=== PATIENT | female | born 1965 | race Caucasian/White ===

== ENCOUNTER 2017-12-12 13:34 | Emergency (ER) | payer SELFPAY ==
[~2017-12-12] VITALS: Ht 162.6 cm; Wt 59.0 kg
--- NOTE | 2017-12-12 13:50 | ED Lower Extremity ---
General Chief Complaint: Trauma-Non Activation Stated Complaint: FALL/LEFT LEG INJURY Source: patient Exam Limitations: no limitations History of Present Illness Date Seen by Provider: Dec 12, 2017 Time Seen by Provider: 13:48 Initial Comments To ER per EMS from home with reports of a fall. She was about 3-4 feet up on a ladder and fell in her shoe became entangled in the ladder. She doesn't has pain and deformity to the proximal tibia and knee. She was given 4 mg morphine in route by EMS in addition to 4mg zofran of Zofran. Onset: just prior to arrival Severity: moderate Method of Injury: fell Modifying Factors: Worse With Movement Allergies and Home Medications Allergies Coded Allergies: Penicillins (Verified Allergy, Unknown, 12/12/17) Home Medications Atenolol 50 Mg Tablet, 50 MG PO DAILY, (Reported) Lisinopril 20 Mg Tablet, 20 MG PO DAILY, (Reported) Constitutional: see HPI EENTM: see HPI Respiratory: no symptoms reported Cardiovascular: no symptoms reported Genitourinary: no symptoms reported Musculoskeletal: see HPI Skin: no symptoms reported Psychiatric/Neurological: No Symptoms Reported Past Zfqituz-Qmnbew-Dssmfg Hx Patient Social History Alcohol Use: Occasionally Uses Alcohol Beverage of Choice: Beer Recreational Drug Use: No Smoking Status: Current Everyday Smoker Surgeries History of Surgeries: Yes (filopian tube removed from ectopic preg.) Surgeries: Tubal Ligation Respiratory History of Respiratory Disorde: No Cardiovascular History of Cardiac Disorders: Yes Cardiac Disorders: Hypertension Neurological History of Neurological Disord: No Genitourinary History of Genitourinary Disor: No Gastrointestinal History of Gastrointestinal Di: No Musculoskeletal History of Musculoskeletal Dis: No Endocrine History of Endocrine Disorders: No HEENT History of HEENT Disorders: No Cancer History of Cancer: No Psychosocial History of Psychiatric Problem: Yes Behavioral Health Disorders: Depression Integumentary History of Skin or Integumenta: No Blood Transfusions History of Blood Disorders: No Adverse Reaction to a Blood Tr: No Physical Exam Vital Signs Vital Sign - Last 12Hours 12/12/17 13:58 Temp 96.9 Pulse 80 Resp 20 B/P (MAP) 123/92 (102) Pulse Ox 97 Capillary Refill : General Appearance: WD/WN, no apparent distress HEENT: PERRL/EOMI, normal ENT inspection Neck: non-tender, full range of motion Respiratory: no respiratory distress, no accessory muscle use Hips: bilateral hip non-tender, bilateral hip normal inspection, bilateral hip normal range of motion Legs: left leg other (pain deformity and swelling to the proximal tibia on the left. She holds the leg flexed at the knee.) Knees: left knee deformity, left knee ecchymosis, left knee pain, left knee soft tissue tenderness, left knee swelling Ankles: bilateral ankle non-tender, bilateral ankle normal inspection, bilateral ankle normal range of motion Neurologic/Psychiatric: alert, normal mood/affect, oriented x 3 Skin: normal color, warm/dry Progress/Results/Core Measures Results/Orders Lab Results Laboratory Tests Test 12/12/17 14:27 Range/Units White Blood Count 8.5 4.3-11.0 10^3/uL Red Blood Count 4.24 L 4.35-5.85 10^6/uL Hemoglobin 14.2 11.5-16.0 G/DL Hematocrit 39 35-52 % Mean Corpuscular Volume 93 80-99 FL Mean Corpuscular Hemoglobin 34 25-34 PG Mean Corpuscular Hemoglobin Concent 36 32-36 G/DL Red Cell Distribution Width 11.8 10.0-14.5 % Platelet Count 246 130-400 10^3/uL Mean Platelet Volume 9.5 7.4-10.4 FL Neutrophils (%) (Auto) 68 42-75 % Lymphocytes (%) (Auto) 16 12-44 % Monocytes (%) (Auto) 14 H 0-12 % Eosinophils (%) (Auto) 1 0-10 % Basophils (%) (Auto) 0 0-10 % Neutrophils # (Auto) 5.8 1.8-7.8 X 10^3 Lymphocytes # (Auto) 1.4 1.0-4.0 X 10^3 Monocytes # (Auto) 1.2 H 0.0-1.0 X 10^3 Eosinophils # (Auto) 0.1 0.0-0.3 10^3/uL Basophils # (Auto) 0.0 0.0-0.1 10^3/uL Sodium Level 129 L 135-145 MMOL/L Potassium Level 4.6 3.6-5.0 MMOL/L Chloride Level 96 L 98-107 MMOL/L Carbon Dioxide Level 22 21-32 MMOL/L Anion Gap 11 5-14 MMOL/L Blood Urea Nitrogen 6 L 7-18 MG/DL Creatinine 0.70 0.60-1.30 MG/DL Estimat Glomerular Filtration Rate > 60 BUN/Creatinine Ratio 9 Glucose Level 135 H 70-105 MG/DL Calcium Level 9.1 8.5-10.1 MG/DL Total Bilirubin 0.5 0.1-1.0 MG/DL Aspartate Amino Transf (AST/SGOT) 88 H 5-34 U/L Alanine Aminotransferase (ALT/SGPT) 102 H 0-55 U/L Alkaline Phosphatase 115 40-136 U/L Total Protein 7.1 6.4-8.2 GM/DL Albumin 4.1 3.2-4.5 GM/DL My Orders Orders - OTILIO GUNN APRN Tibia/Fibula, Left, 2 Views (12/12/17 13:47) Knee, Left, 2 Views (Ap & Lat) (12/12/17 13:47) Fentanyl Injection (Sublimaze Injection (12/12/17 14:17) Cbc With Automated Diff (12/12/17 14:22) Comprehensive Metabolic Panel (12/12/17 14:22) Saline Lock/Iv-Start (12/12/17 14:22) Catheter(Urinary) To Dependent (12/12/17 14:22) Fentanyl Injection (Sublimaze Injection (12/12/17 14:30) Ondansetron Injection (Zofran Injectio (12/12/17 14:30) Femur, Left, 2 Views (12/12/17 14:22) Ankle, Left, 3 Views (12/12/17 14:24) Hydromorphone Injection (Dilaudid Inject (12/12/17 15:30) Medications Given in ED Current Medications Medications Dose Ordered Sig/Fernando Route Start Time Stop Time Status Last Admin Dose Admin Famotidine 20 mg ONCE ONCE IV 12/12/17 15:00 12/12/17 15:01 DC 12/12/17 15:08 20 MG Fentanyl Citrate 100 mcg STK-MED ONCE .ROUTE 12/12/17 14:17 12/12/17 14:19 DC 12/12/17 14:21 75 MCG Hydromorphone HCl 1 mg ONCE PRN IVP 12/12/17 15:30 12/12/17 15:33 1 MG Metoclopramide HCl 5 mg ONCE ONCE IV 1/29/18 15:00 12/12/17 15:01 DC 12/12/17 15:08 5 MG Ondansetron HCl 4 mg ONCE ONCE IVP 12/12/17 14:30 12/12/17 14:31 DC 12/12/17 14:28 4 MG Vital Signs/I&O Vital Sign - Last 12Hours 12/12/17 12/12/17 13:58 14:04 Temp 96.9 96.9 Pulse 80 80 Resp 20 20 B/P (MAP) 123/92 (102) 123/92 (102) Pulse Ox 97 97 Departure Communication (Admissions) Progress Notes 1426-the left foot slightly cooler than the right foot. Capillary refill on the left at the great toe is about 5 seconds as compared to 3-4 seconds on the right. Patient is a smoker. The right dorsalis pedis pulse is also nonpalpable but able to Doppler blood flow on ultrasound. I assume she has some underlying PAD. I am able to Doppler blood flow over the dorsalis pedis region on the left as well. I did notify Dr. Vargas section maintainer for orthopedic surgeon. He advises to get an x-ray of the ankle and keep patient nothing by mouth. 1522-Dr vargas advises pt will need to go to [facility]. WIll arrange transfer. SIgnificant increase in circumferential swelling proximal tibia since her arrival here to ER. I am able to passively flex and extend the foot without significant increase in pain. She does maintain capillary refill on the left. At this time I do not have concerns of compartment syndrome though she may certain progress to that. Discussed the case with triage nurse and she then relayed the message to Dr. Tucker. We could either placed external fixator here and she will follow-up with him in the clinic later this week or we could splint her and sent her on up-to-date. I relayed this message to Dr. Vargas he would like to have her splinted and sent up today. Impression Impression: Primary Impression: Comminuted fracture left tibia Disposition: 02 XFER SHT-TRM HOSP Condition: Stable Admissions Decision to Admit Reason: Admit from ER (Trauma) Decision to Admit/Date: Dec 12, 2017 Time/Decision to Admit Time: 14:27 Departure-Patient Inst. Decision time for Depature: 15:22 OTILIO GUNN APRN Dec 12, 2017 13:50
[2017-12-12] MEDS ORDERED: LISI-552 PO (14:03)
[2017-12-12] MEDS ORDERED: ATEN50TA PO (14:03)
[2017-12-12] MEDS ORDERED: fentaNYL INJECTION 100 MCG/2 ML AMP ONE (14:17)
--- NOTE | 2017-12-12 14:28 | Diagnostic Imaging Report ---
INDICATION: Fall from a ladder, left knee pain. TIME OF EXAM: 2:20 p.m. FINDINGS: Two views of the left knee demonstrate a comminuted impacted fracture of the proximal tibia and fibula. Tibial fractures appear to extend to the articular surface. Distal femur appears intact. IMPRESSION: Comminuted impacted proximal tibial and fibular fractures. Dictated by: Dictated on workstation # [id number]
[2017-12-12] MEDS ORDERED: fentaNYL INJECTION 100 MCG/2 ML AMP IVP ONE (14:30)
[2017-12-12] MEDS ORDERED: ONDANSETRON 4 MG/2 ML (SDV) Z0FRAN IVP ONE (14:30)
--- NOTE | 2017-12-12 14:30 | Diagnostic Imaging Report ---
INDICATION: Fall and left leg pain. TIME OF EXAM: 2:22 p.m. FINDINGS: Two views of the left tibia and fibula were obtained. Comminuted fractures of the proximal tibia and fibula are again noted. There is depression of the lateral tibial plateau and extension to the articular surfaces. There appears to be a lucency through the mid shaft of the tibia, but overlying cortex is thickened and this may represent a healing fracture. Clinical correlation is recommended. Alignment at the ankle is normal. IMPRESSION: Severely comminuted proximal tibial and fibular fractures. There may be a healing fracture of the mid shaft of the tibia. Clinical correlation is recommended. Dictated by: Dictated on workstation # [id number]
[2017-12-12 14:37] LABS: BASOPHILS % (AUTO) 0 % (0-10); EOSINOPHILS # (AUTO) 0.1 10^3/uL (0.0-0.3); EOSINOPHILS % (AUTO) 1 % (0-10); HEMATOCRIT 39 % (35-52); HEMOGLOBIN 14.2 G/DL (11.5-16.0); LYMPHOCYTES # (AUTO) 1.4 X 10^3 (1.0-4.0); LYMPHOCYTES % (AUTO) 16 % (12-44); MEAN CORPUSCULAR HEMOGLOBIN 34 PG (25-34); MEAN CORPUSCULAR HGB CONC 36 G/DL (32-36); MEAN CORPUSCULAR VOLUME 93 FL (80-99); MEAN PLATELET VOLUME 9.5 FL (7.4-10.4); MONOCYTES # (AUTO) 1.2 X 10^3 (0.0-1.0); MONOCYTES % (AUTO) 14 % (0-12); NEUTROPHILS # (AUTO) 5.8 X 10^3 (1.8-7.8); NEUTROPHILS % (AUTO) 68 % (42-75); PLATELET COUNT 246 10^3/uL (130-400); RED BLOOD COUNT 4.24 10^6/uL (4.35-5.85); RED CELL DISTRIBUTION WIDTH 11.8 % (10.0-14.5); WHITE BLOOD COUNT 8.5 10^3/uL (4.3-11.0)
[2017-12-12 14:59] LABS: ALANINE AMINOTRANSFERASE 102 U/L (0-55); ALBUMIN 4.1 GM/DL (3.2-4.5); ALKALINE PHOSPHATASE 115 U/L (40-136); BILIRUBIN,TOTAL 0.5 MG/DL (0.1-1.0); BUN/CREATININE RATIO 9; CALCIUM 9.1 MG/DL (8.5-10.1); CARBON DIOXIDE 22 MMOL/L (21-32); CHLORIDE 96 MMOL/L (98-107); GFR ESTIMATED > 60; GLUCOSE 135 MG/DL (70-105); POTASSIUM 4.6 MMOL/L (3.6-5.0); SODIUM 129 MMOL/L (135-145); TOTAL PROTEIN 7.1 GM/DL (6.4-8.2)
[2017-12-12] MEDS ORDERED: FAMOTIDINE 20MG/2ML IV (PEPCID) IV ONE (15:00)
[2017-12-12] MEDS ORDERED: METOCLOPRAMIDE INJ 10 MG/2 ML (REGLAN) IV ONE (15:00)
--- NOTE | 2017-12-12 15:01 | Diagnostic Imaging Report ---
INDICATION: Fall. TIME OF EXAM: 3:08 p.m. FINDINGS: Three views of the left ankle demonstrate normal tibiotalar alignment. No dislocation is seen. No fracture is identified. IMPRESSION: No acute bony abnormality is detected. Dictated by: Dictated on workstation # [id number]
--- NOTE | 2017-12-12 15:02 | Diagnostic Imaging Report ---
INDICATION: Fall. TIME OF EXAMINATION: 02:56 p.m. FINDINGS: Left hip alignment is normal. Femur appears intact. Severely comminuted fractures of proximal tibia and fibula are again noted. IMPRESSION: No acute feature of the left femur is identified. Dictated by: Dictated on workstation # [id number]
--- OUTSIDE RECORDS SUMMARY | 2017-12-12 15:24 | XMS REPORT ---
Author Author UYEN ECHOLS Organization [facility] Address [address] [place] [address] Care Team Providers Care Obstetrics Nurse Name Role Phone UYEN ECHOLS Unavailable PROBLEMS Type Condition ICD9-CM Code [id number] Code Onset Dates Condition Status SNOMED Code Problem Tobacco abuse Z72.0 Active 756889224 Problem Routine health maintenance Z00.00 Active 944306507 Problem Tobacco abuse counseling Z71.6 Active 203531763 Problem Essential hypertension I10 Active 89054577 Problem Lumbago with sciatica, left side M54.42 Active 998094255 Problem Elevated fasting glucose R73.01 Active 160950103 Problem ETOH abuse F10.10 Active 99482377 Problem Moderate episode of recurrent major depressive disorder F33.1 Active 501686805 Problem Pseudobulbar affect F48.2 Active 40694255 Problem Mixed hyperlipidemia E78.2 Active 248021632 ALLERGIES Unknown Allergies SOCIAL HISTORY No smoking Hx information available PLAN OF CARE VITAL SIGNS MEDICATIONS Medication Instructions Dosage Frequency Start Date End Date Duration Status Metformin HCl 500 MG Orally Once a day with evening meal 1 tablet Nov 30 day(s) Active RESULTS No Results PROCEDURES No Known procedures IMMUNIZATIONS No Known Immunizations
--- OUTSIDE RECORDS SUMMARY | 2017-12-12 15:25 | XMS REPORT ---
Author Author UYEN ECHOLS Organization [employer] Address Unknown Phone Unavailable Care Team Providers Care History Card Clerk Name Role Phone UYEN ECHOLS CP Unavailable Allergies No Known Allergies Problems Problem Type Condition Code Onset Dates Condition Status Assessment ETOH abuse F10.10 Active Assessment Essential hypertension I10 Active Assessment Moderate episode of recurrent major depressive disorder F33.1 Active Problem Moderate episode of recurrent major depressive disorder F33.1 Active Problem Routine health maintenance Z00.00 Active Problem Essential hypertension I10 Active Problem Tobacco abuse counseling Z71.6 Active Assessment Routine health maintenance Z00.00 Active Problem ETOH abuse F10.10 Active Problem Tobacco abuse Z72.0 Active Medications No Known Medications Procedures Procedure Coding System Code Date GLYCATED HEMOGLOBIN TEST CPT-4 62731 Sep 13, 2016 COMPLETE CBC W/AUTO DIFF WBC CPT-4 42087 Sep 13, 2016 ASSAY THYROID STIM HORMONE CPT-4 76164 Sep 13, 2016 COMPREHEN METABOLIC PANEL CPT-4 02117 Sep 13, 2016 LIPID PANEL CPT-4 81976 Sep 13, 2016 VENIPUNCT, ROUTINE* CPT-4 98028 Sep 13, 2016 Results Name Result Date Reference Range Unit Abnormality Flag ROUTINE VENIPUNCTURE Summary Purpose [employer] Submission
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
--- OUTSIDE RECORDS SUMMARY | 2017-12-12 15:25 | XMS REPORT ---
Author Author Aditi Marie Organization [facility] Address [address] [place], [place] [id number] Care Team Providers Care [employer] Hand Name Role Phone Aditi Marie PCP Unavailable Allergies and Adverse Reactions Name Reaction Notes PENICILLINS Plan of Treatment Planned Activity Comments Planned Date Planned Time Plan/Goal LIPID PANEL 02/17/2012 12:00 AM Medications Active Name Start Date Estimated Completion Date SIG Comments atenolol 50 mg oral tablet 02/10/2015 TAKE ONE TABLET BY MOUTH EVERY DAY Bactroban 2 % topical ointment 05/06/2015 apply a small amount to the affected area by topical route 3 times per day lisinopril 20 mg oral tablet 06/09/2015 take 1 tablet (20 mg) by oral route once daily amlodipine 5 mg oral tablet 07/30/2015 TAKE ONE TABLET BY MOUTH ONCE DAILY Xanax 0.25 mg oral tablet 08/11/2015 take 1 tablet by oral route 2 times a day as needed Wellbutrin 100 mg oral tablet 10/07/2015 take 1 tablet (100 mg) by oral route 2 times per day paroxetine HCl 20 mg oral tablet 10/07/2015 TAKE ONE TABLET BY MOUTH EVERY DAY promethazine-codeine 6.25-10 mg/5 mL oral syrup 10/07/2015 take 5 milliliters by oral route every 4-6 hours as needed, not to exceed 30 mL in 24 hours Zithromax Z-Demond 250 mg oral tablet 10/07/2015 10/12/2015 take 2 tablets ( 500 mg) by oral route once daily for 1 day then 1 tablet (250 mg) by oral route once daily for 4 days Name Start Date Expiration Date SIG Comments naproxen 500 mg oral tablet 11/11/2009 12/11/2009 [id number] - TAKE ONE TABLET BY MOUTH TWICE DAILY NEEDED Zithromax Z-Demond 250 mg oral tablet 07/23/2010 07/28/2010 take 2 tablets (500 mg ) by oral route once daily for 1 day then 1 tablet (250 mg) by oral route once daily for 4 days Zithromax Z-Demond 250 mg oral tablet 10/15/2010 10/20/2010 take 2 tablets (500 mg) by oral route once daily for 1 day then 1 tablet (250 mg) by oral route once daily for 4 days Lexapro 10 mg oral tablet 01/05/2011 02/04/2011 take 1 tablet (10 mg) by oral route once daily for 30 days samples lisinopril 30 mg oral tablet 07/20/2011 01/16/2012 take 1 tablet (30 mg) by oral route once daily for 30 days Zithromax Z-Demond 250 mg oral tablet 11/01/2011 11/11/2011 take 2 tablets ( 500 mg) by oral route once daily for 1 day then 1 tablet (250 mg) by oral route once daily for 4 days Cipro 500 mg oral tablet 03/13/2012 03/20/2012 take 1 tablet (500 mg) by oral route once for 7 days Claritin-D 12 Hour 5-120 mg oral tablet extended release 12 hr 10/02/2012 take 1 tablet by oral route 2 times per day for 30 days prednisone 20 mg oral tablet 12/06/2012 12/11/2012 take 1 tablet daily x5 days. Zithromax Z-Demond 250 mg oral tablet 12/14/2012 12/19/2012 take 2 tablets (500 mg ) by oral route once daily for 1 day then 1 tablet (250 mg) by oral route once daily for 4 days Zithromax Z-Demond 250 mg oral tablet 05/30/2013 06/04/2013 take 2 tablets (500 mg) by oral route once daily for 1 day then 1 tablet (250 mg) by oral route once daily for 4 days atenolol 50 mg oral tablet 08/06/2013 02/02/2014 TAKE ONE TABLET BY MOUTH EVERY DAY paroxetine HCl 20 mg oral tablet 03/07/2013 04/06/2013 TAKE ONE TABLET BY MOUTH EVERY DAY Zithromax Z-Demond 250 mg oral tablet 10/29/2013 11/03/2013 take 2 tablets ( 500 mg) by oral route once daily for 1 day then 1 tablet (250 mg) by oral route once daily for 4 days Levaquin 750 mg oral tablet 01/02/2014 01/09/2014 take 1 tablet (750 mg) by oral route once daily for 7 days Zithromax Z-Demond 250 mg oral tablet 04/18/2014 04/23/2014 take 2 tablets (500 mg ) by oral route once daily for 1 day then 1 tablet (250 mg) by oral route once daily for 4 days amlodipine 5 mg oral tablet 07/17/2014 01/13/2015 take 1 tablet (5 mg) by oral route once daily for 30 days Zithromax Z-Demond 250 mg oral tablet 11/27/2014 12/02/2014 take 2 tablets (500 mg) by oral route once daily for 1 day then 1 tablet (250 mg) by oral route once daily for 4 days Bactrim DS 800-160 mg oral tablet 05/06/2015 05/13/2015 take 1 tablet by oral route every 12 hours for 7 days Possibly caused throwing up, low sodium Discontinued Name Start Date Discontinued Date SIG Comments Phenergan-Codeine 6.25-10 mg/5 mL oral syrup 10/08/2009 10/15/2010 take 5 milliliters by oral route every 6 hours as needed, not to exceed 30 mL in 24 hours Ambien 10 mg oral tablet 10/15/2010 07/20/2011 take 1 tablet (10 mg) by oral route once daily at bedtime Medrol (Demond) 4 mg oral tablets,dose pack 10/15/2010 10/30/2010 take as directed pravastatin 40 mg oral tablet 08/25/2011 02/17/2012 take 1 tablet (40 mg) by oral route once daily for 30 days made hands/legs cramp up Xanax 0.25 mg oral tablet 02/17/2012 03/13/2012 take 1 tablet by mouth daily as needed. Celexa 20 mg oral tablet 03/13/2012 take 1 tablet (20 mg) by oral route once daily in the evening Viibryd 40 mg oral tablet 08/14/2012 take 1 tablet (40 mg) by oral route once daily with food for 30 days amitriptyline 25 mg oral tablet 08/14/2012 take 1 tablet (25 mg) by oral route once daily at bedtime for 30 days Clarinex-D 12 HOUR 2.5-120 mg oral tablet, ER multiphase 12 hr 10/02/2012 take 1 tablet by oral route 2 times per day for 30 days promethazine-codeine 6.25-10 mg/5 mL oral syrup 12/06/2012 05/15/2013 take 5 milliliters by oral route every 4-6 hours as needed, not to exceed 30 mL in 24 hours Medrol (Demond) 4 mg oral tablets,dose pack 05/15/2013 08/06/2013 take as directed promethazine-codeine 6.25-10 mg/5 mL oral syrup 05/30/2013 08/06/2013 take 5 milliliters by oral route every 6 hours as needed, not to exceed 30 mL in 24 hours naproxen 500 mg oral tablet,delayed release (/EC) 10/23/2013 07/17/2014 take 1 tablet by oral route 2 times a day Zyrtec-D 5-120 mg oral tablet extended release 12 hr 10/23/2013 03/18/2014 take 1 tablet by oral route every 12 hours lisinopril 20 mg oral tablet 10/23/2013 03/18/2014 TAKE ONE & ONE-HALF TABLETS BY MOUTH EVERY DAY promethazine-codeine 6.25-10 mg/5 mL oral syrup 01/02/2014 04/17/2014 take 5 milliliters by oral route every 4-6 hours as needed, not to exceed 30 mL in 24 hours lisinopril-hydrochlorothiazide 20-12.5 mg oral tablet 04/17/2014 05/19/2015 take 2 tablets by mouth daily in am. Changed from HCL to plain Medrol (Demond) 4 mg oral tablets,dose pack 04/18/2014 07/17/2014 take as directed Medrol (Demond) 4 mg oral tablets,dose pack 10/30/2014 02/10/2015 take as directed promethazine-codeine 6.25-10 mg/5 mL oral syrup 11/27/2014 02/10/2015 take 5 milliliters by oral route every 4-6 hours as needed, not to exceed 30 mL in 24 hours Sudafed 12 Hour 120 mg oral tablet extended release 11/27/2014 05/06/2015 take 1 tablet (120 mg) by oral route every 12 hours Problem List Description Status Onset Asthma Active Essential Hypertension Active Chronic Obstructive Pulmonary Disease Active Anxiety Disorder Active 04/17/2014 Vital Signs Date Time BP-Sys(mm[Hg] BP-Nica(mm[Hg]) HR(bpm) RR(rpm) Temp WT HT HC BMI BSA BMI Percentile O2 Sat(%) 10/07/2015 1:18:00 PM 128 mmHg 62 mmHg 86 bpm 18 rpm 97.3 F 119.25 lbs 64 in 20.47 kg/m2 1.56 m2 100 % 08/11/2015 1:38:00 PM 132 mmHg 74 mmHg 89 bpm 18 rpm 98.4 F 117 lbs 64 in 20.0828 kg/m 1.548 m 100 % 05/19/2015 11:20:00 AM 156 mmHg 100 mmHg 80 bpm 18 rpm 97.8 F 115.25 lbs 64 in 19.78 kg/m2 1.54 m2 100 % 05/06/2015 10:53:00 AM 124 mmHg 66 mmHg 82 bpm 18 rpm 97.6 F 115.25 lbs 64 in 19.7824 kg/m 1.5364 m 100 % 02/10/2015 1:52:00 PM 132 mmHg 74 mmHg 84 bpm 18 rpm 98.2 F 122.375 lbs 64 in 21.01 kg/m2 1.58 m2 100 % 11/27/2014 9:23:00 AM 112 mmHg 70 mmHg 101 bpm 18 rpm 97.1 F 123 lbs 64 in 21.1127 kg/m 1.5872 m 100 % 10/30/2014 9:27:00 AM 122 mmHg 78 mmHg 96 bpm 18 rpm 97.2 F 125.8 lbs 64 in 21.59 kg/m2 1.61 m2 99 % 08/21/2014 1:52:00 PM 126 mmHg 66 mmHg 80 bpm 18 rpm 97 F 125.375 lbs 64 in 21.5203 kg/m 1.6025 m 99 % 07/17/2014 2:10:00 PM 138 mmHg 92 mmHg 90 bpm 18 rpm 98 F 125.5 lbs 64 in 21.54 kg/m2 1.60 m2 100 % 04/17/2014 8:17:00 AM 124 mmHg 74 mmHg 102 bpm 18 rpm 96.5 F 125.25 lbs 64 in 21.4989 kg/m 1.6017 m 99 % 03/18/2014 8:52:00 AM 140 mmHg 86 mmHg 90 bpm 18 rpm 97.6 F 129.375 lbs 64 in 22.21 kg/m2 1.63 m2 100 % 01/02/2014 2:42:00 PM 144 mmHg 82 mmHg 78 bpm 18 rpm 97.2 F 131.5 lbs 64 in 22.5717 kg/m 1.6412 m 100 % 10/23/2013 10:30:00 AM 138 mmHg 78 mmHg 91 bpm 18 rpm 96.4 F 137 lbs 64 in 23.52 kg/m2 1.68 m2 100 % 08/06/2013 10:01:00 AM 132 mmHg 66 mmHg 92 bpm 18 rpm 96.8 F 131.25 lbs 64 in 22.5288 kg/m 1.6396 m 100 % 05/15/2013 11:29:00 AM 132 mmHg 68 mmHg 81 bpm 18 rpm 97.7 F 131.375 lbs 64 in 22.55 kg/m2 1.64 m2 100 % 03/19/2013 3:36:00 PM 134 mmHg 68 mmHg 68 bpm 18 rpm 97.6 F 130.125 lbs 64 in 22.3357 kg/m 1.6326 m 12/06/2012 9:53:00 AM 134 mmHg 68 mmHg 68 bpm 18 rpm 97.8 F 126.375 lbs 64 in 21.69 kg/m2 1.61 m2 09/26/2012 9:48:00 AM 136 mmHg 72 mmHg 64 bpm 18 rpm 97.1 F 120.125 lbs 64 in 20.6192 kg/m 1.5686 m 08/14/2012 9:27:00 AM 148 mmHg 98 mmHg 104 bpm 18 rpm 97.6 F 113.5 lbs 100 % 04/04/2012 1:45:00 PM 132 mmHg 64 mmHg 101 bpm 18 rpm 97.4 F 111.375 lbs 64 in 19.1173 kg/m 1.5104 m 03/13/2012 9:49:00 AM 138 mmHg 64 mmHg 70 bpm 18 rpm 97.5 F 109 lbs 64 in 18.71 kg/m2 1.49 m2 99 % 02/17/2012 2:37:00 PM 132 mmHg 64 mmHg 68 bpm 18 rpm 97.9 F 114 lbs 64 in 19.5679 kg/m 1.5281 m 11/01/2011 8:26:00 AM 138 mmHg 64 mmHg 68 bpm 18 rpm 96.4 F 117 lbs 64 in 20.08 kg/m2 1.55 m2 07/20/2011 3:05:00 PM 142 mmHg 92 mmHg 78 bpm 97.5 F 116 lbs 03/31/2011 1:39:00 PM 130 mmHg 88 mmHg 72 bpm 16 rpm 98 F 121.25 lbs 11/12/2010 3:35:00 PM 118 mmHg 76 mmHg 10/15/2010 2:48:00 PM 168 mmHg 110 mmHg 10/15/2010 2:25:00 PM 174 mmHg 110 mmHg 10/15/2010 1:55:00 PM 198 mmHg 118 mmHg 64 bpm 16 rpm 96.9 F 123 lbs 07/17/2010 2:54:00 PM 106 mmHg 68 mmHg 64 bpm 16 rpm 97.6 F 117 lbs 10/07/2009 4:00:00 PM 128 mmHg 70 mmHg 64 bpm 16 rpm 97.8 F 120.125 lbs Social History Name Description Comments No history of foreign travel Tobacco Use Alcohol Use Tobacco Current every day smoker History of Procedures Date Ordered Description Order Status 08/11/2015 12:00 AM COMPREHEN METABOLIC PANEL Returned 07/20/2011 12:00 AM COMPREHEN METABOLIC PANEL Reviewed 07/20/2011 12:00 AM LIPID PANEL Reviewed 10/07/2015 12:00 AM Decadron, Per 1 Mg TXC# [address]-37 Reviewed 10/07/2015 12:00 AM Depo-Medrol 40mg Reviewed 11/01/2011 12:00 AM LIPID PANEL Reviewed 11/01/2011 12:00 AM THER/PROPH/DIAG INJ SC/IM Reviewed 11/01/2011 12:00 AM Decadron 1 mg N[facility]#[id number] (Sanjeev) Reviewed 11/01/2011 12:00 AM Depo-Medrol 80 mg [facility]#[id number] Reviewed 02/17/2012 12:00 AM THER/PROPH/DIAG INJ SC/IM Reviewed 02/17/2012 12:00 AM Decadron 1 mg NDC#[id number] (Sanjeev) Reviewed 02/17/2012 12:00 AM Depo-Medrol 80 mg N[facility]#[id number] Reviewed 08/14/2012 12:00 AM COMPREHEN METABOLIC PANEL Returned 08/14/2012 12:00 AM LIPID PANEL Returned 09/26/2012 12:00 AM THER/PROPH/DIAG INJ SC/IM Reviewed 09/26/2012 12:00 AM Decadron 1 mg NDC#[id number] (Sanjeev) Reviewed 09/26/2012 12:00 AM Depo-Medrol 80 mg [facility]#[id number] Reviewed 05/15/2013 12:00 AM CHEST X-RAY 2VW FRONTAL&LATL Returned 08/06/2013 12:00 AM COMPLETE CBC W/AUTO DIFF WBC Returned 08/06/2013 12:00 AM COMPREHEN METABOLIC PANEL Returned 08/06/2013 12:00 AM LIPID PANEL Returned 10/24/2013 12:00 AM VITAMIN B-12 Returned 10/24/2013 12:00 AM ASSAY OF FOLIC ACID SERUM Returned 10/31/2013 12:00 AM B12 Injection, Up to 1000 Mcg [facility]#9333-4233-67 Reviewed 01/02/2014 12:00 AM THER/PROPH/DIAG INJ SC/IM Reviewed 01/02/2014 12:00 AM Decadron, Per 1 Mg [facility]# [address]-74 Reviewed 01/02/2014 12:00 AM Depo-Medrol, Per 80 Mg [facility]#7265-9638-84 Reviewed 01/02/2014 12:00 AM B12 Injection, Up to 1000 Mcg [facility]#2087-7659-06 Reviewed 01/29/2014 12:00 AM B12 Injection, Up to 1000 Mcg [facility]#5907-9759-82 Reviewed 03/18/2014 12:00 AM THER/PROPH/DIAG INJ SC/IM Reviewed 03/18/2014 12:00 AM Decadron, Per 1 Mg [facility]# [address]-67 Reviewed 03/18/2014 12:00 AM Depo-Medrol, Per 80 Mg [facility]#4534-9077-46 Reviewed 04/11/2014 12:00 AM B12 Injection, Up to 1000 Mcg [facility]#7601-6055-26 Reviewed 10/30/2010 12:00 AM Blood Pressure Check-no charge Reviewed 11/12/2010 12:00 AM Blood Pressure Check-no charge Reviewed 07/17/2014 12:00 AM COMPLETE CBC W/AUTO DIFF WBC Returned 07/17/2014 12:00 AM COMPREHEN METABOLIC PANEL Returned 07/17/2014 12:00 AM LIPID PANEL Returned 11/27/2014 12:00 AM THER/PROPH/DIAG INJ SC/IM Reviewed 11/27/2014 12:00 AM Decadron, Per 1 Mg [facility]# [address]-20 Reviewed 11/27/2014 12:00 AM Depo-Medrol, Per 80 Mg [facility]#0473-2017-98 Reviewed 02/10/2015 12:00 AM THER/PROPH/DIAG INJ SC/IM Reviewed 02/10/2015 12:00 AM Decadron, Per 1 Mg [facility]# [address]-87 Reviewed 02/10/2015 12:00 AM Depo-Medrol 40mg Reviewed 05/19/2015 12:00 AM METABOLIC PANEL TOTAL CA Returned Results Summary Data and Description Results 03/19/2009 12:00 AM Cholest Cry Stone Ql IR 0.0 %Colonoscopy-Women and Men over 50 Declined Mammogram -Women over 40 Declined Pap Smear Declined 08/25/2011 8:35 AM TRIGLYCERIDES 465.0 mg/dLCHOLESTEROL 192.0 mg/dLHDL 56.0 mg /dLLDL (CALC) INVALID MG/DLGLUCOSE 107.0 mg/dLSODIUM 142.0 mmol/LPOTASSIUM 4.60 mmol/LCHLORIDE 109.0 mmol/LCO2 23.0 mmol/LBUN 10.0 mg/dLCREATININE 0.70 mg/ dLSGOT/AST 22.0 IU/LSGPT/ALT 21.0 IU/LALK PHOS 66.0 IU/LTOTAL PROTEIN 6.80 g/ dLALBUMIN 4.30 g/dLTOTAL BILI 0.20 mg/dLCALCIUM 9.20 mg/dLeGFR >60 mL/min/1.73 m2 11/03/2011 9:18 AM TRIGLYCERIDES 116.0 mg/dLCHOLESTEROL 180.0 mg/dLHDL 73.0 mg /dLLDL (CALC) 84.0 mg/dL 08/14/2012 10:02 AM GLUCOSE 91.0 mg/dLSODIUM 141.0 mmol/LPOTASSIUM 4.40 mmol/ LCHLORIDE 107.0 mmol/LCO2 23.0 mmol/LBUN 9.0 mg/dLCREATININE 0.70 mg/dLSGOT/AST 28.0 IU/LSGPT/ALT 31.0 IU/LALK PHOS 71.0 IU/LTOTAL PROTEIN 7.10 g/dLALBUMIN 4.40 g/dLTOTAL BILI 0.30 mg/dLCALCIUM 9.50 mg/dLeGFR 60 TRIGLYCERIDES 131.0 mg/ dLCHOLESTEROL 180.0 mg/dLHDL 66.0 mg/dLLDL (CALC) 88.0 mg/dL 10/23/2013 11:10 AM WBC 9.3 RBC 4.01 HGB 13.20 g/dLHCT 40.0 %MCV 100.0 fLMCH 32.90 pgMCHC 33.0 g/dLRDW CV 13.40 %MPV 10.30 fLPLT 240 %NEUT 61.20 %%LYMP 26.60 %%MONO 10.50 %%EOS 1.50 %%BASO 0.20 %#NEUT 5.67 #LYMP 2.46 #MONO 0.97 # EOS 0.14 #BASO 0.02 GLUCOSE 107.0 mg/dLSODIUM 140.0 mmol/LPOTASSIUM 4.20 mmol/ LCHLORIDE 107.0 mmol/LCO2 24.0 mmol/LBUN 9.0 mg/dLCREATININE 0.70 mg/dLSGOT/AST 33.0 IU/LSGPT/ALT 43.0 IU/LALK PHOS 93.0 IU/LTOTAL PROTEIN 6.90 g/dLALBUMIN 4.0 g/dLTOTAL BILI 0.40 mg/dLCALCIUM 9.70 mg/dLeGFR >60 mL/min/1.73 [id number] 212.0 mg/dLCHOLESTEROL 196.0 mg/dLHDL 56.0 mg/dLLDL (CALC) 98.0 mg/dL 10/29/2013 11:55 AM FOLATE 6.50 ng/mLVITAMIN B12 264.0 pg/mL 10/30/2014 10:15 AM WBC 9.0 RBC 4.20 HGB 13.90 g/dLHCT 40.70 %MCV 97.0 fLMCH 33.10 pgMCHC 34.20 g/dLRDW CV 12.80 %MPV 9.80 fLPLT 309 %NEUT 60.50 %%LYMP 27.30 %%MONO 9.70 %%EOS 2.30 %%BASO 0.20 %#NEUT 5.46 #LYMP 2.47 #MONO 0.88 #EOS 0.21 #BASO 0.02 TRIGLYCERIDES 167.0 mg/dLCHOLESTEROL 225.0 mg/dLHDL 57.0 mg/ dLLDL (CALC) 135.0 mg/dLGLUCOSE 109.0 mg/dLSODIUM 135.0 mmol/LPOTASSIUM 4.80 mmol/LCHLORIDE 100.0 mmol/LCO2 24.0 mmol/LBUN 15.0 mg/dLCREATININE 1.20 mg/ dLSGOT/AST 37.0 IU/LSGPT/ALT 52.0 IU/LALK PHOS 90.0 IU/LTOTAL PROTEIN 7.40 g/ dLALBUMIN 4.50 g/dLTOTAL BILI 0.30 mg/dLCALCIUM 10.40 mg/dLeGFR 48 05/23/2015 1:10 PM GLUCOSE 91.0 mg/dLSODIUM 138.0 mmol/LPOTASSIUM 4.40 mmol/ LCHLORIDE 102.0 mmol/LCO2 24.0 mmol/LBUN 4.0 mg/dLCREATININE 0.70 mg/dLCALCIUM 9.20 mg/dLeGFR >60 mL/min/1.73 m2 08/11/2015 2:45 PM GLUCOSE 105.0 mg/dLSODIUM 133.0 mmol/LPOTASSIUM 4.50 mmol/ LCHLORIDE 98.0 mmol/LCO2 25.0 mmol/LBUN 9.0 mg/dLCREATININE 0.60 mg/dLSGOT/AST 65.0 IU/LSGPT/ALT 76.0 IU/LALK PHOS 114.0 IU/LTOTAL PROTEIN 7.20 g/dLALBUMIN 4.50 g/dLTOTAL BILI 0.40 mg/dLCALCIUM 9.80 mg/dLeGFR >60 mL/min/1.73m History Of Immunizations Not available. History of Past Illness Name Date of Onset Comments Bronchitis, Acute Oct 08 2009 8:32AM Rosacea Essential Hypertension Asthma Chronic Obstructive Pulmonary Disease Depression and anxiety Jul 17 2010 2:57PM Anxiety Disorder 04/17/2014 Upper Respiratory Infection Oct 15 2010 2:02PM Allergic Rhinitis Oct 15 2010 2:02PM Insomnia Oct 15 2010 2:02PM Hypertension Oct 15 2010 2:02PM Hypertension, Benign Essential Oct 30 2010 2:44PM Hypertension, Benign Essential Nov 12 2010 3:33PM Benign Essential Hypertension Mar 31 2011 1:40PM Anxiety Disorder Mar 31 2011 1:40PM Depressive Disorder Mar 31 2011 1:40PM Hypertension Jul 20 2011 3:06PM Hypertension Nov 01 2011 8:28AM Hyperlipidemia, unspecified Nov 01 2011 8:28AM Sinusitis, Acute Nov 01 2011 8:28AM Upper Respiratory Infections Feb 17 2012 2:39PM Hyperlipidemia, unspecified Feb 17 2012 2:39PM Anxiety state; other Feb 17 2012 2:39PM Upper Respiratory Infections Mar 13 2012 9:51AM Anxiety/Depressive Disorder Mar 13 2012 9:51AM Anxiety/Depressive Disorder Apr 04 2012 1:48PM Hypertension Aug 14 2012 9:29AM Menopausal Symptoms Aug 14 2012 9:29AM Anxiety/Depressive Disorder Aug 14 2012 9:29AM Upper Respiratory Infections Sep 26 2012 9:50AM Anxiety Disorder Sep 26 2012 9:50AM Hypertension Dec 06 2012 9:56AM Upper Respiratory Infections Dec 06 2012 9:56AM Anxiety Disorder Dec 06 2012 9:56AM Depressive Disorder Dec 06 2012 9:56AM Anxiety/Depressive Disorder Mar 19 2013 3:38PM Cough May 15 2013 11:31AM Costochondritis May 15 2013 11:31AM Hypertension Aug 06 2013 10:03AM Anxiety Disorder Aug 06 2013 10:03AM Depression Aug 06 2013 10:03AM Anemia, Iron Deficiency, unspecified Oct 24 2013 9:09AM Hypertension Oct 23 2013 10:32AM Upper Respiratory Infections Oct 23 2013 10:32AM Tendonitis Oct 23 2013 10:32AM Anxiety Disorder Oct 23 2013 10:32AM Anemia, Vitamin B12 Deficiency Oct 31 2013 4:25PM Upper Respiratory Infections Jan 02 2014 2:48PM Anxiety Disorder Jan 02 2014 2:48PM Anemia, Vitamin B12 Deficiency Jan 29 2014 1:54PM Hypertension Mar 18 2014 8:54AM Rhinitis, Allergic Mar 18 2014 8:54AM Anemia, Vitamin B12 Deficiency Apr 11 2014 8:38AM Hypertension Apr 17 2014 8:20AM Anxiety Disorder Apr 17 2014 8:20AM Anxiety Disorder Jul 17 2014 2:14PM Essential Hypertension Jul 17 2014 2:14PM Chronic Obstructive Pulmonary Disease Jul 17 2014 2:14PM Routine gynecological examination Aug 21 2014 1:54PM Breast cyst, right Aug 21 2014 1:54PM Essential Hypertension Oct 30 2014 9:29AM Anxiety Disorder Oct 30 2014 9:29AM Depressive Disorder Oct 30 2014 9:29AM Tobacco Abuse Oct 30 2014 9:29AM Cough Oct 30 2014 9:29AM Upper Respiratory Infections Nov 27 2014 9:29AM Back Pain Feb 10 2015 1:54PM Anxiety Disorder Feb 10 2015 1:54PM Essential Hypertension Feb 10 2015 1:54PM Chronic Obstructive Pulmonary Disease Feb 10 2015 1:54PM Facial lesion May 06 2015 10:55AM Anxiety Disorder May 06 2015 10:55AM Hyponatremia May 19 2015 11:24AM Anxiety Disorder May 19 2015 11:24AM Essential Hypertension May 19 2015 11:24AM Anxiety Disorder Aug 11 2015 1:40PM Essential Hypertension Aug 11 2015 1:40PM Chronic Obstructive Pulmonary Disease Aug 11 2015 1:40PM Abrasion Aug 11 2015 1:40PM Acute URI Oct 07 2015 1:20PM Alcohol abuse Oct 07 2015 1:20PM Anxiety Oct 07 2015 1:20PM Depression Oct 07 2015 1:20PM Payers Insurance Name Company Name Plan Name Plan Number Policy Number Policy Group Number Start Date [employer] [id number] Monday, 2007 History of Encounters Visit Date Visit Type Provider 10/07/2015 Office visit Aditi Marie GLASS ENGRAVER 08/11/2015 Office visit Aditi Marie GLASS ENGRAVER 05/19/2015 Office visit Aditi Marie GLASS ENGRAVER 05/12/2015 [facility] Salome Phillips MD 05/06/2015 Office visit Aditi Marie GLASS ENGRAVER 02/10/2015 Office visit Aditi Marie GLASS ENGRAVER 11/27/2014 Office visit Aditi Marie GLASS ENGRAVER 10/30/2014 Office visit Emily Casper GLASS ENGRAVER 08/21/2014 Office visit Aditi Marie GLASS ENGRAVER 07/17/2014 Office visit Aditi Marie GLASS ENGRAVER 04/17/2014 Office visit Aditi Marie GLASS ENGRAVER 03/18/2014 Office visit Aditi Marie GLASS ENGRAVER 03/15/2014 Nurse visit Emily Casper GLASS ENGRAVER 01/29/2014 Nurse visit Aditi Marie GLASS ENGRAVER 01/02/2014 Office visit Aditi Marie GLASS ENGRAVER 10/31/2013 Nurse visit Aditi Marie GLASS ENGRAVER 10/23/2013 Office visit Aditi Marie GLASS ENGRAVER 08/06/2013 Office visit Aditi Marie GLASS ENGRAVER 05/15/2013 Office visit Aditi Marie GLASS ENGRAVER 03/19/2013 Office visit Aditi Marie GLASS ENGRAVER 12/06/2012 Office visit Aditi Marie GLASS ENGRAVER 09/26/2012 Office visit Aditi Marie GLASS ENGRAVER 08/14/2012 Office visit Aditi Marie GLASS ENGRAVER 04/04/2012 Office visit Aditi Marie GLASS ENGRAVER 03/13/2012 Office visit Aditi Marie GLASS ENGRAVER 02/17/2012 Office visit Aditi Marie GLASS ENGRAVER 11/01/2011 Office visit Aditi Marie GLASS ENGRAVER 07/20/2011 Office visit Aditi Marie GLASS ENGRAVER 03/31/2011 Office visit Lyudmila DYER 11/12/2010 Nurse visit Lyudmila DYER 10/30/2010 Nurse visit Lyudmila DYER 10/15/2010 Office visit Lyudmila DYER 07/17/2010 Office visit Lyudmila DYER 10/07/2009 Office visit Paola DYER
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
--- OUTSIDE RECORDS SUMMARY | 2017-12-12 15:26 | XMS REPORT ---
Author Author Aditi Marie Organization [facility] Address [address] [place], [place] [address] Care Team Providers Care Air Antisubmarine Officer Name Role Phone Aditi Marie PCP Unavailable [...] TAKE ONE TABLET BY MOUTH ONCE DAILY paroxetine HCl 40 mg oral tablet 08/11/2015 TAKE ONE TABLET BY MOUTH EVERY DAY Xanax 0.25 mg oral tablet 08/11/2015 take 1 tablet by oral route 2 times a day as needed Name Start Date Expiration Date SIG Comments [...] HC BMI BSA BMI Percentile O2 Sat(%) 08/11/2015 1:38:00 PM 132 mmHg 74 mmHg 89 bpm 18 rpm 98.4 F 117 lbs 64 in 20.08 kg/m2 1.55 m2 100 % 05/19/2015 11:20:00 AM 156 mmHg 100 mmHg 80 bpm 18 rpm 97.8 F 115.25 lbs 64 in 19.7824 kg/m 1.5364 m 100 % 05/06/2015 10:53:00 AM 124 mmHg 66 mmHg 82 bpm 18 rpm 97.6 F 115.25 lbs 64 in 19.78 kg/m2 1.54 m2 100 % 02/10/2015 1:52:00 PM 132 mmHg 74 mmHg 84 bpm 18 rpm 98.2 F 122.375 lbs 64 in 21.0054 kg/m 1.5832 m 100 % 11/27/2014 9:23:00 AM 112 mmHg 70 mmHg 101 bpm 18 rpm 97.1 F 123 lbs 64 in 21.11 kg/m2 1.59 m2 100 % 10/30/2014 9:27:00 AM 122 mmHg 78 mmHg 96 bpm 18 rpm 97.2 F 125.8 lbs 64 in 21.5933 kg/m 1.6052 m 99 % 08/21/2014 1:52:00 PM 126 mmHg 66 mmHg 80 bpm 18 rpm 97 F 125.375 lbs 64 in 21.52 kg/m2 1.60 m2 99 % 07/17/2014 2:10:00 PM 138 mmHg 92 mmHg 90 bpm 18 rpm 98 F 125.5 lbs 64 in 21.5418 kg/m 1.6033 m 100 % 04/17/2014 8:17:00 AM 124 mmHg 74 mmHg 102 bpm 18 rpm 96.5 F 125.25 lbs 64 in 21.50 kg/m2 1.60 m2 99 % 03/18/2014 8:52:00 AM 140 mmHg 86 mmHg 90 bpm 18 rpm 97.6 F 129.375 lbs 64 in 22.2069 kg/m 1.6279 m 100 % 01/02/2014 2:42:00 PM 144 mmHg 82 mmHg 78 bpm 18 rpm 97.2 F 131.5 lbs 64 in 22.57 kg/m2 1.64 m2 100 % 10/23/2013 10:30:00 AM 138 mmHg 78 mmHg 91 bpm 18 rpm 96.4 F 137 lbs 64 in 23.5158 kg/m 1.6751 m 100 % 08/06/2013 10:01:00 AM 132 mmHg 66 mmHg 92 bpm 18 rpm 96.8 F 131.25 lbs 64 in 22.53 kg/m2 1.64 m2 100 % 05/15/2013 11:29:00 AM 132 mmHg 68 mmHg 81 bpm 18 rpm 97.7 F 131.375 lbs 64 in 22.5502 kg/m 1.6404 m 100 % 03/19/2013 3:36:00 PM 134 mmHg 68 mmHg 68 bpm 18 rpm 97.6 F 130.125 lbs 64 in 22.34 kg/m2 1.63 m2 12/06/2012 9:53:00 AM 134 mmHg 68 mmHg 68 bpm 18 rpm 97.8 F 126.375 lbs 64 in 21.692 kg/m 1.6089 m 09/26/2012 9:48:00 AM 136 mmHg 72 mmHg 64 bpm 18 rpm 97.1 F 120.125 lbs 64 in 20.62 kg/m2 1.57 m2 08/14/2012 9:27:00 AM 148 mmHg 98 mmHg 104 bpm 18 rpm 97.6 F 113.5 lbs 100 % 04/04/2012 1:45:00 PM 132 mmHg 64 mmHg 101 bpm 18 rpm 97.4 F 111.375 lbs 64 in 19.12 kg/m2 1.51 m2 03/13/2012 9:49:00 AM 138 mmHg 64 mmHg 70 bpm 18 rpm 97.5 F 109 lbs 64 in 18.7096 kg/m 1.4942 m 99 % 02/17/2012 2:37:00 PM 132 mmHg 64 mmHg 68 bpm 18 rpm 97.9 F 114 lbs 64 in 19.57 kg/m2 1.53 m2 11/01/2011 8:26:00 AM 138 mmHg 64 mmHg 68 bpm 18 rpm 96.4 F 117 lbs 64 in 20.0828 kg/m 1.548 m 07/20/2011 3:05:00 PM 142 mmHg 92 mmHg [...] Reviewed 07/20/2011 12:00 AM LIPID PANEL Reviewed 11/01/2011 12:00 AM LIPID PANEL Reviewed 11/01/2011 12:00 AM THER/PROPH/DIAG INJ SC/IM Reviewed 11/01/2011 12:00 AM Decadron 1 mg NDC#[id number] (Sanjeev) Reviewed 11/01/2011 12:00 AM Depo-Medrol 80 mg NDC#[id number]-Jbevaiow Reviewed 02/17/2012 12:00 AM THER/PROPH/DIAG INJ SC/IM Reviewed 02/17/2012 12:00 AM Decadron 1 mg NDC#[id number] (Sanjeev) Reviewed 02/17/2012 12:00 AM Depo-Medrol 80 mg NDC#[id number]-Hbaycxpe Reviewed 08/14/2012 12:00 AM COMPREHEN METABOLIC PANEL Returned 08/14/2012 12:00 AM LIPID PANEL Returned 09/26/2012 12:00 AM THER/PROPH/DIAG INJ SC/IM Reviewed 09/26/2012 12:00 AM Decadron 1 mg NDC#[id number] (Sanjeev) Reviewed 09/26/2012 12:00 AM Depo-Medrol 80 mg NDC#[id number]-Wciqewkz Reviewed 05/15/2013 12:00 AM CHEST X-RAY 2VW FRONTAL&LATL Returned 08/06/2013 12:00 AM COMPLETE CBC W/AUTO DIFF WBC Returned 08/06/2013 12:00 AM COMPREHEN METABOLIC PANEL Returned 08/06/2013 12:00 AM LIPID PANEL Returned 10/24/2013 12:00 AM VITAMIN B-12 Returned 10/24/2013 12:00 AM ASSAY OF FOLIC ACID SERUM Returned 10/31/2013 12:00 AM B12 Injection, Up to 1000 Mcg [facility]#[id number] Reviewed 01/02/2014 12:00 AM THER/PROPH/DIAG INJ SC/IM Reviewed 01/02/2014 12:00 AM Decadron, Per 1 Mg ND# [address]-01 Reviewed 01/02/2014 12:00 AM Depo-Medrol, Per 80 Mg [facility]#[id number] Reviewed 01/02/2014 12:00 AM B12 Injection, Up to 1000 Mcg [facility]#8547-4387-33 Reviewed 01/29/2014 12:00 AM B12 Injection, Up to 1000 Mcg [facility]#[id number] Reviewed 03/18/2014 12:00 AM THER/PROPH/DIAG INJ SC/IM Reviewed 03/18/2014 12:00 AM Decadron, Per 1 Mg [facility] [place]# [address]-83 Reviewed 03/18/2014 12:00 AM Depo-Medrol, Per 80 Mg [facility]#[id number] Reviewed 04/11/2014 12:00 AM B12 Injection, Up to 1000 Mcg [facility]#[id number] Reviewed 10/30/2010 12:00 AM Blood Pressure Check-no charge Reviewed 11/12/2010 12:00 AM Blood Pressure Check-no charge Reviewed 07/17/2014 12:00 AM COMPLETE CBC W/AUTO DIFF WBC Returned 07/17/2014 12:00 AM COMPREHEN METABOLIC PANEL Returned 07/17/2014 12:00 AM LIPID PANEL Returned 11/27/2014 12:00 AM THER/PROPH/DIAG INJ SC/IM Reviewed 11/27/2014 12:00 AM Decadron, Per 1 Mg [facility]# [address]-09 Reviewed 11/27/2014 12:00 AM Depo-Medrol, Per 80 Mg [facility]#0860-0688-16 Reviewed 02/10/2015 12:00 AM THER/PROPH/DIAG INJ SC/IM Reviewed 02/10/2015 12:00 AM Decadron, Per 1 Mg [facility]# [address]-11 Reviewed 02/10/2015 12:00 AM Depo-Medrol 40mg Reviewed [...] BILI 0.40 mg/dLCALCIUM 9.70 mg/dLeGFR >60 mL/min/1.73 [id number] 212.0 mg/dLCHOLESTEROL 196.0 mg/dLHDL 56.0 mg/dLLDL (CALC) [...] 2015 1:40PM Abrasion Aug 11 2015 1:40PM Payers Insurance Name Company Name Plan Name Plan Number Policy Number Policy Group Number Start Date [employer] [id number] Monday, 2007 History of Encounters Visit Date Visit Type Provider 08/11/2015 Office visit Adiit Marie APRN 05/19/2015 Office visit Aditi Marie ACADEMIC SERVICES COORDINATOR 05/12/2015 [facility] Salome Phillips MD 05/06/2015 Office visit Aditi Marie ACADEMIC SERVICES COORDINATOR 02/10/2015 Office visit Aditi Marie ACADEMIC SERVICES COORDINATOR 11/27/2014 Office visit Aditi Marie ACADEMIC SERVICES COORDINATOR 10/30/2014 Office visit Emily Casper ACADEMIC SERVICES COORDINATOR 08/21/2014 Office visit Aditi Marie ACADEMIC SERVICES COORDINATOR 07/17/2014 Office visit Aditi Frank ACADEMIC SERVICES COORDINATOR 04/17/2014 Office visit Aditi Walker ACADEMIC SERVICES COORDINATOR 03/18/2014 Office visit Aditi Frank ACADEMIC SERVICES COORDINATOR 03/15/2014 Nurse visit Emily Casper ACADEMIC SERVICES COORDINATOR 01/29/2014 Nurse visit Aditi Frank ACADEMIC SERVICES COORDINATOR 01/02/2014 Office visit Aditi Walker ACADEMIC SERVICES COORDINATOR 10/31/2013 Nurse visit Aditi Walker ACADEMIC SERVICES COORDINATOR 10/23/2013 Office visit Aditi Walker ACADEMIC SERVICES COORDINATOR 08/06/2013 Office visit Aditi Walker ACADEMIC SERVICES COORDINATOR 05/15/2013 Office visit Aditi Walker ACADEMIC SERVICES COORDINATOR 03/19/2013 Office visit Aditi Marie ACADEMIC SERVICES COORDINATOR 12/06/2012 Office visit Aditi Walker ACADEMIC SERVICES COORDINATOR 09/26/2012 Office visit Aditi Marie ACADEMIC SERVICES COORDINATOR 08/14/2012 Office visit Aditi Frank ACADEMIC SERVICES COORDINATOR 04/04/2012 Office visit Aditi Marie ACADEMIC SERVICES COORDINATOR 03/13/2012 Office visit Aditi Frank ACADEMIC SERVICES COORDINATOR 02/17/2012 Office visit Aditi Frank ACADEMIC SERVICES COORDINATOR 11/01/2011 Office visit Aditi Frank ACADEMIC SERVICES COORDINATOR 07/20/2011 Office visit Aditi Frank ACADEMIC SERVICES COORDINATOR 03/31/2011 Office visit Lyudmila DYER 11/12/2010 Nurse visit Lyudmila DYER 10/30/2010 Nurse visit Lyudmila DYER 10/15/2010 Office visit Lyudmila DYER 07/17/2010 Office visit Lyudmila DYER 10/07/2009 Office visit Paola DYER
--- OUTSIDE RECORDS SUMMARY | 2017-12-12 15:27 | XMS REPORT ---
Author Author JB PENNY [facility] Address [address] [place] [address] Care Team Providers Care Orchard Manager Name Role Phone JB PENNY Unavailable PROBLEMS Type Condition ICD9-CM Code STM84-ZR Code Onset Dates Condition Status SNOMED Code Problem Tobacco abuse Z72.0 Active 061859451 Problem Routine health maintenance Z00.00 Active 071499593 Problem Tobacco abuse counseling Z71.6 Active 841224063 Problem Essential hypertension I10 Active 03483425 Problem Lumbago with sciatica, left side M54.42 Active 751232042 Problem Elevated fasting glucose R73.01 Active 639386877 Problem ETOH abuse F10.10 Active 92645270 Problem Moderate episode of recurrent major depressive disorder F33.1 Active 647900981 Problem Pseudobulbar affect F48.2 Active 19243159 Problem Mixed hyperlipidemia E78.2 Active 980293810 ALLERGIES Unknown Allergies SOCIAL HISTORY No smoking Hx information available PLAN OF CARE VITAL SIGNS MEDICATIONS Medication Instructions Dosage Frequency Start Date End Date Duration Status Seroquel XR 50 mg Orally Once a day 1 tablet in the evening 24h Nov, 90 days Active RESULTS No Results PROCEDURES No Known procedures IMMUNIZATIONS No Known Immunizations
--- OUTSIDE RECORDS SUMMARY | 2017-12-12 15:27 | XMS REPORT ---
Author Author Aditi Marie [facility] Address [address] [place], [place] [address] Care Team Providers Care Buffer Chrome Name Role Phone Aditi Marie PCP Unavailable Allergies and Adverse Reactions Name Reaction Notes PENICILLINS Plan of Treatment Planned Activity Comments Planned Date Planned Time Plan/Goal LIPID PANEL 02/17/2012 12:00 AM METABOLIC PANEL TOTAL CA 05/19/2015 12:00 AM Medications Active Name Start Date Estimated Completion Date SIG Comments atenolol oral tablet 50 mg 02/10/2015 TAKE ONE TABLET BY MOUTH EVERY DAY paroxetine HCl oral tablet 20 mg 02/10/2015 TAKE ONE TABLET BY MOUTH EVERY DAY Bactroban topical ointment 2 % 05/06/2015 apply a small amount to the affected area by topical route 3 times per day Xanax oral tablet 0.5 mg 05/13/2015 take 1 tab (0.5mg) BID lisinopril oral tablet 20 mg take 1 tablet (20 mg) by oral route once daily Name Start Date Expiration Date SIG Comments Naproxen Tablet 500 mg 11/11/2009 12/11/2009 [id number] - TAKE ONE TABLET BY MOUTH TWICE DAILY NEEDED Zithromax Z-Demond Oral Tablet 250 mg 07/23/2010 07/28/2010 take 2 tablets (500 mg ) by oral route once daily for 1 day then 1 tablet (250 mg) by oral route once daily for 4 days Zithromax Z-Demond Oral Tablet 250 mg 10/15/2010 10/20/2010 take 2 tablets (500 mg) by oral route once daily for 1 day then 1 tablet (250 mg) by oral route once daily for 4 days Lexapro Oral Tablet 10 mg 01/05/2011 02/04/2011 take 1 tablet (10 mg) by oral route once daily for 30 days samples lisinopril Oral Tablet 30 mg 07/20/2011 01/16/2012 take 1 tablet (30 mg) by oral route once daily for 30 days Zithromax Z-Demond Oral Tablet 250 mg 11/01/2011 11/11/2011 take 2 tablets ( 500 mg) by oral route once daily for 1 day then 1 tablet (250 mg) by oral route once daily for 4 days Cipro Oral Tablet 500 mg 03/13/2012 03/20/2012 take 1 tablet (500 mg) by oral route once for 7 days Claritin-D 12 Hour Oral tablet extended release 12 hr 5-120 mg 10/02/2012 take 1 tablet by oral route 2 times per day for 30 days prednisone Oral tablet 20 mg 12/06/2012 12/11/2012 take 1 tablet daily x5 days. Zithromax Z-Demond Oral tablet 250 mg 12/14/2012 12/19/2012 take 2 tablets (500 mg ) by oral route once daily for 1 day then 1 tablet (250 mg) by oral route once daily for 4 days Zithromax Z-Demond Oral tablet 250 mg 05/30/2013 06/04/2013 take 2 tablets (500 mg) by oral route once daily for 1 day then 1 tablet (250 mg) by oral route once daily for 4 days atenolol Oral tablet 50 mg 08/06/2013 02/02/2014 TAKE ONE TABLET BY MOUTH EVERY DAY paroxetine HCl oral tablet 20 mg 03/07/2013 04/06/2013 TAKE ONE TABLET BY MOUTH EVERY DAY Zithromax Z-Demond oral tablet 250 mg 10/29/2013 11/03/2013 take 2 tablets ( 500 mg) by oral route once daily for 1 day then 1 tablet (250 mg) by oral route once daily for 4 days Levaquin oral tablet 750 mg 01/02/2014 01/09/2014 take 1 tablet (750 mg) by oral route once daily for 7 days Zithromax Z-Demond oral tablet 250 mg 04/18/2014 04/23/2014 take 2 tablets (500 mg ) by oral route once daily for 1 day then 1 tablet (250 mg) by oral route once daily for 4 days amlodipine oral tablet 5 mg 07/17/2014 01/13/2015 take 1 tablet (5 mg) by oral route once daily for 30 days Zithromax Z-Demond oral tablet 250 mg 11/27/2014 12/02/2014 take 2 tablets (500 mg) by oral route once daily for 1 day then 1 tablet (250 mg) by oral route once daily for 4 days Bactrim DS oral tablet 800-160 mg 05/06/2015 05/13/2015 take 1 tablet by oral route every 12 hours for 7 days Possibly caused throwing up, low sodium Discontinued Name Start Date Discontinued Date SIG Comments Phenergan-Codeine Oral Syrup 6.25-10 mg/5 mL 10/08/2009 10/15/2010 take 5 milliliters by oral route every 6 hours as needed, not to exceed 30 mL in 24 hours Ambien Oral Tablet 10 mg 10/15/2010 07/20/2011 take 1 tablet (10 mg) by oral route once daily at bedtime Medrol (Demond) Oral Tablets, Dose Pack 4 mg 10/15/2010 10/30/2010 take as directed pravastatin Oral Tablet 40 mg 08/25/2011 02/17/2012 take 1 tablet (40 mg) by oral route once daily for 30 days made hands/legs cramp up Xanax Oral Tablet 0.25 mg 02/17/2012 03/13/2012 take 1 tablet by mouth daily as needed. Celexa Oral Tablet 20 mg 03/13/2012 take 1 tablet (20 mg) by oral route once daily in the evening Viibryd Oral Tablet 40 mg 08/14/2012 take 1 tablet (40 mg) by oral route once daily with food for 30 days amitriptyline Oral Tablet 25 mg 08/14/2012 take 1 tablet (25 mg) by oral route once daily at bedtime for 30 days Clarinex-D 12 HOUR Oral tablet, ER multiphase 12 hr 2.5-120 mg 10/02/2012 take 1 tablet by oral route 2 times per day for 30 days promethazine-codeine Oral Syrup 6.25-10 mg/5 mL 12/06/2012 05/15/2013 take 5 milliliters by oral route every 4-6 hours as needed, not to exceed 30 mL in 24 hours Medrol (Demond) Oral tablets,dose pack 4 mg 05/15/2013 08/06/2013 take as directed promethazine-codeine Oral Syrup 6.25-10 mg/5 mL 05/30/2013 08/06/2013 take 5 milliliters by oral route every 6 hours as needed, not to exceed 30 mL in 24 hours naproxen oral tablet,delayed release (DR/EC) 500 mg 10/23/2013 07/17/2014 take 1 tablet by oral route 2 times a day Zyrtec-D oral tablet extended release 12 hr 5-120 mg 10/23/2013 03/18/2014 take 1 tablet by oral route every 12 hours lisinopril oral tablet 20 mg 10/23/2013 03/18/2014 TAKE ONE & ONE-HALF TABLETS BY MOUTH EVERY DAY promethazine-codeine oral syrup 6.25-10 mg/5 mL 01/02/2014 04/17/2014 take 5 milliliters by oral route every 4-6 hours as needed, not to exceed 30 mL in 24 hours lisinopril-hydrochlorothiazide oral tablet 20-12.5 mg 04/17/2014 05/19/2015 take 2 tablets by mouth daily in am. Changed from HCL to plain Medrol (Demond) oral tablets,dose pack 4 mg 04/18/2014 07/17/2014 take as directed Medrol (Demond) oral tablets,dose pack 4 mg 10/30/2014 02/10/2015 take as directed promethazine-codeine oral syrup 6.25-10 mg/5 mL 11/27/2014 02/10/2015 take 5 milliliters by oral route every 4-6 hours as needed, not to exceed 30 mL in 24 hours Sudafed 12 Hour oral tablet extended release 120 mg 11/27/2014 05/06/2015 take 1 tablet (120 mg) by oral route every 12 hours Problem List Description Status Onset Asthma Active Essential Hypertension Active Chronic obstructive pulmonary disease Active Anxiety Disorder Active 04/17/2014 Vital Signs Date Time BP-Sys(mm[Hg] BP-Nica(mm[Hg]) HR(bpm) RR(rpm) Temp WT HT HC BMI BSA BMI Percentile O2 Sat(%) 05/19/2015 11:20:00 AM 156 mmHg 100 mmHg [...] of Procedures Date Ordered Description Order Status 07/20/2011 12:00 AM COMPREHEN METABOLIC PANEL Reviewed 07/20/2011 12:00 AM LIPID PANEL Reviewed 11/01/2011 12:00 AM LIPID PANEL Reviewed 11/01/2011 12:00 AM THER/PROPH/DIAG INJ SC/IM Reviewed 02/17/2012 12:00 AM THER/PROPH/DIAG INJ SC/IM Reviewed 08/14/2012 12:00 AM COMPREHEN METABOLIC PANEL Returned 08/14/2012 12:00 AM LIPID PANEL Returned 09/26/2012 12:00 AM THER/PROPH/DIAG INJ SC/IM Reviewed 05/15/2013 12:00 AM CHEST X-RAY 2VW FRONTAL&LATL Returned 08/06/2013 12:00 AM COMPLETE CBC W/AUTO DIFF WBC Returned 08/06/2013 12:00 AM COMPREHEN METABOLIC PANEL Returned 08/06/2013 12:00 AM LIPID PANEL Returned 10/24/2013 12:00 AM VITAMIN B-12 Returned 10/24/2013 12:00 AM ASSAY OF FOLIC ACID SERUM Returned 01/02/2014 12:00 AM THER/PROPH/DIAG INJ SC/IM Reviewed 03/18/2014 12:00 AM THER/PROPH/DIAG INJ SC/IM Reviewed 10/30/2010 12:00 AM Blood Pressure Check-no charge Reviewed 11/12/2010 12:00 AM Blood Pressure Check-no charge Reviewed 07/17/2014 12:00 AM COMPLETE CBC W/AUTO DIFF WBC Returned 07/17/2014 12:00 AM COMPREHEN METABOLIC PANEL Returned 07/17/2014 12:00 AM LIPID PANEL Returned 11/27/2014 12:00 AM THER/PROPH/DIAG INJ SC/IM Reviewed 02/10/2015 12:00 AM THER/PROPH/DIAG INJ SC/IM Reviewed Results Summary Data and Description Results 03/19/2009 [...] BILI 0.40 mg/dLCALCIUM 9.70 mg/dLeGFR >60 mL/min/1.73 [id number] 212.0 mg/dLCHOLESTEROL 196.0 mg/dLHDL 56.0 mg/dLLDL (CALC) [...] g/dLTOTAL BILI 0.30 mg/dLCALCIUM 10.40 mg/dLeGFR 48 History Of Immunizations Not available. History of Past Illness Name Date of Onset Comments Bronchitis, Acute Oct 08 2009 8:32AM Rosacea Essential Hypertension Asthma Chronic obstructive pulmonary disease Depression and anxiety Jul 17 2010 2:57PM [...] 11:24AM Essential Hypertension May 19 2015 11:24AM Payers Insurance Name Company Name Plan Name Plan Number Policy Number Policy Group Number Start Date [employer] [id number] Monday, 2007 History of Encounters Visit Date Visit Type Provider 05/19/2015 Office visit Aditi Marie BROOM HANDLE DIPPER 05/06/2015 Office visit Aditi Marie BROOM HANDLE DIPPER 02/10/2015 Office visit Aditi Marie BROOM HANDLE DIPPER 11/27/2014 Office visit Aditi Marie BROOM HANDLE DIPPER 10/30/2014 Office visit Emily Casper BROOM HANDLE DIPPER 08/21/2014 Office visit Aditi Marie BROOM HANDLE DIPPER 07/17/2014 Office visit Aditi Marie BROOM HANDLE DIPPER 04/17/2014 Office visit Aditi Marie BROOM HANDLE DIPPER 03/18/2014 Office visit Aditi Marie BROOM HANDLE DIPPER 03/15/2014 Nurse visit Emily Casper BROOM HANDLE DIPPER 01/29/2014 Nurse visit Aditi Marie BROOM HANDLE DIPPER 01/02/2014 Office visit Aditi Marie BROOM HANDLE DIPPER 10/31/2013 Nurse visit Aditi Marie BROOM HANDLE DIPPER 10/23/2013 Office visit Aditi Marie BROOM HANDLE DIPPER 08/06/2013 Office visit Aditi Marie BROOM HANDLE DIPPER 05/15/2013 Office visit Aditi Marie BROOM HANDLE DIPPER 03/19/2013 Office visit Aditi Marie BROOM HANDLE DIPPER 12/06/2012 Office visit Aditi Marie BROOM HANDLE DIPPER 09/26/2012 Office visit Aditi Marie BROOM HANDLE DIPPER 08/14/2012 Office visit Aditi Marie BROOM HANDLE DIPPER 04/04/2012 Office visit Aditi Marie BROOM HANDLE DIPPER 03/13/2012 Office visit Aditi Marie BROOM HANDLE DIPPER 02/17/2012 Office visit Aditi Marie BROOM HANDLE DIPPER 11/01/2011 Office visit Aditi Marie BROOM HANDLE DIPPER 07/20/2011 Office visit Aditi Marie BROOM HANDLE DIPPER 03/31/2011 Office visit Lyudmila DYER 11/12/2010 Nurse visit Lyudmila DYER 10/30/2010 Nurse visit Lyudmila DYER 10/15/2010 Office visit Lyudmila DYER 07/17/2010 Office visit Lyudmila DYER 10/07/2009 Office visit Paola DYER
--- OUTSIDE RECORDS SUMMARY | 2017-12-12 15:27 | XMS REPORT ---
Author Author UYEN ECHOLS Organization [employer] Address Unknown Phone Unavailable Care Team Providers Care Oil Extractor Name Role Phone UYEN ECHOLS CP Unavailable Allergies, Adverse Reactions, Alerts Substance Reaction Event Type Penicillin G Sodium Info Not Available Drug Allergy Problems Problem Type Condition Code Onset Dates Condition Status Assessment ETOH abuse F10.10 Active Assessment Essential hypertension I10 Active Assessment Moderate episode of recurrent major depressive disorder F33.1 Active Assessment Tobacco abuse counseling Z71.6 Active Assessment Tobacco abuse Z72.0 Active Problem Moderate episode of recurrent major depressive disorder F33.1 Active Problem Routine health maintenance Z00.00 Active Problem Essential hypertension I10 Active Problem Tobacco abuse counseling Z71.6 Active Assessment Routine health maintenance Z00.00 Active Problem ETOH abuse F10.10 Active Problem Tobacco abuse Z72.0 Active Medications Medication Code System Code Instructions Start Date End Date Status Dosage Xanax [facility] [address]-63 0.25 MG Orally Twice a day prn 1 tablet Norvasc [facility] [address]-21 5 mg Orally Once a day Aug 19, 2016 1 tablet Atenolol [facility] [address]-11 50 mg Orally Once a day 1 tablet Lisinopril [facility] [address]-01 40 mg Orally Once a day Aug 06, 2016 1 tablet Rexulti [facility] [address]-02 2 MG Orally Once a day 1 tablet Procedures Procedure Coding System Code Date Office Visit, Est Pt., Level 3 CPT-4 53032 Aug 19, 2016 Vital Signs Date/Time: Aug 19, 2016 Cardiac Monitoring Heart Rate 90 bpm Weight 125 lbs Height 64 in BMI 21.45 Index Blood Pressure Diastolic 92 mmHg Blood Pressure Systolic 158 mmHg Results No Known Results Summary Purpose [employer] Submission
--- OUTSIDE RECORDS SUMMARY | 2017-12-12 15:28 | XMS REPORT | CCD ---
Author Author CELESTE ROBERTS Unknown Address [address] [facility] [address] [place], [place] [id number] Care Team Providers Care Healthcare Science Specialist Name Role Phone RACHAEL JIMENEZ, Rosina GOODE Attphys CARLOS ALBERTO SIEGEL MD Prisurg S., BECKA Pruett NASST S., SALMA NASST P., NILDA Collins NASST S., MAK Singh NASST F., MAYTE NASST B., BECKA Crawford NASST B., KEVIN [place] NASST Vital Signs Vital Sign Value Unit Date/Time Recent/Initial? Weight Measured 111 lbs 05/12/2015 11:41 Initial VS Height 64 in 05/12/2015 11:41 Initial VS BMI (Body Mass Index) 19.05 kg/m^2 05/12/2015 11:41 Initial VS BSA (Body Surface Area) 1.51 m^2 05/12/2015 11:41 Initial VS Respiratory Rate 21 bpm 05/12/2015 11:42 Initial VS Heart Rate 78 bpm 05/12/2015 11:42 Initial VS O2 % BldC Oximetry 100 % 05/12/2015 11:42 Initial VS BP Systolic 101 mmHg 05/12/2015 11:45 Initial VS BP Diastolic 79 mmHg 05/12/2015 11:45 Initial VS Body Temperature 97.1 degrees 05/12/2015 11:47 Initial VS Weight Measured 115 lbs 05/13/2015 19:45 Most Recent VS Height 64 in 05/13/2015 19:45 Most Recent VS BMI (Body Mass Index) 19.74 kg/m^2 05/13/2015 19:45 Most Recent VS BSA (Body Surface Area) 1.53 m^2 05/13/2015 19:45 Most Recent VS BP Systolic 108 mmHg 05/14/2015 12:11 Most Recent VS BP Diastolic 75 mmHg 05/14/2015 12:11 Most Recent VS Respiratory Rate 16 bpm 05/14/2015 12:11 Most Recent VS Heart Rate 71 bpm 05/14/2015 12:11 Most Recent VS O2 % BldC Oximetry 100 % 05/14/2015 12:11 Most Recent VS Body Temperature 97 degrees 05/14/2015 12:11 Most Recent VS Allergies Allergy Code Allergy Type Reaction Status Unknown Code - 0 0 Propensity to adverse reactions Active PCN (penicillin) 0 Drug allergy Active Procedures Procedure Code Procedure Type Date ABDOMEN ACUTE SERIES 0723358 SNOMED CT 05/12/[address] 05/14/[address] 05/14/[address] 05/14/2015 COMPREHENSIVE METABOLIC PANEL 282556504 SNOMED CT 2014 CBC W/ AUTO DIFF (RFLX MAN DIFF IF IND) 0584896 SNOMED CT 05/14/2015 COMPREHENSIVE METABOLIC PANEL 261895020 SNOMED CT [address] 05/13/[address] 05/13/[address] 05/13/[address] 05/13/[address] 05/12/[address] 05/12/2015 SODIUM UR RANDOM 387270263 SNOMED CT 05/12/2015 CREATININE UR RANDOM 807016763 SNOMED CT 05/12/2015 CORTISOL AM 54192380 SNOMED CT 05/13/2015 UA ROUTINE C&S IF IND 425428655 SNOMED CT 05/12/[address] 05/13/2015 RENAL FUNCTION PANEL 536188065 SNOMED CT 05/13/2015 CBC W/ AUTO DIFF (RFLX MAN DIFF IF IND) 0510115 SNOMED CT 05/13/[address] 05/12/[address] 05/12/[address] 05/12/[address] 05/12/[address] 05/12/2015 WBC STOOL 814055665 [facility] 05/12/2015 C DIFF NAAT 973567319 [facility] 05/12/2015 CULTURE STOOL 467497183 [facility] 05/12/2015 ELECTROLYTE PANEL 159700580 [facility] 05/12/2015 CPK 439254954 [facility] 05/12/2015 HEPATITIS PANEL 34095631 [facility] 05/12/2015 COMPREHENSIVE METABOLIC PANEL 320584402 [facility] 2014 CBC W/ AUTO DIFF (RFLX MAN DIFF IF IND) 1074597 [facility] 05/12/2015 ^CBC W/ MANUAL DIFF 46778887 [facility] 05/12/2015 ^UA AUTO DIPSTICK ONLY [id number] [facility] 05/13/2015 ^CBC W/AUTO DIFF 6319073 [facility] 05/13/2015 ^CBC W/ MANUAL DIFF 44289271 [facility] 05/14/2015 History of Immunizations Unknown or Not Available. Problems Problem Code Start Date Resolved Date Status Alcoholic hepatitis 658036632 Active Results COMPREHENSIVE METABOLIC PANEL - Collect Date/Time: 05/14/2015 06:20 Test Name Code Test Result Test Units Test Ref Range GLUCOSE 2345-7 110 MG/DL L=70 H=100 SODIUM 2951-2 122 MEQ/L L=135 H=148 POTASSIUM 2823-3 4.1 MEQ/L L=3.5 H=5.3 CHLORIDE 2075-0 90 MEQ/L L=96 H=110 CO2 2028-9 24 MEQ/L L=22 H=29 BUN 3094-0 3 MG/DL L=8 H=22 CREATININE 2160-0 0.7 MG/DL L=0.6 H=1.6 SGOT/AST 1920-8 88 IU/L L=10 H=40 SGPT/ALT 1742-6 141 IU/L L=8 H=54 ALK PHOS 6768-6 93 IU/L L=35 H=115 TOTAL PROTEIN 2885-2 6.4 G/DL L=5.5 H=8.5 ALBUMIN 1751-7 4.1 G/DL L=3.1 H=5.4 TOTAL BILI 1975-2 0.5 MG/DL L=0.0 H=1.5 CALCIUM 10764-5 9.6 MG/DL L=8.2 H=10.6 AGE 49 yrs GFR NonAA 89 GFR AA 108 eGFR >60 N/A eGFR AA* >60 N/A COMPREHENSIVE METABOLIC PANEL - Collect Date/Time: 05/13/2015 16:10 Test Name Code Test Result Test Units Test Ref Range GLUCOSE 2345-7 93 MG/DL L=70 H=100 SODIUM 2951-2 114 MEQ/L L=135 H=148 POTASSIUM 2823-3 4.8 MEQ/L L=3.5 H=5.3 CHLORIDE 2075-0 87 MEQ/L L=96 H=110 CO2 2028-9 21 MEQ/L L=22 H=29 BUN 3094-0 7 MG/DL L=8 H=22 CREATININE 2160-0 0.6 MG/DL L=0.6 H=1.6 SGOT/AST 1920-8 97 IU/L L=10 H=40 SGPT/ALT 1742-6 153 IU/L L=8 H=54 ALK PHOS 6768-6 95 IU/L L=35 H=115 TOTAL PROTEIN 2885-2 6.5 G/DL L=5.5 H=8.5 ALBUMIN 1751-7 4.2 G/DL L=3.1 H=5.4 TOTAL BILI 1975-2 0.5 MG/DL L=0.0 H=1.5 CALCIUM 98257-9 9.2 MG/DL L=8.2 H=10.6 AGE 49 yrs GFR NonAA 106 GFR AA 128 eGFR >60 N/A eGFR AA* >60 N/A COMPREHENSIVE METABOLIC PANEL - Collect Date/Time: 05/12/2015 08:55 Test Name Code Test Result Test Units Test Ref Range GLUCOSE 2345-7 101 MG/DL L=70 H=100 SODIUM 2951-2 110 MEQ/L L=135 H=148 POTASSIUM 2823-3 3.1 MEQ/L L=3.5 H=5.3 CHLORIDE 2075-0 72 MEQ/L L=96 H=110 CO2 2028-9 23 MEQ/L L=22 H=29 BUN 3094-0 12 MG/DL L=8 H=22 CREATININE 2160-0 0.8 MG/DL L=0.6 H=1.6 SGOT/AST 1920-8 173 IU/L L=10 H=40 SGPT/ALT 1742-6 198 IU/L L=8 H=54 ALK PHOS 6768-6 117 IU/L L=35 H=115 TOTAL PROTEIN 2885-2 7.6 G/DL L=5.5 H=8.5 ALBUMIN 1751-7 4.8 G/DL L=3.1 H=5.4 TOTAL BILI 1975-2 0.8 MG/DL L=0.0 H=1.5 CALCIUM 22159-2 10.1 MG/DL L=8.2 H=10.6 AGE 49 yrs GFR NonAA 76 GFR AA 92 eGFR >60 N/A eGFR AA* >60 N/A CPK - Collect Date/Time: 05/12/2015 10:05 Test Name Code Test Result Test Units Test Ref Range CPK 2157-6 115 IU/L L=0 H=235 ELECTROLYTE PANEL - Collect Date/Time: 05/12/2015 10:05 Test Name Code Test Result Test Units Test Ref Range SODIUM 2951-2 113 MEQ/L L=135 H=148 POTASSIUM 2823-3 3.2 MEQ/L L=3.5 H=5.3 CHLORIDE 2075-0 79 MEQ/L L=96 H=110 CO2 2028-9 22 MEQ/L L=22 H=29 LIPASE - Collect Date/Time: 05/12/2015 10:05 Test Name Code Test Result Test Units Test Ref Range LIPASE 3040-3 33 U/L L=8 H=78 RENAL FUNCTION PANEL - Collect Date/Time: 05/13/2015 05:20 Test Name Code Test Result Test Units Test Ref Range GLUCOSE 2345-7 128 MG/DL L=70 H=100 SODIUM 2951-2 122 MEQ/L L=135 H=148 POTASSIUM 2823-3 2.9 MEQ/L L=3.5 H=5.3 CHLORIDE 2075-0 87 MEQ/L L=96 H=110 CO2 2028-9 24 MEQ/L L=22 H=29 BUN 3094-0 6 MG/DL L=8 H=22 CREATININE 2160-0 0.7 MG/DL L=0.6 H=1.6 ALBUMIN 1751-7 4.3 G/DL L=3.1 H=5.4 CALCIUM 20623-6 9.4 MG/DL L=8.2 H=10.6 PHOSPHORUS 2777-1 2.5 MG/DL L=2.5 H=4.5 AGE 49 yrs GFR NonAA 89 GFR AA 108 eGFR >60 N/A eGFR AA* >60 N/A SODIUM - Collect Date/Time: 05/14/2015 13:20 Test Name Code Test Result Test Units Test Ref Range SODIUM 2951-2 122 MEQ/L L=135 H=148 SODIUM - Collect Date/Time: 05/13/2015 13:08 Test Name Code Test Result Test Units Test Ref Range SODIUM 2951-2 116 MEQ/L L=135 H=148 SODIUM - Collect Date/Time: 05/13/2015 09:45 Test Name Code Test Result Test Units Test Ref Range SODIUM 2951-2 121 MEQ/L L=135 H=148 SODIUM - Collect Date/Time: 05/13/2015 05:20 Test Name Code Test Result Test Units Test Ref Range SODIUM 2951-2 122 MEQ/L L=135 H=148 SODIUM - Collect Date/Time: 05/13/2015 03:30 Test Name Code Test Result Test Units Test Ref Range SODIUM 2951-2 121 MEQ/L L=135 H=148 SODIUM - Collect Date/Time: 05/12/2015 23:55 Test Name Code Test Result Test Units Test Ref Range SODIUM 2951-2 118 MEQ/L L=135 H=148 SODIUM - Collect Date/Time: 05/12/2015 19:50 Test Name Code Test Result Test Units Test Ref Range SODIUM 2951-2 115 MEQ/L L=135 H=148 SODIUM - Collect Date/Time: 05/12/2015 17:25 Test Name Code Test Result Test Units Test Ref Range SODIUM 2951-2 116 MEQ/L L=135 H=148 SODIUM - Collect Date/Time: 05/12/2015 14:30 Test Name Code Test Result Test Units Test Ref Range SODIUM 2951-2 116 MEQ/L L=135 H=148 SODIUM - Collect Date/Time: 05/12/2015 12:00 Test Name Code Test Result Test Units Test Ref Range SODIUM 2951-2 115 MEQ/L L=135 H=148 CREATININE UR RANDOM - Collect Date/Time: 05/12/2015 23:58 Test Name Code Test Result Test Units Test Ref Range CREAT UR RAND 2161-8 14.3 MG/DL SODIUM UR RANDOM - Collect Date/Time: 05/12/2015 23:58 Test Name Code Test Result Test Units Test Ref Range NA UR RANDOM 2955-3 <20 MEQ/L CBC W/ AUTO DIFF (RFLX MAN DIFF IF IND) - Collect Date/Time: 05/14/2015 06:20 Test Name Code Test Result Test Units Test Ref Range WBC 50484-6 4.3 TH/CMM L=4.5 H=10.8 RBC 789-8 3.91 ML/CMM L=4.20 H=5.40 HGB 718-7 12.7 G/DL L=12.0 H=16.0 HCT 4544-3 35.4 % L=37.0 H=47.0 MCV 91 FL L=81 H=99 MCH 32.5 PG L=27.0 H=33.0 MCHC 35.9 G/DL L=31.0 H=36.0 RDW SD 39 FL L=36 H=50 RDW CV 11.9 % L=0.0 H=14.8 MPV 9.4 FL L=9.3 H=12.5 PLT 777-3 193 TH/CMM L=130 H=440 NRBC# 0.00 TH/CMM L=0.00 H=0.00 NRBC% 0.0 /100WBC L=0.0 H=2.0 %NEUT 37.2 % %LYMP 41.4 % %MONO 18.8 % %EOS 2.1 % %BASO 0.5 % #NEUT 1.58 TH/CMM L=2.10 H=8.20 #LYMP 1.76 TH/CMM L=0.90 H=5.20 #MONO 0.80 TH/CMM L=0.16 H=1.00 #EOS 0.09 TH/CMM L=0.00 H=0.80 #BASO 0.02 TH/CMM L=0.00 H=0.20 SEGS 33 % BANDS 3 % LYMPHS 50 % MONOS 13 % EOS 1 % MANUAL DIFF SEE BELOW N/A CBC W/ AUTO DIFF (RFLX MAN DIFF IF IND) - Collect Date/Time: 05/13/2015 05:20 Test Name Code Test Result Test Units Test Ref Range WBC 03707-6 3.6 TH/CMM L=4.5 H=10.8 RBC 789-8 4.06 ML/CMM L=4.20 H=5.40 HGB 718-7 13.2 G/DL L=12.0 H=16.0 HCT 4544-3 36.4 % L=37.0 H=47.0 MCV 90 FL L=81 H=99 MCH 32.5 PG L=27.0 H=33.0 MCHC 36.3 G/DL L=31.0 H=36.0 RDW SD 38 FL L=36 H=50 RDW CV 11.8 % L=0.0 H=14.8 MPV 9.2 FL L=9.3 H=12.5 PLT 777-3 197 TH/CMM L=130 H=440 NRBC# 0.00 TH/CMM L=0.00 H=0.00 NRBC% 0.0 /100WBC L=0.0 H=2.0 %NEUT 48.2 % %LYMP 36.9 % %MONO 13.5 % %EOS 1.1 % %BASO 0.3 % #NEUT 1.75 TH/CMM L=2.10 H=8.20 #LYMP 1.34 TH/CMM L=0.90 H=5.20 #MONO 0.49 TH/CMM L=0.16 H=1.00 #EOS 0.04 TH/CMM L=0.00 H=0.80 #BASO 0.01 TH/CMM L=0.00 H=0.20 MANUAL DIFF NOT IND N/A CBC W/ AUTO DIFF (RFLX MAN DIFF IF IND) - Collect Date/Time: 05/12/2015 08:55 Test Name Code Test Result Test Units Test Ref Range WBC 21985-0 3.3 TH/CMM L=4.5 H=10.8 RBC 789-8 4.36 ML/CMM L=4.20 H=5.40 HGB 718-7 14.3 G/DL L=12.0 H=16.0 HCT 4544-3 38.4 % L=37.0 H=47.0 MCV 88 FL L=81 H=99 MCH 32.8 PG L=27.0 H=33.0 MCHC 37.2 G/DL L=31.0 H=36.0 RDW SD 38 FL L=36 H=50 RDW CV 11.8 % L=0.0 H=14.8 MPV 9.3 FL L=9.3 H=12.5 PLT 777-3 208 TH/CMM L=130 H=440 NRBC# 0.00 TH/CMM L=0.00 H=0.00 NRBC% 0.0 /100WBC L=0.0 H=2.0 %NEUT 49.0 % %LYMP 28.2 % %MONO 22.2 % %EOS 0.6 % %BASO 0.0 % #NEUT 1.63 TH/CMM L=2.10 H=8.20 #LYMP 0.94 TH/CMM L=0.90 H=5.20 #MONO 0.74 TH/CMM L=0.16 H=1.00 #EOS 0.02 TH/CMM L=0.00 H=0.80 #BASO 0.00 TH/CMM L=0.00 H=0.20 SEGS 47 % LYMPHS 37 % MONOS 15 % EOS 1 % MANUAL DIFF SEE BELOW N/A C DIFF NAAT - Collect Date/Time: 05/12/2015 11:38 Test Name Code Test Result Test Units Test Ref Range C DIFFICILE NAAT 88424-0 NEGATIVE N/A NL: NEGATIVE WBC STOOL - Collect Date/Time: 05/12/2015 11:39 Test Name Code Test Result Test Units Test Ref Range WBC STOOL 92275-4 RARE WBC SEEN N/A UA ROUTINE C&S IF IND - Collect Date/Time: 05/12/2015 23:58 Test Name Code Test Result Test Units Test Ref Range COLOR YELLOW N/A NL: YELLOW APPEARANCE CLEAR N/A NL: CLEAR SPEC GRAV <=1.005 N/A NL: 1.002 - 1.022 pH 6.5 N/A NL: 5 - 9 PROTEIN NEGATIVE N/A NL: NEGATIVE mg/dl GLUCOSE NEGATIVE N/A NL: NEGATIVE mg/dl KETONE NEGATIVE N/A NL: NEGATIVE mg/dl BILIRUBIN NEGATIVE N/A NL: NEGATIVE BLOOD NEGATIVE N/A NL: NEGATIVE NITRITE NEGATIVE N/A NL: NEGATIVE LEUK SCREEN NEGATIVE N/A NL: NEGATIVE MICRO INDICATED? NOT INDICATED N/A CORTISOL AM - Collect Date/Time: 05/13/2015 08:05 Test Name Code Test Result Test Units Test Ref Range Cortisol - AM 9813-7 26.3 ug/dL 6.2-19.4 HEPATITIS PANEL - Collect Date/Time: 05/12/2015 08:55 Test Name Code Test Result Test Units [place] [address]-2 <0.1 0.0-0.9 Hep A Ab, IgM 68765-3 Negative N/A Negative HBsAg Screen 5196-1 Negative N/A Negative Hep B Core Ab, IgM 85251-1 Negative N/A Negative T4 FREE - Collect Date/Time: 05/14/2015 13:20 Test Name Code Test Result Test Units Test Ref Range FREE T4 3024-7 1.35 NG/DL L=0.71 H=1.85 TSH - Collect Date/Time: 05/14/2015 13:20 Test Name Code Test Result Test Units Test Ref Range TSH 76525-8 1.76 mIU/L L=0.35 H=4.94 AMYLASE - Collect Date/Time: 05/12/2015 10:05 Test Name Code Test Result Test Units Test Ref Range AMYLASE 1798-8 64 IU/L L=25 H=125 MAGNESIUM - Collect Date/Time: 05/13/2015 05:20 Test Name Code Test Result Test Units Test Ref Range MAGNESIUM 07477-7 2.6 MG/DL L=1.7 H=2.8 Active Medications Medication Code Dose Units Frequency Route Modification Start Date/Time Lisinopril 20MG Oral Tablet 823762 1 TABLET DAILY BY MOUTH 05/14/2015 13:21 Amlodipine 5MG Oral Tablet 937224 5 MILLIGRAMS AT BEDTIME ORAL 05/14/2015 13:20 Atenolol 50MG Oral Tablet 674314 50 MILLIGRAMS DAILY ORAL 05/14/2015 13:20 PARoxetine 20MG Oral Tablet 090380 20 MILLIGRAMS DAILY ORAL 05/14/2015 13:20 Medications Administered During Visit Medication Dose Units Frequency Route Date/ Time of Last Dose D5W 1000 ML IV [PREDEFINED] CONT IV 05/12/2015 15:35 METROnidaZOLE [FLAGYL] TABLET: 500MG 500 MG QID PO 05/14/2015 12:41 CIPROFLOXACIN HCL TAB 500MG {500MG, TABL 500 MG BID PO 05/14/2015 08:55 ENOXAPARIN 40 MG/0.4ML YELLOW [LOVENOX] 40 MG DAILY SUB Q 05/13/2015 18:13 ALPRAZOLAM [XANAX] TABLET : 0.25 MG 0.5 MG PRN BID PO 05/13/2015 17:36 D5W 1000 ML IV [PREDEFINED] CONT IV 01:45 D5W 1000 ML IV [PREDEFINED] CONT IV 05/13/2015 05:22 DESMOPRESSIN 4MCG/ML MDV 10ML 1 EA X1 SQ 08:15 POTASSIUM CHL [K DUR] TABLET: 20 MEQ 40 MEQ Q2H PO 05/13/2015 12:31 Encounters Encounter Diagnosis Diagnosis Code Start Date HYPOSMOLALITY 2761 05/12/2015 Social History Smoking Status Code Start Date End Date Current every day smoker 108800168 Patient Decision Aids Unknown or Not Available. Discharge Instructions You were admitted to [facility] on 05/12/2015 with a principal diagnosis of HYPOSMOLALITY. You had the following tests done: Hep A Ab, IgM HBsAg Screen Hep B Core Ab, IgM Hep C Virus Ab Cortisol - AM You were discharged from [facility] on 05/14/2015. Should you have any questions prior to discharge, please contact a member of your healthcare team. If you have left the hospital and have any questions, please contact your primary care physician. HOME DIET: REGULAR. AVOID ALCOHOL. DRINK NO MORE THAN 2 LITERS OF FLUIDS DAILY UNTIL SEEN IN FOLLOW UP. CONDITION AT DISMISSAL Stable. HOME MEDS RETURNED TO PATIENT: N/A. HOME MEDICATION INSTRUCTIONS: Take only the medications listed above.. ACTIVITY INSTRUCTIONS(list limitations): Activity as Tolerated. CONTACT PHYSICIAN IF YOU EXPERIENCE ANY: WEAKNESS, CONFUSION, OR OTHER NEW OR CONCERNING SYMPTOMS FOLLOW-UP OUTPATIENT SERVICES : [facility] ON Tuesday05/16/15 OUTPATIENT. FOLLOW UP CARE - SEE YOUR PHYSICIAN: SEE ADITI CORONADO 05/16 INSTRUCTIONS GIVEN AND DISCHARGE TO: Patient. VOICES UNDERSTANDING OF INSTRUCTIONS: Yes. INSTRUCTIONS GIVEN BY (TYPE IN NAME AND DATE) LENNY PEREZ RN Bring these instructions to next visit? No. PRIMARY CARE PHYSICIAN OR PRACTITIONER: Aditi Coronado, BOYD, . SCRIPTS WRITTEN BY DOCTOR GIVEN TO PATIENT? XANAX AND LISINOPRIL CHIEF COMPLAINT: N/V SINCE TUESDAY @ 1:30 PM Chief Complaint and Reason For Visit Chief Complaint Date of Onset HYPONATREMIA POTASIUM DEF Function Status Unknown or Not Available. Plan of Care Unknown or Not Available. Referral/Transition of Care Unknown or Not Available.
--- OUTSIDE RECORDS SUMMARY | 2017-12-12 15:28 | XMS REPORT ---
Author Author BENNIE Farnsworth Organization [facility] Address [address] [place] [address] Care Team Providers Care Washer Meat Name Role Phone BENNIE Farnsworth Unavailable PROBLEMS Type Condition ICD9-CM Code KWN59-DN Code Onset Dates Condition Status SNOMED Code Problem Tobacco abuse Z72.0 Active 006489773 Problem Routine health maintenance Z00.00 Active 026305893 Problem Tobacco abuse counseling Z71.6 Active 531027311 Problem Essential hypertension I10 Active 66373325 Problem Lumbago with sciatica, left side M54.42 Active 837901443 Problem Elevated fasting glucose R73.01 Active 478276381 Problem ETOH abuse F10.10 Active 35661522 Problem Moderate episode of recurrent major depressive disorder F33.1 Active 044508813 Problem Pseudobulbar affect F48.2 Active 78229080 Problem Mixed hyperlipidemia E78.2 Active 549348567 ALLERGIES Unknown Allergies SOCIAL HISTORY No smoking Hx information available PLAN OF CARE Activity Details Follow Up 4 Weeks Reason: VITAL SIGNS Height 64 in 2016-12-03 Weight 130 lbs 2016-12-03 Heart Rate 80 bpm 2016-12-03 BMI 22.31 kg/m2 2016-12-03 Blood pressure systolic 120 mmHg 2016-12-03 Blood pressure diastolic 70 mmHg 2016-12-03 MEDICATIONS Medication Instructions Dosage Frequency Start Date End Date Duration Status BusPIRone HCl 10 MG Orally 3 times a day 1 tablet 8h Nov, 30 days Active Seroquel XR 50 MG Orally Once a day 1 tablet in the evening 24h Nov, 30 day(s) Active Paxil 20 MG Orally Once a day 1 tablet in the morning 24h Nov, 30 day(s) Active Norvasc 5 mg Orally Once a day 1 tablet 24h Aug, 30 days Active Nuedexta 20-10 MG Orally every 12 hrs 1 capsule 12h Active Xanax 0.25 MG Orally Twice a day prn 1 tablet Active Atenolol 50 mg Orally Once a day 1 tablet 24h 30 days Active Lisinopril 40 mg Orally Once a day 1 tablet 24h Jul, 30 days Active RESULTS No Results PROCEDURES Procedure Date Ordered Related Diagnosis Body Site Office Visit, Est Pt., Level 4 Dec 03, 2016 IMMUNIZATIONS No Known Immunizations
--- OUTSIDE RECORDS SUMMARY | 2017-12-12 15:28 | XMS REPORT ---
Author Author Aditi Marie Organization [facility] Address [address] [place], [place] [id number] Care Team Providers Care Table Runner Name Role Phone Aditi Marie PCP Unavailable [...] Reviewed 11/01/2011 12:00 AM Decadron 1 mg NDC#[id number] (Sanjeev) Reviewed 11/01/2011 12:00 AM Depo-Medrol 80 mg NDC#[id number]-Qhbxaecq Reviewed 02/17/2012 12:00 AM THER/PROPH/DIAG INJ SC/IM Reviewed 02/17/2012 12:00 AM Decadron 1 mg NDC#[id number] (Sanjeev) Reviewed 02/17/2012 12:00 AM Depo-Medrol 80 mg NDC#[id number]-Htoiklur Reviewed 08/14/2012 12:00 AM COMPREHEN METABOLIC PANEL Returned 08/14/2012 12:00 AM LIPID PANEL Returned 09/26/2012 12:00 AM THER/PROPH/DIAG INJ SC/IM Reviewed 09/26/2012 12:00 AM Decadron 1 mg NDC#[id number] (Sanjeev) Reviewed 09/26/2012 12:00 AM Depo-Medrol 80 mg NDC#[id number]-Vprdpxir Reviewed 05/15/2013 12:00 AM CHEST X-RAY 2VW FRONTAL&LATL Returned 08/06/2013 12:00 AM COMPLETE CBC W/AUTO DIFF WBC Returned 08/06/2013 12:00 AM COMPREHEN METABOLIC PANEL Returned 08/06/2013 12:00 AM LIPID PANEL Returned 10/24/2013 12:00 AM VITAMIN B-12 Returned 10/24/2013 12:00 AM ASSAY OF FOLIC ACID SERUM Returned 10/31/2013 12:00 AM B12 Injection, Up to 1000 Mcg [facility]#6910-1087-18 Reviewed 01/02/2014 12:00 AM THER/PROPH/DIAG INJ SC/IM Reviewed 01/02/2014 12:00 AM Decadron, Per 1 Mg ND# [address]-46 Reviewed 01/02/2014 12:00 AM Depo-Medrol, Per 80 Mg [facility]#3389-7405-63 Reviewed 01/02/2014 12:00 AM B12 Injection, Up to 1000 Mcg [facility]#6484-2945-89 Reviewed 01/29/2014 12:00 AM B12 Injection, Up to 1000 Mcg [facility]#8807-4515-74 Reviewed 03/18/2014 12:00 AM THER/PROPH/DIAG INJ SC/IM Reviewed 03/18/2014 12:00 AM Decadron, Per 1 Mg [facility]# [address]-26 Reviewed 03/18/2014 12:00 AM Depo-Medrol, Per 80 Mg [facility]#7753-5152-97 Reviewed 04/11/2014 12:00 AM B12 Injection, Up to 1000 Mcg [facility]#8939-7077-27 Reviewed 10/30/2010 12:00 AM Blood Pressure Check-no charge Reviewed 11/12/2010 12:00 AM Blood Pressure Check-no charge Reviewed 07/17/2014 12:00 AM COMPLETE CBC W/AUTO DIFF WBC Returned 07/17/2014 12:00 AM COMPREHEN METABOLIC PANEL Returned 07/17/2014 12:00 AM LIPID PANEL Returned 11/27/2014 12:00 AM THER/PROPH/DIAG INJ SC/IM Reviewed 11/27/2014 12:00 AM Decadron, Per 1 Mg [facility]# [address]-37 Reviewed 11/27/2014 12:00 AM Depo-Medrol, Per 80 Mg [facility]#6774-5940-88 Reviewed 02/10/2015 12:00 AM THER/PROPH/DIAG INJ SC/IM Reviewed 02/10/2015 12:00 AM Decadron, Per 1 Mg [facility]# [id number] Reviewed 02/10/2015 12:00 AM Depo-Medrol 40mg Reviewed [...] BILI 0.40 mg/dLCALCIUM 9.70 mg/dLeGFR >60 mL/min/1.73 [id number] 212.0 mg/dLCHOLESTEROL 196.0 mg/dLHDL 56.0 mg/dLLDL (CALC) [...] Obstructive Pulmonary Disease Aug 11 2015 1:40PM Payers Insurance Name Company Name Plan Name Plan Number Policy Number Policy Group Number Start Date [employer] [id number] Monday, 2007 History of Encounters Visit Date Visit Type Provider 08/11/2015 Office visit Aditi Marie APRN 05/19/2015 Office visit Aditi Marie INSULATION BOARD COATER OPERATOR 05/12/2015 [facility] Salome Phillips MD 05/06/2015 Office visit Aditi Marie INSULATION BOARD COATER OPERATOR 02/10/2015 Office visit Aditi Marie APRN 11/27/2014 Office visit Aditi Marie APRN 10/30/2014 Office visit Emily Casper APRN 08/21/2014 Office visit Aditi Marie INSULATION BOARD COATER OPERATOR 07/17/2014 Office visit Aditi Marie INSULATION BOARD COATER OPERATOR 04/17/2014 Office visit Aditi Walker INSULATION BOARD COATER OPERATOR 03/18/2014 Office visit Aditi Frank INSULATION BOARD COATER OPERATOR 03/15/2014 Nurse visit Emily Casper INSULATION BOARD COATER OPERATOR 01/29/2014 Nurse visit Aditi Walker INSULATION BOARD COATER OPERATOR 01/02/2014 Office visit Aditi Walker INSULATION BOARD COATER OPERATOR 10/31/2013 Nurse visit Aditi Walker INSULATION BOARD COATER OPERATOR 10/23/2013 Office visit Aditi Walker INSULATION BOARD COATER OPERATOR 08/06/2013 Office visit Aditi Walker INSULATION BOARD COATER OPERATOR 05/15/2013 Office visit Aditi Walker INSULATION BOARD COATER OPERATOR 03/19/2013 Office visit Aditi Walker INSULATION BOARD COATER OPERATOR 12/06/2012 Office visit Aditi Walker INSULATION BOARD COATER OPERATOR 09/26/2012 Office visit Aditi Walker INSULATION BOARD COATER OPERATOR 08/14/2012 Office visit Aditi Walker INSULATION BOARD COATER OPERATOR 04/04/2012 Office visit Aditi Frank INSULATION BOARD COATER OPERATOR 03/13/2012 Office visit Aditi Marie INSULATION BOARD COATER OPERATOR 02/17/2012 Office visit Aditi Frank INSULATION BOARD COATER OPERATOR 11/01/2011 Office visit Aditi Marie INSULATION BOARD COATER OPERATOR 07/20/2011 Office visit Aditi Frank INSULATION BOARD COATER OPERATOR 03/31/2011 Office visit Lyudmila DYER 11/12/2010 Nurse visit Lyudmila DYER 10/30/2010 Nurse visit Lyudmila DYER 10/15/2010 Office visit Lyudmila DYER 07/17/2010 Office visit Lyudmila DYER 10/07/2009 Office visit Paola DYER
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
--- OUTSIDE RECORDS SUMMARY | 2017-12-12 15:28 | XMS REPORT ---
Author Author BJ LNADEROS [facility] Address [address] [place] [address] Care Team Providers Care Cord Tire Builder Name Role Phone BJ LANDEROS Unavailable PROBLEMS Type Condition ICD9-CM Code EXN59-UI Code Onset Dates Condition Status SNOMED Code Problem Tobacco abuse Z72.0 Active 965493676 Problem Routine health maintenance Z00.00 Active 441432268 Problem ETOH abuse F10.10 Active 63258335 Problem Tobacco abuse counseling Z71.6 Active 848214910 Problem Lumbago with sciatica, left side M54.42 Active 450513980 Problem Elevated fasting glucose R73.01 Active 918384765 Problem Essential hypertension I10 Active 57053020 Problem Moderate episode of recurrent major depressive disorder F33.1 Active 582492806 Problem Pseudobulbar affect F48.2 Active 62366186 Problem Mixed hyperlipidemia E78.2 Active 123272020 ALLERGIES Unknown Allergies SOCIAL HISTORY No smoking Hx information available PLAN OF CARE VITAL SIGNS Blood pressure systolic 178 mmHg 2016-08-06 Blood pressure diastolic 110 mmHg 2016-08-06 MEDICATIONS Medication Instructions Dosage Frequency Start Date End Date Duration Status Atenolol 50 MG Orally Once a day 1 tablet 24h Active RESULTS No Results PROCEDURES No Known procedures IMMUNIZATIONS No Known Immunizations
--- OUTSIDE RECORDS SUMMARY | 2017-12-12 15:29 | XMS REPORT ---
Author Author Aditi Marie Organization [facility] Address [address] [place], [place] [address] Care Team Providers Care Ski Lift Attendant Name Role Phone Aditi Marie PCP Unavailable Allergies and Adverse Reactions Name Reaction Notes PENICILLINS Plan of Treatment Planned Activity Comments Planned Date Planned Time Plan/Goal LIPID PANEL 02/17/2012 12:00 AM Medications Active Name Start Date Estimated Completion Date SIG Comments lisinopril-hydrochlorothiazide oral tablet 20-12.5 mg 04/17/2014 take 2 tablets by mouth daily in am. atenolol oral tablet 50 mg 02/10/2015 TAKE ONE TABLET BY MOUTH EVERY DAY paroxetine HCl oral tablet 20 mg 02/10/2015 TAKE ONE TABLET BY MOUTH EVERY DAY Bactroban topical ointment 2 % 05/06/2015 apply a small amount to the affected area by topical route 3 times per day Bactrim DS oral tablet 800-160 mg 05/06/2015 05/13/2015 take 1 tablet by oral route every 12 hours for 7 days Xanax oral tablet 0.5 mg 05/13/2015 take 1 tab (0.5mg) BID Name Start Date Expiration Date SIG Comments [...] oral route once daily for 4 days Discontinued Name Start Date Discontinued Date SIG [...] 30 mL in 24 hours Medrol (Demond) oral tablets,dose pack 4 mg [...] HC BMI BSA BMI Percentile O2 Sat(%) 05/06/2015 10:53:00 AM 124 mmHg 66 mmHg [...] BILI 0.40 mg/dLCALCIUM 9.70 mg/dLeGFR >60 mL/min/1.73 [id number] 212.0 mg/dLCHOLESTEROL 196.0 mg/dLHDL 56.0 mg/dLLDL (CALC) [...] 10:55AM Anxiety Disorder May 06 2015 10:55AM Payers Insurance Name Company Name Plan Name Plan Number Policy Number Policy Group Number Start Date [employer] [id number] Monday, 2007 History of Encounters Visit Date Visit Type Provider 05/06/2015 Office visit Aditi Marie POLICE MANAGER 02/10/2015 Office visit Aditi Marie POLICE MANAGER 11/27/2014 Office visit Aditi Marie POLICE MANAGER 10/30/2014 Office visit Emily Casper POLICE MANAGER 08/21/2014 Office visit Aditi Walker POLICE MANAGER 07/17/2014 Office visit Aditi Walker POLICE MANAGER 04/17/2014 Office visit Aditi Walker POLICE MANAGER 03/18/2014 Office visit Aditi Frank POLICE MANAGER 03/15/2014 Nurse visit Emily Casper POLICE MANAGER 01/29/2014 Nurse visit Aditi Walker POLICE MANAGER 01/02/2014 Office visit Aditi Walker POLICE MANAGER 10/31/2013 Nurse visit Aditi Walker POLICE MANAGER 10/23/2013 Office visit Aditi Walker POLICE MANAGER 08/06/2013 Office visit Aditi Walker POLICE MANAGER 05/15/2013 Office visit Aditi Walker POLICE MANAGER 03/19/2013 Office visit Aditi Walker POLICE MANAGER 12/06/2012 Office visit Aditi Walker POLICE MANAGER 09/26/2012 Office visit Aditi Walker POLICE MANAGER 08/14/2012 Office visit Aditi Walker POLICE MANAGER 04/04/2012 Office visit Aditi Walker POLICE MANAGER 03/13/2012 Office visit Aditi Walker POLICE MANAGER 02/17/2012 Office visit Aditi Walker POLICE MANAGER 11/01/2011 Office visit Aditi Walker POLICE MANAGER 07/20/2011 Office visit Aditi Walker POLICE MANAGER 03/31/2011 Office visit Lyudmila Acharya PA 11/12/2010 Nurse visit Lyudmila Acharya PA 10/30/2010 Nurse visit Lyudmila Acharya PA 10/15/2010 Office visit Lyudmila DYER 07/17/2010 Office visit Lyudmila Acharya PA 10/07/2009 Office visit Paola DYER
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
[2017-12-12] MEDS ORDERED: HYDROmorphone (DILAUDID) 2 MG/ML VIAL IVP PRN ×2 (15:30→16:30)
--- OUTSIDE RECORDS SUMMARY | 2017-12-12 15:30 | XMS REPORT ---
Author Author TERENCE LOGAN Organization [facility] Address [address] [place] [address] Care Team Providers Care Heart Coordinator Name Role Phone TERENCE LOGAN Unavailable PROBLEMS Type Condition ICD9-CM Code MQP59-NN Code Onset Dates Condition Status SNOMED Code Assessment Essential hypertension I10 Jul, Active 64481102 ALLERGIES Substance Reaction Event Type Date Status Penicillin G Sodium Unknown Drug Allergy Jul, Active SOCIAL HISTORY No smoking Hx information available PLAN OF CARE VITAL SIGNS Height 64 in 2016-08-06 Weight 123.8 lbs 2016-08-06 Heart Rate 86 bpm 2016-08-06 Respiratory Rate 20 2016-08-06 BMI 21.25 kg/m2 2016-08-06 Blood pressure systolic 186 mmHg 2016-08-06 Blood pressure diastolic 120 mmHg 2016-08-06 MEDICATIONS Medication Instructions Dosage Frequency Start Date End Date Duration Status Lisinopril 40 MG Orally Once a day 1 tablet 24h Jul, 30 day(s) Active Atenolol 50 MG Orally Once a day 1 tablet 24h Active RESULTS No Results PROCEDURES Procedure Date Ordered Related Diagnosis Body Site Office Visit, New Pt., Level 3 Aug 06, 2016 IMMUNIZATIONS No Known Immunizations
--- OUTSIDE RECORDS SUMMARY | 2017-12-12 15:30 | XMS REPORT ---
Author Author UYEN ECHOLS Organization [employer] Address Unknown Phone Unavailable Care Team Providers Care Rubber Stamp Maker Name Role Phone UYEN ECHOLS CP Unavailable Allergies, Adverse Reactions, Alerts Substance Reaction Event Type Penicillin G Sodium Info Not Available Drug Allergy Problems Problem Type Condition Code Onset Dates Condition Status Assessment Essential hypertension I10 Active Assessment Encounter for immunization Z23 Active Assessment Elevated fasting glucose R73.01 Active Assessment Mixed hyperlipidemia E78.2 Active Assessment Tobacco abuse Z72.0 Active Problem Essential hypertension I10 Active Problem Moderate episode of recurrent major depressive disorder F33.1 Active Problem Mixed hyperlipidemia E78.2 Active Problem Tobacco abuse Z72.0 Active Problem Tobacco abuse counseling Z71.6 Active Problem Routine health maintenance Z00.00 Active Problem ETOH abuse F10.10 Active Medications Medication Code System Code Instructions Start Date End Date Status Dosage Lisinopril [facility] [address]-20 40 mg Orally Once a day Aug 06, 2016 1 tablet Norvasc [facility] [address]-11 5 mg Orally Once a day Aug 19, 2016 1 tablet Atenolol [facility] [address]-25 50 mg Orally Once a day 1 tablet Xanax [facility] [address]-35 0.25 MG Orally Twice a day prn 1 tablet Nuedexta [facility] [address]-28 20-10 MG Orally every 12 hrs 1 capsule Rexulti [facility] [address]-90 2 MG Orally Once a day 1 tablet Procedures Procedure Coding System Code Date SINGLE IMMUNIZATION ADMIN CPT-4 79781 Sep 16, 2016 Office Visit, Est Pt., Level 3 CPT-4 03109 Sep 16, 2016 FLUARIX QUAD P-FREE 3 AND UP .50 2015 CPT-4 73461 Sep 16, 2016 Vital Signs Date/Time: Sep 16, 2016 Cardiac Monitoring Heart Rate 88 bpm Weight 126.3 lbs Height 64 in BMI 21.68 Index Blood Pressure Diastolic 78 mmHg Blood Pressure Systolic 126 mmHg Results No Known Results Immunizations Vaccine Administration Date FLUARIX QUAD P-FREE 3 AND UP .50 2015Sep 16, 2016 Summary Purpose [employer] Submission
--- OUTSIDE RECORDS SUMMARY | 2017-12-12 15:30 | XMS REPORT ---
Author Author Aditi Marie Organization [facility] Address [address] [place], [place] [address] Care Team Providers Care Print Decorator Name Role Phone Aditi Marie PCP Unavailable [...] (0.5mg) BID lisinopril oral tablet 20 mg 06/09/2015 take 1 tablet (20 mg) by [...] 02/10/2015 12:00 AM THER/PROPH/DIAG INJ SC/IM Reviewed 05/19/2015 12:00 AM METABOLIC PANEL TOTAL [...] BILI 0.40 mg/dLCALCIUM 9.70 mg/dLeGFR >60 mL/min/1.73 [id number] 212.0 mg/dLCHOLESTEROL 196.0 mg/dLHDL 56.0 mg/dLLDL (CALC) [...] 0.70 mg/dLCALCIUM 9.20 mg/dLeGFR >60 mL/min/1.73 m2 History Of Immunizations Not available. History of [...] Number Policy Group Number Start Date [employer] [facility] [employer] [id number] Monday, 2007 History of Encounters Visit Date Visit Type Provider 05/19/2015 Office visit Aditi Marie TOOL SUPERVISOR 05/12/2015 [facility] Salome Phillips MD 05/06/2015 Office visit Aditi Marie TOOL SUPERVISOR 02/10/2015 Office visit Aditi Marie TOOL SUPERVISOR 11/27/2014 Office visit Aditi Marie TOOL SUPERVISOR 10/30/2014 Office visit Emily Casper TOOL SUPERVISOR 08/21/2014 Office visit Aditi Marie TOOL SUPERVISOR 07/17/2014 Office visit Aditi Marie TOOL SUPERVISOR 04/17/2014 Office visit Aditi Marie TOOL SUPERVISOR 03/18/2014 Office visit Aditi Marie TOOL SUPERVISOR 03/15/2014 Nurse visit Emily Casper TOOL SUPERVISOR 01/29/2014 Nurse visit Aditi Marie TOOL SUPERVISOR 01/02/2014 Office visit Aditi Marie TOOL SUPERVISOR 10/31/2013 Nurse visit Aditi Marie TOOL SUPERVISOR 10/23/2013 Office visit Aditi Marie TOOL SUPERVISOR 08/06/2013 Office visit Aditi Marie TOOL SUPERVISOR 05/15/2013 Office visit Aditi Marie TOOL SUPERVISOR 03/19/2013 Office visit Aditi Marie TOOL SUPERVISOR 12/06/2012 Office visit Aditi Marie TOOL SUPERVISOR 09/26/2012 Office visit Aditi Marie TOOL SUPERVISOR 08/14/2012 Office visit Aditi Marie TOOL SUPERVISOR 04/04/2012 Office visit Aditi Marie TOOL SUPERVISOR 03/13/2012 Office visit Aditi Marie TOOL SUPERVISOR 02/17/2012 Office visit Aditi Marie TOOL SUPERVISOR 11/01/2011 Office visit Aditi Marie TOOL SUPERVISOR 07/20/2011 Office visit Aditi Marie TOOL SUPERVISOR 03/31/2011 Office visit Lyudmila DYER 11/12/2010 Nurse visit Lyudmila DYER 10/30/2010 Nurse visit Lyudmila DYER 10/15/2010 Office visit Lyudmila DYER 07/17/2010 Office visit Lyudmila DYER 10/07/2009 Office visit Paola DYER
--- OUTSIDE RECORDS SUMMARY | 2017-12-12 15:31 | XMS REPORT ---
Author Author UYEN ECHOLS Organization [facility] Address [address] [place] [address] Care Team Providers Care Icu Tech Name Role Phone UYEN ECHOLS Unavailable PROBLEMS Type Condition ICD9-CM Code SGS11-XP Code Onset Dates Condition Status SNOMED Code Problem Tobacco abuse Z72.0 Active 262742554 Problem Routine health maintenance Z00.00 Active 095054337 Problem Tobacco abuse counseling Z71.6 Active 054534821 Problem Essential hypertension I10 Active 70345976 Problem Lumbago with sciatica, left side M54.42 Active 447204142 Problem Elevated fasting glucose R73.01 Active 177163981 Problem ETOH abuse F10.10 Active 28487493 Problem Moderate episode of recurrent major depressive disorder F33.1 Active 892049078 Problem Pseudobulbar affect F48.2 Active 65997797 Problem Mixed hyperlipidemia E78.2 Active 013387352 ALLERGIES Unknown Allergies SOCIAL HISTORY No smoking Hx information available PLAN OF CARE VITAL SIGNS MEDICATIONS Medication Instructions Dosage Frequency Start Date End Date Duration Status Atenolol 50 mg Orally Once a day 1 tablet 24h 30 days Active Norvasc 5 mg Orally Once a day 1 tablet 24h Aug, 30 days Active Lisinopril 40 mg Orally Once a day 1 tablet 24h Jul, 30 days Active RESULTS No Results PROCEDURES No Known procedures IMMUNIZATIONS No Known Immunizations
--- OUTSIDE RECORDS SUMMARY | 2017-12-12 15:32 | XMS REPORT ---
Author Author UYEN ECHOLS Organization [facility] Address [address] [place] [address] Care Team Providers Care Cutting Machine Offbearer Name Role Phone ONESIMO UYEN Unavailable PROBLEMS Type Condition ICD9-CM Code LWJ73-BH Code Onset Dates Condition Status SNOMED Code Problem Tobacco abuse Z72.0 Active 184343400 Problem Routine health maintenance Z00.00 Active 717505862 Problem Tobacco abuse counseling Z71.6 Active 896180629 Problem Essential hypertension I10 Active 87896637 Problem Lumbago with sciatica, left side M54.42 Active 542614475 Problem Elevated fasting glucose R73.01 Active 181070565 Problem ETOH abuse F10.10 Active 71947970 Problem Moderate episode of recurrent major depressive disorder F33.1 Active 602465553 Problem Pseudobulbar affect F48.2 Active 65798491 Problem Mixed hyperlipidemia E78.2 Active 696609058 ALLERGIES Unknown Allergies SOCIAL HISTORY No smoking Hx information available PLAN OF CARE VITAL SIGNS MEDICATIONS Unknown Medications RESULTS Name Result Date Reference Range GLUCOSE RAISA 2 HOUR 2016-12-02 Glucose, Fasting 121 65-91 Glucose, 2 hour 141 65-152 INSULIN LEVEL 2016-12-02 Insulin 8.9 2.6-24.9 PROCEDURES Procedure Date Ordered Related Diagnosis Body Site ASSAY OF INSULIN Dec 02, 2016 VENIPUNCT, ROUTINE* Dec 02, 2016 GLUCOSE TOLERANCE TEST (GTT) Dec 02, 2016 IMMUNIZATIONS No Known Immunizations
--- OUTSIDE RECORDS SUMMARY | 2017-12-12 15:32 | XMS REPORT ---
Author Author Aditi Marie Organization [facility] Address [address] [place], [place] [address] Care Team Providers Care Oil House Attendant Name Role Phone Aditi Marie PCP [...] to exceed 30 mL in 24 hours lisinopril 20 mg oral tablet 10/15/2015 TAKE ONE TABLET BY MOUTH ONCE DAILY Levaquin 750 mg oral tablet 10/21/2015 10/28/2015 take 1 tablet (750 mg) by oral route once daily for 7 days Name Start Date Expiration Date SIG [...] days Possibly caused throwing up, low sodium Zithromax Z-Demond 250 mg oral tablet 10/07/2015 [...] HC BMI BSA BMI Percentile O2 Sat(%) 10/21/2015 9:35:00 AM 138 mmHg 78 mmHg 124 bpm 18 rpm 97.3 F 115.25 lbs 64 in 19.78 kg/m2 1.54 m2 100 % 10/07/2015 1:18:00 PM 128 mmHg 62 mmHg 86 bpm 18 rpm 97.3 F 119.25 lbs 64 in 20.469 kg/m 1.5629 m 100 % 08/11/2015 1:38:00 PM 132 mmHg [...] 10/07/2015 12:00 AM Decadron, Per 1 Mg NDC# [address]-40 Reviewed 10/07/2015 12:00 AM Depo-Medrol 40mg Reviewed 11/01/2011 12:00 AM LIPID PANEL Reviewed 11/01/2011 12:00 AM THER/PROPH/DIAG INJ SC/IM Reviewed 11/01/2011 12:00 AM Decadron 1 mg NDC#[id number] (Sanjeev) Reviewed 11/01/2011 12:00 AM Depo-Medrol 80 mg NDC#[id number]-Eymnnfmn Reviewed 02/17/2012 12:00 AM THER/PROPH/DIAG INJ SC/IM Reviewed 02/17/2012 12:00 AM Decadron 1 mg NDC#[id number] (Sanjeev) Reviewed 02/17/2012 12:00 AM Depo-Medrol 80 mg NDC#[id number]-Ssmjcwsn Reviewed 08/14/2012 12:00 AM COMPREHEN METABOLIC PANEL Returned 08/14/2012 12:00 AM LIPID PANEL Returned 09/26/2012 12:00 AM THER/PROPH/DIAG INJ SC/IM Reviewed 09/26/2012 12:00 AM Decadron 1 mg NDC#[id number] (Sanjeev) Reviewed 09/26/2012 12:00 AM Depo-Medrol 80 mg NDC#[id number]-Amuembdb Reviewed 05/15/2013 12:00 AM CHEST X-RAY 2VW FRONTAL&LATL Returned 08/06/2013 12:00 AM COMPLETE CBC W/AUTO DIFF WBC Returned 08/06/2013 12:00 AM COMPREHEN METABOLIC PANEL Returned 08/06/2013 12:00 AM LIPID PANEL Returned 10/24/2013 12:00 AM VITAMIN B-12 Returned 10/24/2013 12:00 AM ASSAY OF FOLIC ACID SERUM Returned 10/31/2013 12:00 AM B12 Injection, Up to 1000 Mcg [facility]#8441-2168-78 Reviewed 01/02/2014 12:00 AM THER/PROPH/DIAG INJ SC/IM Reviewed 01/02/2014 12:00 AM Decadron, Per 1 Mg ND# [address]-02 Reviewed 01/02/2014 12:00 AM Depo-Medrol, Per 80 Mg ND#3761-3728-03 Reviewed 01/02/2014 12:00 AM B12 Injection, Up to 1000 Mcg ND#0071-2108-76 Reviewed 01/29/2014 12:00 AM B12 Injection, Up to 1000 Mcg ND#6475-8315-11 Reviewed 03/18/2014 12:00 AM THER/PROPH/DIAG INJ SC/IM Reviewed 03/18/2014 12:00 AM Decadron, Per 1 Mg ND# [address]-61 Reviewed 03/18/2014 12:00 AM Depo-Medrol, Per 80 Mg ND#9129-8613-10 Reviewed 04/11/2014 12:00 AM B12 Injection, Up to 1000 Mcg ND#8541-6224-90 Reviewed 10/30/2010 12:00 AM Blood Pressure Check-no charge Reviewed 11/12/2010 12:00 AM Blood Pressure Check-no charge Reviewed 07/17/2014 12:00 AM COMPLETE CBC W/AUTO DIFF WBC Returned 07/17/2014 12:00 AM COMPREHEN METABOLIC PANEL Returned 07/17/2014 12:00 AM LIPID PANEL Returned 11/27/2014 12:00 AM THER/PROPH/DIAG INJ SC/IM Reviewed 11/27/2014 12:00 AM Decadron, Per 1 Mg ND# [address]-24 Reviewed 11/27/2014 12:00 AM Depo-Medrol, Per 80 Mg ND#7557-9195-27 Reviewed 02/10/2015 12:00 AM THER/PROPH/DIAG INJ SC/IM Reviewed 02/10/2015 12:00 AM Decadron, Per 1 Mg NDC# [address]-21 Reviewed 02/10/2015 12:00 AM Depo-Medrol 40mg Reviewed [...] BILI 0.40 mg/dLCALCIUM 9.70 mg/dLeGFR >60 mL/min/1.73 [id number] 212.0 mg/dLCHOLESTEROL 196.0 mg/dLHDL 56.0 mg/dLLDL (CALC) [...] 2015 1:20PM Depression Oct 07 2015 1:20PM Acute bronchitis, unspecified organism Oct 21 2015 9:36AM Payers Insurance Name Company Name Plan Name Plan Number Policy Number Policy Group Number Start Date [employer] [id number] Monday, 2007 History of Encounters Visit Date Visit Type Provider 10/21/2015 Office visit Aditi Marie ASSISTANT PROFESSOR OF BIOCHEMISTRY 10/07/2015 Office visit Aditi Marie ASSISTANT PROFESSOR OF BIOCHEMISTRY 08/11/2015 Office visit Aditi Marie ASSISTANT PROFESSOR OF BIOCHEMISTRY 05/19/2015 Office visit Aditi Marie ASSISTANT PROFESSOR OF BIOCHEMISTRY 05/12/2015 [facility] Salome Phillips MD 05/06/2015 Office visit Aditi Marie ASSISTANT PROFESSOR OF BIOCHEMISTRY 02/10/2015 Office visit Aditi Marie ASSISTANT PROFESSOR OF BIOCHEMISTRY 11/27/2014 Office visit Aditi Marie ASSISTANT PROFESSOR OF BIOCHEMISTRY 10/30/2014 Office visit Emily Casper ASSISTANT PROFESSOR OF BIOCHEMISTRY 08/21/2014 Office visit Aditi Marie ASSISTANT PROFESSOR OF BIOCHEMISTRY 07/17/2014 Office visit Aditi Marie ASSISTANT PROFESSOR OF BIOCHEMISTRY 04/17/2014 Office visit Aditi Marie ASSISTANT PROFESSOR OF BIOCHEMISTRY 03/18/2014 Office visit Aditi Marie ASSISTANT PROFESSOR OF BIOCHEMISTRY 03/15/2014 Nurse visit Emily Casper ASSISTANT PROFESSOR OF BIOCHEMISTRY 01/29/2014 Nurse visit Aditi Marie ASSISTANT PROFESSOR OF BIOCHEMISTRY 01/02/2014 Office visit Aditi Marie ASSISTANT PROFESSOR OF BIOCHEMISTRY 10/31/2013 Nurse visit Aditi Marie ASSISTANT PROFESSOR OF BIOCHEMISTRY 10/23/2013 Office visit Aditi Marie ASSISTANT PROFESSOR OF BIOCHEMISTRY 08/06/2013 Office visit Aditi Marie ASSISTANT PROFESSOR OF BIOCHEMISTRY 05/15/2013 Office visit Aditi Marie ASSISTANT PROFESSOR OF BIOCHEMISTRY 03/19/2013 Office visit Aditi Marie ASSISTANT PROFESSOR OF BIOCHEMISTRY 12/06/2012 Office visit Aditi Frank ASSISTANT PROFESSOR OF BIOCHEMISTRY 09/26/2012 Office visit Aditi Frank ASSISTANT PROFESSOR OF BIOCHEMISTRY 08/14/2012 Office visit Aditi Frank ASSISTANT PROFESSOR OF BIOCHEMISTRY 04/04/2012 Office visit Aditi Frank ASSISTANT PROFESSOR OF BIOCHEMISTRY 03/13/2012 Office visit Aditi Frank ASSISTANT PROFESSOR OF BIOCHEMISTRY 02/17/2012 Office visit Aditi Frank ASSISTANT PROFESSOR OF BIOCHEMISTRY 11/01/2011 Office visit Aditi Frank ASSISTANT PROFESSOR OF BIOCHEMISTRY 07/20/2011 Office visit Aditi Frank ASSISTANT PROFESSOR OF BIOCHEMISTRY 03/31/2011 Office visit Lyudmila DYER 11/12/2010 Nurse visit Lyudmila DYER 10/30/2010 Nurse visit Lyudmila DYER 10/15/2010 Office visit Lyudmila DYER 07/17/2010 Office visit Lyudmila DYER 10/07/2009 Office visit Paola DYER
--- OUTSIDE RECORDS SUMMARY | 2017-12-12 15:33 | XMS REPORT ---
Author Author Aditi Marie Organization [facility] Address [address] [place], [place] [id number] Care Team Providers Care Research And Development Researcher Name Role Phone Aditi Marie PCP Unavailable [...] Reviewed 11/01/2011 12:00 AM Decadron 1 mg NDC#[id number] (Sanjeev) Reviewed 11/01/2011 12:00 AM Depo-Medrol 80 mg NDC#[id number]-Nmckhbgj Reviewed 02/17/2012 12:00 AM THER/PROPH/DIAG INJ SC/IM Reviewed 02/17/2012 12:00 AM Decadron 1 mg NDC#[id number] (Sanjeev) Reviewed 02/17/2012 12:00 AM Depo-Medrol 80 mg NDC#[id number]-Hieaghzq Reviewed 08/14/2012 12:00 AM COMPREHEN METABOLIC PANEL Returned 08/14/2012 12:00 AM LIPID PANEL Returned 09/26/2012 12:00 AM THER/PROPH/DIAG INJ SC/IM Reviewed 09/26/2012 12:00 AM Decadron 1 mg NDC#[id number] (Sanjeev) Reviewed 09/26/2012 12:00 AM Depo-Medrol 80 mg NDC#[id number]-Leilnfhx Reviewed 05/15/2013 12:00 AM CHEST X-RAY 2VW FRONTAL&LATL Returned 08/06/2013 12:00 AM COMPLETE CBC W/AUTO DIFF WBC Returned 08/06/2013 12:00 AM COMPREHEN METABOLIC PANEL Returned 08/06/2013 12:00 AM LIPID PANEL Returned 10/24/2013 12:00 AM VITAMIN B-12 Returned 10/24/2013 12:00 AM ASSAY OF FOLIC ACID SERUM Returned 10/31/2013 12:00 AM B12 Injection, Up to 1000 Mcg [facility]#6689-6164-02 Reviewed 01/02/2014 12:00 AM THER/PROPH/DIAG INJ SC/IM Reviewed 01/02/2014 12:00 AM Decadron, Per 1 Mg ND# [address]-51 Reviewed 01/02/2014 12:00 AM Depo-Medrol, Per 80 Mg [facility]#2792-2932-59 Reviewed 01/02/2014 12:00 AM B12 Injection, Up to 1000 Mcg [facility]#7295-0748-97 Reviewed 01/29/2014 12:00 AM B12 Injection, Up to 1000 Mcg [facility]#9629-3410-41 Reviewed 03/18/2014 12:00 AM THER/PROPH/DIAG INJ SC/IM Reviewed 03/18/2014 12:00 AM Decadron, Per 1 Mg [facility]# [address]-58 Reviewed 03/18/2014 12:00 AM Depo-Medrol, Per 80 Mg [facility]#6785-0522-08 Reviewed 04/11/2014 12:00 AM B12 Injection, Up to 1000 Mcg [facility]#5693-7175-39 Reviewed 10/30/2010 12:00 AM Blood Pressure Check-no charge Reviewed 11/12/2010 12:00 AM Blood Pressure Check-no charge Reviewed 07/17/2014 12:00 AM COMPLETE CBC W/AUTO DIFF WBC Returned 07/17/2014 12:00 AM COMPREHEN METABOLIC PANEL Returned 07/17/2014 12:00 AM LIPID PANEL Returned 11/27/2014 12:00 AM THER/PROPH/DIAG INJ SC/IM Reviewed 11/27/2014 12:00 AM Decadron, Per 1 Mg [facility]# [address]-85 Reviewed 11/27/2014 12:00 AM Depo-Medrol, Per 80 Mg [facility]#3815-7446-26 Reviewed 02/10/2015 12:00 AM THER/PROPH/DIAG INJ SC/IM Reviewed 02/10/2015 12:00 AM Decadron, Per 1 Mg [facility]# [address]-81 Reviewed 02/10/2015 12:00 AM Depo-Medrol 40mg Reviewed [...] BILI 0.40 mg/dLCALCIUM 9.70 mg/dLeGFR >60 mL/min/1.73 [id number] 212.0 mg/dLCHOLESTEROL 196.0 mg/dLHDL 56.0 mg/dLLDL (CALC) [...] Number Policy Group Number Start Date [employer] [id number] Monday, 2007 History of Encounters Visit Date Visit Type Provider 08/11/2015 Office visit Aditi Marie APRN 05/19/2015 Office visit Aditi Marie PRODUCT LINE MANAGER 05/12/2015 [facility] Salome Phillips MD 05/06/2015 Office visit Aditi Marie PRODUCT LINE MANAGER 02/10/2015 Office visit Aditi Marie PRODUCT LINE MANAGER 11/27/2014 Office visit Aditi Marie PRODUCT LINE MANAGER 10/30/2014 Office visit Emily Casper PRODUCT LINE MANAGER 08/21/2014 Office visit Aditi Marie PRODUCT LINE MANAGER 07/17/2014 Office visit Aditi Frank PRODUCT LINE MANAGER 04/17/2014 Office visit Aditi Walker PRODUCT LINE MANAGER 03/18/2014 Office visit Aditi Frank PRODUCT LINE MANAGER 03/15/2014 Nurse visit Emily Casper PRODUCT LINE MANAGER 01/29/2014 Nurse visit Aditi Frank PRODUCT LINE MANAGER 01/02/2014 Office visit Aditi Walker PRODUCT LINE MANAGER 10/31/2013 Nurse visit Aditi Walker PRODUCT LINE MANAGER 10/23/2013 Office visit Aditi Walker PRODUCT LINE MANAGER 08/06/2013 Office visit Aditi Walker PRODUCT LINE MANAGER 05/15/2013 Office visit Aditi Walker PRODUCT LINE MANAGER 03/19/2013 Office visit Aditi Marie PRODUCT LINE MANAGER 12/06/2012 Office visit Aditi Walker PRODUCT LINE MANAGER 09/26/2012 Office visit Aditi Maire PRODUCT LINE MANAGER 08/14/2012 Office visit Aditi Frank PRODUCT LINE MANAGER 04/04/2012 Office visit Aditi Marie PRODUCT LINE MANAGER 03/13/2012 Office visit Aditi Frank PRODUCT LINE MANAGER 02/17/2012 Office visit Aditi Frank PRODUCT LINE MANAGER 11/01/2011 Office visit Aditi Frank PRODUCT LINE MANAGER 07/20/2011 Office visit Aditi Frank PRODUCT LINE MANAGER 03/31/2011 Office visit Lyudmila DYER 11/12/2010 Nurse visit Lyudmila DYER 10/30/2010 Nurse visit Lyudmila DYER 10/15/2010 Office visit Lyudmila DYER 07/17/2010 Office visit Lyudmila DYER 10/07/2009 Office visit Paola DYER
--- OUTSIDE RECORDS SUMMARY | 2017-12-12 15:33 | XMS REPORT | Continuity of Care Document ---
Author Author [facility] Organization [facility] Address Unknown Phone Unavailable Allergies There is no data. Medications There is no data. Problems There is no data. Procedures There is no data. Results There is no data. Encounters ACCT No. Visit Date/Time Discharge Status Pt. Type Provider Facility Loc./Unit Complaint [id number] 10/21/2015 10:28:54 10/21/2015 23:59:59 CLS Outpatient WalkerAditi [id number] 10/07/2015 14:13:54 10/07/2015 23:59:59 CLS Outpatient WalkerAditi [id number] 08/11/2015 14:35:09 08/11/2015 23:59:59 CLS Outpatient WalkerAditi [id number] 06/23/2015 22:14:10 06/23/2015 23:59:59 CLS Outpatient KarunazachariahSalome martin [id number] 06/23/2015 22:09:39 06/23/2015 23:59:59 CLS Outpatient WalkerAditi [id number] 06/23/2015 22:01:40 06/23/2015 23:59:59 CLS Outpatient Walker, Aditi [id number] 02/10/2015 14:44:22 02/10/2015 23:59:59 CLS Outpatient Walker, Aditi [id number] 11/27/2014 10:21:36 11/27/2014 23:59:59 CLS Outpatient Walker, Aditi [id number] 10/30/2014 10:22:24 10/30/2014 23:59:59 CLS Outpatient Emily Casperle [id number] 08/21/2014 14:42:55 08/21/2014 23:59:59 CLS Outpatient Walker, Aditi [id number] 07/17/2014 15:09:48 07/17/2014 23:59:59 CLS Outpatient Walker, Aditi [id number] 04/17/2014 09:14:22 04/17/2014 23:59:59 CLS Outpatient Walker, Aditi [id number] 03/18/2014 09:44:06 03/18/2014 23:59:59 CLS Outpatient Walker, Aditi [id number] 03/15/2014 14:27:13 03/15/2014 23:59:59 CLS Outpatient Emily Casper [id number] 01/29/2014 14:32:29 01/29/2014 23:59:59 CLS Outpatient Aditi Marie [id number] 01/02/2014 15:29:41 01/02/2014 23:59:59 [facility] Outpatient Aditi Marie
--- OUTSIDE RECORDS SUMMARY | 2017-12-12 15:33 | XMS REPORT ---
Author Author BENNIE Farnsworth [facility] Address [address] [place] [address] Care Team Providers Care Grounds Restoration Specialist Name Role Phone BENNIE Farnsworth Unavailable PROBLEMS Type Condition ICD9-CM Code [id number] Code Onset Dates Condition Status SNOMED Code Problem Tobacco abuse Z72.0 Active 897738504 Problem Routine health maintenance Z00.00 Active 561403664 Problem ETOH abuse F10.10 Active 66952031 Problem Tobacco abuse counseling Z71.6 Active 431142512 Problem Lumbago with sciatica, left side M54.42 Active 226460529 Problem Elevated fasting glucose R73.01 Active 429676223 Problem Essential hypertension I10 Active 28684636 Problem Moderate episode of recurrent major depressive disorder F33.1 Active 268848207 Problem Pseudobulbar affect F48.2 Active 88218465 Problem Mixed hyperlipidemia E78.2 Active 025328625 ALLERGIES Substance Reaction Event Type Date Status Penicillin G Sodium Unknown Drug Allergy Oct, Active SOCIAL HISTORY No smoking Hx information available PLAN OF CARE Activity Details Follow Up 4 Weeks Reason: VITAL SIGNS Height 64 in 2016-11-05 Weight 131.9 lbs 2016-11-05 Heart Rate 92 bpm 2016-11-05 Respiratory Rate 20 2016-11-05 BMI 22.64 kg/m2 2016-11-05 Blood pressure systolic 118 mmHg 2016-11-05 Blood pressure diastolic 83 mmHg 2016-11-05 MEDICATIONS Medication Instructions Dosage Frequency Start Date End Date Duration Status Atenolol 50 mg Orally Once a day 1 tablet 24h Active Lisinopril 40 mg Orally Once a day 1 tablet 24h Jul, Active Seroquel XR 50 MG Orally Once a day 1 tablet in the evening 24h Active Xanax 0.25 MG Orally Twice a day prn 1 tablet Active Norvasc 5 mg Orally Once a day 1 tablet 24h Aug, Active Quetiapine Fumarate 50 mg Orally at bedtime 1 tablet Oct, Active Cymbalta 60 mg Orally Once a day 1 capsule 24h Oct, Active Nuedexta 20-10 MG Orally every 12 hrs 1 capsule 12h Active RESULTS No Results PROCEDURES Procedure Date Ordered Related Diagnosis Body Site Office Visit, New Pt., Level 4 Nov 05, 2016 IMMUNIZATIONS No Known Immunizations
[2017-12-12] MEDS ORDERED: morphine INJ 10 MG/ML 1ML (SYR OR VIAL) ONE (16:24)
[2017-12-12 16:56] VITALS: BP 130/87
== END 2017-12-12 16:56 | disposition short-term general hospital (02) ==
LOC: EDUNIT# 13:34 → ER 13:35
DX: S82.102A Unspecified fracture of upper end of left tibia, initial encounter for closed fracture (principal); S82.832A Other fracture of upper and lower end of left fibula, initial encounter for closed fracture; I10 Essential (primary) hypertension; F32.9 Major depressive disorder, single episode, unspecified; F17.210 Nicotine dependence, cigarettes, uncomplicated; Z98.51 Tubal ligation status; Z88.0 Allergy status to penicillin; W11.XXXA Fall on and from ladder, initial encounter
CPT/HCPCS: 29505; 36415; 51702; 73552; 73560; 73590; 73610; 80053; 85025; 96374; 96375; 96376

== ENCOUNTER → 2019-10-23 | Outpatient (CLI) | payer OTHER ==
[~2019-10-23] MED LIST: ATEN50TA PO; LISI-552 PO
--- NOTE | 2019-10-23 10:07 | Diagnostic Imaging Report ---
INDICATION: Screening The current study was also evaluated with a Computer Aided Detection (CAD) system. 3-D Tomographic imaging was also performed. No prior examinations are available for comparison. FINDINGS: The fibroglandular tissue is heterogeneously dense bilaterally. There is no dominant mass, spiculated lesion or suspicious calcification identified. The skin and nipples and axillae are unremarkable. IMPRESSION: Category 1, negative. ACR BI-RADS Category 1: Negative. Result letter will be mailed to the patient. Note: At least 10% of breast cancer is not imaged by mammography. Dictated by: Dictated on workstation # [id number]
== END ==
LOC: RAD 09:04
PROVIDERS: ATTEND Nurse Practitioner Primary Care
DX: Z12.31 Encounter for screening mammogram for malignant neoplasm of breast (principal)
CPT/HCPCS: 77067

== ENCOUNTER 2020-04-27 10:25 | Emergency (ER) | payer SELFPAY ==
[~2020-04-27] VITALS: Ht 162 cm; Wt 58.9 kg
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
--- OUTSIDE RECORDS SUMMARY | 2020-04-27 10:34 | XMS REPORT ---
Author Author Samantha ECHOLS Organization [facility] Address [address] [place] [address] Care Team Providers Care Gang Vibrator Operator Name Role Phone ECHOLSJANELLE GalavizELE Unavailable PROBLEMS Type Condition ICD9-CM Code IZH20-TP Code Onset Dates Condition S tatus SNOMED Code Problem Moderate episode of recurrent major depressive disorder F33.1 Active 259772292 Problem Essential hypertension I10 Active 62364464 Problem ETOH abuse F10.10 Active 88324661 Problem Hayfever J30.1 Active 96587915 Problem Lumbago with sciatica, left side M54.42 Active 190070922 Problem Tobacco abuse counseling Z71.6 Activ e 202678947 Problem Tobacco abuse Z72.0 Active 268812 000 Problem Pseudobulbar affect F48.2 Active 87862471 Problem Mixed hyperlipidemia E78.2 Active 916421327 ALLERGIES Substance Reaction Event Type Date Status Penicillin G Sodium Unknown Drug Allergy Feb, Active ENCOUNTERS Encounter Location Date Diagnosis [facility] IN [facility] [address] [id number] [address] [place] [phone] May, Hayfever J30.1 [facility] [address] [id number] [address] [place] [phone] Feb, Essential hypertension I10 ; Moderate episode of recurrent major depressive disorder F33.1 ; Closed displaced fracture of left patella, unspecified fracture morphology, initial encounter S82.002A ; ETOH abuse F10.10 ; Tobacco abuse Z72.0 ; Tobacco abuse counseling Z71.6 ; Mixed hyperlipidemia E78.2 and Pseudobulbar affect F48.2 [facility] [address] [facility] [id number] [address] [place] [phone] Feb, [facility] [address] [id number] [address] [place] [address] Jan, Moderate episode of recurren t major depressive disorder F33.1 [facility] [address] [id number] [address] [place] [address] Dec, [facility] [address] [id number] [address] [place] [phone] Dec, Moderate episode of recurren t major depressive disorder F33.1 [facility] [address] [id number] [address] [place] [phone] Nov, Moderate episode of recurren t major depressive disorder F33.1 [facility] [address] [id number] [address] [place] [phone] Nov, Allergic contact dermatitis, unspecified trigger L23.9 [facility] [address] [id number] [address] [place] [phone] Aug, [facility] [address] [id number] [address] [place] [phone] May, Moderate episode of recurren t major depressive disorder F33.1 [facility] [address] [id number] [address] [place] [phone] May, [facility] [address] [id number] [address] [place] [phone] May, [facility] [address] [id number] [address] [place] [address] Apr, Lumbago with sciatica, left side M54.42 ; Moderate episode of recurrent major depressive disorder F33.1 and Essential hypertension I10 [facility] [address] [id number] [address] [place] [phone] 08 Apr, 2017 Low back pain M54.5 and Acut e seasonal allergic rhinitis, unspecified trigger J30.2 [facility] [address] [id number] [address] [place] [phone] 14 Feb, 2017 Moderate episode of recurren t major depressive disorder F33.1 [facility] [address] [id number] [address] [place] [phone] Feb, [facility] [address] [facility] [id number] [address] [place] [phone] Jan, [facility] [address] [facility] [id number] [address] [place] [phone] Jan, [facility] [address] [facility] [id number] [address] [place] [phone] Jan, [facility] [address] [facility] [id number] [address] [place] [phone] Jan, Moderate episode of recurren t major depressive disorder F33.1 [facility] [address] [facility] [id number] [address] [place] [phone] Jan, Moderate episode of recurren t major depressive disorder F33.1 [facility] [address] [facility] [id number] [address] [place] [phone] Jan, [facility] [address] [facility] [id number] [address] [place] [phone] Dec, Essential hypertension I10 ; Tobacco abuse Z72.0 ; Tobacco abuse counseling Z71.6 ; Mixed hyperlipidemia E78.2 ; Moderate episode of recurrent major depressive disorder F33.1 and ETOH abuse F10.10 [place] [address] [facility] [id number] [address] [place] [phone] Nov, Moderate episode of recurren t major depressive disorder F33.1 [facility] [address] [facility] [id number] [address] [place] [phone] Nov, [facility] [address] [facility] [id number] [address] [place] [phone] Nov, [facility] [address] [facility] [id number] [address] [place] [phone] Nov, Moderate episode of recurren t major depressive disorder F33.1 ; ETOH abuse F10.10 and Pseudobulbar affect F48.2 [facility] [address] [id number] [address] [place] [address] Nov, Essential hypertension I10 [facility] [address] [address] Nov, Elevated fasting glucose R73 .01 [facility] [address] [address] Oct, Essential hypertension I10 ; Moderate episode of recurrent major depressive disorder F33.1 ; Routine health maintenance Z00.00 ; ETOH abuse F10.10 ; Tobacco abuse Z72.0 ; Tobacco abuse counseling Z71.6 and Mixed hyperlipidemia E78.2 [facility] [address] [address] Sep, Encounter for immunization Z 23 ; Elevated fasting glucose R73.01 ; Essential hypertension I10 ; Tobacco abuse Z72.0 and Mixed hyperlipidemia E78.2 [facility] [address] [address] Aug, Routine health maintenance Z 00.00 ; Essential hypertension I10 ; Moderate episode of recurrent major depressive disorder F33.1 and ETOH abuse F10.10 [facility] [address] [address] Aug, Routine health maintenance Z 00.00 ; Essential hypertension I10 ; Moderate episode of recurrent major depressive disorder F33.1 ; ETOH abuse F10.10 ; Tobacco abuse Z72.0 and Tobacco abuse counseling Z71.6 [facility] [address] [id number] [address] [place] [phone] Jul, Essential hypertension I10 [facility] [address] [id number] [address] [place] [phone] Jul, IMMUNIZATIONS No Known Immunizations SOCIAL HISTORY Never Assessed REASON FOR VISIT Left knee injury, needs referral to PT. PLAN OF CARE Activity Details Follow Up 3 Months, prn Reason:CHM/HTN VITAL SIGNS Height 64 in 2018-02-20 Weight 138 lbs 2018-02-20 Temperature 99.3 degrees Fahrenheit 2018-02-20 Heart Rate 83 bpm 2018-02-20 Respiratory Rate 18 2018-02-20 BMI 23.69 kg/m2 2018-02-20 Blood pressure systolic 118 mmHg 2018-02-20 Blood pressure diastolic 78 mmHg 2018-02-20 MEDICATIONS Medication Instructions Dosage Frequency Start Date End Date Duration S tatus Lisinopril 10 MG Orally Once a day 1 tablet 24h 90 d ays Active Atenolol 50 MG Orally Once a day 1 tablet 24h 90 day s Active Trazodone HCl 100 mg Orally Once a day 1 tablet at bedtime as needed 2 4h 90 days Active Rexulti 1 MG Orally Once a day 1 tablet 24h 90 days Active Paxil 20 mg Orally Once a day 1 tablet in the morning 24h 90 days Active RESULTS No Results [...]
--- OUTSIDE RECORDS SUMMARY | 2020-04-27 10:34 | XMS REPORT ---
Author Author Samantha EDGE [facility] [address] Address [address] [place] [address] Care Team Providers Care Hot Mill Tin Roller Name Role Phone MEGHNA EDGE Unavailable PROBLEMS Type Condition ICD9-CM Code HVR16-SS Code Onset Dates Condition S tatus SNOMED Code Problem Moderate episode of recurrent major depressive disorder F33.1 Active 609535607 Problem Essential hypertension I10 Active 81114036 Problem ETOH abuse F10.10 Active 48487179 Problem Hayfever J30.1 Active 93043703 Problem Lumbago with sciatica, left side M54.42 Active 264181915 Problem Tobacco abuse counseling Z71.6 Activ e 185949940 Problem Tobacco abuse Z72.0 Active 755418 000 Problem Pseudobulbar affect F48.2 Active 57470908 Problem Mixed hyperlipidemia E78.2 Active 643433257 ALLERGIES No Information ENCOUNTERS Encounter Location Date Diagnosis [facility] IN [facility] [address] [id number] [address] [place] [address] May, Hayfever J30.1 [facility] [address] [id number] [address] [place] [address] Feb, Essential hypertension I10 ; Moderate episode of recurrent major depressive disorder F33.1 ; Closed displaced fracture of left patella, unspecified fracture morphology, initial encounter S82.002A ; ETOH abuse F10.10 ; Tobacco abuse Z72.0 ; Tobacco abuse counseling Z71.6 ; Mixed hyperlipidemia E78.2 and Pseudobulbar affect F48.2 [facility] [address] [id number] [address] [place] [phone] Feb, [facility] [address] [id number] [address] [place] [phone] Jan, Moderate episode of recurren t major depressive disorder F33.1 [facility] [address] [id number] [address] [place] [phone] Dec, [facility] [address] [id number] [address] [place] [phone] 14 Dec, 2017 Moderate episode of recurren t major depressive disorder F33.1 [facility] [address] [id number] [address] [place] [phone] Nov, Moderate episode of recurren t major depressive disorder F33.1 [facility] [address] [id number] [address] [place] [address] Nov, Allergic contact dermatitis, unspecified trigger L23.9 [facility] [address] [id number] [address] [place] [phone] Aug, [facility] [address] [id number] [address] [place] [phone] May, Moderate episode of recurren t major depressive disorder F33.1 [facility] [address] [id number] [address] [place] [phone] May, [facility] [address] [id number] [address] [place] [address] May, [facility] [address] [id number] [address] [place] [address] Apr, Lumbago with sciatica, left side M54.42 ; Moderate episode of recurrent major depressive disorder F33.1 and Essential hypertension I10 [facility] [address] [id number] [address] [place] [phone] 08 Apr, 2017 Low back pain M54.5 and Acut e seasonal allergic rhinitis, unspecified trigger J30.2 [facility] [address] [id number] [address] [place] [phone] 14 Feb, 2017 Moderate episode of recurren t major depressive disorder F33.1 [facility] [address] [id number] [address] [place] [address] Feb, [facility] [address] [facility] [id number] [address] [place] [phone] Jan, [facility] [address] [facility] [id number] [address] [place] [phone] Jan, [facility] [address] [facility] [id number] [address] [place] [phone] Jan, [facility] [address] [facility] [id number] [address] [place] [address] Jan, Moderate episode of recurren t major depressive disorder F33.1 [facility] [address] [facility] [id number] [address] [place] [address] Jan, Moderate episode of recurren t major depressive disorder F33.1 [facility] [address] [facility] [id number] [address] [place] [phone] Jan, [facility] [address] [facility] [id number] [address] [place] [address] Dec, Essential hypertension I10 ; Tobacco abuse Z72.0 ; Tobacco abuse counseling Z71.6 ; Mixed hyperlipidemia E78.2 ; Moderate episode of recurrent major depressive disorder F33.1 and ETOH abuse F10.10 [facility] [address] [facility] [id number] [address] [place] [phone] Nov, Moderate episode of recurren t major depressive disorder F33.1 [facility] [address] [facility] [id number] [address] [place] [phone] Nov, [facility] [address] [facility] [id number] [address] [place] [address] Nov, [facility] [address] [facility] [id number] [address] [place] [address] Nov, Moderate episode of recurren t major depressive disorder F33.1 ; ETOH abuse F10.10 and Pseudobulbar affect F48.2 [facility] [address] [facility] [id number] [address] [place] [address] Nov, Essential hypertension I10 [facility] [address] [facility] [id number] [address] [place] [address] Nov, Elevated fasting glucose R73 .01 [facility] [address] [facility] [id number] [address] [place] [address] Oct, Essential hypertension I10 ; Moderate episode of recurrent major depressive disorder F33.1 ; Routine health maintenance Z00.00 ; ETOH abuse F10.10 ; Tobacco abuse Z72.0 ; Tobacco abuse counseling Z71.6 and Mixed hyperlipidemia E78.2 [facility] [address] [facility] [id number] [address] [place] [address] Sep, Encounter for immunization Z 23 ; Elevated fasting glucose R73.01 ; Essential hypertension I10 ; Tobacco abuse Z72.0 and Mixed hyperlipidemia E78.2 [place] [id number] [facility] [id number] [address] [place] [address] Aug, Routine health maintenance Z 00.00 ; Essential hypertension I10 ; Moderate episode of recurrent major depressive disorder F33.1 and ETOH abuse F10.10 [facility] [address] [facility] [id number] [address] [place] [address] Aug, Routine health maintenance Z 00.00 ; Essential hypertension I10 ; Moderate episode of recurrent major depressive disorder F33.1 ; ETOH abuse F10.10 ; Tobacco abuse Z72.0 and Tobacco abuse counseling Z71.6 [facility] [address] [facility] [id number] [address] [place] [address] Jul, Essential hypertension I10 [facility] [address] [facility] [id number] [address] [place] [phone] Jul, IMMUNIZATIONS No Known Immunizations SOCIAL HISTORY Never Assessed REASON FOR VISIT f/u PLAN OF CARE Activity Details Follow Up 4 Weeks Reason: VITAL SIGNS MEDICATIONS Medication Instructions Dosage Frequency Start Date End Date Duration S tatus Rexulti 1 MG Orally Once a day 1 tablet 24h 30 day(s ) Active Trazodone HCl 100 mg Orally Once a day 1 tablet at bedtime as needed 2 4h 30 day(s) Active Paxil 20 mg Orally Once a day 1 tablet in the morning 24h 30 day(s) Active Effexor XR 75 MG Orally Once a day 1 capsule with food 24h 30 day(s) Active RESULTS No Results PROCEDURES [...]
--- OUTSIDE RECORDS SUMMARY | 2020-04-27 10:34 | XMS REPORT ---
Author Author Samantha MARTE Organization [facility] Address [address] [place] [address] Care Team Providers Care Fuel Handler Name Role Phone CHUCHO MARTE Unavailable PROBLEMS Type Condition ICD9-CM Code SQX99-QV Code Onset Dates Condition S tatus SNOMED Code Problem Moderate episode of recurrent major depressive disorder F33.1 Active 992648197 Problem Essential hypertension I10 Active 65382608 Problem ETOH abuse F10.10 Active 15926561 Problem Hayfever J30.1 Active 42414650 Problem Lumbago with sciatica, left side M54.42 Active 063350125 Problem Tobacco abuse counseling Z71.6 Activ e 219481251 Problem Tobacco abuse Z72.0 Active 906477 000 Problem Pseudobulbar affect F48.2 Active 52988283 Problem Mixed hyperlipidemia E78.2 Active 350304714 ALLERGIES Substance Reaction Event Type Date Status Penicillin G Sodium Unknown Drug Allergy May, Active ENCOUNTERS Encounter Location Date Diagnosis [facility] [address] [id number] [address] [place] [address] May, Hayfever J30.1 [facility] [address] [id number] [address] [place] [address] Feb, Essential hypertension I10 ; Moderate episode of recurrent major depressive disorder F33.1 ; Closed displaced fracture of left patella, unspecified fracture morphology, initial encounter S82.002A ; ETOH abuse F10.10 ; Tobacco abuse Z72.0 ; Tobacco abuse counseling Z71.6 ; Mixed hyperlipidemia E78.2 and Pseudobulbar affect F48.2 [facility] [address] [id number] [address] [place] [address] Feb, [facility] [address] [id number] [address] [place] [address] Jan, Moderate episode of recurren t major depressive disorder F33.1 [facility] [address] [id number] [address] [place] [address] Dec, [facility] [address] [id number] [address] [place] [address] Dec, Moderate episode of recurren t major depressive disorder F33.1 [facility] [address] [id number] [address] [place] [address] Nov, Moderate episode of recurren t major depressive disorder F33.1 [facility] [address] [id number] [address] [place] [address] Nov, Allergic contact dermatitis, unspecified trigger L23.9 [facility] [address] [id number] [address] [place] [address] Aug, [facility] [address] [id number] [address] [place] [address] May, Moderate episode of recurren t major depressive disorder F33.1 [facility] [address] [id number] [address] [place] [address] May, [facility] [address] [id number] [address] [place] [address] May, [facility] [address] [facility] [id number] [address] [place] [address] Apr, Lumbago with sciatica, left side M54.42 ; Moderate episode of recurrent major depressive disorder F33.1 and Essential hypertension I10 [facility] [address] [id number] [address] [place] [id number] 08 Apr, 2017 Low back pain M54.5 and Acut e seasonal allergic rhinitis, unspecified trigger J30.2 [facility] [address] [id number] [address] [place] [phone] 14 Feb, 2017 Moderate episode of recurren t major depressive disorder F33.1 [place] [id number] [id number] [address] [place] [address] Feb, [facility] [address] [id number] [address] [place] [phone] Jan, [facility] [address] [facility] [id number] [address] [place] [address] Jan, [facility] [address] [facility] [id number] [address] [place] [address] Jan, [facility] [address] [facility] [id number] [address] [place] [address] Jan, Moderate episode of recurren t major depressive disorder F33.1 [facility] [address] [facility] [id number] [address] [place] [address] Jan, Moderate episode of recurren t major depressive disorder F33.1 [facility] [address] [facility] [id number] [address] [place] [address] Jan, [facility] [address] [facility] [id number] [address] [place] [address] Dec, Essential hypertension I10 ; Tobacco abuse Z72.0 ; Tobacco abuse counseling Z71.6 ; Mixed hyperlipidemia E78.2 ; Moderate episode of recurrent major depressive disorder F33.1 and ETOH abuse F10.10 [facility] [address] [facility] [id number] [address] [place] [address] Nov, Moderate episode of recurren t major depressive disorder F33.1 [facility] [address] [id number] [address] [place] [address] Nov, [facility] [address] [facility] [id number] [address] [place] [address] Nov, [facility] [address] [facility] [id number] [address] [place] [address] Nov, Moderate episode of recurren t major depressive disorder F33.1 ; ETOH abuse F10.10 and Pseudobulbar affect F48.2 [place] [address] [id number] [address] [place] [address] Nov, Essential hypertension I10 [facility] [address] [address] Nov, Elevated fasting glucose R73 .01 [facility] [address] [address] Oct, Essential hypertension I10 ; Moderate episode of recurrent major depressive disorder F33.1 ; Routine health maintenance Z00.00 ; ETOH abuse F10.10 ; Tobacco abuse Z72.0 ; Tobacco abuse counseling Z71.6 and Mixed hyperlipidemia E78.2 [place] [address] [address] Sep, Encounter for immunization Z 23 ; Elevated fasting glucose R73.01 ; Essential hypertension I10 ; Tobacco abuse Z72.0 and Mixed hyperlipidemia E78.2 [place] [address] [address] Aug, Routine health maintenance Z 00.00 ; Essential hypertension I10 ; Moderate episode of recurrent major depressive disorder F33.1 and ETOH abuse F10.10 [place] [address] [id number] [address] [place] [address] Aug, Routine health maintenance Z 00.00 ; Essential hypertension I10 ; Moderate episode of recurrent major depressive disorder F33.1 ; ETOH abuse F10.10 ; Tobacco abuse Z72.0 and Tobacco abuse counseling Z71.6 [facility] [address] [id number] [address] [place] [address] Jul, Essential hypertension I10 [facility] [address] [id number] [address] [place] [address] Jul, IMMUNIZATIONS No Known Immunizations SOCIAL HISTORY Never Assessed REASON FOR VISIT congestion et cough for 10 days. last couple days...eyes have been draining. chris pascual PLAN OF CARE Activity Details Follow Up if not improving with PCP or reg follow up Reason: VITAL SIGNS Height 64 in 2018-06-02 Weight 134.4 lbs 2018-06-02 Temperature 98.6 degrees Fahrenheit 2018-06-02 Heart Rate 78 bpm 2018-06-02 Respiratory Rate 20 2018-06-02 BMI 23.07 kg/m2 2018-06-02 Blood pressure systolic 120 mmHg 2018-06-02 Blood pressure diastolic 74 mmHg 2018-06-02 MEDICATIONS Medication Instructions Dosage Frequency Start Date End Date Duration S tatus Atenolol 50 MG Orally Once a day 1 tablet 24h 90 day s Active [place] 0.025 % Ophthalmic Twice a day 1 drop into affected eye 12h 10 days Active Lisinopril 10 MG Orally Once a day 1 tablet 24h 90 d ays Active Paxil 20 mg Orally Once a day 1 tablet in the morning 24h 90 days Active Trazodone HCl 100 mg Orally Once a day 1 tablet at bedtime as needed 2 4h 90 days Active Cetirizine HCl 10 MG Orally Once a day 1 tablet 24h 30 day(s) Active RESULTS No Results [...]
--- OUTSIDE RECORDS SUMMARY | 2020-04-27 10:34 | XMS REPORT ---
Author Author Samantha ECHOLS Organization [facility] Address [address] [place] [address] Care Team Providers Care Independent Driver Name Role Phone ECHOLSJANELLE GalavizELE Unavailable PROBLEMS Type Condition ICD9-CM Code TGS41-AU Code Onset Dates Condition S tatus SNOMED Code Problem Moderate episode of recurrent major depressive disorder F33.1 Active 656855898 Problem Essential hypertension I10 Active 72149366 Problem ETOH abuse F10.10 Active 91059350 Problem Hayfever J30.1 Active 07416242 Problem Lumbago with sciatica, left side M54.42 Active 563415669 Problem Tobacco abuse counseling Z71.6 Activ e 122585056 Problem Tobacco abuse Z72.0 Active 644688 000 Problem Pseudobulbar affect F48.2 Active 02541764 Problem Mixed hyperlipidemia E78.2 Active 960741305 ALLERGIES No Information ENCOUNTERS Encounter Location Date Diagnosis [facility] [address] [id number] [address] [place] [phone] May, Hayfever J30.1 [facility] [address] [id number] [address] [place] [phone] Feb, Essential hypertension I10 ; Moderate episode of recurrent major depressive disorder F33.1 ; Closed displaced fracture of left patella, unspecified fracture morphology, initial encounter S82.002A ; ETOH abuse F10.10 ; Tobacco abuse Z72.0 ; Tobacco abuse counseling Z71.6 ; Mixed hyperlipidemia E78.2 and Pseudobulbar affect F48.2 [facility] [address] [facility] [id number] [address] [place] [phone] Feb, [facility] [address] [id number] [address] [place] [id number] Jan, Moderate episode of recurren t major depressive disorder F33.1 [facility] [address] [id number] [address] [place] [phone] Dec, [facility] [address] [id number] [address] [place] [phone] Dec, Moderate episode of recurren t major depressive disorder F33.1 [facility] [address] [id number] [address] [place] [phone] Nov, Moderate episode of recurren t major depressive disorder F33.1 [facility] [address] [id number] [address] [place] [phone] Nov, Allergic contact dermatitis, unspecified trigger L23.9 [facility] [address] [id number] [address] [place] [id number] Aug, [facility] [address] [id number] [address] [place] [phone] May, Moderate episode of recurren t major depressive disorder F33.1 [facility] [address] [id number] [address] [place] [phone] May, [facility] [address] [id number] [address] [place] [phone] May, [facility] [address] [facility] [id number] [address] [place] [address] Apr, Lumbago with sciatica, left side M54.42 ; Moderate episode of recurrent major depressive disorder F33.1 and Essential hypertension I10 [facility] [address] [id number] [address] [place] [id number] 08 Apr, 2017 Low back pain M54.5 and Acut e seasonal allergic rhinitis, unspecified trigger J30.2 [facility] [address] [id number] [address] [place] [phone] 14 Feb, 2017 Moderate episode of recurren t major depressive disorder F33.1 [facility] [address] [id number] [address] [place] [phone] Feb, [facility] [address] [facility] [id number] [address] [place] [phone] Jan, [facility] [address] [facility] [id number] [address] [place] [phone] Jan, [facility] [address] [facility] [id number] [address] [place] [phone] Jan, [facility] [address] [facility] [id number] [address] [place] [phone] Jan, Moderate episode of recurren t major depressive disorder F33.1 [facility] [address] [facility] [id number] [address] [place] [phone] Jan, Moderate episode of recurren t major depressive disorder F33.1 [facility] [address] [facility] [id number] [address] [place] [phone] Jan, [facility] [address] [facility] [id number] [address] [place] [id number] Dec, Essential hypertension I10 ; Tobacco abuse Z72.0 ; Tobacco abuse counseling Z71.6 ; Mixed hyperlipidemia E78.2 ; Moderate episode of recurrent major depressive disorder F33.1 and ETOH abuse F10.10 [facility] [address] [facility] [id number] [address] [place] [phone] Nov, Moderate episode of recurren t major depressive disorder F33.1 [facility] [address] [facility] [id number] [address] [place] [phone] Nov, [facility] [address] [facility] [id number] [address] [place] [phone] Nov, [facility] [address] [facility] [id number] [address] [place] [address] Nov, Moderate episode of recurren t major depressive disorder F33.1 ; ETOH abuse F10.10 and Pseudobulbar affect F48.2 [facility] [address] [facility] [id number] [address] [place] [address] Nov, Essential hypertension I10 [facility] [address] [facility] [id number] [address] [place] [phone] Nov, Elevated fasting glucose R73 .01 [facility] [address] [facility] [id number] [address] [place] [address] Oct, Essential hypertension I10 ; Moderate episode of recurrent major depressive disorder F33.1 ; Routine health maintenance Z00.00 ; ETOH abuse F10.10 ; Tobacco abuse Z72.0 ; Tobacco abuse counseling Z71.6 and Mixed hyperlipidemia E78.2 [facility] [address] [facility] [id number] [address] [place] [phone] Sep, Encounter for immunization Z 23 ; Elevated fasting glucose R73.01 ; Essential hypertension I10 ; Tobacco abuse Z72.0 and Mixed hyperlipidemia E78.2 [facility] [address] [facility] [id number] [address] [place] [phone] Aug, Routine health maintenance Z 00.00 ; Essential hypertension I10 ; Moderate episode of recurrent major depressive disorder F33.1 and ETOH abuse F10.10 [facility] [address] [facility] [id number] [address] [place] [phone] Aug, Routine health maintenance Z 00.00 ; Essential hypertension I10 ; Moderate episode of recurrent major depressive disorder F33.1 ; ETOH abuse F10.10 ; Tobacco abuse Z72.0 and Tobacco abuse counseling Z71.6 [facility] [address] [facility] [id number] [address] [place] [phone] Jul, Essential hypertension I10 [facility] [address] [facility] [id number] [address] [place] [phone] Jul, IMMUNIZATIONS No Known Immunizations SOCIAL HISTORY Never Assessed REASON FOR VISIT Requests return call PLAN OF CARE VITAL SIGNS MEDICATIONS No Known Medications RESULTS No Results PROCEDURES No Known [...]
--- OUTSIDE RECORDS SUMMARY | 2020-04-27 10:34 | XMS REPORT ---
Author Author Samantha BAZAN Organization [facility] Address [address] [place] [address] Care Team Providers Care Mailer Name Role Phone JOVONCHRISTOPHER RUBEN Unavailable PROBLEMS Type Condition ICD9-CM Code EWU29-MZ Code Onset Dates Condition S tatus SNOMED Code Problem Moderate episode of recurrent major depressive disorder F33.1 Active 375576512 Problem ETOH abuse F10.10 Active 66566822 Problem Essential hypertension I10 Active 51989934 Problem Lumbago with sciatica, left side M54.42 Active 046656468 Problem Hayfever J30.1 Active 91979002 Problem Tobacco abuse Z72.0 Active 699386 000 Problem Tobacco abuse counseling Z71.6 Activ e 942153800 Problem Mixed hyperlipidemia E78.2 Active 619432583 Problem Pseudobulbar affect F48.2 Active 80870802 ALLERGIES Substance Reaction Event Type Date Status Penicillin G Sodium Unknown Drug Allergy Dec, Active ENCOUNTERS Encounter Location Date Diagnosis [facility] [address] [id number] [address] [place] [phone] Dec, Viral gastroenteritis A08.4 [facility] [address] [id number] [address] [place] [phone] Nov, Allergic conjunctivitis of b oth eyes H10.13 and Viral upper respiratory tract infection J06.9 [facility] [address] [id number] [address] [place] [id number] May, Hayfever J30.1 [facility] [address] [id number] [address] [place] [phone] Feb, Essential hypertension I10 ; Moderate episode of recurrent major depressive disorder F33.1 ; Closed displaced fracture of left patella, unspecified fracture morphology, initial encounter S82.002A ; ETOH abuse F10.10 ; Tobacco abuse Z72.0 ; Tobacco abuse counseling Z71.6 ; Mixed hyperlipidemia E78.2 and Pseudobulbar affect F48.2 [facility] [address] [facility] [id number] [address] [place] [phone] Feb, [facility] [address] [facility] [id number] [address] [place] [phone] Jan, Moderate episode of recurren t major depressive disorder F33.1 [facility] [address] [facility] [id number] [address] [place] [phone] Dec, [facility] [address] [facility] [id number] [address] [place] [phone] Dec, Moderate episode of recurren t major depressive disorder F33.1 [place] [facility] [id number] [address] [place] [phone] Nov, Moderate episode of recurren t major depressive disorder F33.1 [facility] [address] [facility] [id number] [address] [place] [phone] Nov, Allergic contact dermatitis, unspecified trigger L23.9 [facility] [address] [facility] [id number] [address] [place] [phone] Aug, [facility] [address] [facility] [id number] [address] [place] [phone] May, Moderate episode of recurren t major depressive disorder F33.1 [facility] [address] [facility] [id number] [address] [place] [phone] May, [facility] [address] [facility] [id number] [address] [place] [phone] May, [facility] [address] [facility] [id number] [address] [place] [phone] Apr, Lumbago with sciatica, left side M54.42 ; Moderate episode of recurrent major depressive disorder F33.1 and Essential hypertension I10 [facility] [address] [facility] [id number] [address] [place] [phone] 08 Apr, 2017 Low back pain M54.5 and Acut e seasonal allergic rhinitis, unspecified trigger J30.2 [facility] [address] [facility] [id number] [address] [place] [phone] Feb, Moderate episode of recurren t major depressive disorder F33.1 [facility] [address] [facility] [id number] [address] [place] [phone] Feb, [facility] [address] [facility] [id number] [address] [place] [phone] Jan, [facility] [address] [facility] [id number] [address] [place] [phone] Jan, [facility] [address] [facility] [id number] [address] [place] [phone] Jan, [facility] [address] [facility] [id number] [address] [place] [phone] Jan, Moderate episode of recurren t major depressive disorder F33.1 [facility] [address] [id number] [address] [place] [phone] Jan, Moderate episode of recurren t major depressive disorder F33.1 [facility] [address] [facility] [id number] [address] [place] [phone] Jan, [facility] [address] [facility] [id number] [address] [place] [phone] Dec, Essential hypertension I10 ; Tobacco abuse Z72.0 ; Tobacco abuse counseling Z71.6 ; Mixed hyperlipidemia E78.2 ; Moderate episode of recurrent major depressive disorder F33.1 and ETOH abuse F10.10 [facility] [address] [facility] [id number] [address] [place] [phone] Nov, Moderate episode of recurren t major depressive disorder F33.1 [facility] [address] [facility] [id number] [address] [place] [phone] Nov, [facility] [address] [id number] [address] [place] [phone] Nov, [facility] [address] [address] Nov, Moderate episode of recurren t major depressive disorder F33.1 ; ETOH abuse F10.10 and Pseudobulbar affect F48.2 [address] [place] [id number] [place] [phone] Nov, Essential hypertension I10 [place] [address] [address] Nov, Elevated fasting glucose R73 .01 [place] [address] [address] Oct, Essential hypertension I10 ; Moderate episode of recurrent major depressive disorder F33.1 ; Routine health maintenance Z00.00 ; ETOH abuse F10.10 ; Tobacco abuse Z72.0 ; Tobacco abuse counseling Z71.6 and Mixed hyperlipidemia E78.2 [facility] [address] [id number] [place] [phone] Sep, Encounter for immunization Z 23 ; Elevated fasting glucose R73.01 ; Essential hypertension I10 ; Tobacco abuse Z72.0 and Mixed hyperlipidemia E78.2 [place] [id number] [place] [phone] Aug, Routine health maintenance Z 00.00 ; Essential hypertension I10 ; Moderate episode of recurrent major depressive disorder F33.1 and ETOH abuse F10.10 [facility] [address] [id number] [address] [place] [phone] Aug, Routine health maintenance Z 00.00 ; Essential hypertension I10 ; Moderate episode of recurrent major depressive disorder F33.1 ; ETOH abuse F10.10 ; Tobacco abuse Z72.0 and Tobacco abuse counseling Z71.6 [facility] [address] [id number] [address] [place] [phone] Jul, Essential hypertension I10 [place] [address] [place] [address] Jul, IMMUNIZATIONS No Known Immunizations SOCIAL HISTORY Never Assessed REASON FOR VISIT flu symptoms, Throwing up, coughing and loose stools. -Mary HARDING PLAN OF CARE Activity Details Follow Up prn Reason: VITAL SIGNS Height 64 in 2019-01-09 Weight 142 lbs 2019-01-09 Temperature 97.9 degrees Fahrenheit 2019-01-09 Heart Rate 80 bpm 2019-01-09 Respiratory Rate 20 2019-01-09 BMI 24.37 kg/m2 2019-01-09 Blood pressure systolic 130 mmHg 2019-01-09 Blood pressure diastolic 76 mmHg 2019-01-09 MEDICATIONS Medication Instructions Dosage Frequency Start Date End Date Duration S tatus Olopatadine HCl 0.1 % Ophthalmic Twice a day 1 drop into affected e ye 12h Nov, 30 days Not-Taking Trazodone HCl 100 mg Orally Once a day 1 tablet at bedtime as needed 2 4h 90 days Not-Taking Zofran 4 MG Orally every 8 hours as needed 1 tablet Dec, 7 days Active Lisinopril 10 MG Orally Once a day 1 tablet 24h 90 d ays Active Paxil 20 mg Orally Once a day 1 tablet in the morning 24h 90 days Active Atenolol 50 MG Orally Once a day 1 tablet 24h 90 day s Active RESULTS No Results PROCEDURES No Known [...]
--- OUTSIDE RECORDS SUMMARY | 2020-04-27 10:35 | XMS REPORT ---
Author Author Samantha EDGE [facility] Address [address] [place] [address] Care Team Providers Care Tap Out Operator Name Role Phone MEGHNA EDGE Unavailable PROBLEMS Type Condition ICD9-CM Code VBD05-OX Code Onset Dates Condition S tatus SNOMED Code Problem ETOH abuse F10.10 Active 73925055 Problem Moderate episode of recurrent major depressive disorder F33.1 Active 782887293 Problem Lumbago with sciatica, left side M54.42 Active 184593162 Problem Pseudobulbar affect F48.2 Active 31359545 Problem Tobacco abuse Z72.0 Active 052158 000 Problem Essential hypertension I10 Active 30950628 Problem Mixed hyperlipidemia E78.2 Active 352038645 Problem Tobacco abuse counseling Z71.6 Activ e [id number] ALLERGIES No Information ENCOUNTERS Encounter Location Date Diagnosis [facility] [address] [id number] [address] [place] [address] Feb, Essential hypertension I10 ; Moderate episode of recurrent major depressive disorder F33.1 ; Closed displaced fracture of left patella, unspecified fracture morphology, initial encounter S82.002A ; ETOH abuse F10.10 ; Tobacco abuse Z72.0 ; Tobacco abuse counseling Z71.6 ; Mixed hyperlipidemia E78.2 and Pseudobulbar affect F48.2 [facility] [address] [id number] [address] [place] [phone] Feb, [facility] [address] [id number] [address] [place] [phone] Jan, Moderate episode of recurren t major depressive disorder F33.1 [facility] [address] [id number] [address] [place] [phone] Dec, [facility] [address] [id number] [address] [place] [phone] 14 Dec, 2017 Moderate episode of recurren t major depressive disorder F33.1 [facility] [address] [id number] [address] [place] [phone] Nov, Moderate episode of recurren t major depressive disorder F33.1 [facility] [address] [id number] [address] [place] [phone] Nov, Allergic contact dermatitis, unspecified trigger L23.9 [facility] [address] [id number] [address] [place] [phone] Aug, [facility] [address] [id number] [address] [place] [phone] May, Moderate episode of recurren t major depressive disorder F33.1 [facility] [address] [id number] [address] [place] [phone] May, [facility] [address] [id number] [address] [place] [phone] May, [facility] [address] [id number] [address] [place] [phone] Apr, Lumbago with sciatica, left side M54.42 ; Moderate episode of recurrent major depressive disorder F33.1 and Essential hypertension I10 [facility] [address] [id number] [address] [place] [phone] Apr, Low back pain M54.5 and Acut e seasonal allergic rhinitis, unspecified trigger J30.2 [facility] [address] [id number] [address] [place] [phone] Feb, Moderate episode of recurren t major depressive disorder F33.1 [facility] [address] [id number] [address] [place] [phone] Feb, [facility] [address] [id number] [address] [place] [phone] Jan, [facility] [address] [id number] [address] [place] [phone] Jan, [facility] [address] [facility] [id number] [address] [place] [phone] Jan, [facility] [address] [facility] [id number] [address] [place] [phone] Jan, Moderate episode of recurren t major depressive disorder F33.1 [facility] [address] [id number] [address] [place] [phone] Jan, Moderate episode of recurren t major depressive disorder F33.1 [facility] [address] [facility] [id number] [address] [place] [phone] Jan, [place] [address] [id number] [address] [place] [address] Dec, Essential hypertension I10 ; Tobacco abuse Z72.0 ; Tobacco abuse counseling Z71.6 ; Mixed hyperlipidemia E78.2 ; Moderate episode of recurrent major depressive disorder F33.1 and ETOH abuse F10.10 [place] [address] [id number] [address] [place] [phone] Nov, Moderate episode of recurren t major depressive disorder F33.1 [place] [address] [facility] [id number] [address] [place] [phone] Nov, [place] [address] [id number] [address] [place] [phone] Nov, [place] [address] [id number] [address] [place] [phone] Nov, Moderate episode of recurren t major depressive disorder F33.1 ; ETOH abuse F10.10 and Pseudobulbar affect F48.2 [place] [address] [facility] [id number] [address] [place] [address] Nov, Essential hypertension I10 [place] [address] [id number] [address] [place] [phone] Nov, Elevated fasting glucose R73 .01 [place] [address] [facility] [id number] [address] [place] [address] Oct, Essential hypertension I10 ; Moderate episode of recurrent major depressive disorder F33.1 ; Routine health maintenance Z00.00 ; ETOH abuse F10.10 ; Tobacco abuse Z72.0 ; Tobacco abuse counseling Z71.6 and Mixed hyperlipidemia E78.2 [facility] [address] [id number] [address] [place] [address] Sep, Encounter for immunization Z 23 ; Elevated fasting glucose R73.01 ; Essential hypertension I10 ; Tobacco abuse Z72.0 and Mixed hyperlipidemia E78.2 [facility] [address] [id number] [address] [place] [address] Aug, Routine health maintenance Z 00.00 ; Essential hypertension I10 ; Moderate episode of recurrent major depressive disorder F33.1 and ETOH abuse F10.10 [facility] [address] [id number] [address] [place] [phone] Aug, Routine health maintenance Z 00.00 ; Essential hypertension I10 ; Moderate episode of recurrent major depressive disorder F33.1 ; ETOH abuse F10.10 ; Tobacco abuse Z72.0 and Tobacco abuse counseling Z71.6 [facility] [address] [id number] [address] [place] [phone] Jul, Essential hypertension I10 [facility] [address] [id number] [address] [place] [phone] Jul, IMMUNIZATIONS No Known Immunizations SOCIAL HISTORY Never Assessed REASON FOR VISIT medication PLAN OF CARE VITAL SIGNS MEDICATIONS No [...]
--- OUTSIDE RECORDS SUMMARY | 2020-04-27 10:35 | XMS REPORT | Continuity of Care Document ---
Demographics Preferred Language Unknown Marital Status Unknown Judaism Affiliation Unknown Race Unknown Ethnic Group Unknown Author Organization Unknown Address Unknown Phone Unavailable Allergies Active Description Code Type Severity Reaction Onset Reported/Identified Relationship to Patient Clinical Status Yes Penicillins [id number] Drug Aller gy Unknown N/A 12/12/2017 Medications There is no data. Problems Date Dx Coded Attending Type Code Diagnosis Diagnosed By 12/12/2017 OTILIO GUNN APRN Ot F17.210 NICOTINE DEPENDENCE, CIGARETTES, UNCOMPL 12/12/2017 OTILIO GUNN APRN Ot F32 .9 MAJOR DEPRESSIVE DISORDER, SINGLE EPISOD 12/12/2017 OTILIO GUNN APRN Ot I10 ESSENTIAL (PRIMARY) HYPERTENSION 12/12/2017 OTILIO GUNN APRN Ot S82.102A UNSP FRACTURE OF UPPER END OF LEFT TIBIA 12/12/2017 OTILIO GUNN APRN Ot S82.832A OTH FRACTURE OF UPPER AND LOWER END OF L 12/12/2017 OTILIO GUNN APRN Ot S89.92XA UNSPECIFIED INJURY OF LEFT LOWER LEG, IN 12/12/2017 OTILIO GUNN APRN Ot W11.XXXA FALL ON AND FROM LADDER, INITIAL ENCOUNT 12/12/2017 OTILIO GUNN APRN Ot Z88 .0 ALLERGY STATUS TO PENICILLIN 12/12/2017 OTILIO GUNN APRN Ot Z98.51 TUBAL LIGATION STATUS 12/14/2017 OTILIO GUNN APRN Ot F17.210 NICOTINE DEPENDENCE, CIGARETTES, UNCOMPL 12/14/2017 OTILIO GUNN APRN Ot F32 .9 MAJOR DEPRESSIVE DISORDER, SINGLE EPISOD 12/14/2017 OTILIO GUNN APRN Ot I10 ESSENTIAL (PRIMARY) HYPERTENSION 12/14/2017 OTILIO GUNN APRN Ot S82.102A UNSP FRACTURE OF UPPER END OF LEFT TIBIA 12/14/2017 OTILIO GUNN APRN Ot S82.832A OTH FRACTURE OF UPPER AND LOWER END OF L 12/14/2017 OTILIO GUNN APRN Ot S89.92XA UNSPECIFIED INJURY OF LEFT LOWER LEG, IN 12/14/2017 OTILIO GUNN APRN Ot W11.XXXA FALL ON AND FROM LADDER, INITIAL ENCOUNT 12/14/2017 OTILIO GUNN KELP GATHERER Ot Z88 .0 ALLERGY STATUS TO PENICILLIN 12/14/2017 OTILIO GUNN KELP GATHERER Ot Z98.51 TUBAL LIGATION STATUS 10/25/2019 KAROLINE CARPENTER Rosina KELP GATHERER Ot Z12.31 ENCNTR SCREEN MAMMOGRAM FOR MALIGNANT NE Procedures There is no data. Results Test Result Range CBC With Differential/Platelet - 6 09:53 WBC 7.4 x10E3/uL 3.4-10.8 RBC 4.13 x10E6/uL 3.77-5.28 Hemoglobin 13.5 g/dL 11.1-15.9 Hematocrit 39.8 % 34.0-46.6 MCV 96 fL 79-97 MCH 32.7 pg 26.6-33.0 MCHC 33.9 g/dL 31.5-35.7 RDW 13.8 % 12.3-15.4 Platelets 278 x10E3/uL 150-379 Neutrophils 57 % Lymphs 28 % Monocytes 12 % Eos 3 % Basos 0 % Neutrophils (Absolute) 4.2 x10E3/uL 1.4- 7.0 Lymphs (Absolute) 2.0 x10E3/uL 0.7-3.1 Monocytes(Absolute) 0.9 x10E3/uL 0.1-0.9 Eos (Absolute) 0.2 x10E3/uL 0.0-0.4 Baso (Absolute) 0.0 x10E3/uL 0.0-0.2 Immature Granulocytes 0 % Immature Grans (Abs) 0.0 x10E3/uL 0.0-0. 1 Comp. Metabolic Panel (14) - 09/13/16 09 :53 Glucose, Serum 110 mg/dL 65-99 BUN 12 mg/dL 6-24 Creatinine, Serum 0.64 mg/dL 0.57-1.00 eGFR If NonAfricn Am 104 mL/min/1.73 >59 eGFR If Africn Am 119 mL/min/1.73 >5 9 BUN/Creatinine Ratio 19 9-23 Sodium, Serum 136 mmol/L 136-144 Potassium, Serum 4.7 mmol/L 3.5-5.2 Chloride, Serum 98 mmol/L 97-106 Carbon Dioxide, Total 24 mmol/L 18-29 Calcium, Serum 9.7 mg/dL 8.7-10.2 Protein, Total, Serum 6.6 g/dL 6.0-8.5 Albumin, Serum 4.3 g/dL 3.5-5.5 Globulin, Total 2.3 g/dL 1.5-4.5 A/G Ratio 1.9 1.1-2.5 Bilirubin, Total 0.3 mg/dL 0.0-1.2 Alkaline Phosphatase, S 107 IU/L 39-117 AST (SGOT) 29 IU/L 0-40 ALT (SGPT) 32 IU/L 0-32 Lipid Panel - 09/13/16 09:53 Cholesterol, Total 252 mg/dL 100-199 Triglycerides 169 mg/dL 0-149 HDL Cholesterol 67 mg/dL >39 VLDL Cholesterol Ulises 34 mg/dL 5-40 LDL Cholesterol Calc 151 mg/dL 0-99 Hemoglobin A1c - 09/13/16 09:53 Hemoglobin A1c 5.5 % 4.8-5.6 Thyroid [place] Profile - 09/13/16 09:53 TSH 1.550 uIU/mL 0.450-4.500 Gestational 2 hour GTT - 12/02/16 08:47 Glucose, Fasting 121 mg/dL 65-91 Glucose, 1 hour TNP Glucose, 2 hour 141 mg/dL 65-152 Insulin - 12/02/16 08:47 Insulin 8.9 uIU/mL 2.6-24.9 Complete blood count (CBC) with automate d white blood cell (WBC) differential - 12/12/17 14:27 Blood leukocytes automated count (number/volume) 8.5 10*3/uL 4.3-11.0 Blood erythrocytes automated count (number/volume) 4.24 10*6/uL 4.35-5.85 Venous blood hemoglobin measurement (mass/volume) 14.2 g/dL 11.5-16.0 Blood hematocrit (volume fraction) 39 % 35-52 Automated erythrocyte mean corpuscular volume 93 [ foz_us] 80-99 Automated erythrocyte mean corpuscular h emoglobin (mass per erythrocyte) 34 pg 25-34 Automated erythrocyte mean corpuscular h emoglobin concentration measurement (mass/volume) 36 g/dL 32-36 Automated erythrocyte distribution width ratio 11. 8 % 10.0- 14.5 Automated blood platelet count (count/volume) 246 10*3/uL 130-400 Automated blood platelet mean volume measurement 9.5 [foz_us] 7.4-10.4 Automated blood neutrophils/100 leukocytes 68 % 42-75 Automated blood lymphocytes/100 leukocytes 16 % 12-44 Blood monocytes/100 leukocytes 14 % 0-12 Automated blood eosinophils/100 leukocytes 1 % 0-10 Automated blood basophils/100 leukocytes 0 % 0-10 Blood neutrophils automated count (number/volume) 5.8 10*3 1.8-7.8 Blood lymphocytes automated count (number/volume) 1.4 10*3 1.0-4.0 Blood monocytes automated count (number/volume) 1. 2 10*3 0.0-1.0 Automated eosinophil count 0.1 10*3/uL 0 .0-0.3 Automated blood basophil count (count/volume) 0.0 10*3/uL 0.0-0.1 Comprehensive metabolic panel - 12/12/17 14:27 Serum or plasma sodium measurement (moles/volume) 129 mmol/L 135-145 Serum or plasma potassium measurement (moles/volume) 4.6 mmol/L 3.6-5.0 Serum or plasma chloride measurement (moles/volume) 96 mmol/L 98-107 Carbon dioxide 22 mmol/L 21-32 Serum or plasma anion gap determination (moles/volume) 11 mmol/L 5-14 Serum or plasma urea nitrogen measurement (mass/volume ) 6 mg/dL 7-18 Serum or plasma creatinine measurement (mass/volume) 0.70 mg/dL 0.60-1.30 Serum or plasma urea nitrogen/creatinine mass ratio 9 NRG Serum or plasma creatinine measurement w ith calculation of estimated glomerular filtration rate > NRG Serum or plasma glucose measurement (mass/volume) 135 mg/dL 70-105 Serum or plasma calcium measurement (mass/volume) 9.1 mg/dL 8.5-10.1 Serum or plasma total bilirubin measurement (mass/volu me) 0.5 mg/dL 0.1-1.0 Serum or plasma alkaline phosphatase nydia surement (enzymatic activity/volume) 115 U/L 40-136 Serum or plasma aspartate aminotransfera se measurement (enzymatic activity/volume) 88 U/L 5-34 Serum or plasma alanine aminotransferase measurement (enzymatic activity/volume) 102 U/L 0-55 Serum or plasma protein measurement (mass/volume) 7.1 g/dL 6.4-8.2 Serum or plasma albumin measurement (mass/volume) 4.1 g/dL 3.2-4.5 TSH - 03/13/19 13:29 TSH 2.44 mIU/L NRG PT/INR - 03/26/19 08:57 INR 1.0 NRG PT 10.0 sec 9.0-11.5 SUREPATH PAP AND HPV mRNA E6/E7 - 18:17 CLINICAL INFORMATION: NRG LMP: MENOPAUSAL NRG PREV. PAP: NRG PREV. BX: NRG SOURCE: Cervix NRG STATEMENT OF ADEQUACY: NRG INTERPRETATION/RESULT: NRG EXPLOSIVES DETONATOR: NRG HPV mRNA E6/E7, SUREPATH VIAL Not Detected NOT DETECTED COMMENT NRG Encounters ACCT No. Visit Date/Time Discharge Status Pt. Type Provider Facility Loc./Unit Complaint [id number] 12/03/2016 18:06:00 Document Registration [id number] 09/14/2016 10:05:00 Document Registration [id number] 10/23/2019 09:04:00 019 23:59:59 CLS Outpatient KAROLINE CARPENTER APRN [facility] RAD SCREENING [id number] 02/21/2018 14:42:00 23:59:59 CLS Preadmit ALON FOSTER [facility] REHAB CLOSED FX LT TIBIAL ANAYA TEAU W ROUTINE HEALING [id number] 12/12/2017 13:35:00 16:56:00 DIS Emergency OTILIO GUNN APRN [facility] ER FALL/LEFT LEG INJURY; T IB-PLATEAU FX [id number] 10/16/2019 15:00:00 10/16/2019 23:59: 59 CLS Outpatient KAROLINE CARPENTER [facility] [id number] 10/16/2019 15:00:00 Document Registration [id number] 03/26/2019 09:00:00 Document Registration [id number] 03/13/2019 12:20:00 Document Registration [id number] 10/21/2015 10:28:54 10/21/2015 23:59: 59 CLS Outpatient Aditi Marie [id number] 10/07/2015 14:13:54 10/07/2015 23:59: 59 CLS Outpatient Walker, Aditi [id number] 08/11/2015 14:35:09 08/11/2015 23:59: 59 CLS Outpatient Walker, Aditi [id number] 06/23/2015 22:14:10 06/23/2015 23:59: 59 CLS Outpatient Salome Phillips [id number] 06/23/2015 22:09:39 06/23/2015 23:59: 59 CLS Outpatient Walker, Aditi [id number] 06/23/2015 22:01:40 06/23/2015 23:59: 59 CLS Outpatient Walker, Aditi [id number] 02/10/2015 14:44:22 02/10/2015 23:59: 59 CLS Outpatient Walker, Aditi [id number] 11/27/2014 10:21:36 11/27/2014 23:59: 59 CLS Outpatient Walker, Aditi [id number] 10/30/2014 10:22:24 10/30/2014 23:59: 59 CLS Outpatient Emily Casper [id number] 08/21/2014 14:42:55 08/21/2014 23:59: 59 CLS Outpatient Walker, Aditi [id number] 07/17/2014 15:09:48 07/17/2014 23:59: 59 CLS Outpatient Walker, Aditi [id number] 04/17/2014 09:14:22 04/17/2014 23:59: 59 CLS Outpatient Walker, Aditi [id number] 03/18/2014 09:44:06 03/18/2014 23:59: 59 CLS Outpatient Walker, Aditi [id number] 03/15/2014 14:27:13 03/15/2014 23:59: 59 CLS Outpatient Emily Csaper [id number] 01/29/2014 14:32:29 01/29/2014 23:59: 59 CLS Outpatient Walker, Aditi [id number] 01/02/2014 15:29:41 01/02/2014 23:59: 59 CLS Outpatient Walker, Aditi
--- OUTSIDE RECORDS SUMMARY | 2020-04-27 10:35 | XMS REPORT ---
Author Author Samantha PENNY Organization [facility] Address [address] [place] [address] Care Team Providers Care Wet Process Operator Name Role Phone JB PENNY Unavailable PROBLEMS Type Condition ICD9-CM Code YXW52-LF Code Onset Dates Condition S tatus SNOMED Code Problem ETOH abuse F10.10 Active 51030304 Problem Moderate episode of recurrent major depressive disorder F33.1 Active 202085109 Problem Lumbago with sciatica, left side M54.42 Active 209237820 Problem Pseudobulbar affect F48.2 Active 06498895 Problem Tobacco abuse Z72.0 Active 070106 000 Problem Essential hypertension I10 Active 83501617 Problem Mixed hyperlipidemia E78.2 Active 634351925 Problem Tobacco abuse counseling Z71.6 Activ e [id number] ALLERGIES No Information ENCOUNTERS Encounter Location Date Diagnosis [place] [id number] [facility] [id number] [address] [place] [phone] March, [facility] [address] [facility] [id number] [address] [place] [phone] Feb, Essential hypertension I10 ; Moderate episode of recurrent major depressive disorder F33.1 ; Closed displaced fracture of left patella, unspecified fracture morphology, initial encounter S82.002A ; ETOH abuse F10.10 ; Tobacco abuse Z72.0 ; Tobacco abuse counseling Z71.6 ; Mixed hyperlipidemia E78.2 and Pseudobulbar affect F48.2 [facility] [address] [facility] [id number] [address] [place] [phone] Feb, [facility] [address] [facility] [id number] [address] [place] [phone] Jan, Moderate episode of recurren t major depressive disorder F33.1 [facility] [address] [facility] [id number] [address] [place] [phone] Dec, [facility] [address] [id number] [address] [place] [phone] Dec, Moderate episode of recurren t major depressive disorder F33.1 [facility] [address] [id number] [address] [place] [phone] Nov, Moderate episode of recurren t major depressive disorder F33.1 [facility] [address] [id number] [address] [place] [phone] Nov, Allergic contact dermatitis, unspecified trigger L23.9 [facility] [address] [id number] [address] [place] [phone] Aug, [facility] [address] [facility] [id number] [address] [place] [phone] May, Moderate episode of recurren t major depressive disorder F33.1 [facility] [address] [id number] [address] [place] [phone] May, [facility] [address] [id number] [address] [place] [phone] May, [facility] [address] [facility] [id number] [address] [place] [phone] Apr, Lumbago with sciatica, left side M54.42 ; Moderate episode of recurrent major depressive disorder F33.1 and Essential hypertension I10 [facility] [address] [id number] [address] [place] [phone] Apr, Low back pain M54.5 and Acut e seasonal allergic rhinitis, unspecified trigger J30.2 [facility] [address] [id number] [address] [place] [phone] Feb, Moderate episode of recurren t major depressive disorder F33.1 [facility] [address] [id number] [address] [place] [phone] Feb, [facility] [address] [id number] [address] [place] [phone] Jan, [facility] [address] [id number] [address] [place] [phone] Jan, [facility] [address] [facility] [id number] [address] [place] [phone] Jan, [facility] [address] [facility] [id number] [address] [place] [phone] Jan, Moderate episode of recurren t major depressive disorder F33.1 [facility] [address] [facility] [id number] [address] [place] [phone] Jan, Moderate episode of recurren t major depressive disorder F33.1 [facility] [address] [facility] [id number] [address] [place] [phone] Jan, [facility] [address] [facility] [id number] [address] [place] [phone] Dec, Essential hypertension I10 ; Tobacco abuse Z72.0 ; Tobacco abuse counseling Z71.6 ; Mixed hyperlipidemia E78.2 ; Moderate episode of recurrent major depressive disorder F33.1 and ETOH abuse F10.10 [facility] [address] [facility] [id number] [address] [place] [phone] Nov, Moderate episode of recurren t major depressive disorder F33.1 [facility] [address] [facility] [id number] [address] [place] [phone] Nov, [facility] [address] [facility] [id number] [address] [place] [phone] Nov, [facility] [address] [facility] [id number] [address] [place] [phone] Nov, Moderate episode of recurren t major depressive disorder F33.1 ; ETOH abuse F10.10 and Pseudobulbar affect F48.2 [facility] [address] [facility] [id number] [address] [place] [phone] Nov, Essential hypertension I10 [facility] [address] [place] [id number] [address] [place] [phone] Nov, Elevated fasting glucose R73 .01 [facility] [address] [place] [address] [id number] [address] [place] [phone] Oct, Essential hypertension I10 ; Moderate episode of recurrent major depressive disorder F33.1 ; Routine health maintenance Z00.00 ; ETOH abuse F10.10 ; Tobacco abuse Z72.0 ; Tobacco abuse counseling Z71.6 and Mixed hyperlipidemia E78.2 [facility] [address] [place] [id number] [address] [place] [phone] Sep, Encounter for immunization Z 23 ; Elevated fasting glucose R73.01 ; Essential hypertension I10 ; Tobacco abuse Z72.0 and Mixed hyperlipidemia E78.2 [facility] [address] [place] [id number] [address] [place] [id number] Aug, Routine health maintenance Z 00.00 ; Essential hypertension I10 ; Moderate episode of recurrent major depressive disorder F33.1 and ETOH abuse F10.10 [facility] [address] [id number] [address] [place] [id number] Aug, Routine health maintenance Z 00.00 ; Essential hypertension I10 ; Moderate episode of recurrent major depressive disorder F33.1 ; ETOH abuse F10.10 ; Tobacco abuse Z72.0 and Tobacco abuse counseling Z71.6 [facility] [address] [id number] [address] [place] [id number] Jul, Essential hypertension I10 [facility] [address] [id number] [address] [place] [id number] Jul, IMMUNIZATIONS No Known Immunizations SOCIAL HISTORY Never Assessed REASON FOR VISIT PALS IN-[place] PLAN OF CARE VITAL SIGNS MEDICATIONS Unknown [...]
--- OUTSIDE RECORDS SUMMARY | 2020-04-27 10:35 | XMS REPORT ---
Author Author Samantha EDGE [facility] Address [address] [place] [address] Care Team Providers Care Desk Editor Name Role Phone MEGHNA EDGE Unavailable PROBLEMS Type Condition ICD9-CM Code WNE27-YP Code Onset Dates Condition S tatus SNOMED Code Problem Tobacco abuse Z72.0 Active 711118 000 Problem Routine health maintenance Z00.00 Act adalberto 998084815 Problem Tobacco abuse counseling Z71.6 Activ e 867337372 Problem Essential hypertension I10 Active 07878079 Problem Lumbago with sciatica, left side M54.42 Active 201039240 Problem Elevated fasting glucose R73.01 Activ e 432036085 Problem ETOH abuse F10.10 Active 44517859 Problem Moderate episode of recurrent major depressive disorder F33.1 Active 563583505 Problem Pseudobulbar affect F48.2 Active 16948003 Problem Mixed hyperlipidemia E78.2 Active 416342087 ALLERGIES No Information ENCOUNTERS Encounter Location Date Diagnosis [facility] [address] [facility] [id number] [address] [place] [phone] March, [facility] [address] [facility] [id number] [address] [place] [phone] Feb, Essential hypertension I10 a nd Moderate episode of recurrent major depressive disorder F33.1 [facility] [address] [facility] [id number] [address] [place] [phone] Feb, [facility] [address] [facility] [id number] [address] [place] [phone] Jan, Moderate episode of recurren t major depressive disorder F33.1 [facility] [address] [facility] [id number] [address] [place] [phone] Dec, [facility] [address] [place] [id number] [address] [place] [phone] 14 Dec, 2017 Moderate episode of recurren t major depressive disorder F33.1 [facility] [address] [id number] [address] [place] [phone] Nov, Moderate episode of recurren t major depressive disorder F33.1 [facility] [address] [id number] [address] [place] [phone] Nov, Allergic contact dermatitis, unspecified trigger L23.9 [facility] [address] [id number] [address] [place] [phone] Aug, [facility] [address] [id number] [address] [place] [phone] May, Moderate episode of recurren t major depressive disorder F33.1 [facility] [address] [id number] [address] [place] [phone] May, [facility] [address] [id number] [address] [place] [phone] May, [facility] [address] [id number] [address] [place] [phone] Apr, Lumbago with sciatica, left side M54.42 ; Moderate episode of recurrent major depressive disorder F33.1 and Essential hypertension I10 [facility] [address] [id number] [address] [place] [phone] Apr, Low back pain M54.5 and Acut e seasonal allergic rhinitis, unspecified trigger J30.2 [facility] [address] [id number] [address] [place] [phone] Feb, Moderate episode of recurren t major depressive disorder F33.1 [facility] [address] [id number] [address] [place] [phone] Feb, [facility] [address] [id number] [address] [place] [phone] Jan, [facility] [address] [id number] [address] [place] [phone] Jan, [facility] [address] [facility] [id number] [address] [place] [phone] Jan, [facility] [address] [facility] [id number] [address] [place] [phone] Jan, Moderate episode of recurren t major depressive disorder F33.1 [facility] [address] [facility] [id number] [address] [place] [phone] Jan, Moderate episode of recurren t major depressive disorder F33.1 [facility] [address] [facility] [id number] [address] [place] [phone] Jan, [facility] [address] [facility] [id number] [address] [place] [phone] Dec, Essential hypertension I10 ; Tobacco abuse Z72.0 ; Tobacco abuse counseling Z71.6 ; Mixed hyperlipidemia E78.2 ; Moderate episode of recurrent major depressive disorder F33.1 and ETOH abuse F10.10 [facility] [address] [facility] [id number] [address] [place] [phone] Nov, Moderate episode of recurren t major depressive disorder F33.1 [facility] [address] [facility] [id number] [address] [place] [phone] Nov, [facility] [address] [facility] [id number] [address] [place] [phone] Nov, [facility] [address] [place] [id number] [address] [place] [phone] Nov, Moderate episode of recurren t major depressive disorder F33.1 ; ETOH abuse F10.10 and Pseudobulbar affect F48.2 [facility] [address] [facility] [id number] [address] [place] [phone] Nov, Essential hypertension I10 [facility] [address] [facility] [id number] [address] [place] [phone] Nov, Elevated fasting glucose R73 .01 [facility] [address] [facility] [id number] [address] [place] [phone] Oct, Essential hypertension I10 ; Moderate episode of recurrent major depressive disorder F33.1 ; Routine health maintenance Z00.00 ; ETOH abuse F10.10 ; Tobacco abuse Z72.0 ; Tobacco abuse counseling Z71.6 and Mixed hyperlipidemia E78.2 [facility] [address] [place] [id number] [address] [place] [phone] Sep, Encounter for immunization Z 23 ; Elevated fasting glucose R73.01 ; Essential hypertension I10 ; Tobacco abuse Z72.0 and Mixed hyperlipidemia E78.2 [place] [address] [address] Aug, Routine health maintenance Z 00.00 ; Essential hypertension I10 ; Moderate episode of recurrent major depressive disorder F33.1 and ETOH abuse F10.10 [place] [address] [place] [id number] [address] [place] [phone] Aug, Routine health maintenance Z 00.00 ; Essential hypertension I10 ; Moderate episode of recurrent major depressive disorder F33.1 ; ETOH abuse F10.10 ; Tobacco abuse Z72.0 and Tobacco abuse counseling Z71.6 [facility] [address] [place] [id number] [address] [place] [phone] Jul, Essential hypertension I10 [facility] [address] [place] [id number] [address] [place] [phone] Jul, IMMUNIZATIONS No Known Immunizations SOCIAL HISTORY Never Assessed REASON FOR VISIT F/U----Adi Munoz RN PLAN OF CARE Activity Details Follow Up 3 Months Reason: VITAL SIGNS Height 64 in 2017-06-10 Weight 129.7 lbs 2017-06-10 Heart Rate 82 bpm 2017-06-10 Respiratory Rate 20 2017-06-10 BMI 22.26 kg/m2 2017-06-10 Blood pressure systolic 112 mmHg 2017-06-10 Blood pressure diastolic 82 mmHg 2017-06-10 MEDICATIONS Medication Instructions Dosage Frequency Start Date End Date Duration S tatus Paxil 20 mg Orally Once a day 1 tablet in the morning 24h 30 day(s) Active Lisinopril 40 mg Orally Once a day 1 tablet 24h 90 d ays Active Atenolol 50 mg Orally Once a day 1 tablet 24h 90 day s Active Rexulti 1 MG Orally Once a day 1 tablet 24h 30 day(s ) Active Trazodone HCl 100 mg Orally Once a day 1 tablet at bedtime as needed 2 4h 30 day(s) Active RESULTS No Results PROCEDURES [...]
--- NOTE | 2020-04-27 11:30 | ED Fall/Injury ---
General Chief Complaint: Trauma-Non Activation Stated Complaint: FALL/L SHOULDER PAIN Nursing Triage Note: ARRIVED VIA AMB TO FT WITH COMPLAINTS OF FALLING YESTERDAY AT APPX 1930 HURTING LEFT SHOULDER. PT STATES SHE WAS DRINKING AT THE TIME. BRUISING NOTED TO BILAT EYES ET FACE, LEFT SHOULDER, AND SHE STATES THERE IS BRUISING TO HER LEFT HIP. STATES NO LOC AND SHE DOES NOT TAKE A BLOOD THINNER. DENIES PHYSICAL ABUSE. . Source: patient Exam Limitations: no limitations History of Present Illness Date Seen by Provider: Apr 27, 2020 Time Seen by Provider: 11:28 Initial Comments To ER with reports of a fall that occurred yesterday at about 7:30 PM with complaints of pain to the anterior left shoulder. She states that she had been drinking and fell. She assures us that no one injured her after specifically questioned about that. She has bilateral black eyes, bruising left anterior chest, bruising left lower back. She states that she only has "a couple" beers everyday. Occurred: just prior to arrival Severity: moderate Injuries/Pain Location: head, face, upper extremity, back Context: slipped Loss of Consciousness: unsure Associated Symptoms (Fall): No Abdominal Pain, No Chest Pain, No Confusion, No Dizziness, No Headache, No Nausea/Vomiting, No Neck Pain Allergies and Home Medications Allergies Coded Allergies: Penicillins (Verified Allergy, Unknown, 12/12/17) Home Medications Atenolol 50 Mg Tablet, 50 MG PO DAILY, (Reported) Lisinopril 20 Mg Tablet, 20 MG PO DAILY, (Reported) Patient Home Medication List Home Medication List Reviewed: Yes Review of Systems Review of Systems Constitutional: see HPI Eyes: No Symptoms Reported Ears, Nose, Mouth, Throat: no symptoms reported Respiratory: no symptoms reported Cardiovascular: no symptoms reported Genitourinary: no symptoms reported Musculoskeletal: see HPI Skin: no symptoms reported Psychiatric/Neurological: No Symptoms Reported Past Kpgndxc-Buxjld-Zssxhz Hx Patient Social History Alcohol Use: Occasionally Uses Alcohol Beverage of Choice: Beer Recreational Drug Use: No Smoking Status: Current Everyday Smoker Recent Foreign Travel: No Contact w/Someone Who Travel: No Recent Infectious Disease Expo: No Past Medical History Surgeries: Yes (filopian tube removed from ectopic preg.) Tubal Ligation Respiratory: No Cardiac: Yes Hypertension Neurological: No Genitourinary: No Gastrointestinal: No Musculoskeletal: No Endocrine: No HEENT: No Cancer: No Psychosocial: Yes Depression Integumentary: No Blood Disorders: No Adverse Reaction/Blood Tranf: No Physical Exam Vital Signs Vital Signs - First Documented 04/27/20 11:05 Temp 37.1 Pulse 79 Resp 16 B/P (MAP) 136/74 (94) Pulse Ox 98 O2 Delivery Room Air Capillary Refill : Less Than 3 Seconds Height, Weight, BMI Height: 5'4.00" Weight: 130lbs. oz. 58.507253qi; 22.00 BMI Method:Stated General Appearance: WD/WN, no apparent distress, other (bilateral raccoon eyes with periorbital hematomas and swelling. No globe injury. No Rodriguez sign. No facial instability. There is a hematoma over the right side of the forehead. Ecchymosis 2 to the left side of her upper and lower back. Large ecchymosis to the anterior left shoulder. Ecchymosis to the medial left upper arm) HEENT: TMs normal, pharynx normal Neck: non-tender, full range of motion Cardiovascular: regular rate, rhythm, no murmur Respiratory: normal breath sounds, no respiratory distress, no accessory muscle use Gastrointestinal: normal bowel sounds, non tender, soft Neurologic/Psychiatric: alert, normal mood/affect, oriented x 3, other (does not make eye contact) Skin: normal color, warm/dry, ecchymosis [place] Coma Score Best Eye Response: (4) Open Spontaneously Best Verbal Response: (5) Oriented Best Motor Response: (6) Obeys Commands [place] Total: 15 Progress/Results/Core Measures Results/Orders Lab Results Laboratory Tests Test 04/27/20 11:25 Range/Units White Blood Count 8.0 4.3-11.0 10^3/uL Red Blood Count 4.56 4.35-5.85 10^6/uL Hemoglobin 15.4 11.5-16.0 G/DL Hematocrit 44 35-52 % Mean Corpuscular Volume 95 80-99 FL Mean Corpuscular Hemoglobin 34 25-34 PG Mean Corpuscular Hemoglobin Concent 35 32-36 G/DL Red Cell Distribution Width 12.1 10.0-14.5 % Platelet Count 216 130-400 10^3/uL Mean Platelet Volume 9.1 7.4-10.4 FL Neutrophils (%) (Auto) 66 42-75 % Lymphocytes (%) (Auto) 21 12-44 % Monocytes (%) (Auto) 13 H 0-12 % Eosinophils (%) (Auto) 0 0-10 % Basophils (%) (Auto) 0 0-10 % Neutrophils # (Auto) 5.2 1.8-7.8 X 10^3 Lymphocytes # (Auto) 1.6 1.0-4.0 X 10^3 Monocytes # (Auto) 1.1 H 0.0-1.0 X 10^3 Eosinophils # (Auto) 0.0 0.0-0.3 10^3/uL Basophils # (Auto) 0.0 0.0-0.1 10^3/uL Prothrombin Time 12.0 L 12.2-14.7 SEC INR Comment 0.9 0.8-1.4 Sodium Level 131 L 135-145 MMOL/L Potassium Level 3.7 3.6-5.0 MMOL/L Chloride Level 95 L 98-107 MMOL/L Carbon Dioxide Level 17 L 21-32 MMOL/L Anion Gap 19 H 5-14 MMOL/L Blood Urea Nitrogen 4 L 7-18 MG/DL Creatinine 0.62 0.60-1.30 MG/DL Estimat Glomerular Filtration Rate > 60 BUN/Creatinine Ratio 6 Glucose Level 106 H 70-105 MG/DL Calcium Level 9.3 8.5-10.1 MG/DL Corrected Calcium 8.5-10.1 MG/DL Total Bilirubin 0.9 0.1-1.0 MG/DL Aspartate Amino Transf (AST/SGOT) 103 H 5-34 U/L Alanine Aminotransferase (ALT/SGPT) 109 H 0-55 U/L Alkaline Phosphatase 105 40-136 U/L Total Protein 7.7 6.4-8.2 GM/DL Albumin 4.6 H 3.2-4.5 GM/DL Serum Alcohol 103 H <10 MG/DL My Orders Orders - OTILIO GUNN HOT PATCHER Cbc With Automated Diff (04/27/20 11:26) Alcohol (04/27/20 11:26) Comprehensive Metabolic Panel (04/27/20 11:26) Protime With Inr (04/27/20 11:26) Ct Head/Face/Cervical Wo (04/27/20 11:26) Ct Abdomen/Pelvis W (04/27/20 11:26) Chest Pa/Lat (2 View) (04/27/20 11:26) Shoulder, Left, 3 Views (04/27/20 11:26) Ed Iv/Invasive Line Start (04/27/20 11:26) Iohexol Injection (Omnipaque 350 Mg/Ml 1 (04/27/20 12:15) Received Contrast (Hold Metformin- Contr (04/27/20 12:15) Ns (Ivpb) (Sodium Chloride 0.9% Ivpb Bag (04/27/20 12:15) Vital Signs/I&O 04/27/20 11:05 Temp 37.1 Pulse 79 Resp 16 B/P (MAP) 136/74 (94) Pulse Ox 98 O2 Delivery Room Air Blood Pressure Mean: 94 Diagnostic Imaging Diagonstic Imaging: CT Comments NAME: MARYAM WATSON [facility] REC#: [id number] PT STATUS: REG ER : 1965 PHYSICIAN: OTILIO GUNN APRN ADMIT DATE: 04/27/20/ER Draft Date of Exam:04/27/20 SHOULDER, LEFT, 3 VIEWS CLINICAL HISTORY: Fall. Left shoulder pain. COMPARISON: None. TECHNIQUE: 3 views of the left shoulder. FINDINGS: Acute fracture is seen involving the lateral third of the left clavicle. A small butterfly fragment is seen along the superior aspect of the fracture margin. No evidence of left acromioclavicular joint disruption. No fracture or dislocation is seen in the left humerus or left scapula. Soft tissue edema is noted in the base of the left neck. The left chest is clear. IMPRESSION: 1. Acute fracture involving the lateral third of the left clavicle without extension into the left AC joint. Surrounding soft tissue edema is noted. Dictated on workstation # [id number] Dict: 04/27/20 1137 Trans: 04/27/20 1144 [facility] [id number] Interpreted by: ANDRADE WHITT DO Electronically signed by: NAME: MARYAM WATSON [facility] REC#: [id number] PT STATUS: REG ER : 1965 PHYSICIAN: OTILIO GUNN APRN ADMIT DATE: 04/27/20/ER Draft Date of Exam:04/27/20 CHEST PA/LAT (2 VIEW) EXAMINATION: Chest 2 view HISTORY: Fall. Generalized bruising. Chest pain. COMPARISON: None available. FINDINGS: The lung volumes are normal. No focal consolidation is seen. No large pleural effusion or pneumothorax is seen. The cardiomediastinal silhouette is normal in size and contour. No acute osseous abnormality is seen. IMPRESSION: 1. No acute pleuroparenchymal process. Dictated on workstation # [id number] Dict: 04/27/20 1137 Trans: 04/27/20 1142 [facility] [id number] Interpreted by: ANDRADE WHITT DO Electronically signed by: NAME: MARYAM WATSON [facility] REC#: [id number] PT STATUS: REG ER : 1965 PHYSICIAN: OTILIO GUNN APRN ADMIT DATE: 04/27/20/ER Draft Date of Exam:04/27/20 CT HEAD/FACE/CERVICAL WO PROCEDURE: CT head, face, and cervical spine without contrast. TECHNIQUE: Multiple contiguous axial images were obtained through the head, neck, and facial bones without the use of intravenous contrast. Sagittal and coronal reformations through the cervical spine and facial bones were also performed. Auto Exposure Controls were utilized during the CT exam to meet ALARA standards for radiation dose reduction. INDICATION: Fall with bruising to bilateral eyes and face. COMPARISON: No prior studies are available for comparison. CT HEAD: There is soft tissue swelling in the right paramidline frontal scalp. There is a rounded hyperdensity in the left paramidline frontal region measuring 8 mm in size. This is likely extra-axial and may represent a meningioma. Ventricular size and sulcal pattern are normal. No midline shift is identified. No acute intra-axial or extra-axial hemorrhage is seen. The cisterns are patent. Visualized paranasal sinuses are clear. IMPRESSION: 1. Right frontal scalp hematoma. 2. 8 mm rounded hyperdensity along the left frontal convexity, suggestive of a meningioma. MRI on a nonemergent basis would be useful for further evaluation. No other significant abnormality is seen. CT CERVICAL SPINE: There is slight reversal of the normal cervical lordotic curvature. Minimal retrolisthesis of C5 on C6 is noted. There is C5-C6 degenerative disc disease with disc space narrowing and marginal spurring. No fractures are identified. Prevertebral tissues are within normal limits. Odontoid appears intact. IMPRESSION: 1. Reversal of normal cervical curvature as well as cervical spondylosis. 2. No acute bony abnormality is detected. CT FACE: The mandible appears intact. Zygomatic arches are intact. Maxillary sinus reaves appear to be intact. The medial and lateral orbital reaves are intact. No nasal bone fracture is seen. Soft tissue swelling in the right frontal scalp is noted. There also appears to be soft tissue swelling in the left premaxillary region as well as the right periorbital region. Both globes are intact. IMPRESSION: 1. Facial swelling, as described. No definite facial bone fracture is identified. Dictated on workstation # [id number] Dict: 04/27/20 1207 Trans: 04/27/20 1216 [facility] [id number] Interpreted by: MARIA GUADALUPE SEYMOUR MD Electronically signed by: Departure Communication (Admissions) Because of her alcoholism opiate prescription is not a good idea Impression Primary Impression: Clavicle fracture Additional Impressions: Abnormal brain CT Fall Multiple contusions Disposition: HOME, SELF-CARE Condition: Stable Departure-Patient Inst. Decision time for Depature: 12:22 Referrals: ALON CHADWICK (PCP) Primary Care Physician [facility] (Family) Primary Care Physician MELVIN AGARWAL MD, MICHAEL P MD Patient Instructions: Clavicle Fracture Add. Discharge Instructions: 1. Wear the sling for the next 3-4 weeks to help with discomfort while this is healing. Tylenol and ibuprofen for pain control. Follow-up with her regular doctor to schedule a nonemergent MRI of the brain to further evaluate the lesion in the left frontal lobe which appears to be a meningioma. Follow-up with orthopedics in regards to the clavicle fracture. All discharge instructions reviewed with patient and/or family. Voiced understanding. OTILIO GUNN HOT PATCHER Apr 27, 2020 11:30
[2020-04-27 11:31] LABS: BASOPHILS % (AUTO) 0 % (0-10); EOSINOPHILS % (AUTO) 0 % (0-10); HEMATOCRIT 44 % (35-52); HEMOGLOBIN 15.4 G/DL (11.5-16.0); LYMPHOCYTES # (AUTO) 1.6 X 10^3 (1.0-4.0); LYMPHOCYTES % (AUTO) 21 % (12-44); MEAN CORPUSCULAR HEMOGLOBIN 34 PG (25-34); MEAN CORPUSCULAR HGB CONC 35 G/DL (32-36); MEAN CORPUSCULAR VOLUME 95 FL (80-99); MEAN PLATELET VOLUME 9.1 FL (7.4-10.4); MONOCYTES # (AUTO) 1.1 X 10^3 (0.0-1.0); MONOCYTES % (AUTO) 13 % (0-12); NEUTROPHILS # (AUTO) 5.2 X 10^3 (1.8-7.8); NEUTROPHILS % (AUTO) 66 % (42-75); PLATELET COUNT 216 10^3/uL (130-400); RED CELL DISTRIBUTION WIDTH 12.1 % (10.0-14.5)
[2020-04-27 11:38] LABS: ALBUMIN 4.6 GM/DL (3.2-4.5); CHLORIDE 95 MMOL/L (98-107); POTASSIUM 3.7 MMOL/L (3.6-5.0); SODIUM 131 MMOL/L (135-145)
[2020-04-27 11:39] LABS: CALCIUM 9.3 MG/DL (8.5-10.1)
[2020-04-27 11:40] LABS: GLUCOSE 106 MG/DL (70-105); INR 0.9 (0.8-1.4); TOTAL PROTEIN 7.7 GM/DL (6.4-8.2)
[2020-04-27 11:41] LABS: CARBON DIOXIDE 17 MMOL/L (21-32)
[2020-04-27 11:42] LABS: BILIRUBIN,TOTAL 0.9 MG/DL (0.1-1.0)
--- NOTE | 2020-04-27 11:43 | Diagnostic Imaging Report ---
EXAMINATION: Chest 2 view HISTORY: Fall. Generalized bruising. Chest pain. COMPARISON: None available. FINDINGS: The lung volumes are normal. No focal consolidation is seen. No large pleural effusion or pneumothorax is seen. The cardiomediastinal silhouette is normal in size and contour. No acute osseous abnormality is seen. IMPRESSION: 1. No acute pleuroparenchymal process. Dictated by: Dictated on workstation # [id number]
[2020-04-27 11:44] LABS: ALKALINE PHOSPHATASE 105 U/L (40-136); CREATININE SERUM 0.62 MG/DL (0.60-1.30); GFR ESTIMATED > 60
--- NOTE | 2020-04-27 11:44 | Diagnostic Imaging Report ---
CLINICAL HISTORY: Fall. Left shoulder pain. COMPARISON: None. TECHNIQUE: 3 views of the left shoulder. FINDINGS: Acute fracture is seen involving the lateral third of the left clavicle. A small butterfly fragment is seen along the superior aspect of the fracture margin. No evidence of left acromioclavicular joint disruption. No fracture or dislocation is seen in the left humerus or left scapula. Soft tissue edema is noted in the base of the left neck. The left chest is clear. IMPRESSION: 1. Acute fracture involving the lateral third of the left clavicle without extension into the left AC joint. Surrounding soft tissue edema is noted. Dictated by: Dictated on workstation # [id number]
[2020-04-27 11:45] LABS: BUN/CREATININE RATIO 6
[2020-04-27 11:47] LABS: ALANINE AMINOTRANSFERASE 109 U/L (0-55)
[2020-04-27] MEDS ORDERED: IOHEXOL 350 MG/ML 100 ML (OMNIPAQUE 350) VIAL IV ONE (12:15)
[2020-04-27] MEDS ORDERED: HOLD METFORMIN - RECEIVED CONTRAST 20 ML VIAL IV SCH (12:15)
[2020-04-27] MEDS ORDERED: NS 100 ML (IVPB) BAG IV ONE (12:15)
--- NOTE | 2020-04-27 12:17 | Diagnostic Imaging Report ---
PROCEDURE: CT head, face, and cervical spine without contrast. TECHNIQUE: Multiple contiguous axial images were obtained through the head, neck, and facial bones without the use of intravenous contrast. Sagittal and coronal reformations through the cervical spine and facial bones were also performed. Auto Exposure Controls were utilized during the CT exam to meet ALARA standards for radiation dose reduction. INDICATION: Fall with bruising to bilateral eyes and face. COMPARISON: No prior studies are available for comparison. CT HEAD: There is soft tissue swelling in the right paramidline frontal scalp. There is a rounded hyperdensity in the left paramidline frontal region measuring 8 mm in size. This is likely extra-axial and may represent a meningioma. Ventricular size and sulcal pattern are normal. No midline shift is identified. No acute intra-axial or extra-axial hemorrhage is seen. The cisterns are patent. Visualized paranasal sinuses are clear. IMPRESSION: 1. Right frontal scalp hematoma. 2. 8 mm rounded hyperdensity along the left frontal convexity, suggestive of a meningioma. MRI on a nonemergent basis would be useful for further evaluation. No other significant abnormality is seen. CT CERVICAL SPINE: There is slight reversal of the normal cervical lordotic curvature. Minimal retrolisthesis of C5 on C6 is noted. There is C5-C6 degenerative disc disease with disc space narrowing and marginal spurring. No fractures are identified. Prevertebral tissues are within normal limits. Odontoid appears intact. IMPRESSION: 1. Reversal of normal cervical curvature as well as cervical spondylosis. 2. No acute bony abnormality is detected. CT FACE: The mandible appears intact. Zygomatic arches are intact. Maxillary sinus reaves appear to be intact. The medial and lateral orbital reaves are intact. No nasal bone fracture is seen. Soft tissue swelling in the right frontal scalp is noted. There also appears to be soft tissue swelling in the left premaxillary region as well as the right periorbital region. Both globes are intact. IMPRESSION: 1. Facial swelling, as described. No definite facial bone fracture is identified. Dictated by: Dictated on workstation # [id number]
--- NOTE | 2020-04-27 12:21 | Diagnostic Imaging Report ---
PROCEDURE: CT abdomen and pelvis with contrast. TECHNIQUE: Multiple contiguous axial images were obtained through the abdomen and pelvis after administration of intravenous contrast. Auto Exposure Controls were utilized during the CT exam to meet ALARA standards for radiation dose reduction. INDICATION: Recent fall. COMPARISON: No prior studies are available for comparison. FINDINGS: The lung bases are clear. Liver demonstrates generalized low density consistent with hepatic steatosis. No liver mass is identified. The gallbladder is unremarkable. No biliary ductal dilatation is detected. The pancreas and spleen are unremarkable. No adrenal mass is detected. Kidneys are unremarkable. Aorta is heavily calcified but non-aneurysmal. The small and large bowel loops are normal caliber. There is no obstruction. No free fluid or fluid collection is seen. The bladder is unremarkable. Bony structures are nonacute. IMPRESSION: 1. Hepatic steatosis. 2. No evidence of abdominal or pelvic visceral injury. No acute feature is detected. Dictated by: Dictated on workstation # [id number]
[2020-04-27 12:30] VITALS: BP 136/74
== END 2020-04-27 12:30 | disposition home or self-care (01) ==
LOC: EDUNIT# 10:25 → ER 10:26
DX: S42.032A Displaced fracture of lateral end of left clavicle, initial encounter for closed fracture (principal); S00.83XA Contusion of other part of head, initial encounter; S30.0XXA Contusion of lower back and pelvis, initial encounter; S20.222A Contusion of left back wall of thorax, initial encounter; S40.022A Contusion of left upper arm, initial encounter; R93.0 Abnormal findings on diagnostic imaging of skull and head, not elsewhere classified; R40.2142 Coma scale, eyes open, spontaneous, at arrival to emergency department; R40.2252 Coma scale, best verbal response, oriented, at arrival to emergency department; R40.2362 Coma scale, best motor response, obeys commands, at arrival to emergency department; I10 Essential (primary) hypertension; F17.200 Nicotine dependence, unspecified, uncomplicated; Z88.0 Allergy status to penicillin; W01.0XXA Fall on same level from slipping, tripping and stumbling without subsequent striking against object, initial encounter
CPT/HCPCS: 70450; 70486; 71046; 72125; 73030; 74177; 80053; 85025; 85610; 99284; A4565; G0480; 36415; 80320

== ENCOUNTER 2020-04-28 12:09 | Emergency (ER) | payer SELFPAY ==
[~2020-04-28] VITALS: Ht 162.6 cm; Wt 58.9 kg
--- NOTE | 2020-04-28 12:47 | ED Fall/Injury ---
General Chief Complaint: Trauma-Non Activation Stated Complaint: FALL Source: patient Exam Limitations: no limitations History of Present Illness Date Seen by Provider: Apr 28, 2020 Time Seen by Provider: 12:45 Initial Comments To ER with a report of recurrent fall. She was seen here yesterday, CT scan was done, labs were done. She was found to have a distal clavicle fracture. She [place] and had been drinking prior to the fall. She went home and drank some mo re and has once again fallen. She did hit her head. Occurred: just prior to arrival Severity: moderate Injuries/Pain Location: head Context: unknown Loss of Consciousness: no loss of consciousness Associated Symptoms (Fall): Denies Symptoms Allergies and Home Medications Allergies Coded Allergies: Penicillins (Verified Allergy, Unknown, 12/12/17) Home Medications Atenolol 50 Mg Tablet, 50 MG PO DAILY, (Reported) Lisinopril 20 Mg Tablet, 20 MG PO DAILY, (Reported) Patient Home Medication List Home Medication List Reviewed: Yes Review of Systems Review of Systems Constitutional: see HPI Eyes: No Symptoms Reported Ears, Nose, Mouth, Throat: no symptoms reported Respiratory: no symptoms reported Cardiovascular: no symptoms reported Genitourinary: no symptoms reported Musculoskeletal: no symptoms reported Skin: no symptoms reported Psychiatric/Neurological: No Symptoms Reported Past Oeprldl-Ezlqme-Kgzjpq Hx Patient Social History Alcohol Beverage of Choice: Beer Past Medical History Surgeries: Yes (filopian tube removed from ectopic preg.) Tubal Ligation Respiratory: No Cardiac: Yes Hypertension Neurological: No Genitourinary: No Gastrointestinal: No Musculoskeletal: No Endocrine: No HEENT: No Cancer: No Psychosocial: Yes Depression Integumentary: No Blood Disorders: No Adverse Reaction/Blood Tranf: No Physical Exam Vital Signs Vital Signs - First Documented 04/28/20 12:27 Temp 37.0 Pulse 116 Resp 18 B/P (MAP) 185/124 (144) Pulse Ox 97 O2 Delivery Room Air Capillary Refill : Height, Weight, BMI Height: 5'4.00" Weight: 130lbs. oz. 58.895121yk; 22.00 BMI Method:Stated General Appearance: WD/WN, no apparent distress HEENT: PERRL/EOMI, other (her exam is the same as yesterday which is to state that there is bilateral periorbital ecchymosis, no Rodriguez sign and no hemotympanum no septal hematoma or epistaxis, no evidence of dental injury. Persistent bruising left anterior shoulder at the site of known clavicle fracture. She is not wearing the sling that she was given yesterday) Neck: non-tender, full range of motion Respiratory: normal breath sounds, no respiratory distress, no accessory muscle use Gastrointestinal: normal bowel sounds, non tender Extremities: other (limited range of motion secondary to pain left shoulder) Neurologic/Psychiatric: alert, normal mood/affect, oriented x 3 Skin: normal color, warm/dry, ecchymosis Moses Coma Score Best Eye Response: (4) Open Spontaneously Best Verbal Response: (5) Oriented Best Motor Response: (6) Obeys Commands [place] Total: 15 Progress/Results/Core Measures Results/Orders My Orders Orders - OTILIO GUNN APRN Ct Head/Cervical Spine Wo (04/28/20 12:45) Mri Cervical Spine W/O [place] (04/28/20 13:43) Vital Signs/I&O 04/28/20 04/28/20 12:27 14:50 Temp 37.0 37.0 Pulse 116 117 Resp 18 18 B/P (MAP) 185/124 (144) 177/104 (144) Pulse Ox 97 98 O2 Delivery Room Air Room Air Departure Impression Primary Impression: Alcoholism Additional Impression: Multiple contusions Disposition: 01 HOME, SELF-CARE Condition: Stable Departure-Patient Inst. Decision time for Depature: 12:52 Referrals: ALON CHADWICK (PCP) Primary Care Physician [facility] (Family) Primary Care Physician Patient Instructions: Alcohol Use - When Is Drinking a Problem?, Alcohol Abuse and Alcoholism (DC) OTILIO GUNN APRN Apr 28, 2020 12:46
--- NOTE | 2020-04-28 13:52 | Diagnostic Imaging Report ---
CLINICAL INDICATION: Patient fell on Tuesday, more confusion yesterday. EXAM: Head CT without IV contrast with coronal and sagittal reformations. Axial CT scan of the cervical spine with sagittal and coronal reformations. Auto Exposure Controls were utilized during the CT exam to meet ALARA standards for radiation dose reduction. COMPARISON: CT scan of the head, face, cervical spine dated 04/27/2020. FINDINGS: Head CT: There is no evidence of acute cerebral infarct, intracranial hemorrhage, or gross mass effect. Stable roughly 8 mm hyperdense dural-based mass in the left parasagittal left frontal region anteriorly seen on series 2, image 8. The brain parenchymal volume appears appropriate for patient's age. There is normal nobles-white matter distinction. There is no significant midline shift or herniation. There is no evidence of hydrocephalus. The basal cisterns are unremarkable. There is a small area of extracranial soft tissue swelling and hematoma involving the right anterior aspect of the head. There is no skull fracture. Otherwise, the skull, extracranial soft tissue, and orbits are unremarkable. The paranasal sinuses are unremarkable. Temporal bones show no significant abnormality. Cervical spine: There is patient body habitus and streak artifact obscuring portions of the lower cervical spine. There is no acute cervical spine fracture. Stable widening of the C4-C5 interspace region. There is no adjacent soft tissue swelling or fat stranding. There is straightening and kyphosis of the cervical spine posture, centered at C4-C5 level. There are hypertrophic spurs anteriorly involving the cervical spine. There is facet arthropathy/hypertrophy with the right side affected more than left. There is at least moderate right C3-C4 neural foramen narrowing. There is at least hxmx-ps-axirsllq bony central canal narrowing at the C5-C6 level. IMPRESSION: 1: There is no evidence of acute intracranial process. There is no intracranial hemorrhage. 2: There is a small area of extracranial soft tissue swelling/hematoma involving the right anterior aspect of the head. There is no skull fracture. 3: Stable cervical spine degenerative disease with no acute fracture. Stable straightening and kyphosis of the cervical spine posture centered at the C4-C5 level. 4: Stable widening of the C4-C5 interspinous space. There is no adjacent soft tissue fat stranding or fluid collection seen. This finding is suspected to be chronic. If there is continued concern for cervical spine injury, then nonemergent MRI of the cervical spine may help better evaluate. 5: Stable roughly 8 mm dural-based lesion in the parasagittal left frontal region, suspect to represent meningioma. Nonemergent MRI of the brain with and without IV contrast would better evaluate. Results of this report discussed with Omar Brown APRN via the telephone on 04/28/2020 at 1340 hours. Dictated by: Dictated on workstation # [id number]
--- NOTE | 2020-04-28 14:42 | Diagnostic Imaging Report ---
PROCEDURE: MR imaging cervical spine without contrast. TECHNIQUE: Multiplanar, multisequence MR imaging of the cervical spine was performed without contrast. INDICATION: Fall. COMPARISON: The study is interpreted in correlation with a CT of earlier this same date as well as with an exam of one day earlier. FINDINGS: Reversal of lordosis centered about the C5 level with slight grade 1 C5 on C6 degenerative retrolisthesis is present, unchanged. No paraspinal edema. No evidence for ligamentous disruption. No uncovering of the facet articulations. No marrow edema or fracture pattern. Degenerative disease, greatest at the malaligned C5-C6 level, where osteophyte/disc material in addition to reversal of lordosis results in moderate to severe canal stenosis with moderate left and moderate to severe right neuroforaminal narrowing. The spinal canal at the remaining levels is unremarkable. The cervical spinal cord itself shows normal volume, morphology, and signal intensity. No paraspinal edema. The prevertebral and retropharyngeal spaces are normal. IMPRESSION: Lower cervical degenerative changes with reversal of lordosis, stable grade 1 degenerative retrolisthesis, and resultant canal and bi-foraminal stenoses as chronic findings are noted. No acute cord pathology, marrow edema, or evidence for ligamentous rupture. Dictated by: Dictated on workstation # [id number]
--- OUTSIDE RECORDS SUMMARY | 2020-04-28 14:45 | XMS REPORT | Continuity of Care Document ---
Demographics Preferred Language Unknown Marital Status Unknown Presybeterian Affiliation Unknown Race Unknown Ethnic Group Unknown Author Organization Unknown Address Unknown Phone Unavailable Allergies Active Description Code Type Severity Reaction Onset Reported/Identified Relationship to Patient Clinical Status Yes Penicillins [id number] Drug Aller gy Unknown N/A 12/12/2017 Medications [...] FROM LADDER, INITIAL ENCOUNT 12/14/2017 OTILIO GUNN PROTECTION SPECIALIST Ot Z88 .0 ALLERGY STATUS TO PENICILLIN 12/14/2017 OTILIO GUNN PROTECTION SPECIALIST Ot Z98.51 TUBAL LIGATION STATUS 10/25/2019 KAROLINE CARPENTER Rosina PROTECTION SPECIALIST Ot Z12.31 ENCNTR SCREEN MAMMOGRAM FOR MALIGNANT [...] 09:53 Hemoglobin A1c 5.5 % 4.8-5.6 Thyroid [place] Profile - 09/13/16 09:53 TSH 1.550 uIU/mL [...] NRG STATEMENT OF ADEQUACY: NRG INTERPRETATION/RESULT: NRG AUTOMATIC GLOVE TURNER AND FORMER: NRG HPV mRNA E6/E7, SUREPATH VIAL Not Detected NOT DETECTED COMMENT NRG Complete blood count (CBC) with automate d white blood cell (WBC) differential - 04/27/20 11:25 Blood leukocytes automated count (number/volume) 8.0 10*3/uL 4.3-11.0 Blood erythrocytes automated count (number/volume) 4.56 10*6/uL 4.35-5.85 Venous blood hemoglobin measurement (mass/volume) 15.4 g/dL 11.5-16.0 Blood hematocrit (volume fraction) 44 % 35-52 Automated erythrocyte mean corpuscular volume 95 [ foz_us] 80-99 Automated erythrocyte mean corpuscular h emoglobin (mass per erythrocyte) 34 pg 25-34 Automated erythrocyte mean corpuscular h emoglobin concentration measurement (mass/volume) 35 g/dL 32-36 Automated erythrocyte distribution width ratio 12. 1 % 10.0- 14.5 Automated blood platelet count (count/volume) 216 10*3/uL 130-400 Automated blood platelet mean volume measurement 9.1 [foz_us] 7.4-10.4 Automated blood neutrophils/100 leukocytes 66 % 42-75 Automated blood lymphocytes/100 leukocytes 21 % 12-44 Blood monocytes/100 leukocytes 13 % 0-12 Automated blood eosinophils/100 leukocytes 0 % 0-10 Automated blood basophils/100 leukocytes 0 % 0-10 Blood neutrophils automated count (number/volume) 5.2 10*3 1.8-7.8 Blood lymphocytes automated count (number/volume) 1.6 10*3 1.0-4.0 Blood monocytes automated count (number/volume) 1. 1 10*3 0.0-1.0 Automated eosinophil count 0.0 10*3/uL 0 .0-0.3 Automated blood basophil count (count/volume) 0.0 10*3/uL 0.0-0.1 Comprehensive metabolic panel - 04/27/20 11:25 Serum or plasma sodium measurement (moles/volume) 131 mmol/L 135-145 Serum or plasma potassium measurement (moles/volume) 3.7 mmol/L 3.6-5.0 Serum or plasma chloride measurement (moles/volume) 95 mmol/L 98-107 Carbon dioxide 17 mmol/L 21-32 Serum or plasma anion gap determination (moles/volume) 19 mmol/L 5-14 Serum or plasma urea nitrogen measurement (mass/volume ) 4 mg/dL 7-18 Serum or plasma creatinine measurement (mass/volume) 0.62 mg/dL 0.60-1.30 Serum or plasma urea nitrogen/creatinine mass ratio 6 NRG Serum or plasma creatinine measurement w ith calculation of estimated glomerular filtration rate > NRG Serum or plasma glucose measurement (mass/volume) 106 mg/dL 70-105 Serum or plasma calcium measurement (mass/volume) 9.3 mg/dL 8.5-10.1 Serum or plasma total bilirubin measurement (mass/volu me) 0.9 mg/dL 0.1-1.0 Serum or plasma alkaline phosphatase nydia surement (enzymatic activity/volume) 105 U/L 40-136 Serum or plasma aspartate aminotransfera se measurement (enzymatic activity/volume) 103 U/L 5-34 Serum or plasma alanine aminotransferase measurement (enzymatic activity/volume) 109 U/L 0-55 Serum or plasma protein measurement (mass/volume) 7.7 g/dL 6.4-8.2 Serum or plasma albumin measurement (mass/volume) 4.6 g/dL 3.2-4.5 PT panel in platelet poor plasma by coag ulation assay - 04/27/20 11:25 Prothrombin time (PT) in platelet poor plasma by coagu lation assay 12.0 s 12.2-14.7 INR in platelet poor plasma or blood by coagulation as say 0.9 0.8-1.4 Serum or plasma ethanol measurement (mas s/volume) - 04/27/20 11:25 Serum or plasma ethanol measurement (mass/volume) 103 mg/dL <10 Encounters ACCT No. Visit Date/Time Discharge Status Pt. Type Provider Facility Loc./Unit Complaint [id number] 12/03/2016 18:06:00 Document Registration [id number] 09/14/2016 10:05:00 Document Registration [id number] 04/27/2020 10:26:00 020 12:30:00 DIS Emergency OTILIO GUNN APRN [facility] ER FALL/L SHOULDER PAIN [id number] 10/23/2019 09:04:00 019 23:59:59 CLS Outpatient KAROLINE CARPENTER APRN [facility] RAD SCREENING [id number] 02/21/2018 14:42:00 018 23:59:59 CLS Preadmit ALON FOSTER [facility] REHAB CLOSED FX LT TIBIAL ANAYA TEAU W ROUTINE HEALING [id number] 12/12/2017 13:35:00 018 16:56:00 DIS Emergency OTILIO GUNN APRN [facility] ER FALL/LEFT LEG INJURY; T IB-PLATEAU FX [id number] 04/28/2020 12:10:[address] Emergency OTILIO GUNN APRN [facility] ER FALL [id number] 10/16/2019 15:00:00 10/16/2019 23:59: 59 CLS Outpatient KAROLINE CARPENTER [facility] [id number] 10/16/2019 15:00:00 Document Registration [id number] 03/26/2019 09:00:00 Document Registration [id number] 03/13/2019 12:20:00 Document Registration [id number] 10/21/2015 10:28:54 10/21/2015 23:59: 59 CLS Outpatient Aditi Marie [id number] 10/07/2015 14:13:54 10/07/2015 23:59: 59 CLS Outpatient Aditi Marie [id number] 08/11/2015 14:35:09 08/11/2015 23:59: 59 CLS Outpatient Aditi Marie [id number] 06/23/2015 22:14:10 06/23/2015 23:59: 59 CLS Outpatient Salome Phillips [id number] 06/23/2015 22:09:39 06/23/2015 23:59: 59 CLS Outpatient Walker, Aditi [id number] 06/23/2015 22:01:40 06/23/2015 23:59: 59 CLS Outpatient Walker, Aditi [id number] 02/10/2015 14:44:22 02/10/2015 23:59: 59 CLS Outpatient Walker, Aditi [id number] 11/27/2014 10:21:36 11/27/2014 23:59: 59 CLS Outpatient Walker, Aditi [id number] 10/30/2014 10:22:24 10/30/2014 23:59: 59 CLS Outpatient TremayneEmliy [id number] 08/21/2014 14:42:55 08/21/2014 23:59: 59 CLS Outpatient Walker, Aditi [id number] 07/17/2014 15:09:48 07/17/2014 23:59: 59 CLS Outpatient Walker, Aditi [id number] 04/17/2014 09:14:22 04/17/2014 23:59: 59 CLS Outpatient Walker, Aditi [id number] 03/18/2014 09:44:06 03/18/2014 23:59: 59 CLS Outpatient Walker, Aditi [id number] 03/15/2014 14:27:13 03/15/2014 23:59: 59 CLS Outpatient Termayne Emily Vizcaino [id number] 01/29/2014 14:32:29 01/29/2014 23:59: 59 CLS Outpatient Walker, Aditi [id number] 01/02/2014 15:29:41 01/02/2014 23:59: 59 CLS Outpatient Walker, Aditi
[2020-04-28 14:50] VITALS: BP 177/104
== END 2020-04-28 14:50 | disposition home or self-care (01) ==
LOC: EDUNIT# 12:09 → ER 12:10
DX: S40.012A Contusion of left shoulder, initial encounter (principal); S00.12XA Contusion of left eyelid and periocular area, initial encounter; S00.11XA Contusion of right eyelid and periocular area, initial encounter; F10.20 Alcohol dependence, uncomplicated; I10 Essential (primary) hypertension; R40.2142 Coma scale, eyes open, spontaneous, at arrival to emergency department; R40.2252 Coma scale, best verbal response, oriented, at arrival to emergency department; R40.2362 Coma scale, best motor response, obeys commands, at arrival to emergency department; W19.XXXA Unspecified fall, initial encounter
CPT/HCPCS: 70450; 72125; 72141

== ENCOUNTER 2020-05-05 09:50 | Emergency (ER) | payer SELFPAY ==
[~2020-05-05] VITALS: Ht 162.5 cm; Wt 59.0 kg
--- NOTE | 2020-05-05 10:04 | ED Fall/Injury ---
General Stated Complaint: FALL Source: patient History of Present Illness Date Seen by Provider: May 05, 2020 Time Seen by Provider: 10:00 Initial Comments 54-year-old female presents following a fall. Patient states that she fell yesterday some time. Patient cannot remember exactly what she hit it when she fell. Patient admits to drinking daily and was drinking at the time. Patient has what appears to be older bruising to her face with a large hematoma over her forehead with a contusion also over her left shoulder. Patient is complaining of pain in her left shoulder. She does have full range of motion. She is unsure of any loss of consciousness from the fall. Patient reports that she went to work last night and then came to the ER after she got off today. Patient reports she is here because work asked her to come get checked out. Patient admits to being noncompliant with her high blood pressure medication and is unsure the last time she took it. Patient also voices no interest in decreasing her drinking or change in her drinking habits. Allergies and Home Medications Allergies Coded Allergies: Penicillins (Verified Allergy, Unknown, 12/12/17) Home Medications Atenolol 50 Mg Tablet, 50 MG PO DAILY, (Reported) Lisinopril 20 Mg Tablet, 20 MG PO DAILY, (Reported) Patient Home Medication List Home Medication List Reviewed: Yes Review of Systems Review of Systems Constitutional: see HPI Eyes: No Symptoms Reported Ears, Nose, Mouth, Throat: see HPI Respiratory: no symptoms reported; No cough, No short of breath Cardiovascular: no symptoms reported; No chest pain, No palpitations Gastrointestinal: No abdominal pain, No nausea, No vomiting Musculoskeletal: see HPI Skin: see HPI Past Momlnso-Rbjjuy-Iqtldm Hx Past Med/Social Hx: Reviewed Nursing Past Med/Soc Hx Patient Social History Alcohol Beverage of Choice: Beer Type Used: Cigarettes 2nd Hand Smoke Exposure: Yes Recent Foreign Travel: No Contact w/Someone Who Travel: No Past Medical History Surgeries: Yes (filopian tube removed from ectopic preg.) Tubal Ligation Respiratory: No Cardiac: Yes Hypertension Neurological: No Genitourinary: No Gastrointestinal: No Musculoskeletal: No Endocrine: No HEENT: No Cancer: No Psychosocial: Yes Depression Integumentary: No Blood Disorders: No Adverse Reaction/Blood Tranf: No Physical Exam Vital Signs Vital Signs - First Documented 05/05/20 09:56 Temp 36.8 Pulse 121 Resp 18 B/P (MAP) 202/114 (143) Pulse Ox 99 O2 Delivery Room Air Capillary Refill : Height, Weight, BMI Height: 5'4.00" Weight: 130lbs. oz. 58.593923ta; 22.00 BMI Method:Stated General Appearance: no apparent distress HEENT: PERRL/EOMI Neck: full range of motion, supple Cardiovascular: normal peripheral pulses, tachycardia Respiratory: lungs clear, normal breath sounds Peripheral Pulses: 2+ Radial Pulses (R), 2+ Radial Pulses (L) Gastrointestinal: non tender, soft Extremities: normal range of motion, other (tenderness to the left shoulder and posterior upper back) Neurologic/Psychiatric: no motor/sensory deficits, alert, oriented x 3 Skin: ecchymosis (diffuse bilateral forehead and eyes, left shoulder diffusely) Progress/Results/Core Measures Results/Orders My Orders Orders - AURY NAVARRO DO Shoulder, Left, 3 Views (05/05/20 10:04) Ct Head Wo (05/05/20 10:04) Vital Signs/I&O 05/05/20 05/05/20 09:56 10:52 Temp 36.8 Pulse 121 112 Resp 18 18 B/P (MAP) 202/114 (143) 201/128 Pulse Ox 99 99 O2 Delivery Room Air Progress Progress Note : Progress Note Patient with no acute injuries. Her bruising seem consistent with old injuries which is confirmed by repeat CT head and repeat shoulder x-ray. Patient is supposed to be taking high blood pressure medication and has not at home. She w as offered here but will just take her home medication she states. Patient states she has no desire to quit drinking. I did have a long discussion with her regarding her falls and memory lapses due to her alcohol abuse. Patient is discharged home in stable condition. Diagnostic Imaging Diagonstic Imaging: Xray, CT Plain Films/CT/US/NM/MRI: head Comments [facility]. [place], [place] NAME: SHIRLEYMARYAM MED REC#: [id number] PT STATUS: REG ER : 1965 PHYSICIAN: AURY NAVARRO DO ADMIT DATE: 05/05/20/ER Draft Date of Exam:05/05/20 CT HEAD WO PROCEDURE: CT head without contrast. TECHNIQUE: Multiple contiguous axial images were obtained through the brain without the use of intravenous contrast. Auto Exposure Controls were utilized during the CT exam to meet ALARA standards for radiation dose reduction. INDICATION: Fall with orbital bruising and swelling. Correlation is made with prior head CT from 04/28/2020. There is soft tissue swelling in the right frontal scalp, similar to head CT one week earlier. The ventricles and sulci are within normal limits. No sulcal effacement or midline shift is identified. No acute intra-axial or extra-axial hemorrhage is detected. Cisterns are patent. Visualized paranasal sinuses are clear. IMPRESSION: Right frontal scalp swelling. No acute intracranial process is detected. [facility] [place] [place] NAME: MARYAM [facility] REC#: [id number] PT STATUS: REG ER : 1965 PHYSICIAN: AURY NAVARRO DO ADMIT DATE: 05/05/20/ER Draft Date of Exam:05/05/20 SHOULDER, LEFT, 3 VIEWS EXAMINATION: Left shoulder, 3 views INDICATION: Traumatic left shoulder pain. Recent left clavicular fracture. COMPARISON: Left shoulder radiographs performed on 04/27/2020. FINDINGS: Again demonstrated is a comminuted mildly displaced fracture of the distal left clavicle. Mild periosteal reaction is noted about the fracture site. No new fracture or acute osseous abnormality is noted. Humeral head is well-seated in the glenohumeral joint. Acromioclavicular joint is intact. Regional soft tissues are unremarkable. The visualized left lung is clear. IMPRESSION: Mild interval healing of distal left clavicular fracture. No new fracture or dislocation is demonstrated. Reviewed: Reviewed by Me, Reviewed/Discussed Departure Impression Primary Impression: Alcohol dependence Qualified Codes: F10.29 - Alcohol dependence with unspecified alcohol- induced disorder Additional Impressions: Fall Qualified Codes: W19.XXXD - Unspecified fall, subsequent encounter Contusion Qualified Codes: S00.10XD - Contusion of unspecified eyelid and periocular area, subsequent encounter Disposition: 01 HOME, SELF-CARE Condition: Stable Departure-Patient Inst. Referrals: ALON CHADWICK (PCP) Primary Care Physician [facility] (Family) Primary Care Physician Patient Instructions: Alcohol Use - When Is Drinking a Problem? Add. Discharge Instructions: Please restart your blood pressure medication and take when you get home Please consider getting help with your alcohol dependence and abuse AURY NAVARRO DO May 05, 2020 10:04
--- NOTE | 2020-05-05 10:22 | Diagnostic Imaging Report ---
PROCEDURE: CT head without contrast. TECHNIQUE: Multiple contiguous axial images were obtained through the brain without the use of intravenous contrast. Auto Exposure Controls were utilized during the CT exam to meet ALARA standards for radiation dose reduction. INDICATION: Fall with orbital bruising and swelling. Correlation is made with prior head CT from 04/28/2020. There is soft tissue swelling in the right frontal scalp, similar to head CT one week earlier. The ventricles and sulci are within normal limits. No sulcal effacement or midline shift is identified. No acute intra-axial or extra-axial hemorrhage is detected. Cisterns are patent. Visualized paranasal sinuses are clear. IMPRESSION: Right frontal scalp swelling. No acute intracranial process is detected. Dictated by: Dictated on workstation # [id number]
--- OUTSIDE RECORDS SUMMARY | 2020-05-05 10:30 | XMS REPORT | Continuity of Care Document ---
Demographics Preferred Language Unknown Marital Status Unknown Jainism Affiliation Unknown Race Unknown Ethnic Group Unknown Author Organization Unknown Address Unknown Phone Unavailable Allergies Active Description Code Type Severity Reaction Onset Reported/Identified Relationship to Patient Clinical Status Yes Penicillins [id number] Drug Aller gy Unknown N/A 12/12/2017 Medications [...] FROM LADDER, INITIAL ENCOUNT 12/14/2017 OTILIO GUNN APRN Ot Z88 .0 ALLERGY STATUS TO PENICILLIN 12/14/2017 OTILIO GUNN APRN Ot Z98.51 TUBAL LIGATION STATUS 10/25/2019 KAROLINE CARPENTER Rosina NIX Ot Z12.31 ENCNTR SCREEN MAMMOGRAM FOR MALIGNANT NE 04/30/2020 OTILIO GUNN APRN Ot F17.200 NICOTINE DEPENDENCE, UNSPECIFIED, UNCOMP 04/30/2020 OTILIO GUNN APRN Ot I10 ESSENTIAL (PRIMARY) HYPERTENSION 04/30/2020 OTILIO GUNN APRN Ot M25.511 PAIN IN RIGHT SHOULDER 04/30/2020 OTILIO GUNN APRN Ot R40.2142 COMA SCALE, EYES OPEN, SPONTANEOUS, EMR 04/30/2020 OTILIO GUNN APRN Ot R40.2252 COMA SCALE, BEST VERBAL RESPONSE, ORIENT 04/30/2020 OTILIO GUNN APRN Ot R40.2362 COMA SCALE, BEST MOTOR RESPONSE, OBEYS C 04/30/2020 OTILIO GUNN APRN Ot S00.83XA CONTUSION OF OTHER PART OF HEAD, INITIAL 04/30/2020 OTILIO GUNN APRN Ot S20.222A CONTUSION OF LEFT BACK WALL OF THORAX, I 04/30/2020 OTILIO GUNN APRN Ot S30.0XXA CONTUSION OF LOWER BACK AND PELVIS, INIT 04/30/2020 OTILIO GUNN APRN Ot S40.022A CONTUSION OF LEFT UPPER ARM, INITIAL ENC 04/30/2020 OTILIO GUNN APRN Ot S42.032A DISP FX OF LATERAL END OF LEFT CLAVICLE, 04/30/2020 OTILIO GUNN APRN Ot W01.0XXA FALL SAME LEV FROM SLIP/TRIP W/O STRIKE 04/30/2020 OITLIO GUNN APRN Ot Z88 .0 ALLERGY STATUS TO PENICILLIN 04/30/2020 OTILIO GUNN APRN Ot F17.200 NICOTINE DEPENDENCE, UNSPECIFIED, UNCOMP 04/30/2020 OTILIO GUNN APRN Ot I10 ESSENTIAL (PRIMARY) HYPERTENSION 04/30/2020 OTILIO GUNN APRN Ot M25.511 PAIN IN RIGHT SHOULDER 04/30/2020 OTILIO GUNN APRN Ot R40.2142 COMA SCALE, EYES OPEN, SPONTANEOUS, EMR 04/30/2020 GUNN, OTILIO Almaguer APRN Ot R40.2252 COMA SCALE, BEST VERBAL RESPONSE, ORIENT 04/30/2020 VELIA, OTILIO Almaguer APRN Ot R40.2362 COMA SCALE, BEST MOTOR RESPONSE, OBEYS C 04/30/2020 VELIA, OTILIO Almaguer APRN Ot R93 .0 ABNORMAL FINDINGS ON DX IMAGING OF SKULL 04/30/2020 VELIA, OTILIO Almaguer APRN Ot S00.83XA CONTUSION OF OTHER PART OF HEAD, INITIAL 04/30/2020 VELIA, OTILIO Almaguer APRN Ot S20.222A CONTUSION OF LEFT BACK WALL OF THORAX, I 04/30/2020 VELIA, OTILIO Almaguer APRN Ot S30.0XXA CONTUSION OF LOWER BACK AND PELVIS, INIT 04/30/2020 VELIA, OTILIO Almaguer APRN Ot S40.022A CONTUSION OF LEFT UPPER ARM, INITIAL ENC 04/30/2020 VELIA, OTILIO Almaguer APRN Ot S42.032A DISP FX OF LATERAL END OF LEFT CLAVICLE, 04/30/2020 VELIA, OTILIO Almaguer APRN Ot W01.0XXA FALL SAME LEV FROM SLIP/TRIP W/O STRIKE 04/30/2020 VELIA, OTILIO Almaguer APRN Ot Z88 .0 ALLERGY STATUS TO PENICILLIN 05/01/2020 VELIA, OTILIO Almaguer APRN Ot F10.20 ALCOHOL DEPENDENCE, UNCOMPLICATED 05/01/2020 VELIA, OTILIO Almaguer APRN Ot I10 ESSENTIAL (PRIMARY) HYPERTENSION 05/01/2020 VELIA, OTILIO Almaguer APRN Ot R40.2142 COMA SCALE, EYES OPEN, SPONTANEOUS, EMR 05/01/2020 VELIA, OTILIO Almaguer APRN Ot R40.2252 COMA SCALE, BEST VERBAL RESPONSE, ORIENT 05/01/2020 VELIA, OTILIO Almaguer APRN Ot R40.2362 COMA SCALE, BEST MOTOR RESPONSE, OBEYS C 05/01/2020 VELIA, OTILIO Almaguer APRN Ot S00.11XA CONTUSION OF RIGHT EYELID AND PERIOCULAR 05/01/2020 VELIA, OTILIO Almaguer APRN Ot S00.12XA CONTUSION OF LEFT EYELID AND PERIOCULAR 05/01/2020 VELIA, OTILIO Almaguer APRN Ot S40.012A CONTUSION OF LEFT SHOULDER, INITIAL ENCO 05/01/2020 VELIA, PETER J HANDHOLE MACHINE OPERATOR Ot W19.XXXA UNSPECIFIED FALL, INITIAL ENCOUNTER Procedures There is no data. Results Test [...] 09:53 Hemoglobin A1c 5.5 % 4.8-5.6 Thyroid [place] Profile - 09/13/16 09:53 TSH 1.550 uIU/mL [...] NRG STATEMENT OF ADEQUACY: NRG INTERPRETATION/RESULT: NRG CERTIFICATION AND SELECTION SPECIALIST: NRG HPV mRNA E6/E7, SUREPATH VIAL Not [...] 0.0 10*3/uL 0.0-0.1 Comprehensive metabolic panel - 06/14/20 11:25 Serum or plasma sodium measurement (moles/volume) [...] Status Pt. Type Provider Facility Loc./Unit Complaint [id number] 12/03/2016 18:06:00 Document Registration [id number] 09/14/2016 10:05:00 Document Registration [id number] 04/28/2020 12:10:00 06/15/2 020 14:50:00 DIS Outpatient OTILIO GUNN HANDHOLE MACHINE OPERATOR Via [facility] ER FALL [id number] 04/27/2020 10:26:00 12:30:00 DIS Outpatient OTILIO GUNN HANDHOLE MACHINE OPERATOR Via [facility] ER FALL/L SHOULDER PAIN [id number] 10/23/2019 09:04:00 019 23:59:59 CLS Outpatient KAROLINE CARPENTER APRN Via [facility] RAD SCREENING [id number] 02/21/2018 14:42:00 018 23:59:59 CLS Preadmit ALON FOSTER Via [facility] REHAB CLOSED FX LT TIBIAL ANAYA TEAU W ROUTINE HEALING [id number] 12/12/2017 13:35:00 018 16:56:00 DIS Emergency OTILIO GUNN APRN Via [facility] ER FALL/LEFT LEG INJURY; T IB-PLATEAU FX [id number] 10/16/2019 15:00:00 10/16/2019 23:59: 59 CLS Outpatient KAROLINE CARPENTER [facility] [id number] 10/16/2019 15:00:00 Document Registration [id number] 03/26/2019 09:00:00 Document Registration [id number] 03/13/2019 12:20:00 Document Registration [id number] 10/21/2015 10:28:54 10/21/2015 23:59: 59 CLS Outpatient Walker, Aditi [id number] 10/07/2015 14:13:54 10/07/2015 23:59: 59 CLS Outpatient Walker, Aditi [id number] 08/11/2015 14:35:09 08/11/2015 23:59: 59 CLS Outpatient Walker, Aditi [id number] 06/23/2015 22:14:10 06/23/2015 23:59: 59 CLS Outpatient Salome Phillips [id number] 06/23/2015 22:09:39 06/23/2015 23:59: 59 CLS Outpatient Walker, Aditi [id number] 06/23/2015 22:01:40 06/23/2015 23:59: 59 CLS Outpatient Walker, Aditi [id number] 02/10/2015 14:44:22 02/10/2015 23:59: 59 CLS Outpatient Walker, Aditi [id number] 11/27/2014 10:21:36 11/27/2014 23:59: 59 CLS Outpatient Walker, Aditi [id number] 10/30/2014 10:22:24 10/30/2014 23:59: 59 CLS Outpatient Tremayne Emily Vizcaino [id number] 08/21/2014 14:42:55 08/21/2014 23:59: 59 CLS Outpatient Walker, Aditi [id number] 07/17/2014 15:09:48 07/17/2014 23:59: 59 CLS Outpatient Walker, Aditi [id number] 04/17/2014 09:14:22 04/17/2014 23:59: 59 CLS Outpatient Walker, Aditi [id number] 03/18/2014 09:44:06 03/18/2014 23:59: 59 CLS Outpatient Walker, Aditi [id number] 03/15/2014 14:27:13 03/15/2014 23:59: 59 CLS Outpatient Tremayne Emily Vizcaino [id number] 01/29/2014 14:32:29 01/29/2014 23:59: 59 CLS Outpatient Walker, Aditi [id number] 01/02/2014 15:29:41 01/02/2014 23:59: 59 CLS Outpatient Walker, Aditi
--- NOTE | 2020-05-05 10:36 | Diagnostic Imaging Report ---
EXAMINATION: Left shoulder, 3 views INDICATION: Traumatic left shoulder pain. Recent left clavicular fracture. COMPARISON: Left shoulder radiographs performed on 04/27/2020. FINDINGS: Again demonstrated is a comminuted mildly displaced fracture of the distal left clavicle. Mild periosteal reaction is noted about the fracture site. No new fracture or acute osseous abnormality is noted. Humeral head is well-seated in the glenohumeral joint. Acromioclavicular joint is intact. Regional soft tissues are unremarkable. The visualized left lung is clear. IMPRESSION: Mild interval healing of distal left clavicular fracture. No new fracture or dislocation is demonstrated. Dictated by: Dictated on workstation # [id number]
--- NOTE | 2020-05-05 10:47 | NUR ---
201/128 DR NAVARRO NOTIFIED. PATIENT REPORTS WILL TAKE HER B/P MEDS WHEN SHE GETS HOME.
[2020-05-05 10:52] VITALS: BP 201/128
[2020-05-07] MEDS ORDERED: LOSA25TA41 PO ×2 (10:31→13:33)
[2020-05-07] MEDS ORDERED: ATEN50TA PO (13:33)
== END 2020-05-05 10:52 | disposition home or self-care (01) ==
LOC: EDUNIT# 09:50 → ER 09:51
DX: S40.012A Contusion of left shoulder, initial encounter (principal); S00.83XA Contusion of other part of head, initial encounter; S00.12XA Contusion of left eyelid and periocular area, initial encounter; S00.11XA Contusion of right eyelid and periocular area, initial encounter; F10.20 Alcohol dependence, uncomplicated; I10 Essential (primary) hypertension; Z91.14 Patient's other noncompliance with medication regimen; Z88.0 Allergy status to penicillin; Z77.22 Contact with and (suspected) exposure to environmental tobacco smoke (acute) (chronic); W19.XXXA Unspecified fall, initial encounter; W22.8XXA Striking against or struck by other objects, initial encounter
CPT/HCPCS: 70450; 73030

== ENCOUNTER 2020-05-06 17:47 | Inpatient (IN) | payer SELFPAY ==
[~2020-05-06] VITALS: Ht 162.5 cm; Wt 55.4 kg
--- NOTE | 2020-05-06 18:06 | ED General ---
General Chief Complaint: Trauma-Non Activation Stated Complaint: CONFUSION Source of Information: Patient Exam Limitations: No Limitations History of Present Illness Date Seen by Provider: May 06, 2020 Time Seen by Provider: 18:04 Initial Comments To ER from [facility] with reports of confusion. Has been intoxicated with multiple falls over the past few weeks and hit her head. Shes had 3 negative head cts in 2 weeks. Quit drinking a few days ago. Now hypertensive and tachycardic and confused. Timing/Duration: 1-2 Days Severity: Moderate Allergies and Home Medications Allergies Coded Allergies: Penicillins (Verified Allergy, Unknown, 12/12/17) Home Medications Atenolol 50 Mg Tablet, 50 MG PO DAILY, (Reported) Lisinopril 20 Mg Tablet, 20 MG PO DAILY, (Reported) Patient Home Medication List Home Medication List Reviewed: Yes Review of Systems Review of Systems Constitutional: see HPI EENTM: see HPI Respiratory: no symptoms reported Cardiovascular: no symptoms reported Genitourinary: no symptoms reported Musculoskeletal: no symptoms reported Skin: no symptoms reported Psychiatric/Neurological: No Symptoms Reported Hematologic/Lymphatic: No Symptoms Reported Past Gtyjask-Khzknq-Kfaxgc Hx Patient Social History Alcohol Beverage of Choice: Beer Type Used: Cigarettes 2nd Hand Smoke Exposure: Yes Recent Foreign Travel: No Contact w/Someone Who Travel: No Past Medical History Surgeries: Yes (filopian tube removed from ectopic preg.) Tubal Ligation Respiratory: No Cardiac: Yes Hypertension Neurological: No Genitourinary: No Gastrointestinal: No Musculoskeletal: No Endocrine: No HEENT: No Cancer: No Psychosocial: Yes Depression Integumentary: No Blood Disorders: No Adverse Reaction/Blood Tranf: No Physical Exam Vital Signs Vital Signs - First Documented 05/06/20 17:51 Temp 36.6 Pulse 103 Resp 18 B/P (MAP) 194/114 (140) Pulse Ox 98 O2 Delivery Room Air Capillary Refill : Height, Weight, BMI Height: 5'4.00" Weight: 130lbs. oz. 58.659197fn; 22.00 BMI Method:Stated General Appearance: No Apparent Distress, WD/WN, Other (multiple facial ecchymoses) Eyes: Bilateral Eye Normal Inspection, Bilateral Eye PERRL, Bilateral Eye EOMI HEENT: PERRL/EOMI, TMs Normal Neck: Full Range of Motion, Normal Inspection Respiratory: No Accessory Muscle Use, No Respiratory Distress Cardiovascular: Regular Rate, Rhythm, Normal Peripheral Pulses Gastrointestinal: Normal Bowel Sounds, Non Tender, Soft Neurologic/Psychiatric: Alert, Other (as her name and where she is but she does not know O what month it is 1 year it is. This is a change from the last time I saw her.) Skin: Normal Color, Warm/Dry Progress/Results/Core Measures Suspected Sepsis SIRS Temperature: Pulse: Respiratory Rate: Laboratory Tests 05/06/20 18:12: White Blood Count 5.4 Blood Pressure / Mean: Laboratory Tests 05/06/20 18:12: Creatinine 0.67, INR Comment 0.9, Platelet Count 215 Results/Orders Lab Results Laboratory Tests Test 05/06/20 18:12 05/06/20 18:37 Range/Units White Blood Count 5.4 4.3-11.0 10^3/uL Red Blood Count 4.34 L 4.35-5.85 10^6/uL Hemoglobin 14.8 11.5-16.0 G/DL Hematocrit 43 35-52 % Mean Corpuscular Volume 98 80-99 FL Mean Corpuscular Hemoglobin 34 25-34 PG Mean Corpuscular Hemoglobin Concent 35 32-36 G/DL Red Cell Distribution Width 12.2 10.0-14.5 % Platelet Count 215 130-400 10^3/uL Mean Platelet Volume 9.1 7.4-10.4 FL Neutrophils (%) (Auto) 56 42-75 % Lymphocytes (%) (Auto) 27 12-44 % Monocytes (%) (Auto) 15 H 0-12 % Eosinophils (%) (Auto) 2 0-10 % Basophils (%) (Auto) 0 0-10 % Neutrophils # (Auto) 3.0 1.8-7.8 X 10^3 Lymphocytes # (Auto) 1.5 1.0-4.0 X 10^3 Monocytes # (Auto) 0.8 0.0-1.0 X 10^3 Eosinophils # (Auto) 0.1 0.0-0.3 10^3/uL Basophils # (Auto) 0.0 0.0-0.1 10^3/uL Prothrombin Time 12.7 12.2-14.7 SEC INR Comment 0.9 0.8-1.4 Sodium Level 136 135-145 MMOL/L Potassium Level 3.4 L 3.6-5.0 MMOL/L Chloride Level 100 98-107 MMOL/L Carbon Dioxide Level 23 21-32 MMOL/L Anion Gap 13 5-14 MMOL/L Blood Urea Nitrogen 4 L 7-18 MG/DL Creatinine 0.67 0.60-1.30 MG/DL Estimat Glomerular Filtration Rate > 60 BUN/Creatinine Ratio 6 Glucose Level 183 H 70-105 MG/DL Calcium Level 9.4 8.5-10.1 MG/DL Serum Alcohol < 10 <10 MG/DL My Orders Orders - OTILIO GUNN APRN Alcohol (05/06/20 17:59) Cbc With Automated Diff (05/06/20 17:59) Basic Metabolic Panel (05/06/20 17:59) Protime With Inr (05/06/20 18:02) Ct Head Wo (05/06/20 18:02) Metoprolol Tartrate Injection (Lopressor (05/06/20 18:15) Lorazepam Injection (Ativan Injection) (05/06/20 18:15) Ekg Tracing (05/06/20 18:22) Ua Culture If Indicated (05/06/20 18:28) Drug Screen Stat (Urine) (05/06/20 18:28) Metoprolol Tartrate Injection (Lopressor (05/06/20 19:00) Lorazepam Injection (Ativan Injection) (05/06/20 19:00) Medications Given in ED Current Medications Medications Dose Ordered Sig/Fernando Route Start Time Stop Time Status Last Admin Dose Admin Lorazepam 1 mg ONCE PRN IVP 05/06/20 18:15 05/06/20 18:17 1 MG Metoprolol Tartrate 5 mg ONCE ONCE IV 05/06/20 18:15 05/06/20 18:16 DC 05/06/20 18:21 5 MG Vital Signs/I&O 05/06/20 05/06/20 17:51 18:42 Temp 36.6 Pulse 103 100 Resp 18 18 B/P (MAP) 194/114 (140) 197/98 (131) Pulse Ox 98 98 O2 Delivery Room Air Room Air Capillary Refill : Departure Communication (Admissions) 1901-On arrival she was tachycardic at 105 sinus, hypertensive at 201/100. Gave her 5 mg of Lopressor IV and 1 mg of lorazepam IV. I reduce the heart rate 87 and blood pressure 170/105. An additional dose of each was ordered. Because of the altered mental status, hypertension and tachycardia will admit for alcohol withdrawal [facility] protocol. Dr. Lee agrees with this plan. Impression Primary Impression: Alcohol withdrawal delirium Disposition: ADMITTED INPATIENT Condition: Stable Admissions Decision to Admit Reason: Admit from ER (General) Decision to Admit/Date: May 06, 2020 Time/Decision to Admit Time: 19:01 Departure-Patient Inst. Referrals: [facility] (PCP/Family) Primary Care Physician OTILIO GUNN APRN May 06, 2020 18:06
[2020-05-06] MEDS ORDERED: LORazepam INJ 2 MG/ML (ATIVAN) VIAL IVP PRN ×2 (18:15→19:00)
[2020-05-06] MEDS ORDERED: meTOprolol 5 MG/5 ML (LOPRESSOR) VIAL IV ONE ×2 (18:15→19:00)
[2020-05-06 18:21] LABS: BASOPHILS % (AUTO) 0 % (0-10); EOSINOPHILS # (AUTO) 0.1 10^3/uL (0.0-0.3); EOSINOPHILS % (AUTO) 2 % (0-10); HEMATOCRIT 43 % (35-52); HEMOGLOBIN 14.8 G/DL (11.5-16.0); LYMPHOCYTES # (AUTO) 1.5 X 10^3 (1.0-4.0); LYMPHOCYTES % (AUTO) 27 % (12-44); MEAN CORPUSCULAR HEMOGLOBIN 34 PG (25-34); MEAN CORPUSCULAR HGB CONC 35 G/DL (32-36); MEAN CORPUSCULAR VOLUME 98 FL (80-99); MEAN PLATELET VOLUME 9.1 FL (7.4-10.4); MONOCYTES # (AUTO) 0.8 X 10^3 (0.0-1.0); MONOCYTES % (AUTO) 15 % (0-12); NEUTROPHILS % (AUTO) 56 % (42-75); PLATELET COUNT 215 10^3/uL (130-400); RED CELL DISTRIBUTION WIDTH 12.2 % (10.0-14.5); WHITE BLOOD COUNT 5.4 10^3/uL (4.3-11.0)
--- NOTE | 2020-05-06 18:33 | NUR ---
TO CT PER W/C
[2020-05-06 18:34] LABS: CHLORIDE 100 MMOL/L (98-107); POTASSIUM 3.4 MMOL/L (3.6-5.0); SODIUM 136 MMOL/L (135-145)
[2020-05-06 18:35] LABS: CALCIUM 9.4 MG/DL (8.5-10.1)
[2020-05-06 18:36] LABS: GLUCOSE 183 MG/DL (70-105); INR 0.9 (0.8-1.4); PROTHROMBIN TIME PATIENT 12.7 SEC (12.2-14.7)
[2020-05-06 18:37] LABS: CARBON DIOXIDE 23 MMOL/L (21-32)
[2020-05-06 18:40] LABS: CREATININE SERUM 0.67 MG/DL (0.60-1.30); GFR ESTIMATED > 60
[2020-05-06 18:41] LABS: BUN/CREATININE RATIO 6
[2020-05-06 18:42] VITALS: BP 197/98
--- NOTE | 2020-05-06 18:43 | Diagnostic Imaging Report ---
PROCEDURE: CT head without contrast. TECHNIQUE: Multiple contiguous axial images were obtained through the brain without the use of intravenous contrast. Auto Exposure Controls were utilized during the CT exam to meet ALARA standards for radiation dose reduction. INDICATION: Multiple recent falls. Confusion. COMPARISON: Comparison is made with a study from 05/05/2020. FINDINGS: The ventricles are normal in size, shape, and position. There is no acute parenchymal hemorrhage, edema, or mass. There is no extra-axial mass or hemorrhage. There is right frontal scalp swelling. No acute bony abnormality is seen. IMPRESSION: No acute intracranial abnormality is seen with no change from 05/05/2020. Dictated by: Dictated on workstation # [id number]
[2020-05-06 18:48] LABS: CLARITY,URINE SL CLOUDY; COLOR,URINE ORANGE; GLUCOSE, URINE (UA) NEGATIVE (NEGATIVE); KETONES,URINE 1+ (NEGATIVE); LEUKOCYTE ESTERASE ,URINE 1+ (NEGATIVE); NITRITE,URINE NEGATIVE (NEGATIVE); PROTEIN,URINE TRACE (NEGATIVE)
[2020-05-06 19:09] LABS: AMPHETAMINE SCREEN, URINE NEGATIVE (NEGATIVE); BARBITURATE SCREEN URINE NEGATIVE (NEGATIVE); BENZODIAZEPINES SCREEN URINE NEGATIVE (NEGATIVE); CANNABINOID SCREEN, URINE POSITIVE (NEGATIVE); COCAINE SCREEN URINE NEGATIVE (NEGATIVE); METHADONE STAT NEGATIVE (NEGATIVE); METHAMPHETAMINE SCREEN URINE S NEGATIVE (NEGATIVE); OPIATE SCREEN URINE NEGATIVE (NEGATIVE); OXYCODONE STAT NEGATIVE (NEGATIVE); PROPOXYPHENE STAT NEGATIVE (NEGATIVE); TRICYCLIC ANTIDEPRESSANTS SCRE NEGATIVE (NEGATIVE)
[2020-05-06 19:16] LABS: AMORPHOUS SEDIMENT,UR MOD AMOR URATES /LPF; BACTERIA,URINE TRACE /HPF; BILIRUBIN,URINE 2+ (NEGATIVE); HYALINE CASTS, URINE 0-2 /LPF; RBC,URINE 0-2 /HPF
[2020-05-06] MEDS ORDERED: LABETALOL HCL 20 MG/4 ML VIAL IV ONE (19:30)
[2020-05-06] MEDS ORDERED: 1/2 NS IV SOLUTION 1,000 ML IV PRN (20:16)
[2020-05-06 20:17] VITALS: BP 139/91
[2020-05-06] MEDS ORDERED: LORazepam INJ 2 MG/ML (ATIVAN) VIAL IV PRN (20:30)
[2020-05-06] MEDS ORDERED: ONDANSETRON 4 MG (ZOFRAN) ORAL DISSOLVE TAB SL PRN (20:30)
[2020-05-06] MEDS ORDERED: SENNA W/DOCUSATE (SENOKOT S) TABLET PO PRN (20:30)
[2020-05-06] MEDS ORDERED: D5 1/2 NS 1000 ML IV SOLUTION 1,000 ML IV PRN (20:30)
[2020-05-06] MEDS ORDERED: LORazepam 1 MG (ATIVAN) TAB PO PRN (20:30)
[2020-05-06] MEDS ORDERED: LORazepam INJ 2 MG/ML (ATIVAN) VIAL IM/IV PRN (20:30)
[2020-05-06] MEDS ORDERED: ONDANSETRON 4 MG/2 ML (SDV) Z0FRAN IV PRN (20:30)
[2020-05-06] MEDS ORDERED: ANTACID SUSP 30 ML UDC (MYLANTA) PO PRN (20:30)
[2020-05-06 21:58] VITALS: BP 142/81
[2020-05-06 22:00] VITALS: BP 130/91
[2020-05-06] MEDS: D5 1/2 NS W/KCL 20 MEQ/L 1,000 ML IV SCH (22:02)
--- OUTSIDE RECORDS SUMMARY | 2020-05-06 22:14 | XMS REPORT | Continuity of Care Document ---
Demographics Preferred Language Unknown Marital Status Unknown Mormonism Affiliation Unknown Race Unknown Ethnic Group Unknown Author Organization Unknown Address Unknown Phone Unavailable Allergies Active Description Code Type Severity Reaction Onset Reported/Identified Relationship to Patient Clinical Status Yes Penicillins [id number] Drug Aller gy Unknown N/A 12/12/2017 Medications There is no data. Problems Date Dx Coded Attending Type Code Diagnosis Diagnosed By 12/12/2017 OTILIO GUNN APRN Ot F17.210 NICOTINE DEPENDENCE, CIGARETTES, UNCOMPL 12/12/2017 OTILIO GUNN APRN Ot F32 .9 MAJOR DEPRESSIVE DISORDER, SINGLE EPISOD 12/12/2017 OTILIO GUNN APRN Ot I10 ESSENTIAL (PRIMARY) HYPERTENSION 12/12/2017 OTILIO UGNN APRN Ot S82.102A UNSP FRACTURE OF UPPER [...] SAME LEV FROM SLIP/TRIP W/O STRIKE 04/30/2020 OTILIO GUNN APRN Ot Z88 .0 ALLERGY [...] SHOULDER, INITIAL ENCO 05/01/2020 VELIA, PETER J OPERATIONS CONTROLLER Ot W19.XXXA UNSPECIFIED FALL, INITIAL ENCOUNTER Procedures [...] 09:53 Hemoglobin A1c 5.5 % 4.8-5.6 Thyroid [place] Profile - 09/13/16 09:53 TSH 1.550 uIU/mL [...] NRG STATEMENT OF ADEQUACY: NRG INTERPRETATION/RESULT: NRG INFORMATION SYSTEMS ADMINISTRATOR: NRG HPV mRNA E6/E7, SUREPATH VIAL Not [...] Status Pt. Type Provider Facility Loc./Unit Complaint [id number] 12/03/2016 18:06:00 Document Registration [id number] 09/14/2016 10:05:00 Document Registration [id number] 05/05/2020 09:51:00 06/22/2 020 10:52:00 DIS Emergency NAVARRO AURY NAVARRO Via [facility] ER FALL [id number] 04/28/2020 12:10:00 14:50:00 DIS Outpatient OTILIO GUNN OPERATIONS CONTROLLER [facility] ER FALL [id number] 04/27/2020 10:26:00 12:30:00 DIS Outpatient OTILIO GUNN OPERATIONS CONTROLLER [facility] ER FALL/L SHOULDER PAIN [id number] 10/23/2019 09:04:00 23:59:59 CLS Outpatient KAROLINE CARPENTER APRN [facility] RAD SCREENING [id number] 02/21/2018 14:42:00 23:59:59 CLS Preadmit ALON FOSTER Via [facility] REHAB CLOSED FX LT TIBIAL ANAYA TEAU W ROUTINE HEALING [id number] 12/12/2017 13:35:00 018 16:56:00 DIS Emergency OTILIO GUNN APRN [facility] ER FALL/LEFT LEG INJURY; T IB-PLATEAU FX [id number] 10/16/2019 15:00:00 10/16/2019 23:59: 59 CLS Outpatient KAROLINE CARPENTER [facility] [id number] 10/16/2019 15:00:00 Document Registration [id number] 03/26/2019 09:00:00 Document Registration [id number] 03/13/2019 12:20:00 Document Registration [id number] 10/21/2015 10:28:54 10/21/2015 23:59: 59 CLS Outpatient Walker, Aditi [id number] 10/07/2015 14:13:54 10/07/2015 23:59: 59 CLS Outpatient WalkerAditi [id number] 08/11/2015 14:35:09 08/11/2015 23:59: 59 CLS Outpatient Walker, Aditi [id number] 06/23/2015 22:14:10 06/23/2015 23:59: 59 CLS Outpatient Salome Phillips [id number] 06/23/2015 22:09:39 06/23/2015 23:59: 59 CLS Outpatient Walker, Aditi [id number] 06/23/2015 22:01:40 06/23/2015 23:59: 59 CLS Outpatient Walker, Aditi [id number] 02/10/2015 14:44:22 02/10/2015 23:59: 59 CLS Outpatient Walker, Aditi [id number] 11/27/2014 10:21:36 11/27/2014 23:59: 59 CLS Outpatient Walker, Aditi [id number] 10/30/2014 10:22:24 10/30/2014 23:59: 59 CLS Outpatient Tremayne Emily Charis [id number] 08/21/2014 14:42:55 08/21/2014 23:59: 59 CLS Outpatient Walker, Aditi [id number] 07/17/2014 15:09:48 07/17/2014 23:59: 59 CLS Outpatient Walker, Aditi [id number] 04/17/2014 09:14:22 04/17/2014 23:59: 59 CLS Outpatient Walker, Aditi [id number] 03/18/2014 09:44:06 03/18/2014 23:59: 59 CLS Outpatient Walker, Aditi [id number] 03/15/2014 14:27:13 03/15/2014 23:59: 59 CLS Outpatient Emily Casper Charis [id number] 01/29/2014 14:32:29 01/29/2014 23:59: 59 CLS Outpatient Walker, Aditi [id number] 01/02/2014 15:29:41 01/02/2014 23:59: 59 CLS Outpatient WalkerAditi
--- OUTSIDE RECORDS SUMMARY | 2020-05-06 22:17 | XMS REPORT | Continuity of Care Document ---
Demographics Preferred Language Unknown Marital Status Unknown Yazdanism Affiliation Unknown Race Unknown Ethnic Group Unknown Author Organization Unknown Address Unknown Phone Unavailable Allergies Active Description Code Type Severity Reaction Onset Reported/Identified Relationship to Patient Clinical Status Yes Penicillins [id number] Drug Aller gy Unknown N/A 12/12/2017 Medications [...] SCALE, EYES OPEN, SPONTANEOUS, EMR 05/01/2020 VELIA, OTLIIO Almaguer APRN Ot R40.2252 COMA SCALE, BEST [...] SHOULDER, INITIAL ENCO 05/01/2020 VELIA, PETER J DRYCLEANER Ot W19.XXXA UNSPECIFIED FALL, INITIAL ENCOUNTER Procedures [...] 09:53 Hemoglobin A1c 5.5 % 4.8-5.6 Thyroid [place] Profile - 09/13/16 09:53 TSH 1.550 uIU/mL [...] NRG STATEMENT OF ADEQUACY: NRG INTERPRETATION/RESULT: NRG PRESS WRITER: NRG HPV mRNA E6/E7, SUREPATH VIAL Not [...] Status Pt. Type Provider Facility Loc./Unit Complaint [id number] 12/03/2016 18:06:00 Document Registration [id number] 09/14/2016 10:05:00 Document Registration [id number] 05/05/2020 09:51:00 06/22/2 020 10:52:00 DIS Emergency NAVARRO AURY NAVARRO Via [facility] ER FALL [id number] 04/28/2020 12:10:00 14:50:00 DIS Outpatient OTILIO GUNN DRYCLEANER [facility] ER FALL [id number] 04/27/2020 10:26:00 12:30:00 DIS Outpatient OTILIO GUNN DRYCLEANER [facility] ER FALL/L SHOULDER PAIN [id number] 10/23/2019 09:04:00 23:59:59 CLS Outpatient KAROLINE CARPENTER APRN [facility] RAD SCREENING [id number] 02/21/2018 14:42:00 23:59:59 CLS Preadmit ALON FOSTER [facility] REHAB CLOSED FX LT TIBIAL ANAYA TEAU W ROUTINE HEALING [id number] 12/12/2017 13:35:00 018 16:56:00 DIS Emergency OTILIO GUNN APRN [facility] ER FALL/LEFT LEG INJURY; T IB-PLATEAU FX [id number] 10/16/2019 15:00:00 10/16/2019 23:59: 59 CLS Outpatient KAROLINE CARPENTER [facility] [place] [id number] 10/16/2019 15:00:00 Document Registration [id number] 03/26/2019 09:00:00 Document Registration [id number] 03/13/2019 12:20:00 Document Registration [id number] 10/21/2015 10:28:54 10/21/2015 23:59: 59 CLS Outpatient Walker, Aditi [id number] 10/07/2015 14:13:54 10/07/2015 23:59: 59 CLS Outpatient WalkerAditi [id number] 08/11/2015 14:35:09 08/11/2015 23:59: 59 CLS Outpatient Walker, Aditi [id number] 06/23/2015 22:14:10 06/23/2015 23:59: 59 CLS Outpatient Salome Phillips [id number] 06/23/2015 22:09:39 06/23/2015 23:59: 59 CLS Outpatient Walker, Aditi [id number] 06/23/2015 22:01:40 06/23/2015 23:59: 59 CLS Outpatient Walker, Aditi [id number] 02/10/2015 14:44:22 02/10/2015 23:59: 59 CLS Outpatient Walker, Aditi [id number] 11/27/2014 10:21:36 11/27/2014 23:59: 59 CLS Outpatient Walker, Aditi [id number] 10/30/2014 10:22:24 10/30/2014 23:59: 59 CLS Outpatient Tremayne Emily Charis [id number] 08/21/2014 14:42:55 08/21/2014 23:59: 59 CLS Outpatient Walker, Aditi [id number] 07/17/2014 15:09:48 07/17/2014 23:59: 59 CLS Outpatient Walker, Aditi [id number] 04/17/2014 09:14:22 04/17/2014 23:59: 59 CLS Outpatient Walker, Aditi [id number] 03/18/2014 09:44:06 03/18/2014 23:59: 59 CLS Outpatient Walker, Aditi [id number] 03/15/2014 14:27:13 03/15/2014 23:59: 59 CLS Outpatient Emily Casepr Charis [id number] 01/29/2014 14:32:29 01/29/2014 23:59: 59 CLS Outpatient Walker, Aditi [id number] 01/02/2014 15:29:41 01/02/2014 23:59: 59 CLS Outpatient WalkerAditi
[2020-05-06 23:00] VITALS: BP 128/64
[2020-05-06] MEDS ORDERED: HYDROcodone/APAP 5 MG/325 MG (LORTAB) TAB ONE (23:06)
[2020-05-06] MEDS: HYDROcodone/APAP 5 MG/325 MG (LORTAB) TAB PO PRN (23:09)
[2020-05-07] VITALS (15 sets, daily range): BP systolic 95–175; BP diastolic 55–108
[2020-05-07] MEDS: D5 1/2 NS W/KCL 20 MEQ/L 1,000 ML IV SCH ×2 (03:27→05:09)
[2020-05-07] MEDS: HYDROcodone/APAP 5 MG/325 MG (LORTAB) TAB PO PRN ×2 (03:28→09:21)
[2020-05-07 03:40] LABS: BASOPHILS % (AUTO) 0 % (0-10); EOSINOPHILS # (AUTO) 0.2 10^3/uL (0.0-0.3); EOSINOPHILS % (AUTO) 3 % (0-10); HEMATOCRIT 41 % (35-52); HEMOGLOBIN 14.2 G/DL (11.5-16.0); LYMPHOCYTES % (AUTO) 33 % (12-44); MEAN CORPUSCULAR HEMOGLOBIN 34 PG (25-34); MEAN CORPUSCULAR HGB CONC 34 G/DL (32-36); MEAN CORPUSCULAR VOLUME 99 FL (80-99); MEAN PLATELET VOLUME 9.4 FL (7.4-10.4); MONOCYTES # (AUTO) 0.9 X 10^3 (0.0-1.0); MONOCYTES % (AUTO) 16 % (0-12); NEUTROPHILS # (AUTO) 2.9 X 10^3 (1.8-7.8); NEUTROPHILS % (AUTO) 48 % (42-75); PLATELET COUNT 224 10^3/uL (130-400); RED CELL DISTRIBUTION WIDTH 12.4 % (10.0-14.5)
[2020-05-07 03:52] LABS: ALBUMIN 3.7 GM/DL (3.2-4.5); CHLORIDE 102 MMOL/L (98-107); POTASSIUM 3.6 MMOL/L (3.6-5.0); SODIUM 140 MMOL/L (135-145)
[2020-05-07 03:53] LABS: CALCIUM 9.4 MG/DL (8.5-10.1)
[2020-05-07 03:55] LABS: GLUCOSE 97 MG/DL (70-105); TOTAL PROTEIN 6.3 GM/DL (6.4-8.2)
[2020-05-07 03:56] LABS: BILIRUBIN,TOTAL 0.6 MG/DL (0.1-1.0); CARBON DIOXIDE 27 MMOL/L (21-32)
[2020-05-07 03:58] LABS: ALKALINE PHOSPHATASE 94 U/L (40-136); GFR ESTIMATED > 60; PHOSPHORUS 4.4 MG/DL (2.3-4.7)
[2020-05-07 03:59] LABS: BUN/CREATININE RATIO 9
[2020-05-07 04:01] LABS: ALANINE AMINOTRANSFERASE 74 U/L (0-55); MAGNESIUM 2.2 MG/DL (1.6-2.4)
--- NOTE | 2020-05-07 10:09 | History & Physical ---
HPI History of Present Illness: 54 yo female brought to ER after her mother took her to urgent care due to memory problems and confusion. She states she was drinking the night before and fell from flat surface to her floor and hit her head. She feels her thinking is improved this morning, but she can't remember much from around when she fell, she does remember the walk in and ER visits. She states she drinks a 6 pack each night and has stopped drinking without withdrawal in the past. Has had treatment for alcohol a long time ago. Date seen by provider: May 07, 2020 Time Seen by Provider: 10:07 Attending Physician Jagruti Lee MD PCP Center[facility] [place] Consult Date of Admission May 06, 2020 at 18:56 Home Medications Home Medications Reviewed patient Home Medication Reconciliation performed by pharmacy medication reconciliations health physics technician and/or nursing. Patients Allergies have been reviewed. Allergies Coded Allergies: Penicillins (Verified Allergy, Unknown, 12/12/17) HZT-Sdvkly-Iazbea Hx Patient Social History Alcohol Use: Regular Use Recreational Drug Use: No Smoking Status: Current Everyday Smoker Type Used: Cigarettes 2nd Hand Smoke Exposure: Yes Recent Foreign Travel: No Contact w/other who traveled: No Recent Infectious Disease Expo: No Past Medical History PMHx: HTN SurgHx: Knee surgery after fracture Family Medical History Significant Family History: No Pertinent Family Hx Review of Systems ([facility]C) Constitutional: No fever EENTM: No nose congestion, No throat pain Respiratory: No cough, No short of breath Cardiovascular: No chest pain Gastrointestinal: No abdominal pain, No constipation, No diarrhea, No nausea, No vomiting Genitourinary: No dysuria Skin: No rash Reviewed Test Results Reviewed Test Results Lab Laboratory Tests Test 05/06/20 18:12 05/06/20 18:37 05/07/20 03:15 Range/Units White Blood Count 5.4 6.0 4.3-11.0 10^3/uL Red Blood Count 4.34 L 4.16 L 4.35-5.85 10^6/uL Hemoglobin 14.8 14.2 11.5-16.0 G/DL Hematocrit 43 41 35-52 % Mean Corpuscular Volume 98 99 80-99 FL Mean Corpuscular Hemoglobin 34 34 25-34 PG Mean Corpuscular Hemoglobin Concent 35 34 32-36 G/DL Red Cell Distribution Width 12.2 12.4 10.0-14.5 % Platelet Count 215 224 130-400 10^3/uL Mean Platelet Volume 9.1 9.4 7.4-10.4 FL Neutrophils (%) (Auto) 56 48 42-75 % Lymphocytes (%) (Auto) 27 33 12-44 % Monocytes (%) (Auto) 15 H 16 H 0-12 % Eosinophils (%) (Auto) 2 3 0-10 % Basophils (%) (Auto) 0 0 0-10 % Neutrophils # (Auto) 3.0 2.9 1.8-7.8 X 10^3 Lymphocytes # (Auto) 1.5 2.0 1.0-4.0 X 10^3 Monocytes # (Auto) 0.8 0.9 0.0-1.0 X 10^3 Eosinophils # (Auto) 0.1 0.2 0.0-0.3 10^3/uL Basophils # (Auto) 0.0 0.0 0.0-0.1 10^3/uL Prothrombin Time 12.7 12.2-14.7 SEC INR Comment 0.9 0.8-1.4 Sodium Level 136 140 135-145 MMOL/L Potassium Level 3.4 L 3.6 3.6-5.0 MMOL/L Chloride Level 100 102 98-107 MMOL/L Carbon Dioxide Level 23 27 21-32 MMOL/L Anion Gap 13 11 5-14 MMOL/L Blood Urea Nitrogen 4 L 6 L 7-18 MG/DL Creatinine 0.67 0.70 0.60-1.30 MG/DL Estimat Glomerular Filtration Rate > 60 > 60 BUN/Creatinine Ratio 6 9 Glucose Level 183 H 97 70-105 MG/DL Calcium Level 9.4 9.4 8.5-10.1 MG/DL Serum Alcohol < 10 <10 MG/DL Urine Color ORANGE Urine Clarity SL CLOUDY Urine pH 6.0 5-9 Urine Specific [place] 1.020 1.016-1.022 Urine Protein TRACE H NEGATIVE Urine Glucose (UA) NEGATIVE NEGATIVE Urine Ketones 1+ H NEGATIVE Urine Nitrite NEGATIVE NEGATIVE Urine Bilirubin 2+ H NEGATIVE Urine Urobilinogen 0.2 < = 1.0 MG/DL Urine Leukocyte Esterase 1+ H NEGATIVE Urine RBC (Auto) TRACE-L NEGATIVE Urine RBC 0-2 /HPF Urine WBC 5-10 H /HPF Urine Squamous Epithelial Cells 5-10 /HPF Urine Crystals PRESENT H /LPF Urine Amorphous Sediment MOD LOIDA URATES H /LPF Urine Bacteria TRACE /HPF Urine Casts PRESENT /LPF Urine Hyaline Casts 0-2 H /LPF Urine Mucus MODERATE H /LPF Urine Culture Indicated YES Urine Opiates Screen NEGATIVE NEGATIVE Urine Oxycodone Screen NEGATIVE NEGATIVE Urine Methadone Screen NEGATIVE NEGATIVE Urine Propoxyphene Screen NEGATIVE NEGATIVE Urine Barbiturates Screen NEGATIVE NEGATIVE Ur Tricyclic Antidepressants Screen NEGATIVE NEGATIVE Urine Phencyclidine Screen NEGATIVE NEGATIVE Urine Amphetamines Screen NEGATIVE NEGATIVE Urine Methamphetamines Screen NEGATIVE NEGATIVE Urine Benzodiazepines Screen NEGATIVE NEGATIVE Urine Cocaine Screen NEGATIVE NEGATIVE Urine Cannabinoids Screen POSITIVE H NEGATIVE Corrected Calcium 9.6 8.5-10.1 MG/DL Phosphorus Level 4.4 2.3-4.7 MG/DL Magnesium Level 2.2 1.6-2.4 MG/DL Total Bilirubin 0.6 0.1-1.0 MG/DL Aspartate Amino Transf (AST/SGOT) 68 H 5-34 U/L Alanine Aminotransferase (ALT/SGPT) 74 H 0-55 U/L Alkaline Phosphatase 94 40-136 U/L Total Protein 6.3 L 6.4-8.2 GM/DL Albumin 3.7 3.2-4.5 GM/DL Radiology CT head 05/06 no acute abnormalities Physical Exam-(CHC) Physical Exam Vital Signs VS - Last 72 Hours, by Label 05/06/20 05/06/20 05/06/20 05/06/20 17:51 18:42 19:59 20:17 Temp 36.6 36.8 36.9 Pulse 103 100 88 85 Resp 18 18 18 16 B/P (MAP) 194/114 (140) 197/98 (131) 152/104 139/91 (107) Pulse Ox 98 98 96 98 O2 Delivery Room Air Room Air Room Air Room Air 05/06/20 05/06/20 05/06/20 05/06/20 20:21 20:30 21:58 22:00 Pulse 105 98 94 Resp 18 20 B/P (MAP) 142/81 (101) 130/91 (104) Pulse Ox 98 100 99 O2 Delivery Room Air Room Air Room Air 05/06/20 05/06/20 05/07/20 05/07/20 23:00 23:33 00:00 01:00 Pulse 90 89 83 Resp 13 19 B/P (MAP) 128/64 (85) 95/55 (68) Pulse Ox 99 99 98 O2 Delivery Room Air Room Air Room Air 05/07/20 05/07/20 05/07/20 05/07/20 01:00 02:00 03:00 04:00 Pulse 83 80 86 Resp 18 21 13 B/P (MAP) 110/61 (77) 122/71 (88) 142/94 (110) Pulse Ox 99 96 99 99 O2 Delivery Room Air Room Air Room Air Room Air 05/07/20 05/07/20 05/07/20 05/07/20 04:00 05:00 06:00 06:40 Pulse 77 73 77 75 Resp 16 15 18 B/P (MAP) 131/66 (87) 130/78 (95) 151/85 (107) Pulse Ox 98 98 97 O2 Delivery Room Air Room Air Room Air 05/07/20 05/07/20 05/07/20 05/07/20 07:00 07:20 08:00 08:00 Temp 36.6 Pulse 97 86 Resp 31 23 B/P (MAP) 175/108 (130) 144/82 (102) Pulse Ox 99 98 99 O2 Delivery Room Air Room Air Room Air 05/07/20 05/07/20 05/07/20 05/07/20 09:00 10:00 11:00 11:15 Temp 36.3 Pulse 89 79 96 Resp 17 40 B/P (MAP) 137/74 (95) 133/81 (98) 136/77 (96) Pulse Ox 98 99 100 O2 Delivery Room Air Room Air Room Air 05/07/20 05/07/20 12:00 13:00 B/P (MAP) 161/103 (122) 148/93 (111) Pulse Ox 99 100 O2 Delivery Room Air Room Air Capillary Refill : Less Than 3 Seconds General Appearance: no apparent distress Eyes: Bilateral Eye PERRL, Bilateral Eye EOMI HEENT: PERRL/EOMI Respiratory: lungs clear, normal breath sounds Cardiovascular: regular rate, rhythm, no murmur Gastrointestinal: normal bowel sounds, non tender, soft Extremities: no pedal edema Neurologic/Psychiatric: aircraft electronics technical officer II-XII nml as tested, alert, normal mood/affect, oriented x 3; No abnormal cerebellar tests, No motor weakness Skin: ecchymosis (both eyes and forehead) Assessment/Plan Assessment/Plan Admission Status: Observation (1) Alcohol withdrawal delirium Status: Acute Assessment & Plan: CT head with no bleeding, mental status normal this morning. Will have PT eval and if stable from that perspective, will plan for d/c later today. She declines referral for alcohol treatment. Has not required any ativan so far inpatient. Clinical Quality Measures DVT/VTE Risk/Contraindication: Risk Factor Score Per Nursin RFS Level Per Nursing on Admit: 2=Moderate JAGRUTI LEE MD May 07, 2020 10:09
[2020-05-07] MEDS ORDERED: LOSA25TA41 PO ×2 (10:31→13:33)
--- NOTE | 2020-05-07 10:50 | Physical Therapy Evaluation ---
PT Evaluation-General Medical Diagnosis Admission Date May 06, 2020 at 18:56 Medical Diagnosis: AMS, fall Onset Date: May 06, 2020 Therapy Diagnosis Therapy Diagnosis: impaired mobility, balance Height/Weight Height (Feet): 5 Height (Inches): 4.00 Weight (Pounds): 130 Precautions Precautions/Isolations: Fall Prevention, Standard Precautions Referral Physician: Jesus Reason for Referral: Evaluation/Treatment Medical History Pertinent Medical History: HTN, Smoking Reviewed History: Yes Social History Home: Single Level Current Living Status: Entry Into Home: Stairs With Railing PT Steps Into Home: 2 Patient states she will be going to live with her mother. Prior Prior Level of Function SCALE: Activities may be completed with or without assistive devices. 2-Zvtgxytunf-zmccrob completes the activity by him/herself with no assistance from a helper. 5-Set-up or Clean-up Assistance-helper sets up or cleans up; patient completes a ctivity. [place] assists only prior to or following the activity. 4-Supervision or Touching Assistance-helper provides verbal cues and/or touching/steadying and/or contact guard assistance as patient completes activity. Assistance may be provided throughout the activity or intermittently. 3-Partial/Moderate Assistance-helper does LESS THAN HALF the effort. [place] lifts, holds or supports trunk or limbs, but provides less than half the effort. 2-Substantial/Maximal Assistance-helper does MORE THAN HALF the effort. [place] lifts or holds trunk or limbs and provides more than half the effort. 3-Iqiyiqhap-okeisj does ALL the effort. Patient does none of the effort to complete the activity. Or, the assistance of 2 or more helpers is required for the patient to complete the activity. If activity was not attempted, code reason: 7-Patient Refused. 9-Not Applicable-not attempted and the patient did not perform the activity before the current illness, exacerbation or injury. 10-Not Attempted due to Environmental Limitations-(lack of equipment, weather restraints, etc.). 88-Not Attempted due to Medical Conditions or Safety Concerns. Bed Mobility: 6 Transfers (B,C,W/C): 6 Gait: 6 Stairs: 6 Indoor Mobility (Ambulation): Independent Stairs: Independent PT Evaluation-Current Subjective Patient on toilet pre tx, nursing surgical services director got her to toilet, patient has no complaints of pain, even on her face which has a lot of bruising. Pt/Family Goals to be independent at home Objective Patient Orientation: Person, Place, Situation Attachments: IV ROM/Strength ROM Lower Extremities WNL Strength Lower Extremities RLE 4+/5 gross, LLE 4/5 gross Sensory Hearing: Functional Sensation Right Lower Extremit: Intact Sensation Left Lower Extremity: Intact Transfers Roll Left to Right (QC): 6 Sit to Lying (QC): 6 Sit to Stand (QC): 6 Chair/Gfl-ti-Jucep Xfer(QC): 5 Toilet Transfer (QC): 5 Gait Does the Patient Walk?: Yes Mode of Locomotion: Walk Anticipated Mode of Locomotion: Walk Walk 10 feet (QC): 4 Walk 50 ft with 2 Turns(QC): 4 Walk 150 ft (QC): 4 Distance: 200' Gait Assistive Device: None Comments/Gait Description Patient seems to ambulate with a steady gait, no obvious LOB and no significant gait deviation, no wandering path, however, patient does state that she feels "woozy" Balance Sitting Static: Normal Sitting Dynamic: Normal Standing Static: Good Standing Dynamic: Good Assessment/Needs Patient has good balance with ambulation but also states that she feels "woozy" Rehab Potential: Fair PT Intermediate Goals Corrugated Box Machine Operator Goals PT Intermediate Goals Time Frame: May 14, 2020 Roll Left & Right (QC): 6 Sit to Lying (QC): 6 Lying-Sitting on Side/Bed(QC): 6 Sit to Stand (QC): 6 Chair/Goe-jm-Cavkb Xfer(QC): 6 Walk 10 feet (QC): 6 Walk 50ft with 2 Turns (QC): 6 Walk 150 ft (QC): 6 PT Plan Problem List Problem List: Activity Tolerance, Functional Strength, Safety, Balance, Gait, Transfer Treatment/Plan Treatment Plan: Continue Plan of Care Treatment Plan: Education, Functional Activity Tristan, Functional Strength, Gait, Safety, Therapeutic Exercise, Transfers Treatment Duration: May 14, 2020 Frequency: 6 times per week Estimated Hrs Per Day: .25 hour per day Patient and/or Family Agrees t: Yes Safety Risks/Education Patient Education: Gait Training, Transfer Techniques, Correct Positioning, Safety Issues Teaching Recipient: Patient Teaching Methods: Demonstration, Discussion Response to Teaching: Reinforcement Needed Discharge Recommendations Plan Patient will perform bed mobility and transfer training, balance and endurance training, functional strengthening, stair training, gait training, and education, to improve functional mobility and independence at home. Therapy Discharge Recommendati: Home & Family Time/GCodes Time In: 1030 Time Out: 1040 Total Billed Treatment Time: 10 Total Billed Treatment 1 visit DAVID Domingo' PEDRO ZAMARRIPA PT May 07, 2020 10:50
[2020-05-07] MEDS ORDERED: BREX1TAB PO (11:15)
--- NOTE | 2020-05-07 12:30 | NUR ---
SPOKE WITH PT AND CALLED [facility] TO COMPLETE THE MED REC 02-25-2020 ATENOLOL 50MG #30/30DS 02-25-2020 LOSARTAN 25MG #30/30DS 03-21-2020 REXULTI 1MG #/90DS FILLED THRU PALS PT DENIES TAKING ANY OTC MEDICATIONS
[2020-05-07] MEDS ORDERED: ATEN50TA PO (13:33)
--- NOTE | 2020-05-07 13:37 | Discharge Summary ---
Discharge Summary Hospital Course Hospital Course Date of Admission: May 06, 2020 at 18:56 Admission Diagnosis : Family Physician/Provider: [place]/[facility] Date of Discharge: 05/07/20 Discharge Diagnosis: Alcohol withdrawal Head injury Altered mental status Hospital Course: Pt sent to ER due to confusion and recent fall with head injury. CT in ER was unremarkable and by the next morning she was alert and oriented and had not required any ativan for alcohol withdrawal symptoms. She did not want any specif ic treatment for alcohol use. She worked with PT and was stable for d/c. Labs and Pending Lab Test: Laboratory Tests 05/06/20 18:12: White Blood Count 5.4, Red Blood Count 4.34L, Hemoglobin 14.8, Hematocrit 43, Mean Corpuscular Volume 98, Mean Corpuscular Hemoglobin 34, Mean Corpuscular Hemoglobin Concent 35, Red Cell Distribution Width 12.2, Platelet Count 215, Mean Platelet Volume 9.1, Neutrophils (%) (Auto) 56, Lymphocytes (%) (Auto) 27, Monocytes (%) (Auto) 15H, Eosinophils (%) (Auto) 2, Basophils (%) (Auto) 0, Neutrophils # (Auto) 3.0, Lymphocytes # (Auto) 1.5, Monocytes # (Auto) 0.8, Eosinophils # (Auto) 0.1, Basophils # (Auto) 0.0, Prothrombin Time 12.7, INR Comment 0.9, Sodium Level 136, Potassium Level 3.4L, Chloride Level 100, Carbon Dioxide Level 23, Anion Gap 13, Blood Urea Nitrogen 4L, Creatinine 0.67, Estimat Glomerular Filtration Rate > 60, BUN/Creatinine Ratio 6, Glucose Level 183H, Calcium Level 9.4, Serum Alcohol < 10 05/06/20 18:37: Urine Color ORANGE, Urine Clarity SL CLOUDY, Urine pH 6.0, Urine Specific [place] 1.020, Urine Protein TRACEH, Urine Glucose (UA) NEGATIVE, Urine Ketones 1+H, Urine Nitrite NEGATIVE, Urine Bilirubin 2+H, Urine Urobilinogen 0.2, Urine Leukocyte Esterase 1+H, Urine RBC (Auto) TRACE-L, Urine RBC 0-2, Urine WBC 5-10H , Urine Squamous Epithelial Cells 5-10, Urine Crystals PRESENTH, Urine Amorphous Sediment MOD LOIDA URATESH, Urine Bacteria TRACE, Urine Casts PRESENT, Urine Hyaline Casts 0-2H, Urine Mucus MODERATEH, Urine Culture Indicated YES, Urine Opiates Screen NEGATIVE, Urine Oxycodone Screen NEGATIVE, Urine Methadone Screen NEGATIVE, Urine Propoxyphene Screen NEGATIVE, Urine Barbiturates Screen NEGATIVE, Ur Tricyclic Antidepressants Screen NEGATIVE, Urine Phencyclidine Screen NEGATIVE, Urine Amphetamines Screen NEGATIVE, Urine Methamphetamines Sc reen NEGATIVE, Urine Benzodiazepines Screen NEGATIVE, Urine Cocaine Screen NEGATIVE, Urine Cannabinoids Screen POSITIVEH 05/07/20 03:15: White Blood Count 6.0, Red Blood Count 4.16L, Hemoglobin 14.2, Hematocrit 41, Mean Corpuscular Volume 99, Mean Corpuscular Hemoglobin 34, Mean Corpuscular Hemoglobin Concent 34, Red Cell Distribution Width 12.4, Platelet Count 224, Mean Platelet Volume 9.4, Neutrophils (%) (Auto) 48, Lymphocytes (%) (Auto) 33, Monocytes (%) (Auto) 16H, Eosinophils (%) (Auto) 3, Basophils (%) (Auto) 0, Neutrophils # (Auto) 2.9, Lymphocytes # (Auto) 2.0, Monocytes # (Auto) 0.9, Eosinophils # (Auto) 0.2, Basophils # (Auto) 0.0, Sodium Level 140, Potassium Level 3.6, Chloride Level 102, Carbon Dioxide Level 27, Anion Gap 11, Blood Urea Nitrogen 6L, Creatinine 0.70, Estimat Glomerular Filtration Rate > 60, BUN/Creatinine Ratio 9, Glucose Level 97, Calcium Level 9.4, Corrected Calcium 9.6, Phosphorus Level 4.4, Magnesium Level 2.2, Total Bilirubin 0.6, Aspartate Amino Transf (AST/SGOT) 68H, Alanine Aminotransferase (ALT/SGPT) 74H, Alkaline Phosphatase 94, Total Protein 6.3L, Albumin 3.7 Home Meds Active Losartan Potassium 25 Mg Tablet 25 Mg PO DAILY LAST FILLED 02-25-2020 #30 DAY SUPPLY Atenolol 50 Mg Tablet 50 Mg PO DAILY LAST FILLED 02-25-2020 #30 DAY SUPPLY Reported Rexulti (Brexpiprazole) 1 Mg Tablet 1 Mg PO DAILY Assessment/Pt DC Instructions Pt to follow up with Dr. Tatum on Tuesday at 1040 am. Follow up at [facility] tomorrow to see Jen Huitron (nurse in addiction treatment) at 10 am for nurse visit to evaluate vitals and for signs of alcohol withdrawal. Discharge Diet: No Restrictions Activity as Tolerated: Yes Discharge Physical Examination Allergies: Coded Allergies: Penicillins (Verified Allergy, Unknown, 12/12/17) Copy Copies To 1: TIEN TATUM MD Clinical Quality Measures DVT/VTE Risk/Contraindication: Risk Factor Score Per Nursin RFS Level Per Nursing on Admit: 2=Moderate JAGRUTI GIL MD May 07, 2020 13:36
== END 2020-05-07 14:14 | disposition home or self-care (01) | DRG 897 ==
LOC: EDUNIT# 17:47 → ER 17:48 → UNDOADMIN 18:56 → ICU 18:56
PROVIDERS: ADMIT Family Medicine; ATTEND Family Medicine
DX: F10.231 Alcohol dependence with withdrawal delirium (principal); I10 Essential (primary) hypertension; R00.0 Tachycardia, unspecified; F17.210 Nicotine dependence, cigarettes, uncomplicated; F32.9 Major depressive disorder, single episode, unspecified; Z91.81 History of falling; S09.90XA Unspecified injury of head, initial encounter; W19.XXXA Unspecified fall, initial encounter
CPT/HCPCS: 36415; 70450; 80048; 80053; 80306; 80320; 81000; 83735; 84100; 85025; 85610; 87081; 87088; 93005; 96374; 96375; 96376

== ENCOUNTER 2020-05-20 16:27 | Emergency (ER) | payer SELFPAY ==
[~2020-05-20] VITALS: Ht 162.6 cm; Wt 58.9 kg
[~2020-05-20 16:27] MED LIST changes: +BREX1TAB PO; +LOSA25TA41 PO
--- NOTE | 2020-05-20 16:55 | ED General ---
General Chief Complaint: Altered Mental Status Stated Complaint: AMS Nursing Triage Note: PATIENT AT WORK, CONFUSED, HAD HIGH BLOOD PRESSURE ACCORDING TO CO WORKER AND DOESNT RECALL ACTIVITIES OF DAY. HAD FALL APPROX 1 MONTH AGO, SINCE FALL, HAS HAD MEMORY ISSUES, SHOWING UP TO WORK CONFUSED. Nursing Sepsis Screen: No Definite Risk Source of Information: Patient Exam Limitations: No Limitations History of Present Illness Date Seen by Provider: May 20, 2020 Time Seen by Provider: 16:53 Initial Comments To ER with reports of being confused at work, she works at [employer]. Coworkers wanted her checked out. She has high blood pressure. She has a history of alcoholism but quit about 2-3 weeks ago. One-month history of recurrent heavy alcohol drinking, falling at home with recurrent head injury, all the time the CT scans of head were normal. Staff noticed her to be a bit confused today. Timing/Duration: 1-2 Days Severity: Moderate Associated Systoms: Denies Symptoms Allergies and Home Medications Allergies Coded Allergies: Penicillins (Verified Allergy, Unknown, 12/12/17) Home Medications Atenolol 50 Mg Tablet, 50 MG PO DAILY LAST FILLED 02-25-2020 #30/30 DAY SUPPLY Prescribed by: JAGRUTI GIL on 05/07/20 1333 Brexpiprazole 1 Mg Tablet, 1 MG PO DAILY, (Reported) Losartan Potassium 25 Mg Tablet, 25 MG PO DAILY LAST FILLED 02-25-2020 #30 DAY SUPPLY Prescribed by: JAGRUTI GIL on 05/07/20 1333 Patient Home Medication List Home Medication List Reviewed: Yes Review of Systems Review of Systems Constitutional: see HPI EENTM: see HPI Respiratory: no symptoms reported Cardiovascular: no symptoms reported Genitourinary: no symptoms reported Musculoskeletal: no symptoms reported Skin: no symptoms reported Psychiatric/Neurological: No Symptoms Reported Hematologic/Lymphatic: No Symptoms Reported Past Jwkfrbo-Hcrnoi-Rapyeu Hx Patient Social History Alcohol Use: Denies Use Number of Drinks Today: AA Alcohol Beverage of Choice: Beer Recreational Drug Use: No Smoking Status: Current Someday Smoker Type Used: Cigarettes 2nd Hand Smoke Exposure: Yes Recent Foreign Travel: No Contact w/Someone Who Travel: No Recent Infectious Disease Expo: No Recent Hopitalizations: No Physical Abuse: No Sexual Abuse: No Mistreated: No Fear: No Immunizations Up To Date Tetanus Booster (TDap): Unknown Seasonal Allergies Seasonal Allergies: No Past Medical History Surgeries: Yes (filopian tube removed from ectopic preg.) Section, Gallbladder, Tonsillectomy Respiratory: No Currently Using CPAP: No Currently Using BIPAP: No Cardiac: No Hypertension Neurological: No Genitourinary: No Gastrointestinal: No Musculoskeletal: No Endocrine: No Are Your Blood Sugars Over 250: No HEENT: No Cancer: No Psychosocial: Yes Depression Integumentary: No Blood Disorders: No Adverse Reaction/Blood Tranf: No Family Medical History No Pertinent Family Hx Physical Exam Vital Signs Vital Signs - First Documented 05/20/20 16:33 Temp 36.3 Pulse 114 Resp 16 B/P (MAP) 187/130 (149) Pulse Ox 98 Capillary Refill : Less Than 3 Seconds Height, Weight, BMI Height: 5'4.00" Weight: 130lbs. oz. 58.824060vt; 22.00 BMI Method:Stated General Appearance: No Apparent Distress, WD/WN, Other (periorbital ecchymoses have improved significantly from last time I saw her. She is tachycardic and hypertensive. Assures me she's had nothing to drink since the last time I saw her. I did admit her for alcohol withdrawal at that time. She has no complaints. ) HEENT: PERRL/EOMI, Normal ENT Inspection Neck: Full Range of Motion, Normal Inspection Respiratory: Normal Breath Sounds, No Accessory Muscle Use, No Respiratory Distress Cardiovascular: Normal Peripheral Pulses, Tachycardia Gastrointestinal: Normal Bowel Sounds, Non Tender Extremity: Normal Capillary Refill, Normal Inspection Neurologic/Psychiatric: Alert, Oriented x3 Skin: Normal Color, Warm/Dry Progress/Results/Core Measures Suspected Sepsis Recent Fever Within 48 Hours: No Infection Criteria Present: None New/Unexplained Altered Menta: Yes Sepsis Screen: No Definite Risk SIRS Temperature: Pulse: 114 Respiratory Rate: 16 Laboratory Tests 05/20/20 17:21: White Blood Count 6.3 Blood Pressure 187 /130 Mean: 149 Laboratory Tests 05/20/20 17:21: Creatinine 0.58L, INR Comment 0.9, Platelet Count 298, Total Bilirubin 0.4 Results/Orders Lab Results Laboratory Tests Test 05/20/20 17:21 Range/Units White Blood Count 6.3 4.3-11.0 10^3/uL Red Blood Count 4.54 4.35-5.85 10^6/uL Hemoglobin 15.6 11.5-16.0 G/DL Hematocrit 45 35-52 % Mean Corpuscular Volume 98 80-99 FL Mean Corpuscular Hemoglobin 34 25-34 PG Mean Corpuscular Hemoglobin Concent 35 32-36 G/DL Red Cell Distribution Width 12.9 10.0-14.5 % Platelet Count 298 130-400 10^3/uL Mean Platelet Volume 9.5 7.4-10.4 FL Neutrophils (%) (Auto) 46 42-75 % Lymphocytes (%) (Auto) 43 12-44 % Monocytes (%) (Auto) 9 0-12 % Eosinophils (%) (Auto) 1 0-10 % Basophils (%) (Auto) 1 0-10 % Neutrophils # (Auto) 2.9 1.8-7.8 X 10^3 Lymphocytes # (Auto) 2.7 1.0-4.0 X 10^3 Monocytes # (Auto) 0.6 0.0-1.0 X 10^3 Eosinophils # (Auto) 0.1 0.0-0.3 10^3/uL Basophils # (Auto) 0.1 0.0-0.1 10^3/uL Prothrombin Time 12.5 12.2-14.7 SEC INR Comment 0.9 0.8-1.4 Sodium Level 137 135-145 MMOL/L Potassium Level 4.0 3.6-5.0 MMOL/L Chloride Level 103 98-107 MMOL/L Carbon Dioxide Level 18 L 21-32 MMOL/L Anion Gap 16 H 5-14 MMOL/L Blood Urea Nitrogen 4 L 7-18 MG/DL Creatinine 0.58 L 0.60-1.30 MG/DL Estimat Glomerular Filtration Rate > 60 BUN/Creatinine Ratio 7 Glucose Level 98 70-105 MG/DL Calcium Level 9.4 8.5-10.1 MG/DL Corrected Calcium 9.1 8.5-10.1 MG/DL Total Bilirubin 0.4 0.1-1.0 MG/DL Aspartate Amino Transf (AST/SGOT) 60 H 5-34 U/L Alanine Aminotransferase (ALT/SGPT) 72 H 0-55 U/L Alkaline Phosphatase 113 40-136 U/L Ammonia 32 11-32 UMOL/L Total Protein 7.4 6.4-8.2 GM/DL Albumin 4.4 3.2-4.5 GM/DL Serum Alcohol 131 H <10 MG/DL My Orders Orders - OTILIO GUNN APRN Cbc With Automated Diff (05/20/20 16:49) Comprehensive Metabolic Panel (05/20/20 16:49) Protime With Inr (05/20/20 16:49) Ua Culture If Indicated (05/20/20 16:49) Drug Screen Stat (Urine) (05/20/20 16:49) Alcohol (05/20/20 16:49) Ct Head Wo (05/20/20 16:49) Ed Iv/Invasive Line Start (05/20/20 16:49) Metoprolol Tartrate Injection (Lopressor (05/20/20 17:00) Ammonia (05/20/20 16:59) Labetalol Injection (Normodyne Injection (05/20/20 18:15) Medications Given in ED Current Medications Medications Dose Ordered Sig/Fernando Route Start Time Stop Time Status Last Admin Dose Admin Labetalol HCl 10 mg ONCE ONCE IV 05/20/20 18:15 05/20/20 18:16 DC 05/20/20 18:22 10 MG Metoprolol Tartrate 5 mg ONCE ONCE IV 05/20/20 17:00 05/20/20 17:01 DC 05/20/20 17:21 5 MG Vital Signs/I&O 05/20/20 16:33 Temp 36.3 Pulse 114 Resp 16 B/P (MAP) 187/130 (149) Pulse Ox 98 Capillary Refill : Less Than 3 Seconds Blood Pressure Mean: 149 Departure Impression Primary Impression: Alcoholism Additional Impression: High blood pressure Qualified Codes: I10 - Essential (primary) hypertension Disposition: 01 HOME, SELF-CARE Condition: Stable Departure-Patient Inst. Decision time for Depature: 18:08 Referrals: [facility] (PCP/Family) Primary Care Physician Patient Instructions: Alcohol Abuse and Alcoholism (DC), Alcohol Use - When Is Drinking a Problem?, Drug Abuse and Drug Addiction (DC) Add. Discharge Instructions: 1. The reason you show up to work confused is because you're still intoxicated. Return to ER for any concerns. See her doctor later this week. All discharge instructions reviewed with patient and/or family. Voiced understanding. OTILIO GUNN APRN May 20, 2020 16:55
[2020-05-20] MEDS ORDERED: meTOprolol 5 MG/5 ML (LOPRESSOR) VIAL IV ONE (17:00)
--- NOTE | 2020-05-20 17:13 | Diagnostic Imaging Report ---
PROCEDURE: CT head without contrast. TECHNIQUE: Multiple contiguous axial images were obtained through the brain without the use of intravenous contrast. Auto Exposure Controls were utilized during the CT exam to meet ALARA standards for radiation dose reduction. INDICATION: Confusion and high blood pressure. COMPARISON: Comparison is made with prior head CT from 05/06/2020. FINDINGS: Ventricles and sulci are within normal limits. No sulcal effacement or midline shift is identified. No acute intra-axial or extra-axial hemorrhage is detected. Cisterns are patent. Visualized paranasal sinuses are clear. Area of swelling in the right frontal scalp has improved. IMPRESSION: No acute intracranial process is detected. Dictated by: Dictated on workstation # [id number]
[2020-05-20 17:45] LABS: BASOPHILS # (AUTO) 0.1 10^3/uL (0.0-0.1); BASOPHILS % (AUTO) 1 % (0-10); EOSINOPHILS # (AUTO) 0.1 10^3/uL (0.0-0.3); EOSINOPHILS % (AUTO) 1 % (0-10); HEMATOCRIT 45 % (35-52); HEMOGLOBIN 15.6 G/DL (11.5-16.0); LYMPHOCYTES # (AUTO) 2.7 X 10^3 (1.0-4.0); LYMPHOCYTES % (AUTO) 43 % (12-44); MEAN CORPUSCULAR HEMOGLOBIN 34 PG (25-34); MEAN CORPUSCULAR HGB CONC 35 G/DL (32-36); MEAN CORPUSCULAR VOLUME 98 FL (80-99); MEAN PLATELET VOLUME 9.5 FL (7.4-10.4); MONOCYTES # (AUTO) 0.6 X 10^3 (0.0-1.0); MONOCYTES % (AUTO) 9 % (0-12); NEUTROPHILS # (AUTO) 2.9 X 10^3 (1.8-7.8); NEUTROPHILS % (AUTO) 46 % (42-75); PLATELET COUNT 298 10^3/uL (130-400); RED CELL DISTRIBUTION WIDTH 12.9 % (10.0-14.5); WHITE BLOOD COUNT 6.3 10^3/uL (4.3-11.0)
[2020-05-20 17:58] LABS: INR 0.9 (0.8-1.4); PROTHROMBIN TIME PATIENT 12.5 SEC (12.2-14.7)
[2020-05-20 17:59] LABS: ALBUMIN 4.4 GM/DL (3.2-4.5); CHLORIDE 103 MMOL/L (98-107); SODIUM 137 MMOL/L (135-145)
[2020-05-20 18:00] LABS: AMMONIA 32 UMOL/L (11-32); CALCIUM 9.4 MG/DL (8.5-10.1)
[2020-05-20 18:02] LABS: GLUCOSE 98 MG/DL (70-105); TOTAL PROTEIN 7.4 GM/DL (6.4-8.2)
[2020-05-20 18:03] LABS: BILIRUBIN,TOTAL 0.4 MG/DL (0.1-1.0); CARBON DIOXIDE 18 MMOL/L (21-32)
[2020-05-20 18:05] LABS: ALKALINE PHOSPHATASE 113 U/L (40-136); CREATININE SERUM 0.58 MG/DL (0.60-1.30); GFR ESTIMATED > 60
[2020-05-20 18:06] LABS: BUN/CREATININE RATIO 7
[2020-05-20 18:08] LABS: ALANINE AMINOTRANSFERASE 72 U/L (0-55)
[2020-05-20] MEDS ORDERED: LABETALOL HCL 20 MG/4 ML VIAL IV ONE (18:15)
[2020-05-20 18:40] VITALS: BP 162/111
--- OUTSIDE RECORDS SUMMARY | 2020-05-20 21:48 | XMS REPORT | Continuity of Care Document ---
Demographics Preferred Language Unknown Marital Status Unknown Confucianist Affiliation Unknown Race Unknown Ethnic Group Unknown Author Organization Unknown Address Unknown Phone Unavailable Allergies Active Description Code Type Severity Reaction Onset Reported/Identified Relationship to Patient Clinical Status Yes Penicillins [id number] Drug Aller gy Unknown N/A 12/12/2017 Medications [...] Z12.31 ENCNTR SCREEN MAMMOGRAM FOR MALIGNANT NE 04/27/2020 OTILIO GUNN APRN Ot F17.200 NICOTINE DEPENDENCE, UNSPECIFIED, UNCOMP 04/27/2020 OTILIO GUNN APRN Ot I10 ESSENTIAL (PRIMARY) HYPERTENSION 04/27/2020 OTILIO GUNN APRN Ot M25.511 PAIN IN RIGHT SHOULDER 04/27/2020 OTILIO GUNN APRN Ot R40.2142 COMA SCALE, EYES OPEN, SPONTANEOUS, EMR 04/27/2020 OTILIO GUNN APRN Ot R40.2252 COMA SCALE, BEST VERBAL RESPONSE, ORIENT 04/27/2020 OTILIO GUNN APRN Ot R40.2362 COMA SCALE, BEST MOTOR RESPONSE, OBEYS C 04/27/2020 OTILIO GUNN APRN Ot R93 .0 ABNORMAL FINDINGS ON DX IMAGING OF SKULL 04/27/2020 OTILIO GUNN APRN Ot S00.83XA CONTUSION OF OTHER PART OF HEAD, INITIAL 04/27/2020 OTILIO GUNN APRN Ot S20.222A CONTUSION OF LEFT BACK WALL OF THORAX, I 04/27/2020 OTILIO GNUN APRN Ot S30.0XXA CONTUSION OF LOWER BACK AND PELVIS, INIT 04/27/2020 OTILIO GUNN APRN Ot S40.022A CONTUSION OF LEFT UPPER ARM, INITIAL ENC 04/27/2020 OTILIO GUNN APRN Ot S42.032A DISP FX OF LATERAL END OF LEFT CLAVICLE, 04/27/2020 OTILIO GUNN APRN Ot W01.0XXA FALL SAME LEV FROM SLIP/TRIP W/O STRIKE 04/27/2020 OTILIO GUNN APRN Ot Z88 .0 ALLERGY STATUS TO PENICILLIN 04/28/2020 OTILIO GUNN APRN Ot F10.20 ALCOHOL DEPENDENCE, UNCOMPLICATED 04/28/2020 OTILIO GUNN APRN Ot I10 ESSENTIAL (PRIMARY) HYPERTENSION 04/28/2020 OTILIO GUNN APRN Ot R40.2142 COMA SCALE, EYES OPEN, SPONTANEOUS, EMR 04/28/2020 VELIA, OTILIO Almaguer APRN Ot R40.2252 COMA SCALE, BEST VERBAL RESPONSE, ORIENT 04/28/2020 VELIA, OTILIO Almaguer APRN Ot R40.2362 COMA SCALE, BEST MOTOR RESPONSE, OBEYS C 04/28/2020 VELIA, OTILIO Almaguer APRN Ot S00.11XA CONTUSION OF RIGHT EYELID AND PERIOCULAR 04/28/2020 VELIA, OTILIO Almaguer APRN Ot S00.12XA CONTUSION OF LEFT EYELID AND PERIOCULAR 04/28/2020 GUNN, OTILIO Almaguer APRN Ot S40.012A CONTUSION OF LEFT SHOULDER, INITIAL ENCO 04/28/2020 VELIA, OTILIO Almaguer APRN Ot W19.XXXA UNSPECIFIED FALL, INITIAL ENCOUNTER 04/30/2020 VELIA, OTILIO Almaguer APRN Ot F17.200 NICOTINE DEPENDENCE, UNSPECIFIED, UNCOMP 04/30/2020 VELIA, OTILIO Almaguer APRN Ot I10 ESSENTIAL (PRIMARY) HYPERTENSION 04/30/2020 VELIA, OTILIO Almaguer APRN Ot M25.511 PAIN IN RIGHT SHOULDER 04/30/2020 VELIA, OTILIO Almaguer APRN Ot R40.2142 COMA SCALE, EYES OPEN, SPONTANEOUS, EMR 04/30/2020 VELIA, TOILIO Almaguer APRN Ot R40.2252 COMA SCALE, BEST VERBAL RESPONSE, ORIENT 04/30/2020 VELIA, OTILIO Almaguer APRN Ot R40.2362 COMA SCALE, BEST MOTOR RESPONSE, OBEYS C 04/30/2020 VELIA, OTILIO Almaguer APRN Ot S00.83XA [...] Z88 .0 ALLERGY STATUS TO PENICILLIN 04/30/2020 VELIA, OTILIO Almaguer APRN Ot F17.200 NICOTINE DEPENDENCE, UNSPECIFIED, UNCOMP 04/30/2020 VELIA, OTILIO Almaguer APRN Ot I10 ESSENTIAL (PRIMARY) HYPERTENSION 04/30/2020 VELIA, OTILIO Almaguer APRN Ot M25.511 PAIN IN RIGHT SHOULDER 04/30/2020 VELIA, OTILIO Almaguer APRN Ot R40.2142 COMA SCALE, EYES OPEN, SPONTANEOUS, EMR 04/30/2020 VELIA, OTILIO Almaguer APRN Ot R40.2252 COMA [...] COMA SCALE, BEST VERBAL RESPONSE, ORIENT 05/01/2020 OTILIO GUNN APRN Ot R40.2362 COMA SCALE, BEST MOTOR RESPONSE, OBEYS C 05/01/2020 OTILIO GUNN TOOL CRIB SUPERVISOR Ot S00.11XA CONTUSION OF RIGHT EYELID AND PERIOCULAR 05/01/2020 OTILIO GUNN TOOL CRIB SUPERVISOR Ot S00.12XA CONTUSION OF LEFT EYELID AND PERIOCULAR 05/01/2020 OTILIO GUNN TOOL CRIB SUPERVISOR Ot S40.012A CONTUSION OF LEFT SHOULDER, INITIAL ENCO 05/01/2020 OTILIO GUNN TOOL CRIB SUPERVISOR Ot W19.XXXA UNSPECIFIED FALL, INITIAL ENCOUNTER 05/05/2020 NAVARRO DO, AURY L Ot F10.2 0 ALCOHOL DEPENDENCE, UNCOMPLICATED 05/05/2020 NAVARRO DO, AURY L Ot I10 ESSENTIAL (PRIMARY) HYPERTENSION 05/05/2020 NAVARRO DO, AURY L Ot M25.5 12 PAIN IN LEFT SHOULDER 05/05/2020 NAVARRO DO, AURY L Ot S00.11XA CONTUSION OF RIGHT EYELID AND PERIOCULAR 05/05/2020 NAVARRO DO, AURY L Ot S00.12XA CONTUSION OF LEFT EYELID AND PERIOCULAR 05/05/2020 NAVARRO DO, AURY L Ot S00.83XA CONTUSION OF OTHER PART OF HEAD, INITIAL 05/05/2020 NAVARRO DO, AURY L Ot S40.012A CONTUSION OF LEFT SHOULDER, INITIAL ENCO 05/05/2020 NAVARRO DO, AURY L Ot W19.XXXA UNSPECIFIED FALL, INITIAL ENCOUNTER 05/05/2020 NAVARRO DO, AURY L Ot W22.8XXA STRIKING AGAINST OR STRUCK BY OTHER OBJE 05/05/2020 NAVARRO DO, AURY L Ot Z77.2 2 CNTCT W AND EXPSR TO ENVIRON TOBACCO SMO 05/05/2020 NAVARRO DO, AURY L Ot Z88.0 ALLERGY STATUS TO PENICILLIN 05/05/2020 NAVARRO DO, AURY L Ot Z91.1 4 PATIENT'S OTHER NONCOMPLIANCE WITH MEDIC 05/07/2020 NAVARRO DO, AURY L Ot F10.2 0 ALCOHOL DEPENDENCE, UNCOMPLICATED 05/07/2020 NAVARRO DO, AURY L Ot I10 ESSENTIAL (PRIMARY) HYPERTENSION 05/07/2020 NAVARRO DO, AURY L Ot M25.5 12 PAIN IN LEFT SHOULDER 05/07/2020 NAVARRO DO, AURY L Ot S00.11XA CONTUSION OF RIGHT EYELID AND PERIOCULAR 05/07/2020 NAVARRO DO, AURY L Ot S00.12XA CONTUSION OF LEFT EYELID AND PERIOCULAR 05/07/2020 NAVARRO DO, AURY L Ot S00.83XA CONTUSION OF OTHER PART OF HEAD, INITIAL 05/07/2020 NAVARRO DO, AURY L Ot S40.012A CONTUSION OF LEFT SHOULDER, INITIAL ENCO 05/07/2020 NAVARRO DO, AURY L Ot W19.XXXA UNSPECIFIED FALL, INITIAL ENCOUNTER 05/07/2020 NAVARRO DO, AURY L Ot W22.8XXA STRIKING AGAINST OR STRUCK BY OTHER OBJE 05/07/2020 NAVARRO DO, AURY L Ot Z77.2 2 CNTCT W AND EXPSR TO ENVIRON TOBACCO SMO 05/07/2020 NAVARRO DO, AURY L Ot Z88.0 ALLERGY STATUS TO PENICILLIN 05/07/2020 NAVARRO DO, AURY L Ot Z91.1 4 PATIENT'S OTHER NONCOMPLIANCE WITH MEDIC 05/07/2020 JAGRUTI GIL MD Ot F10.231 ALCOHOL DEPENDENCE WITH WITHDRAWAL DELIR 05/07/2020 JAGRUTI GIL MD Ot F17.210 NICOTINE DEPENDENCE, CIGARETTES, UNCOMPL 05/07/2020 JAGRUTI GIL MD Ot F32 .9 MAJOR DEPRESSIVE DISORDER, SINGLE EPISOD 05/07/2020 JAGRUTI GIL MD Ot I10 ESSENTIAL (PRIMARY) HYPERTENSION 05/07/2020 JAGRUTI GIL MD Ot R00 .0 TACHYCARDIA, UNSPECIFIED 05/07/2020 JAGRUTI GIL MD Ot S09.90XA UNSPECIFIED INJURY OF HEAD, INITIAL ENCO 05/07/2020 JAGRUTI GIL MD Ot W19.XXXA UNSPECIFIED FALL, INITIAL ENCOUNTER 05/07/2020 JAGRUTI GIL MD Ot Z91.81 HISTORY OF FALLING Procedures There is no data. Results Test [...] 09:53 Hemoglobin A1c 5.5 % 4.8-5.6 Thyroid [place] Profile - 09/13/16 09:53 TSH 1.550 uIU/mL [...] NRG STATEMENT OF ADEQUACY: NRG INTERPRETATION/RESULT: NRG MANAGER PERIOPERATIVE: NRG HPV mRNA E6/E7, SUREPATH VIAL Not [...] plasma ethanol measurement (mass/volume) 103 mg/dL <10 Complete blood count (CBC) with automate d white blood cell (WBC) differential - 05/06/20 18:12 Blood leukocytes automated count (number/volume) 5.4 10*3/uL 4.3-11.0 Blood erythrocytes automated count (number/volume) 4.34 10*6/uL 4.35-5.85 Venous blood hemoglobin measurement (mass/volume) 14.8 g/dL 11.5-16.0 Blood hematocrit (volume fraction) 43 % 35-52 Automated erythrocyte mean corpuscular volume 98 [ foz_us] 80-99 Automated erythrocyte mean corpuscular h emoglobin (mass per erythrocyte) 34 pg 25-34 Automated erythrocyte mean corpuscular h emoglobin concentration measurement (mass/volume) 35 g/dL 32-36 Automated erythrocyte distribution width ratio 12. 2 % 10.0- 14.5 Automated blood platelet count (count/volume) 215 10*3/uL 130-400 Automated blood platelet mean volume measurement 9.1 [foz_us] 7.4-10.4 Automated blood neutrophils/100 leukocytes 56 % 42-75 Automated blood lymphocytes/100 leukocytes 27 % 12-44 Blood monocytes/100 leukocytes 15 % 0-12 Automated blood eosinophils/100 leukocytes 2 % 0-10 Automated blood basophils/100 leukocytes 0 % 0-10 Blood neutrophils automated count (number/volume) 3.0 10*3 1.8-7.8 Blood lymphocytes automated count (number/volume) 1.5 10*3 1.0-4.0 Blood monocytes automated count (number/volume) 0. 8 10*3 0.0-1.0 Automated eosinophil count 0.1 10*3/uL 0 .0-0.3 Automated blood basophil count (count/volume) 0.0 10*3/uL 0.0-0.1 Whole blood basic metabolic panel - 04/15 01/31 18:12 Serum or plasma sodium measurement (moles/volume) 136 mmol/L 135-145 Serum or plasma potassium measurement (moles/volume) 3.4 mmol/L 3.6-5.0 Serum or plasma chloride measurement (moles/volume) 100 mmol/L 98-107 Carbon dioxide 23 mmol/L 21-32 Serum or plasma anion gap determination (moles/volume) 13 mmol/L 5-14 Serum or plasma urea nitrogen measurement (mass/volume ) 4 mg/dL 7-18 Serum or plasma creatinine measurement (mass/volume) 0.67 mg/dL 0.60-1.30 Serum or plasma urea nitrogen/creatinine mass ratio 6 NRG Serum or plasma creatinine measurement w ith calculation of estimated glomerular filtration rate > NRG Serum or plasma glucose measurement (mass/volume) 183 mg/dL 70-105 Serum or plasma calcium measurement (mass/volume) 9.4 mg/dL 8.5-10.1 Serum or plasma ethanol measurement (mas s/volume) - 05/06/20 18:12 Serum or plasma ethanol measurement (mass/volume) < mg/dL <10 PT panel in platelet poor plasma by coag ulation assay - 05/06/20 18:12 Prothrombin time (PT) in platelet poor plasma by coagu lation assay 12.7 s 12.2-14.7 INR in platelet poor plasma or blood by coagulation as say 0.9 0.8-1.4 Urine drug screening test - 05/06/20 18: 37 Urine phencyclidine detection by screening method NEGATIVE NEGATIVE Urine benzodiazepines detection by screening method NEGATIVE NEGATIVE Urine cocaine detection NEGATIVE NEGATI VE Urine amphetamines detection by screening method N EGATIVE NEGATIVE Urine methamphetamine detection by screening method NEGATIVE NEGATIVE Urine cannabinoids detection by screening method P OSITIVE NEGATIVE Urine opiates detection by screening method NEGATI VE NEGATIVE Urine barbiturates detection NEGATIVE N EGATIVE Screening urine tricyclic antidepressants detection NEGATIVE NEGATIVE Urine methadone detection by screening method NEGA TIVE NEGATIVE Urine oxycodone detection NEGATIVE NEGA TIVE Urine propoxyphene detection NEGATIVE N EGATIVE Complete urinalysis with reflex to cultu re - 05/06/20 18:37 Urine color determination ORANGE NRG Urine clarity determination SL CLOUDY N RG Urine pH measurement by test strip 6.0 5-9 Specific gravity of urine by test strip 1.020 1.016-1.022 Urine protein assay by test strip, semi-quantitative TRACE NEGATIVE Urine glucose detection by automated test strip NE GATIVE NEGATIVE Erythrocytes detection in urine sediment by light micr oscopy TRACE-L NEGATIVE Urine ketones detection by automated test strip 1+ NEGATIVE Urine nitrite detection by test strip NEGATIVE NEGATIVE Urine total bilirubin detection by test strip 2+ NEGATIVE Urine urobilinogen measurement by automated test strip (mass/volume) 0.2 mg/dL < = 1.0 Urine leukocyte esterase detection by dipstick 1+ NEGATIVE Automated urine sediment erythrocyte cou nt by microscopy (number/high power field) [HPF] NRG Automated urine sediment leukocyte count by microscopy (number/high power field) [HPF] NRG Bacteria detection in urine sediment by light microsco py TRACE NRG Squamous epithelial cells detection in u rine sediment by light microscopy 5-10 NRG Crystals detection in urine sediment by light microsco py PRESENT NRG Casts detection in urine sediment by light microscopy PRESENT NRG Mucus detection in urine sediment by light microscopy MODERATE NRG Complete urinalysis with reflex to culture YES NRG Amorphous sediment detection in urine sediment by ligh t microscopy MOD LOIDA URATES NRG Hyaline casts detection in urine sediment by light justin roscopy 0-2 NRG Bacterial urine culture - 05/06/20 18:37 Bacterial urine culture [id number] NRG COLONY COUNT PREDOMINANCE NRG SUSCEPTIBILITY SEE COMMENT NRG Methicillin resistant Staphylococcus aur eus (MRSA) screening culture - 05/06/20 20:13 Methicillin resistant Staphylococcus aureus (MRSA) scr eening culture NEG NRG Complete blood count (CBC) with automate d white blood cell (WBC) differential - 05/07/20 03:15 Blood leukocytes automated count (number/volume) 6.0 10*3/uL 4.3-11.0 Blood erythrocytes automated count (number/volume) 4.16 10*6/uL 4.35-5.85 Venous blood hemoglobin measurement (mass/volume) 14.2 g/dL 11.5-16.0 Blood hematocrit (volume fraction) 41 % 35-52 Automated erythrocyte mean corpuscular volume 99 [ foz_us] 80-99 Automated erythrocyte mean corpuscular h emoglobin (mass per erythrocyte) 34 pg 25-34 Automated erythrocyte mean corpuscular h emoglobin concentration measurement (mass/volume) 34 g/dL 32-36 Automated erythrocyte distribution width ratio 12. 4 % 10.0- 14.5 Automated blood platelet count (count/volume) 224 10*3/uL 130-400 Automated blood platelet mean volume measurement 9.4 [foz_us] 7.4-10.4 Automated blood neutrophils/100 leukocytes 48 % 42-75 Automated blood lymphocytes/100 leukocytes 33 % 12-44 Blood monocytes/100 leukocytes 16 % 0-12 Automated blood eosinophils/100 leukocytes 3 % 0-10 Automated blood basophils/100 leukocytes 0 % 0-10 Blood neutrophils automated count (number/volume) 2.9 10*3 1.8-7.8 Blood lymphocytes automated count (number/volume) 2.0 10*3 1.0-4.0 Blood monocytes automated count (number/volume) 0. 9 10*3 0.0-1.0 Automated eosinophil count 0.2 10*3/uL 0 .0-0.3 Automated blood basophil count (count/volume) 0.0 10*3/uL 0.0-0.1 Comprehensive metabolic panel - 05/07/20 03:15 Serum or plasma sodium measurement (moles/volume) 140 mmol/L 135-145 Serum or plasma potassium measurement (moles/volume) 3.6 mmol/L 3.6-5.0 Serum or plasma chloride measurement (moles/volume) 102 mmol/L 98-107 Carbon dioxide 27 mmol/L 21-32 Serum or plasma anion gap determination (moles/volume) 11 mmol/L 5-14 Serum or plasma urea nitrogen measurement (mass/volume ) 6 mg/dL 7-18 Serum or plasma creatinine measurement (mass/volume) 0.70 mg/dL 0.60-1.30 Serum or plasma urea nitrogen/creatinine mass ratio 9 NRG Serum or plasma creatinine measurement w ith calculation of estimated glomerular filtration rate > NRG Serum or plasma glucose measurement (mass/volume) 97 mg/dL 70-105 Serum or plasma calcium measurement (mass/volume) 9.4 mg/dL 8.5-10.1 Serum or plasma total bilirubin measurement (mass/volu me) 0.6 mg/dL 0.1-1.0 Serum or plasma alkaline phosphatase nydia surement (enzymatic activity/volume) 94 U/L 40-136 Serum or plasma aspartate aminotransfera se measurement (enzymatic activity/volume) 68 U/L 5-34 Serum or plasma alanine aminotransferase measurement (enzymatic activity/volume) 74 U/L 0-55 Serum or plasma protein measurement (mass/volume) 6.3 g/dL 6.4-8.2 Serum or plasma albumin measurement (mass/volume) 3.7 g/dL 3.2-4.5 CALCIUM CORRECTED 9.6 mg/dL 8.5-10.1 Serum or plasma phosphate measurement (m ass/volume) - 05/07/20 03:15 Serum or plasma phosphate measurement (mass/volume) 4.4 mg/dL 2.3-4.7 Magnesium - 05/07/20 03:15 Magnesium 2.2 mg/dL 1.6-2.4 PT panel in platelet poor plasma by coag ulation assay - 05/20/20 17:21 Prothrombin time (PT) in platelet poor plasma by coagu lation assay 12.5 s 12.2-14.7 INR in platelet poor plasma or blood by coagulation as say 0.9 0.8-1.4 Comprehensive metabolic panel - 05/20/20 17:21 Serum or plasma sodium measurement (moles/volume) 137 mmol/L 135-145 Serum or plasma potassium measurement (moles/volume) 4.0 mmol/L 3.6-5.0 Serum or plasma chloride measurement (moles/volume) 103 mmol/L 98-107 Carbon dioxide 18 mmol/L 21-32 Serum or plasma anion gap determination (moles/volume) 16 mmol/L 5-14 Serum or plasma urea nitrogen measurement (mass/volume ) 4 mg/dL 7-18 Serum or plasma creatinine measurement (mass/volume) 0.58 mg/dL 0.60-1.30 Serum or plasma urea nitrogen/creatinine mass ratio 7 NRG Serum or plasma creatinine measurement w ith calculation of estimated glomerular filtration rate > NRG Serum or plasma glucose measurement (mass/volume) 98 mg/dL 70-105 Serum or plasma calcium measurement (mass/volume) 9.4 mg/dL 8.5-10.1 Serum or plasma total bilirubin measurement (mass/volu me) 0.4 mg/dL 0.1-1.0 Serum or plasma alkaline phosphatase nydia surement (enzymatic activity/volume) 113 U/L 40-136 Serum or plasma aspartate aminotransfera se measurement (enzymatic activity/volume) 60 U/L 5-34 Serum or plasma alanine aminotransferase measurement (enzymatic activity/volume) 72 U/L 0-55 Serum or plasma protein measurement (mass/volume) 7.4 g/dL 6.4-8.2 Serum or plasma albumin measurement (mass/volume) 4.4 g/dL 3.2-4.5 CALCIUM CORRECTED 9.1 mg/dL 8.5-10.1 Complete blood count (CBC) with automate d white blood cell (WBC) differential - 05/20/20 17:21 Blood leukocytes automated count (number/volume) 6.3 10*3/uL 4.3-11.0 Blood erythrocytes automated count (number/volume) 4.54 10*6/uL 4.35-5.85 Venous blood hemoglobin measurement (mass/volume) 15.6 g/dL 11.5-16.0 Blood hematocrit (volume fraction) 45 % 35-52 Automated erythrocyte mean corpuscular volume 98 [ foz_us] 80-99 Automated erythrocyte mean corpuscular h emoglobin (mass per erythrocyte) 34 pg 25-34 Automated erythrocyte mean corpuscular h emoglobin concentration measurement (mass/volume) 35 g/dL 32-36 Automated erythrocyte distribution width ratio 12. 9 % 10.0- 14.5 Automated blood platelet count (count/volume) 298 10*3/uL 130-400 Automated blood platelet mean volume measurement 9.5 [foz_us] 7.4-10.4 Automated blood neutrophils/100 leukocytes 46 % 42-75 Automated blood lymphocytes/100 leukocytes 43 % 12-44 Blood monocytes/100 leukocytes 9 % 0-12 Automated blood eosinophils/100 leukocytes 1 % 0-10 Automated blood basophils/100 leukocytes 1 % 0-10 Blood neutrophils automated count (number/volume) 2.9 10*3 1.8-7.8 Blood lymphocytes automated count (number/volume) 2.7 10*3 1.0-4.0 Blood monocytes automated count (number/volume) 0. 6 10*3 0.0-1.0 Automated eosinophil count 0.1 10*3/uL 0 .0-0.3 Automated blood basophil count (count/volume) 0.1 10*3/uL 0.0-0.1 Ammonia - 05/20/20 17:21 Ammonia 32 umol/L 11-32 Serum or plasma ethanol measurement (mas s/volume) - 05/20/20 17:21 Serum or plasma ethanol measurement (mass/volume) 131 mg/dL <10 Encounters ACCT No. Visit Date/Time Discharge Status Pt. Type Provider Facility Loc./Unit Complaint [id number] 12/03/2016 18:06:00 Document Registration [id number] 09/14/2016 10:05:00 Document Registration [id number] 05/06/2020 18:56:00 14:14:00 DIS Outpatient JAGRUTI GIL MD [facility] ICU ETOH WITHDRAWAL [id number] 05/05/2020 09:51:00 10:52:00 DIS Emergency AURY NAVARRO DO L [facility] ER FALL [id number] 04/28/2020 12:10:00 14:50:00 DIS Emergency OTILIO GUNN APRN [facility] ER FALL [id number] 04/27/2020 10:26:00 12:30:00 DIS Emergency OTILIO GUNN APRN [facility] ER FALL/L SHOULDER PAIN [id number] 10/23/2019 09:04:00 23:59:59 CLS Outpatient KAROLINE CARPENTER APRN [facility] RAD SCREENING [id number] 02/21/2018 14:42:00 018 23:59:59 CLS Preadmit ALON FOSTER [facility] REHAB CLOSED FX LT TIBIAL ANAYA TEAU W ROUTINE HEALING [id number] 12/12/2017 13:35:00 018 16:56:00 DIS Emergency OTILIO GUNN Rosina NIX [facility] ER FALL/LEFT LEG INJURY; T IB-PLATEAU FX [id number] 05/20/2020 17:59:00 Document Registration [id number] 05/12/2020 10:40:00 05/12/2020 23:59: 59 CLS Outpatient HENRIK JIMENEZ, [facility] [id number] 10/16/2019 15:00:00 Document Registration [id number] 03/26/2019 09:00:00 Document Registration [id number] 03/13/2019 12:20:00 Document Registration [id number] 10/21/2015 10:28:54 10/21/2015 23:59: 59 CLS Outpatient Walker, Aditi [id number] 10/07/2015 14:13:54 10/07/2015 23:59: 59 CLS Outpatient Walker, Aditi [id number] 08/11/2015 14:35:09 08/11/2015 23:59: 59 CLS Outpatient Walker, Aditi [id number] 06/23/2015 22:14:10 06/23/2015 23:59: 59 CLS Outpatient JacquelineSalome [id number] 06/23/2015 22:09:39 06/23/2015 23:59: 59 CLS Outpatient Walker, Aditi [id number] 06/23/2015 22:01:40 06/23/2015 23:59: 59 CLS Outpatient Walker, Aditi [id number] 02/10/2015 14:44:22 02/10/2015 23:59: 59 CLS Outpatient Walker, Aditi [id number] 11/27/2014 10:21:36 11/27/2014 23:59: 59 CLS Outpatient Walker, Aditi [id number] 10/30/2014 10:22:24 10/30/2014 23:59: 59 CLS Outpatient Emily Casper [id number] 08/21/2014 14:42:55 08/21/2014 23:59: 59 CLS Outpatient Walker, Aditi [id number] 07/17/2014 15:09:48 07/17/2014 23:59: 59 CLS Outpatient Walker, Aditi [id number] 04/17/2014 09:14:22 04/17/2014 23:59: 59 CLS Outpatient Walker, Aditi [id number] 03/18/2014 09:44:06 03/18/2014 23:59: 59 CLS Outpatient Walker, Aditi [id number] 03/15/2014 14:27:13 03/15/2014 23:59: 59 CLS Outpatient Emily Casper [id number] 01/29/2014 14:32:29 01/29/2014 23:59: 59 CLS Outpatient Walker, Aditi [id number] 01/02/2014 15:29:41 01/02/2014 23:59: 59 CLS Outpatient Walker, Aditi
== END 2020-05-20 18:40 | disposition home or self-care (01) ==
LOC: EDUNIT# 16:27 → ER 16:28
DX: F10.20 Alcohol dependence, uncomplicated (principal); I10 Essential (primary) hypertension; F17.210 Nicotine dependence, cigarettes, uncomplicated; F32.9 Major depressive disorder, single episode, unspecified; Z88.0 Allergy status to penicillin; Y90.6 Blood alcohol level of 120-199 mg/100 ml
CPT/HCPCS: 70450; 80053; 82140; 85025; 85610; 99283; G0480; 36415; 80320

== ENCOUNTER 2020-07-27 07:57 | Emergency (ER) | payer SELFPAY ==
[~2020-07-27] VITALS: Ht 162 cm; Wt 56.8 kg
[2020-07-27] MEDS ORDERED: LACTATED RINGERS 1,000 ML IV ONE (08:30)
[2020-07-27 08:42] LABS: BASOPHILS % (AUTO) 0 % (0-10); EOSINOPHILS # (AUTO) 0.1 10^3/uL (0.0-0.3); EOSINOPHILS % (AUTO) 1 % (0-10); HEMATOCRIT 46 % (35-52); HEMOGLOBIN 15.9 G/DL (11.5-16.0); LYMPHOCYTES # (AUTO) 2.7 X 10^3 (1.0-4.0); LYMPHOCYTES % (AUTO) 43 % (12-44); MEAN CORPUSCULAR HEMOGLOBIN 33 PG (25-34); MEAN CORPUSCULAR HGB CONC 35 G/DL (32-36); MEAN CORPUSCULAR VOLUME 95 FL (80-99); MEAN PLATELET VOLUME 9.5 FL (7.4-10.4); MONOCYTES # (AUTO) 0.6 X 10^3 (0.0-1.0); MONOCYTES % (AUTO) 10 % (0-12); NEUTROPHILS # (AUTO) 2.9 X 10^3 (1.8-7.8); NEUTROPHILS % (AUTO) 46 % (42-75); PLATELET COUNT 321 10^3/uL (130-400); WHITE BLOOD COUNT 6.4 10^3/uL (4.3-11.0)
[2020-07-27 08:47] LABS: ALBUMIN 4.7 GM/DL (3.2-4.5); CHLORIDE 102 MMOL/L (98-107); POTASSIUM 3.9 MMOL/L (3.6-5.0); SODIUM 137 MMOL/L (135-145)
[2020-07-27 08:48] LABS: CALCIUM 9.1 MG/DL (8.5-10.1)
[2020-07-27 08:49] LABS: GLUCOSE 108 MG/DL (70-105)
[2020-07-27 08:50] LABS: CARBON DIOXIDE 21 MMOL/L (21-32)
[2020-07-27 08:51] LABS: BILIRUBIN,TOTAL 0.3 MG/DL (0.1-1.0)
[2020-07-27 08:53] LABS: ALKALINE PHOSPHATASE 117 U/L (40-136); CREATININE SERUM 0.67 MG/DL (0.60-1.30); GFR ESTIMATED > 60
[2020-07-27 08:55] LABS: BUN/CREATININE RATIO 6
[2020-07-27 08:56] LABS: ALANINE AMINOTRANSFERASE 27 U/L (0-55); SALICYLATE < 5.0 MG/DL (5.0-20.0)
[2020-07-27 08:57] LABS: ACETAMINOPHEN < 10 UG/ML (10-30)
--- NOTE | 2020-07-27 09:09 | ED Neurological Problem ---
General Chief Complaint: Altered Mental Status Stated Complaint: MEMORY LOSS Nursing Triage Note: PT PRESENTS TO ED ACCOMPANIED BY NEIGHBOR WITH COMPLAINTS OF CONFUSION AND MEMORY LOSS. PT NEIGHBOR REPORTS PT HAS A HISTORY OF ETOH ABUSE, TBI, AND HAS BEEN HAVING SHORT TERM MEMORY PROBLEMS SINCE HER FALL THAT CAUSE HER TBI. PT NEIGHBOR REPORTS SHE DOES NOT FEEL THE PT IS SAFE AT HOME BY HERSELF. PT NEIGHBOR REPORTS PT JUST GOT BACK FROM REHAB BUT UNSURE IF IT WAS FOR HER TBI OR ETOH ABUSE. PT IS UNSURE WHEN HER FALL HAPPENED BUT KNOWS SHE WAS SEEN AT A HOSPITAL IN [place] AND THAT SHE THINKS SHE WAS ADMITTED. PT REPORTS SHE DOESNT KNOW WHY SHE IS AT THE HOSPITAL. Nursing Sepsis Screen: No Definite Risk Source: patient Exam Limitations: no limitations History of Present Illness Date Seen by Provider: Jul 27, 2020 Time Seen by Provider: 08:44 Initial Comments Here with report of memory loss. Does know that she was in an apartment and is able to eat and drink and move about without difficulty. Does admit to alcohol use at least a sixpack of beer a day. Currently recently was in rehabilitation related to alcohol abuse but return to drinking after returning home. Neighbor is concerned regarding patient's safety aspect. Denies nausea, vomiting or weakness. She is able to answer questions but does have apparent short-term memory issues. States her last drink was likely last night. Timing/Duration: increasing, other (unsure over what timeframe but apparently noted today per the neighbor.) Severity: moderate Associated Symptoms: confusion; No fever/chills, No nausea/vomiting, No seizures, No slurred speech, No trouble walking, No vision changes; other (memory problems) Allergies and Home Medications Allergies Coded Allergies: Penicillins (Verified Allergy, Unknown, 12/12/17) Home Medications Atenolol 50 Mg Tablet, 50 MG PO DAILY LAST FILLED 02-25-2020 #30/30 DAY SUPPLY Prescribed by: JAGRUTI GIL on 05/07/20 1333 Brexpiprazole 1 Mg Tablet, 1 MG PO DAILY, (Reported) Losartan Potassium 25 Mg Tablet, 25 MG PO DAILY LAST FILLED 02-25-2020 #30/30 DAY SUPPLY Prescribed by: JAGRUTI GIL on 05/07/20 1333 Patient Home Medication List Home Medication List Reviewed: Yes Review of Systems Review of Systems Constitutional: see HPI; No chills, No fever Eyes: Denies Blurred Vision, Denies Pain Ears, Nose, Mouth, Throat: no symptoms reported Respiratory: No cough, No short of breath Cardiovascular: No chest pain, No edema Gastrointestinal: No abdominal pain, No nausea, No vomiting Genitourinary: no symptoms reported Musculoskeletal: no symptoms reported Psychiatric/Neurological: See HPI All Other Systems Reviewed Negative Unless Noted: Yes Past Ujyckdf-Hfmclg-Tnvirz Hx Past Med/Social Hx: Reviewed Nursing Past Med/Soc Hx Patient Social History Alcohol Use: Regular Use Number of Drinks Today: 6 Alcohol Beverage of Choice: Beer Recreational Drug Use: No Smoking Status: Current Everyday Smoker Type Used: Cigarettes 2nd Hand Smoke Exposure: Yes Recent Foreign Travel: No Contact w/Someone Who Travel: No Recent Infectious Disease Expo: No Recent Hopitalizations: No Physical Abuse: No Sexual Abuse: No Mistreated: No Fear: No Immunizations Up To Date Tetanus Booster (TDap): Unknown Seasonal Allergies Seasonal Allergies: No Past Medical History Surgeries: Yes (filopian tube removed from ectopic preg.) Section, Gallbladder, Tonsillectomy, Tubal Ligation Respiratory: No Currently Using CPAP: No Currently Using BIPAP: No Cardiac: No Hypertension Neurological: Yes Traumatic Brain Injury Genitourinary: No Gastrointestinal: No Musculoskeletal: No Endocrine: No HEENT: No Cancer: No Psychosocial: Yes Depression Integumentary: No Blood Disorders: No Adverse Reaction/Blood Tranf: No Family Medical History Reviewed Nursing Family Hx No Pertinent Family Hx Physical Exam Vital Signs Vital Signs - First Documented 07/27/20 08:05 Temp 36.9 Pulse 120 Resp 30 B/P (MAP) 137/95 (109) Pulse Ox 97 Capillary Refill : Less Than 3 Seconds Height, Weight, BMI Height: 5'4.00" Weight: 130lbs. oz. [id number]; 21.00 BMI Method:Stated General Appearance: WD/WN, no apparent distress HEENT: PERRL/EOMI, TMs normal, pharynx normal Neck: non-tender, full range of motion, supple, normal inspection Respiratory: lungs clear, normal breath sounds Cardiovascular: no murmur, tachycardia Peripheral Pulses: 2+ Dorsalis Pedis (R), 2+ Left Dors-Pedis (L), 2+ Radial Pulses (R), 2+ Radial Pulses (L) Gastrointestinal: non tender, soft Back: normal inspection, no CVA tenderness, no vertebral tenderness Extremities: non-tender, normal inspection Neurologic/Psychiatric: alert, other (oriented to person and place but seems to have some difficulty with time especially with timeframes for recent occurrences.) Crainal Nerves: normal hearing, normal speech, PERRL Coordination/Gait: normal gait Motor/Sensory: no motor deficit, no sensory deficit Skin: normal color, warm/dry Progress/Results/Core Measures Results/Orders Lab Results Laboratory Tests Test 07/27/20 08:18 07/27/20 09:11 07/27/20 09:16 Range/Units White Blood Count 6.4 4.3-11.0 10^3/uL Red Blood Count 4.79 4.35-5.85 10^6/uL Hemoglobin 15.9 11.5-16.0 G/DL Hematocrit 46 35-52 % Mean Corpuscular Volume 95 80-99 FL Mean Corpuscular Hemoglobin 33 25-34 PG Mean Corpuscular Hemoglobin Concent 35 32-36 G/DL Red Cell Distribution Width 13.5 10.0-14.5 % Platelet Count 321 130-400 10^3/uL Mean Platelet Volume 9.5 7.4-10.4 FL Neutrophils (%) (Auto) 46 42-75 % Lymphocytes (%) (Auto) 43 12-44 % Monocytes (%) (Auto) 10 0-12 % Eosinophils (%) (Auto) 1 0-10 % Basophils (%) (Auto) 0 0-10 % Neutrophils # (Auto) 2.9 1.8-7.8 X 10^3 Lymphocytes # (Auto) 2.7 1.0-4.0 X 10^3 Monocytes # (Auto) 0.6 0.0-1.0 X 10^3 Eosinophils # (Auto) 0.1 0.0-0.3 10^3/uL Basophils # (Auto) 0.0 0.0-0.1 10^3/uL Sodium Level 137 135-145 MMOL/L Potassium Level 3.9 3.6-5.0 MMOL/L Chloride Level 102 98-107 MMOL/L Carbon Dioxide Level 21 21-32 MMOL/L Anion Gap 14 5-14 MMOL/L Blood Urea Nitrogen 4 L 7-18 MG/DL Creatinine 0.67 0.60-1.30 MG/DL Estimat Glomerular Filtration Rate > 60 BUN/Creatinine Ratio 6 Glucose Level 108 H 70-105 MG/DL Calcium Level 9.1 8.5-10.1 MG/DL Corrected Calcium 8.5-10.1 MG/DL Total Bilirubin 0.3 0.1-1.0 MG/DL Aspartate Amino Transf (AST/SGOT) 27 5-34 U/L Alanine Aminotransferase (ALT/SGPT) 27 0-55 U/L Alkaline Phosphatase 117 40-136 U/L Troponin I < 0.028 <0.028 NG/ML Total Protein 8.0 6.4-8.2 GM/DL Albumin 4.7 H 3.2-4.5 GM/DL Salicylates Level < 5.0 L 5.0-20.0 MG/DL Acetaminophen Level < 10 L 10-30 UG/ML Serum Alcohol 119 H <10 MG/DL Urine Color YELLOW Urine Clarity SL CLOUDY Urine pH 5.5 5-9 Urine Specific [place] <=1.005 1.016-1.022 Urine Protein NEGATIVE NEGATIVE Urine Glucose (UA) NEGATIVE NEGATIVE Urine Ketones NEGATIVE NEGATIVE Urine Nitrite NEGATIVE NEGATIVE Urine Bilirubin NEGATIVE NEGATIVE Urine Urobilinogen 0.2 < = 1.0 MG/DL Urine Leukocyte Esterase TRACE H NEGATIVE Urine RBC (Auto) NEGATIVE NEGATIVE Urine RBC NONE /HPF Urine WBC NONE /HPF Urine Squamous Epithelial Cells 10-25 H /HPF Urine Crystals NONE /LPF Urine Bacteria NEGATIVE /HPF Urine Casts NONE /LPF Urine Mucus NEGATIVE /LPF Urine Culture Indicated NO Urine Opiates Screen NEGATIVE NEGATIVE Urine Oxycodone Screen NEGATIVE NEGATIVE Urine Methadone Screen NEGATIVE NEGATIVE Urine Propoxyphene Screen NEGATIVE NEGATIVE Urine Barbiturates Screen NEGATIVE NEGATIVE Ur Tricyclic Antidepressants Screen NEGATIVE NEGATIVE Urine Phencyclidine Screen NEGATIVE NEGATIVE Urine Amphetamines Screen NEGATIVE NEGATIVE Urine Methamphetamines Screen NEGATIVE NEGATIVE Urine Benzodiazepines Screen NEGATIVE NEGATIVE Urine Cocaine Screen NEGATIVE NEGATIVE Urine Cannabinoids Screen POSITIVE H NEGATIVE Ammonia 15 11-32 UMOL/L My Orders Orders - ERIKA MURPHY MD Ct Head Wo (07/27/20 08:30) Acetaminophen (07/27/20 08:30) Alcohol (07/27/20 08:30) Cbc With Automated Diff (07/27/20 08:30) Comprehensive Metabolic Panel (07/27/20 08:30) Drug Screen Stat (Urine) (07/27/20 08:30) Salicylate (07/27/20 08:30) Ua Culture If Indicated (07/27/20 08:30) Ekg Tracing (07/27/20 08:30) Monitor-Rhythm Ecg Trace Only (07/27/20 08:30) Ed Iv/Invasive Line Start (07/27/20 08:30) Lactated Ringers (Lr 1000 Ml Iv Solution (07/27/20 08:30) Troponin I (07/27/20 08:30) Ammonia (07/27/20 09:09) Medications Given in ED Current Medications Medications Dose Ordered Sig/Fernando Route Start Time Stop Time Status Last Admin Dose Admin Lactated Ringer's 1,000 ml @ 0 mls/hr Q0M ONCE IV 07/27/20 08:30 07/27/20 08:32 DC 07/27/20 08:56 0 MLS/HR Vital Signs/I&O 07/27/20 08:05 Temp 36.9 Pulse 120 Resp 30 B/P (MAP) 137/95 (109) Pulse Ox 97 Blood Pressure Mean: 109 Progress Progress Note : Progress Note Seen and evaluated. IV, labs, EKG and CT head ordered. LR 1 L bolus. We have added ammonia level as well especially in light of her alcohol abuse. Monitor patient. 1006: Patient resting peacefully. No acute findings on lab or CT. No significant metabolic or functional abnormalities noted on labs or CT scan. This does appear to be more alcohol and drug related but may be due to long-term sequela of alcohol abuse. Patient did have elevated alcohol level and was positive for cannabis which is likely adding to the problem. I did discuss the case with Dr. Jansen. No indication for admission given her benign labs and CT. I counseled the patient that she does need to quit drinking as this is causing significant adverse effects on her brain. She verbalizes understanding. I have instructed her to follow up with [facility] for continued evaluation. She states that she will I will send a copy of the chart to the clinic. Discharged home with return precautions. Patient verbalize understanding instructions and agreement with plan. Initial ECG Impression Date: Jul 27, 2020 Initial ECG Impression Time: 08:16 Initial ECG Rate: 109 Initial ECG Rhythm: S.Tach Comment Sinus tachycardia with normal axis. No evidence of ST elevation IA. Similar to the posterior to previous of 05/06/20. Interpreted by me. Diagnostic Imaging Diagonstic Imaging: CT Plain Films/CT/US/NM/MRI: head Comments NAME: MARYAM WATSON [facility] REC#: [id number] PT STATUS: REG ER : 1965 PHYSICIAN: ERIKA MURPHY MD ADMIT DATE: 07/27/20/ER Draft Date of Exam:07/27/20 CT HEAD WO PROCEDURE: CT head without contrast. TECHNIQUE: Multiple contiguous axial images were obtained through the brain without the use of intravenous contrast. Auto Exposure Controls were utilized during the CT exam to meet ALARA standards for radiation dose reduction. INDICATION: Memory loss and head injury. Correlation is made with prior head CT from 05/20/2020. Ventricles and sulci are within normal limits. No sulcal effacement or midline shift is detected. No acute intra-axial or extra-axial hemorrhage is detected. Cisterns are patent. Visualized paranasal sinuses are clear. IMPRESSION: No acute intracranial process is detected. Dictated on workstation # [id number] Dict: 07/27/2056 Trans: 07/27/20 1001 [facility] [id number] Interpreted by: MARIA GUADALUPE SEYMOUR MD Electronically signed by: Reviewed: Reviewed by Me Departure Impression Primary Impression: Alcohol abuse Additional Impression: Memory loss Disposition: 01 HOME, SELF-CARE Condition: Stable Departure-Patient Inst. Decision time for Depature: 10:09 Referrals: [facility] (PCP/Family) Primary Care Physician Patient Instructions: Effects of Alcohol on Your Health, Alcohol Abuse and Alcoholism (DC), Mild Cognitive Impairment Add. Discharge Instructions: All discharge instructions reviewed with patient and/or family. Voiced understanding. You need to stop drinking alcohol as this is killing your brain and you. Is very important that you follow-up with your doctor this week for recheck and further evaluation. Call [facility] tomorrow for appointment. Return for worse pain, fever, vomiting, weakness, breathing problems or other concerns as needed. Copy Copies To 1: BJ LANDEROS TIMOTHY D MD Jul 27, 2020 09:09
[2020-07-27 09:16] LABS: BILIRUBIN,URINE NEGATIVE (NEGATIVE); CLARITY,URINE SL CLOUDY; COLOR,URINE YELLOW; GLUCOSE, URINE (UA) NEGATIVE (NEGATIVE); KETONES,URINE NEGATIVE (NEGATIVE); LEUKOCYTE ESTERASE ,URINE TRACE (NEGATIVE); NITRITE,URINE NEGATIVE (NEGATIVE); PH,URINE 5.5 (5-9); PROTEIN,URINE NEGATIVE (NEGATIVE)
[2020-07-27 09:40] LABS: BACTERIA,URINE NEGATIVE /HPF
[2020-07-27 09:46] LABS: AMPHETAMINE SCREEN, URINE NEGATIVE (NEGATIVE); BARBITURATE SCREEN URINE NEGATIVE (NEGATIVE); BENZODIAZEPINES SCREEN URINE NEGATIVE (NEGATIVE); CANNABINOID SCREEN, URINE POSITIVE (NEGATIVE); COCAINE SCREEN URINE NEGATIVE (NEGATIVE); METHADONE STAT NEGATIVE (NEGATIVE); METHAMPHETAMINE SCREEN URINE S NEGATIVE (NEGATIVE); OPIATE SCREEN URINE NEGATIVE (NEGATIVE); OXYCODONE STAT NEGATIVE (NEGATIVE); PROPOXYPHENE STAT NEGATIVE (NEGATIVE); TRICYCLIC ANTIDEPRESSANTS SCRE NEGATIVE (NEGATIVE)
--- NOTE | 2020-07-27 10:01 | Diagnostic Imaging Report ---
PROCEDURE: CT head without contrast. TECHNIQUE: Multiple contiguous axial images were obtained through the brain without the use of intravenous contrast. Auto Exposure Controls were utilized during the CT exam to meet ALARA standards for radiation dose reduction. INDICATION: Memory loss and head injury. Correlation is made with prior head CT from 05/20/2020. Ventricles and sulci are within normal limits. No sulcal effacement or midline shift is detected. No acute intra-axial or extra-axial hemorrhage is detected. Cisterns are patent. Visualized paranasal sinuses are clear. IMPRESSION: No acute intracranial process is detected. Dictated by: Dictated on workstation # [id number]
--- NOTE | 2020-07-27 10:06 | NUR ---
PT NEIGHBORS CALLED FOR PT REQUEST TO TRANSPORT PT HOME.
--- NOTE | 2020-07-27 10:30 | NUR ---
PT AMBULATED TO DISCHARGE WITHOUT DIFFICULTY AT THIS TIME. PT VARBALIZES UNDERSTANDING OF DISCHARGE INSTRUCTIONS AT THIS TIME.
[2020-07-27 10:31] VITALS: BP 151/75
== END 2020-07-27 10:31 | disposition home or self-care (01) ==
LOC: EDUNIT# 07:57 → ER 07:59
DX: F10.10 Alcohol abuse, uncomplicated (principal); R41.3 Other amnesia; I10 Essential (primary) hypertension; F17.210 Nicotine dependence, cigarettes, uncomplicated; Z87.820 Personal history of traumatic brain injury; Z88.0 Allergy status to penicillin
CPT/HCPCS: 70450; 80053; 80306; 81000; 82140; 84484; 85025; 93041; G0480 ×3; 36415; 80320; 80329; 93005

== ENCOUNTER 2020-07-29 08:46 | Observation (INO) | payer OTHER ==
[~2020-07-29] VITALS: Ht 162.6 cm; Wt 62.4 kg
--- NOTE | 2020-07-29 08:46 | NUR ---
HOME MEDS TAKEN OUT OF ROOM AND PLACED AT NURSING DESK.
[2020-07-29] MEDS ORDERED: ONDANSETRON 4 MG/2 ML (SDV) Z0FRAN IVP ONE (09:30)
[2020-07-29] MEDS ORDERED: FOLIC ACID 1 MG TAB PO ONE (09:30)
[2020-07-29] MEDS ORDERED: THIAMINE 100 MG (VITAMIN B-1) TAB PO ONE (09:30)
[2020-07-29] MEDS ORDERED: THIAMINE INJECTION 100 MG, FOLIC ACID INJECTION 1 MG, VITAMIN MULTI INJECTION 10 ML, MA... IV ONE ×5 (09:30)
--- NOTE | 2020-07-29 09:30 | ED Neurological Problem ---
General Chief Complaint: Neurological Problems Stated Complaint: CONFUSION Nursing Triage Note: TO ED PER EMS . [place] [employer] AND [facility] . EMS CALLED BECAUSE PATIENT CONFUSED. ON ADMIT KNOW PERSON TIME AND PLACE. UNKNOW OF TIME OF ONSET. Nursing Sepsis Screen: No Definite Risk Source: patient Exam Limitations: no limitations History of Present Illness Date Seen by Provider: Jul 29, 2020 Time Seen by Provider: 09:15 Initial Comments Patient presents to ER by EMS from home with chief complaint of confusion. For some reason police were at her house throughout the night. Patient says she does not know what's going on she has good long-term memory. 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 She drinks beer all day everyday. The patient endorses 6 pack of beer and a pack of smokes a day. Mother says that they are working with the patient's and son to get placed because she is is not adequately taking care of herself at home. They have an appointment later this afternoon with Adina Argueta primary care to facilitate placement. Patient says she takes blood pressure medicines but nothing else. She denies using any stimulants. She denies having dysuria, diarrhea, cough shortness of breath sore throat or nasal congestion. She does have some nausea however. Discussed the case with Adina Argueta her primary care provider. This is acute on chronic encephalopathy and the patient will need placement. That was the plan today. Allergies and Home Medications Allergies Coded Allergies: Penicillins (Verified Allergy, Unknown, 12/12/17) Home Medications Atenolol 50 Mg Tablet, 50 MG PO DAILY LAST FILLED 02-25-2020 #30/30 DAY SUPPLY Prescribed by: JAGRUTI LEE on 05/07/20 1333 Brexpiprazole 1 Mg Tablet, 1 MG PO DAILY, (Reported) Losartan Potassium 25 Mg Tablet, 25 MG PO DAILY LAST FILLED 02-25-2020 #30/30 DAY SUPPLY Prescribed by: JAGRUTI LEE on 05/07/20 1333 Patient Home Medication List Home Medication List Reviewed: Yes Review of Systems Review of Systems Constitutional: No chills, No fever, No malaise Eyes: Denies Drainage, Denies Pain Ears, Nose, Mouth, Throat: denies ear pain, denies nose pain Respiratory: No cough, No short of breath Cardiovascular: No edema, No palpitations, No syncope Gastrointestinal: No abdominal pain, No constipation, No diarrhea; nausea; No vomiting Genitourinary: No discharge, No dysuria Musculoskeletal: No back pain, No joint pain All Other Systems Reviewed Negative Unless Noted: Yes Past Qqttuvj-Vcqnar-Cavbte Hx Patient Social History Alcohol Use: Regular Use Alcohol Beverage of Choice: Beer Recreational Drug Use: No Smoking Status: Current Everyday Smoker Type Used: Cigarettes 2nd Hand Smoke Exposure: Yes Recent Foreign Travel: No Contact w/Someone Who Travel: No Recent Infectious Disease Expo: No Recent Hopitalizations: No Immunizations Up To Date Tetanus Booster (TDap): Unknown Seasonal Allergies Seasonal Allergies: No Past Medical History Surgeries: Yes (filopian tube removed from ectopic preg.) Section, Gallbladder, Tonsillectomy, Tubal Ligation Respiratory: No Currently Using CPAP: No Currently Using BIPAP: No Cardiac: No Hypertension Neurological: Yes Traumatic Brain Injury Genitourinary: No Gastrointestinal: No Musculoskeletal: No Endocrine: No HEENT: No Cancer: No Psychosocial: Yes Depression Integumentary: No Blood Disorders: No Adverse Reaction/Blood Tranf: No Family Medical History No Pertinent Family Hx Physical Exam Vital Signs Vital Signs - First Documented 07/29/20 08:46 Temp 36.8 Pulse 108 Resp 18 B/P (MAP) 180/98 (125) Capillary Refill : Less Than 3 Seconds Height, Weight, BMI Height: 5'4.00" Weight: 130lbs. oz. 58.115293br; 27.00 BMI Method:Stated General Appearance: WD/WN, no apparent distress HEENT: PERRL/EOMI, pharynx normal Neck: full range of motion, normal inspection Respiratory: lungs clear, normal breath sounds, no respiratory distress, no accessory muscle use Cardiovascular: normal peripheral pulses, regular rate, rhythm Peripheral Pulses: 2+ Radial Pulses (R), 2+ Radial Pulses (L) Gastrointestinal: normal bowel sounds, non tender, soft Neurologic/Psychiatric: no motor/sensory deficits, alert, normal mood/affect, oriented x 3 Crainal Nerves: normal hearing, normal speech, PERRL Coordination/Gait: normal finger to nose, normal gait Motor/Sensory: no motor deficit, no sensory deficit Skin: normal color, warm/dry Progress/Results/Core Measures Results/Orders Lab Results Laboratory Tests Test 07/29/20 08:40 07/29/20 08:58 07/29/20 09:35 07/29/20 09:40 Range/Units Troponin I < 0.028 <0.028 NG/ML B-Type Natriuretic Peptide < 10.0 <100.0 PG/ML White Blood Count 4.9 4.3-11.0 10^3/uL Red Blood Count 4.76 4.35-5.85 10^6/uL Hemoglobin 15.7 11.5-16.0 G/DL Hematocrit 45 35-52 % Mean Corpuscular Volume 95 80-99 FL Mean Corpuscular Hemoglobin 33 25-34 PG Mean Corpuscular Hemoglobin Concent 35 32-36 G/DL Red Cell Distribution Width 13.5 10.0-14.5 % Platelet Count 335 130-400 10^3/uL Mean Platelet Volume 9.4 7.4-10.4 FL Neutrophils (%) (Auto) 44 42-75 % Lymphocytes (%) (Auto) 42 12-44 % Monocytes (%) (Auto) 13 H 0-12 % Eosinophils (%) (Auto) 1 0-10 % Basophils (%) (Auto) 1 0-10 % Neutrophils # (Auto) 2.1 1.8-7.8 X 10^3 Lymphocytes # (Auto) 2.0 1.0-4.0 X 10^3 Monocytes # (Auto) 0.6 0.0-1.0 X 10^3 Eosinophils # (Auto) 0.1 0.0-0.3 10^3/uL Basophils # (Auto) 0.0 0.0-0.1 10^3/uL Sodium Level 139 135-145 MMOL/L Potassium Level 4.1 3.6-5.0 MMOL/L Chloride Level 102 98-107 MMOL/L Carbon Dioxide Level 21 21-32 MMOL/L Anion Gap 16 H 5-14 MMOL/L Blood Urea Nitrogen 4 L 7-18 MG/DL Creatinine 0.63 0.60-1.30 MG/DL Estimat Glomerular Filtration Rate > 60 BUN/Creatinine Ratio 6 Glucose Level 93 70-105 MG/DL Calcium Level 9.1 8.5-10.1 MG/DL Corrected Calcium 8.8 8.5-10.1 MG/DL Total Bilirubin 0.4 0.1-1.0 MG/DL Aspartate Amino Transf (AST/SGOT) 26 5-34 U/L Alanine Aminotransferase (ALT/SGPT) 26 0-55 U/L Alkaline Phosphatase 118 40-136 U/L Ammonia 25 11-32 UMOL/L Total Protein 7.5 6.4-8.2 GM/DL Albumin 4.4 3.2-4.5 GM/DL Serum Alcohol 83 H <10 MG/DL Urine Color YELLOW Urine Clarity SL CLOUDY Urine pH 6.0 5-9 Urine Specific [place] 1.020 1.016-1.022 Urine Protein NEGATIVE NEGATIVE Urine Glucose (UA) NEGATIVE NEGATIVE Urine Ketones TRACE H NEGATIVE Urine Nitrite NEGATIVE NEGATIVE Urine Bilirubin NEGATIVE NEGATIVE Urine Urobilinogen 0.2 < = 1.0 MG/DL Urine Leukocyte Esterase NEGATIVE NEGATIVE Urine RBC (Auto) NEGATIVE NEGATIVE Urine RBC NONE /HPF Urine WBC 0-2 /HPF Urine Squamous Epithelial Cells 0-2 /HPF Urine Crystals NONE /LPF Urine Bacteria NEGATIVE /HPF Urine Casts NONE /LPF Urine Mucus NEGATIVE /LPF Urine Culture Indicated NO Urine Opiates Screen NEGATIVE NEGATIVE Urine Oxycodone Screen NEGATIVE NEGATIVE Urine Methadone Screen NEGATIVE NEGATIVE Urine Propoxyphene Screen NEGATIVE NEGATIVE Urine Barbiturates Screen NEGATIVE NEGATIVE Ur Tricyclic Antidepressants Screen NEGATIVE NEGATIVE Urine Phencyclidine Screen NEGATIVE NEGATIVE Urine Amphetamines Screen NEGATIVE NEGATIVE Urine Methamphetamines Screen NEGATIVE NEGATIVE Urine Benzodiazepines Screen NEGATIVE NEGATIVE Urine Cocaine Screen NEGATIVE NEGATIVE Urine Cannabinoids Screen NEGATIVE NEGATIVE My Orders Orders - JULIANNA,STEVE J Ekg Tracing (07/29/20 09:03) Continuous Ekg Monitoring (07/29/20 09:03) Troponin I (07/29/20 09:03) BNP (07/29/20 09:03) Cbc With Automated Diff (07/29/20:) Comprehensive Metabolic Panel (07/29/20:) Ammonia (07/29/20:23) Ua Culture If Indicated (07/29/20:23) Drug Screen Stat (Urine) (07/29/20:) Alcohol (07/29/20:23) Ed Iv/Invasive Line Start (07/29/20:23) Ct Head Wo (07/29/20:23) Chest 1 View, Ap/Pa Only (07/29/20 09:23) Thiamine Injection (Vitamin B-1 Injectio (07/29/20 09:30) Thiamine Tablet (Vitamin B-1 Tablet) (07/29/20 09:30) Folic Acid Tablet (Folic Acid Tablet) (07/29/20 09:30) Ondansetron Injection (Zofran Injectio (07/29/20 09:30) Medications Given in ED Current Medications Medications Dose Ordered Sig/Fernando Route Start Time Stop Time Status Last Admin Dose Admin Folic Acid 1 mg ONCE ONCE PO 07/29/20 09:30 07/29/20 09:31 DC 07/29/20 09:51 1 MG Ondansetron HCl 4 mg ONCE ONCE IVP 07/29/20 09:30 07/29/20 09:31 DC 07/29/20 09:50 4 MG Thiamine HCl 100 mg ONCE ONCE PO 07/29/20 09:30 07/29/20 09:31 DC 07/29/20 10:03 100 MG Thiamine HCl 100 mg/Folic Acid 1 mg/Multivitamins 10 ml/Magnesium Sulfate 2 gm/ Potassium Chloride/Dextrose/ Sod Cl 1,015.2 ml @ 999 mls/ hr ONCE ONCE IV 07/29/20 09:30 07/29/20 10:30 DC 07/29/20 09:53 999 MLS/HR Vital Signs/I&O 07/29/20 08:46 Temp 36.8 Pulse 108 Resp 18 B/P (MAP) 180/98 (125) Blood Pressure Mean: 125 Progress Progress Note : Time: 10:58 Progress Note Workup is largely unremarkable. She's having acute on chronic encephalopathy and will need placement. We have discussed this with her outpatient team and decided to try and do this throughout observation in the hospital. Departure Communication (Admissions) Time/Spoke to Admitting Phy: 10:45 Discussed the case with Dr. Lee and she agrees to observe the patient and seek placement for acute on chronic encephalopathy. Impression Primary Impression: Korsakoff's psychosis, alcohol related Disposition: ADMITTED INPATIENT Condition: Stable Admissions Decision to Admit Reason: Admit from ER (General) Decision to Admit/Date: Jul 29, 2020 Time/Decision to Admit Time: 10:30 Departure-Patient Inst. Referrals: [facility] (PCP/Family) Primary Care Physician STEVE LEVINE Jul 29, 2020 09:30
[2020-07-29 09:37] LABS: BASOPHILS % (AUTO) 1 % (0-10); EOSINOPHILS # (AUTO) 0.1 10^3/uL (0.0-0.3); EOSINOPHILS % (AUTO) 1 % (0-10); HEMATOCRIT 45 % (35-52); HEMOGLOBIN 15.7 G/DL (11.5-16.0); LYMPHOCYTES % (AUTO) 42 % (12-44); MEAN CORPUSCULAR HEMOGLOBIN 33 PG (25-34); MEAN CORPUSCULAR HGB CONC 35 G/DL (32-36); MEAN CORPUSCULAR VOLUME 95 FL (80-99); MEAN PLATELET VOLUME 9.4 FL (7.4-10.4); MONOCYTES # (AUTO) 0.6 X 10^3 (0.0-1.0); MONOCYTES % (AUTO) 13 % (0-12); NEUTROPHILS # (AUTO) 2.1 X 10^3 (1.8-7.8); NEUTROPHILS % (AUTO) 44 % (42-75); PLATELET COUNT 335 10^3/uL (130-400); WHITE BLOOD COUNT 4.9 10^3/uL (4.3-11.0)
--- NOTE | 2020-07-29 09:41 | NUR ---
AMB TO BATHROOM
[2020-07-29 09:45] LABS: BILIRUBIN,URINE NEGATIVE (NEGATIVE); CLARITY,URINE SL CLOUDY; COLOR,URINE YELLOW; GLUCOSE, URINE (UA) NEGATIVE (NEGATIVE); KETONES,URINE TRACE (NEGATIVE); LEUKOCYTE ESTERASE ,URINE NEGATIVE (NEGATIVE); NITRITE,URINE NEGATIVE (NEGATIVE); PROTEIN,URINE NEGATIVE (NEGATIVE)
[2020-07-29 09:48] LABS: ALBUMIN 4.4 GM/DL (3.2-4.5)
[2020-07-29 09:49] LABS: AMMONIA 25 UMOL/L (11-32); CHLORIDE 102 MMOL/L (98-107); POTASSIUM 4.1 MMOL/L (3.6-5.0); SODIUM 139 MMOL/L (135-145)
[2020-07-29 09:50] LABS: CALCIUM 9.1 MG/DL (8.5-10.1)
[2020-07-29 09:51] LABS: GLUCOSE 93 MG/DL (70-105); TOTAL PROTEIN 7.5 GM/DL (6.4-8.2)
[2020-07-29 09:52] LABS: CARBON DIOXIDE 21 MMOL/L (21-32)
[2020-07-29 09:52] LABS: BACTERIA,URINE NEGATIVE /HPF; SQUAMOUS EPITHELIAL CELL,UR 0-2 /HPF; WBC,URINE 0-2 /HPF
[2020-07-29 09:53] LABS: BILIRUBIN,TOTAL 0.4 MG/DL (0.1-1.0)
[2020-07-29 09:54] LABS: ALKALINE PHOSPHATASE 118 U/L (40-136)
[2020-07-29 09:55] LABS: CREATININE SERUM 0.63 MG/DL (0.60-1.30); GFR ESTIMATED > 60
[2020-07-29 09:56] LABS: AMPHETAMINE SCREEN, URINE NEGATIVE (NEGATIVE); BARBITURATE SCREEN URINE NEGATIVE (NEGATIVE); BENZODIAZEPINES SCREEN URINE NEGATIVE (NEGATIVE); CANNABINOID SCREEN, URINE NEGATIVE (NEGATIVE); COCAINE SCREEN URINE NEGATIVE (NEGATIVE); METHADONE STAT NEGATIVE (NEGATIVE); METHAMPHETAMINE SCREEN URINE S NEGATIVE (NEGATIVE); OPIATE SCREEN URINE NEGATIVE (NEGATIVE); OXYCODONE STAT NEGATIVE (NEGATIVE); PROPOXYPHENE STAT NEGATIVE (NEGATIVE); TRICYCLIC ANTIDEPRESSANTS SCRE NEGATIVE (NEGATIVE)
[2020-07-29 09:56] LABS: BUN/CREATININE RATIO 6
--- NOTE | 2020-07-29 09:57 | NUR ---
TO CT PER W/C
[2020-07-29 09:58] LABS: ALANINE AMINOTRANSFERASE 26 U/L (0-55)
--- NOTE | 2020-07-29 10:10 | Diagnostic Imaging Report ---
EXAMINATION: CT head without contrast. TECHNIQUE: Multiple contiguous axial images were obtained through the brain without the use of intravenous contrast. All CT scans use one or more of the following dose optimizing techniques: automated exposure control, MA and/or KvP adjustment based on a patient size and exam type, or iterative reconstruction. HISTORY: Altered mental status COMPARISON: None available. FINDINGS: The nobles-white matter differentiation is normal. No mass effect or midline shift. The ventricles are normal in size and configuration. Basilar cisterns are patent. There are no intra- or extra-axial fluid collections. There is no intracranial hemorrhage. The orbits are normal. Paranasal sinuses are normal. Mastoid air cells are clear. No soft tissue abnormality is seen. No osseus lesions or fractures are seen. IMPRESSION: 1. No acute intracranial abnormality. Dictated by: Dictated on workstation # [id number]
--- NOTE | 2020-07-29 10:17 | Diagnostic Imaging Report ---
INDICATION: Altered mental status. TECHNIQUE/COMPARISON: A frontal chest was obtained at 9:47 AM and and compared to 04/27/2020. FINDINGS: The heart and mediastinal silhouette are normal in appearance. The lungs are clear. There is no pneumothorax or pleural fluid. IMPRESSION: Negative chest. Dictated by: Dictated on workstation # [id number]
[2020-07-29] MEDS ORDERED: 1/2 NS IV SOLUTION 1,000 ML IV PRN ×2 (10:44→14:03)
[2020-07-29] MEDS ORDERED: ANTACID SUSP 30 ML UDC (MYLANTA) PO PRN ×2 (10:45→14:15)
[2020-07-29] MEDS ORDERED: LORazepam INJ 2 MG/ML (ATIVAN) VIAL IM/IV PRN ×2 (10:45→14:15)
[2020-07-29] MEDS ORDERED: ONDANSETRON 4 MG (ZOFRAN) ORAL DISSOLVE TAB SL PRN ×2 (10:45→14:15)
[2020-07-29] MEDS ORDERED: LORazepam 1 MG (ATIVAN) TAB PO PRN ×2 (10:45→14:15)
[2020-07-29] MEDS ORDERED: SENNA W/DOCUSATE (SENOKOT S) TABLET PO PRN ×2 (10:45→14:15)
[2020-07-29] MEDS ORDERED: LORazepam INJ 2 MG/ML (ATIVAN) VIAL IV PRN ×2 (10:45→14:15)
[2020-07-29] MEDS ORDERED: ONDANSETRON 4 MG/2 ML (SDV) Z0FRAN IV PRN ×2 (10:45→14:15)
[2020-07-29] MEDS ORDERED: D5 1/2 NS 1000 ML IV SOLUTION 1,000 ML IV PRN ×2 (10:45→14:15)
--- NOTE | 2020-07-29 10:53 | NUR ---
ATTEMPT TO CALL ELVIRA OSUNA AT [phone] AND LISBETH LEI AT [phone] NO ANSWER Addendum: 07/29/20 at 1055 by PMCCLURE AMD UDATE THEM ON PLANES FOR ADMIT AND THAN POSSIBLE PLACEMENT. Addendum: 07/29/20 at 1110 by PMCCLURE MOTHERS NAME IS SINA.
--- NOTE | 2020-07-29 11:09 | NUR ---
PATIENT REPORTS SHE HAS BEEN TALKING WITH SON.
--- NOTE | 2020-07-29 11:29 | NUR ---
RAO CALLED BACK ROOM HAS TO BE CLEANED.
--- NOTE | 2020-07-29 11:30 | NUR ---
DR GIL HERE.
--- NOTE | 2020-07-29 11:34 | NUR ---
PATIENT HOME MEDS SENT TO FLOOR
--- NOTE | 2020-07-29 11:52 | NUR ---
FLUIDS CON'T TO INFUSE PATIENT CON'T TO BEND ARM.
--- NOTE | 2020-07-29 11:53 | NUR ---
CON'T TO WAIT FOR ROOM TO BE CLEANED
--- NOTE | 2020-07-29 12:17 | History & Physical ---
MARC ROSS,MED STUDENT 07/29/20 1217: HPI History of Present Illness: Patient is a 55year old female who presented to the ED with confusion. History is difficult to obtain based on the patients confusion. She states she cannot remember much, but thinks her neighbors called the ambulance because she could not remember anything. She is unable to recall when her confusion started, but thinks that it is because she drinks so much. Source: patient Exam Limitations: clinical condition Date seen by provider: Jul 29, 2020 Time Seen by Provider: 11:00 Attending Physician Jagruti Lee MD PCP [place] [place] Consult Date of Admission Jul 29, 2020 at 11:14 Home Medications Home Medications Reviewed patient Home Medication Reconciliation performed by pharmacy medication reconciliations animal care technician and/or nursing. Patients Allergies have been reviewed. Allergies Coded Allergies: Penicillins (Verified Allergy, Unknown, 12/12/17) LCO-Yklqss-Ydcamn Hx Patient Social History Alcohol Use: Regular Use Recreational Drug Use: No Smoking Status: Current Everyday Smoker Type Used: Cigarettes 2nd Hand Smoke Exposure: Yes Recent Foreign Travel: No Contact w/other who traveled: No Recent Hopitalizations: No Recent Infectious Disease Expo: No Immunizations Up To Date Tetanus Booster (TDap): Unknown Past Medical History PMHx: HTN Ectopic TBI SurgHx: Knee surgery after fracture C section Tubal ligation Cholecystectomy Tonsilectomy Family Medical History Significant Family History: No Pertinent Family Hx Review of Systems (CHC) Constitutional: No chills, No fever, No weakness EENTM: No blurred vision, No double vision, No nose congestion Respiratory: cough; No dyspnea on exertion, No short of breath Cardiovascular: No chest pain, No edema Gastrointestinal: No abdominal pain, No constipation, No diarrhea Musculoskeletal: No joint pain, No muscle pain, No muscle weakness Psychiatric/Neurological: Denies Headache, Denies Numbness, Denies Paresthesia, Denies Weakness Reviewed Test Results Reviewed Test Results Radiology MRI BRAIN W/O CONTRAST PROCEDURE: MR imaging of the brain without contrast. TECHNIQUE: Multiplanar, multisequence MR imaging of the brain was performed without contrast. INDICATION: Altered mental status. COMPARISON: CT head on 07/29/2020. Findings: No acute ischemia, mass, or hemorrhage. A few focal T2 hyperintense signal areas are seen in the subcortical white matter. The ventricles, cortical sulci, and basilar cisterns are symmetric and unremarkable. The sellar and suprasellar regions have a normal appearance. The brainstem and posterior fossa are unremarkable. The paranasal sinuses and mastoid air cells demonstrate normal signal characteristics. The globes and orbits are symmetric and unremarkable. The scalp and calvarium have a normal appearance. Impression: 1. No acute ischemia, mass, or hemorrhage. 2. Scattered T2 hyperintense signal lesions in the subcortical white matter. This may represent sequelae of migraine versus chronic microvascular disease. Physical Exam-([facility]) Physical Exam Vital Signs VS - Last 72 Hours, by Label 07/29/20 07/29/20 07/29/20 08:46 11:22 13:56 Temp 36.8 36.1 Pulse 108 116 116 Resp 18 18 18 B/P (MAP) 180/98 (125) 129/88 203/98 Pulse Ox 98 97 O2 Delivery Room Air Room Air Capillary Refill : Less Than 3 Seconds General Appearance: no apparent distress Eyes: Bilateral Eye PERRL, Bilateral Eye EOMI HEENT: No pharyngeal erythema, No tonsillar exudate Respiratory: no respiratory distress, no accessory muscle use, wheezing (end expiratory, throughout) Cardiovascular: regular rate, rhythm, no edema, no murmur Gastrointestinal: normal bowel sounds, non tender, soft Extremities: non-tender, no calf tenderness Neurologic/Psychiatric: public interviewer II-XII nml as tested, no motor/sensory deficits, alert; No facial droop; other (oriented to place, normal gait, normal cerebellar testing) Skin: normal color, warm/dry Assessment/Plan Assessment/Plan Assessment & Plan 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 Unable to tell exactly what her baseline mental status is exactly, but this could be an acute decline. CIWAS protocol and high dose thiamine started. Will need placement. Chronic Hypertension: BP elevated today. Restart home medications and monitor closely. DVT prophylaxis- enoxaparin JAGRUTI LEE MD 07/30/20 1201: Home Medications Allergies Coded Allergies: Penicillins (Verified Allergy, Unknown, 12/12/17) Assessment/Plan Assessment/Plan Admission Status: Observation (1) Altered mental status Status: Chronic Assessment & Plan: Discussed with outpatient primary physician and patient does have some baseline intermittent confusion, but does seem to be worse currently. UDS negative, CT head and labs okay, no clear etiology beyond alcohol use and possible Korsakoff dementia. Will minimize sedating meds and treat for alcohol withdrawal as needed, see below for Korsakoff question. Qualifiers: Qualified Codes: R41.0 - Disorientation, unspecified (2) Alcoholism Status: Chronic Assessment & Plan: EtOH level 88 on admit, monitor CIWA and treat with l orazepam per protocol. (3) Hypertension Status: Chronic Assessment & Plan: Resume home medications, suspect she was not taking them at home. Qualifiers: Qualified Codes: I10 - Essential (primary) hypertension (4) Korsakoff's psychosis, alcohol related Status: Acute Assessment & Plan: Does not clearly meet criteria for Wernicke's encephalopathy (no oculomotor dysfunction, no ataxia), but does meet 2/4 Nicole criteria, will treat with high dose IV thiamine due to possibility of. However, more suspicious this is Korsakoff psychosis with previous episode of Wernicke's not recognized. Check MRI. (5) DVT prophylaxis Status: Acute Assessment & Plan: Enoxaparin (6) Discharge planning issues Status: Acute Assessment & Plan: Patient not safe at home, social work consulted for assistance. Supervisory-Addendum Brief Verification & Attestation Participated in pt care: history, MDM, physical Personally performed: exam, history, MDM, supervision of care Care discussed with: Medical Student Procedures: n/a I personally saw and evaluated patient on 07/29 and did my own history and physical exam and agree with documentation by medical student. See problem list for my assessment and plan. MARC ROSS,MED STUDENT Jul 29, 2020 12:17 JAGRUTI LEE MD Jul 30, 2020 12:01
--- NOTE | 2020-07-29 12:45 | NUR ---
MRI HERE TO TAKE PATIENT TO IP ORDER CALLED 4TH ROOM READY. SIERRA FROM MRI WILL TAKE HER TO FLOOR AFRER 4TH FLOOR NOTIFIED.
[2020-07-29] MEDS ORDERED: THIAMINE 100 MG/ML 2 ML (VITAMIN B-1) VIAL IV SCH (13:00)
[2020-07-29 13:56] VITALS: BP 203/98
--- NOTE | 2020-07-29 13:56 | Diagnostic Imaging Report ---
PROCEDURE: MR imaging of the brain without contrast. TECHNIQUE: Multiplanar, multisequence MR imaging of the brain was performed without contrast. INDICATION: Altered mental status. COMPARISON: CT head on 07/29/2020. Findings: No acute ischemia, mass, or hemorrhage. A few focal T2 hyperintense signal areas are seen in the subcortical white matter. The ventricles, cortical sulci, and basilar cisterns are symmetric and unremarkable. The sellar and suprasellar regions have a normal appearance. The brainstem and posterior fossa are unremarkable. The paranasal sinuses and mastoid air cells demonstrate normal signal characteristics. The globes and orbits are symmetric and unremarkable. The scalp and calvarium have a normal appearance. Impression: 1. No acute ischemia, mass, or hemorrhage. 2. Scattered T2 hyperintense signal lesions in the subcortical white matter. This may represent sequelae of migraine versus chronic microvascular disease. Dictated by: Dictated on workstation # [id number]
--- NOTE | 2020-07-29 14:06 | NUR ---
DR GIL NOTIFIED OF INCREASED BP AND HR
--- NOTE | 2020-07-29 14:40 | NUR ---
CM/SS: Visited with pt as per consult related to placement needs from the Emergency Dept Plan: Undetermined at this time Summary: Visit with pt as to concerns for her well being and her use of alcohol. Pt is unable to provide much information as she can not remember. Pt thinks that the neighbors called EMS, however she is unsure at this time. Pt reports that she got fired from her job and that she did not know that until she called. Sounds like she was fired on last week. Pt reports living alone and does have a mother in town. Pt gives permission for this worker to call her mother. Telephone Call to Lisa Villavicencio, mother of pt [phone]. She reports pt is a mess and that she has washed her hands of being able to help her. She reports that pt spent time in the ED and was at [facility] this past week, however pt is unable to live on her own due to her diagnosis of encephalopathy dementia. Pt's mother would like something to be done to help pt. She has helped pt and no longer wants to be apart of the issues with pt. This worker will follow up. Talk more with pt. When asked she has NO desire to quit drinking, she report that she actually enjoys it. This worker will follow up with pt once she is moved to her room upstairs. Returned call from mother of pt Lisa Moreira - [phone] - asking status of pt. She is notified pt is admitted, she is questioning if pt will get help. This worker shares that she will need to follow up and determine the best plan for pt, and this worker had no new information at this time. This worker will follow up.
[2020-07-29] MEDS: ATENOLOL 50 MG (TENORMIN) TAB PO SCH (14:57)
[2020-07-29] MEDS: LOSARTAN 25 MG (COZAAR) TAB PO SCH (14:57)
[2020-07-29] MEDS: THIAMINE IV SCH ×4 (15:01→21:06)
[2020-07-29] MEDS: D5 1/2 NS W/KCL 20 MEQ/L 1,000 ML IV SCH ×3 (15:01→23:24)
[2020-07-29] MEDS: SODIUM CHLORIDE IV SCH ×4 (15:01→21:06)
--- NOTE | 2020-07-29 15:37 | NUR ---
CM/SS: ADULT ABUSE/ NEGLECT PROTECTIVE SERVICES REPORT MADE # [id number]. Self Neglect and possible need for a State Appointed Guardian due to alcoholic dementia/encephalopathy.
[2020-07-29] MEDS ORDERED: ATEN50TA PO (16:20)
[2020-07-29] MEDS ORDERED: VALS160T29 PO (16:20)
--- NOTE | 2020-07-29 16:24 | NUR ---
SPOKE WITH THE PT (HER HOME MEDS ARE IN THE DRAWER) TO COMPLETE THE MED REC ON 07-24-2020 PT FILLED THE FOLLOWING MEDS AT [facility] IN [place] BUT THE PT SAYS SHE HAS NOT BEEN TAKING THEM, FOR THIS REASON I DID NOT INCLUDE THEM ON THE MED REC: MTV FOLIC ACID 1MG AMLODIPINE 10MG VITAMIN B 1,000MG THESE MEDICATIONS FROM [facility] ARE WHAT I PUT ON THE MED REC DUE TO PT SAYING THESE ARE THE ONLY MEDS SHE IS TAKIN03-17-2020 REXULTI 1MG #90/90DS 05-08-2020 VALSARTAN 160MG #30/30DS (I DID INCLUDE THE PAST DUE FILL ON THE MED REC) 06-19-2020 ATENOLOL 50MG #30/30DS
[2020-07-29 17:40] VITALS: BP 136/85
[2020-07-29] MEDS: ACETAMINOPHEN 500 MG TAB (TYLENOL) PO PRN (18:25)
[2020-07-29] MEDS: ENOXAPARIN 40 MG/0.4 ML (LOVENOX) SYR SC SCH (18:25)
[2020-07-29] MEDS: MAGNESIUM OXIDE (MAG-OX)400 MG TAB PO SCH (18:25)
[2020-07-29] MEDS ORDERED: FLU QUADRIvalent (3YOA+) 60 mcg/0.5 ml 2020-21 (AFLURIA) IM ONE (19:15)
[2020-07-29 19:40] VITALS: BP 142/82
[2020-07-29] MEDS ORDERED: MAGNESIUM OXIDE (MAG-OX)400 MG TAB PO SCH (21:00)
[2020-07-29 23:06] VITALS: BP 126/77
[2020-07-30 03:07] VITALS: BP 150/84
[2020-07-30] MEDS ORDERED: MULTIVIT W/MINERALS TAB (THERAGRAN M) ONE (03:08)
[2020-07-30] MEDS: MULTIVIT W/MINERALS TAB (THERAGRAN M) PO SCH (03:13)
[2020-07-30] MEDS: ACETAMINOPHEN 500 MG TAB (TYLENOL) PO PRN (03:13)
[2020-07-30] MEDS: THIAMINE IV SCH ×6 (05:51→22:11)
[2020-07-30] MEDS: D5 1/2 NS W/KCL 20 MEQ/L 1,000 ML IV SCH ×3 (05:51→19:53)
[2020-07-30] MEDS: SODIUM CHLORIDE IV SCH ×6 (05:51→22:11)
[2020-07-30] MEDS ORDERED: MULTIVIT W/MINERALS TAB (THERAGRAN M) PO SCH (07:00)
[2020-07-30] MEDS ORDERED: FOLIC ACID 1 MG TAB PO SCH (07:00)
[2020-07-30] MEDS ORDERED: THIAMINE 100 MG (VITAMIN B-1) TAB PO SCH ×2 (07:00)
--- NOTE | 2020-07-30 07:56 | Progress Note ---
MARC ROSS,MED STUDENT 07/30/20 0756: Subjective Subjective/Events-last exam Patient seen and examined this morning. She is unsure whether her memory has improved or not. She is oriented to person, but not place, and appears to use the whiteboard in her room to recall the day, month and year. She did require ativan overnight per [facility] protocol. Review of Systems HEENT: No Head Aches, No Visual Changes Pulmonary: No Dyspnea; Cough Cardiovascular: No: Chest Pain Gastrointestinal: No: Nausea, Vomiting, Abdominal Pain Neurological: Confusion; No: Weakness, Numbness Objective Exam Last Set of Vital Signs Vital Signs Date Time Temp Pulse Resp B/P (MAP) Pulse Ox O2 Delivery O2 Flow Rate FiO2 07/30/20 03:07 36.4 70 18 150/84 (106) 97 Room Air Capillary Refill : Less Than 3 SecondsLess Than 3 Seconds I&O Intake and Output 07/30/20 00:00 Intake Total 989 ml Output Total 445 ml Balance 544 ml Intake Oral 989 ml Output Urine Total 445 ml # Voids 1 Daily Weight Change No No General: Alert, No Acute Distress, Other (oriented to person) HEENT: PERRLA, EOMI Lungs: Other (end expiratory wheezes throughout) Heart: Regular Rate, No Murmurs Abdomen: Soft, No Tenderness Extremities: No Edema Neuro: Normal Speech, Cranial Nerves 3-12 NL Results/Procedures Lab Laboratory Tests 07/29/20 08:40: Troponin I < 0.028, B-Type Natriuretic Peptide < 10.0 07/29/20 08:58: White Blood Count 4.9, Red Blood Count 4.76, Hemoglobin 15.7, Hematocrit 45, Mean Corpuscular Volume 95, Mean Corpuscular Hemoglobin 33, Mean Corpuscular Hemoglobin Concent 35, Red Cell Distribution Width 13.5, Platelet Count 335, Mean Platelet Volume 9.4, Neutrophils (%) (Auto) 44, Lymphocytes (%) (Auto) 42, Monocytes (%) (Auto) 13H, Eosinophils (%) (Auto) 1, Basophils (%) (Auto) 1, Neutrophils # (Auto) 2.1, Lymphocytes # (Auto) 2.0, Monocytes # (Auto) 0.6, Eosinophils # (Auto) 0.1, Basophils # (Auto) 0.0 07/29/20 09:35: Sodium Level 139, Potassium Level 4.1, Chloride Level 102, Carbon Dioxide Level 21, Anion Gap 16H, Blood Urea Nitrogen 4L, Creatinine 0.63, Estimat Glomerular Filtration Rate > 60, BUN/Creatinine Ratio 6, Glucose Level 93, Calcium Level 9.1, Corrected Calcium 8.8, Total Bilirubin 0.4, Aspartate Amino Transf (AST/SGOT) 26, Alanine Aminotransferase (ALT/SGPT) 26, Alkaline Phosphatase 118, Ammonia 25, Total Protein 7.5, Albumin 4.4, Serum Alcohol 83H 07/29/20 09:40: Urine Color YELLOW, Urine Clarity SL CLOUDY, Urine pH 6.0, Urine Specific [place] 1.020, Urine Protein NEGATIVE, Urine Glucose (UA) NEGATIVE, Urine Ketones TRACEH, Urine Nitrite NEGATIVE, Urine Bilirubin NEGATIVE, Urine Urobilinogen 0.2, Urine Leukocyte Esterase NEGATIVE, Urine RBC (Auto) NEGATIVE, Urine RBC NONE, Urine WBC 0-2, Urine Squamous Epithelial Cells 0-2, Urine Crystals NONE, Urine Bacteria NEGATIVE, Urine Casts NONE, Urine Mucus NEGATIVE, Urine Culture Indicated NO, Urine Opiates Screen NEGATIVE, Urine Oxycodone Screen NEGATIVE, Urine Methadone Screen NEGATIVE, Urine Propoxyphene Screen NEGATIVE, Urine Barbiturates Screen NEGATIVE, Ur Tricyclic Antidepressants Screen NEGATIVE, Urine Phencyclidine Screen NEGATIVE, Urine Amphetamines Screen NEGATIVE, Urine Methamphetamines Screen NEGATIVE, Urine Benzodiazepines Screen NEGATIVE, Urine Cocaine Screen NEGATIVE, Urine Cannabinoids Screen NEGATIVE Radiology MRI BRAIN W/O CONTRAST PROCEDURE: MR imaging of the brain without contrast. TECHNIQUE: Multiplanar, multisequence MR imaging of the brain was performed without contrast. INDICATION: Altered mental status. COMPARISON: CT head on 07/29/2020. Findings: No acute ischemia, mass, or hemorrhage. A few focal T2 hyperintense signal areas are seen in the subcortical white matter. The ventricles, cortical sulci, and basilar cisterns are symmetric and unremarkable. The sellar and suprasellar regions have a normal appearance. The brainstem and posterior fossa are unremarkable. The paranasal sinuses and mastoid air cells demonstrate normal signal characteristics. The globes and orbits are symmetric and unremarkable. The scalp and calvarium have a normal appearance. Impression: 1. No acute ischemia, mass, or hemorrhage. 2. Scattered T2 hyperintense signal lesions in the subcortical white matter. This may represent sequelae of migraine versus chronic microvascular disease. 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 Continues high dose thiamine. Will need placement. Chronic alcohol abuse- continue to moniter per CIWA protocol, Ativan when needed. Chronic Hypertension: BP elevated this morning, continue to monitor closely. Could consider increasing dose of atenolol if BP remains elevated. DVT prophylaxis- enoxaparin Clinical Quality Measures DVT/VTE Risk/Contraindication: Risk Factor Score Per Nursin RFS Level Per Nursing on Admit: 3=High JAGRUTI GIL MD 07/30/20 1203: Objective Exam General: Alert, No Acute Distress, Other (oriented to person and place) Heart: Regular Rate, No Murmurs Extremities: No Edema Neuro: Normal Speech Assessment/Plan Assessment/Plan (1) Korsakoff's psychosis, alcohol related Status: Acute (2) Alcoholism Status: Chronic (3) Altered mental status Status: Chronic Qualifiers: Qualified Codes: R41.0 - Disorientation, unspecified (4) Hypertension Status: Chronic Qualifiers: Qualified Codes: I10 - Essential (primary) hypertension (5) Discharge planning issues Status: Acute (6) DVT prophylaxis Status: Acute Supervisory-Addendum Brief Verification & Attestation Participated in pt care: history, MDM, physical Personally performed: exam, history, MDM, supervision of care Care discussed with: Medical Student Procedures: n/a I personally saw and evaluated patient and performed my own history and physical, see my exam for my documentation. MARC ROSS,MED STUDENT Jul 30, 2020 07:56 JAGRUTI GIL MD Jul 30, 2020 12:03
[2020-07-30 08:00] VITALS: BP 153/90
[2020-07-30] MEDS: MAGNESIUM OXIDE (MAG-OX)400 MG TAB PO SCH ×2 (08:22→19:54)
[2020-07-30] MEDS: ATENOLOL 50 MG (TENORMIN) TAB PO SCH (08:22)
[2020-07-30] MEDS: FOLIC ACID 1 MG TAB PO SCH (08:22)
[2020-07-30] MEDS: LOSARTAN 25 MG (COZAAR) TAB PO SCH (08:23)
[2020-07-30] MEDS: NICOTINE PATCH REMOVAL TP SCH (08:25)
--- NOTE | 2020-07-30 11:41 | NUR ---
CM/SS: Visited with pt as to plan for discharge as per consult related to out of home placement. Plan: Undetermined at this time Summary: Pt reports she is doing ok today. She is able to visit with this worker as to her current situation and possible need of being homeless as she no longer has her job. Talk with pt as to our conversation on yesterday. She reports she can remember some of it and not sure on other parts of the conversation. Discuss with pt the need for her to have someone to help and speak for her related to making decisions. Pt reports she has some trouble making decisions. She is informed that a report was made with [facility] Department of Children's and Family Services. Specifically the Adult Protective Services. She is informed that a report has been made by this worker to see about getting her some help with her decision making. Pt reports that he mother is not wanting to help at this point. So she agrees with the need for the report to be made to get her some help. Pt is asked about wanting to get help with her alcohol use. She is reminded of what she told this worker on yesterday, and that was she enjoyed drinking and that she was not sure that she wanted to quit. She is ask this worker if she really said that. This worker indicates that she did say that. Pt seems in disbelief about that, but then states that she needs to get help as she has no job, and is in threat of no home and that she wants to be able to see her grandson. Pt gets tearful when talking about her grandson. 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 Pt reports she has drank prior to watching him and admitted she would have driven over to [facility] to see him having drank just prior. Pt is reminded that this worker will work on some treatment options. She is also reminded that it may be difficult as she does not have insurance and a pay source. Pt is also given some paper and a pen so that she can write things down due to some issues with memory. Pt is appreciative. This worker will follow up.
[2020-07-30 12:00] VITALS: BP 147/90
--- NOTE | 2020-07-30 13:09 | NUR ---
CM/SS: [facility]. [facility] are [facility]. They will have an opening for a women the week of August 2020.
--- NOTE | 2020-07-30 13:10 | NUR ---
CM/SS: Referral to [facility], [place] [facility] [employer] - [place] [phone] - talks with pt on the phone. They are unable to accept pt due to lack of pay source. They are willing to offer other options for pt based on her lack of pay source. [place] reports she will need to call this worker back. This worker will follow up.
[2020-07-30] MEDS: hydrOXYzine (VISTARIL/ATARAX) 25 MG capsule/tablet PO PRN ×2 (14:38→22:14)
[2020-07-30 16:00] VITALS: BP 145/81
[2020-07-30] MEDS: ENOXAPARIN 40 MG/0.4 ML (LOVENOX) SYR SC SCH (16:35)
[2020-07-30 17:08] VITALS: BP 145/81
[2020-07-30 19:33] VITALS: BP 137/90
[2020-07-31 00:16] VITALS: BP 139/78
[2020-07-31] MEDS: D5 1/2 NS W/KCL 20 MEQ/L 1,000 ML IV SCH ×3 (03:16→10:31)
[2020-07-31 03:19] VITALS: BP 133/84
[2020-07-31 04:57] LABS: HEMOGLOBIN 13.6 G/DL (11.5-16.0); MEAN PLATELET VOLUME 9.5 FL (7.4-10.4)
[2020-07-31 05:21] LABS: ALANINE AMINOTRANSFERASE 20 U/L (0-55); ALBUMIN 3.7 GM/DL (3.2-4.5); ALKALINE PHOSPHATASE 95 U/L (40-136); BILIRUBIN,TOTAL 0.5 MG/DL (0.1-1.0); BUN/CREATININE RATIO 11; CALCIUM 8.6 MG/DL (8.5-10.1); CARBON DIOXIDE 23 MMOL/L (21-32); CHLORIDE 107 MMOL/L (98-107); CREATININE SERUM 0.66 MG/DL (0.60-1.30); GFR ESTIMATED > 60; GLUCOSE 105 MG/DL (70-105); POTASSIUM 4.7 MMOL/L (3.6-5.0); SODIUM 140 MMOL/L (135-145); TOTAL PROTEIN 6.2 GM/DL (6.4-8.2)
[2020-07-31] MEDS: THIAMINE IV SCH ×2 (06:11)
[2020-07-31] MEDS: SODIUM CHLORIDE IV SCH ×2 (06:11)
[2020-07-31] MEDS: hydrOXYzine (VISTARIL/ATARAX) 25 MG capsule/tablet PO PRN ×2 (06:11→17:57)
[2020-07-31] MEDS: MULTIVIT W/MINERALS TAB (THERAGRAN M) PO SCH (06:11)
[2020-07-31 07:39] VITALS: BP 148/88
[2020-07-31] MEDS: LOSARTAN 25 MG (COZAAR) TAB PO SCH (08:38)
[2020-07-31] MEDS: ATENOLOL 50 MG (TENORMIN) TAB PO SCH (08:38)
[2020-07-31] MEDS: NICOTINE PATCH REMOVAL TP SCH (08:38)
[2020-07-31] MEDS: MAGNESIUM OXIDE (MAG-OX)400 MG TAB PO SCH ×2 (08:38→17:52)
[2020-07-31] MEDS: FOLIC ACID 1 MG TAB PO SCH (08:38)
[2020-07-31] MEDS: NICOTINE 14 MG (NICODERM) PATCH TD PRN (08:38)
--- NOTE | 2020-07-31 09:41 | Progress Note ---
MARC ROSS,MED STUDENT 07/31/20 0941: Subjective Subjective/Events-last exam Patient seen and examined this morning. Oriented to person and place, but appears to use board in her room to recall the date. No complaints this morning, but she wonders when she can go home. Review of Systems General: No Chills, No Fatigue HEENT: No Head Aches, No Visual Changes Pulmonary: No Dyspnea, No Cough Cardiovascular: No: Chest Pain, Edema Gastrointestinal: No: Nausea, Vomiting, Abdominal Pain Neurological: Confusion; No: Weakness Objective Exam Last Set of Vital Signs Vital Signs Date Time Temp Pulse Resp B/P (MAP) Pulse Ox O2 Delivery O2 Flow Rate FiO2 07/31/20 07:39 36.2 81 20 148/88 (108) 99 Room Air Capillary Refill : Less Than 3 SecondsLess Than 3 Seconds I&O Intake and Output 07/31/20 00:00 Intake Total 2372 ml Balance 2372 ml Intake Oral 2372 ml # Voids 11 General: Alert, No Acute Distress Lungs: Clear to Auscultation Heart: Regular Rate, No Murmurs Extremities: No Edema Psych/Mental Status: Other (disoriented to time) Results/Procedures Lab Laboratory Tests 07/31/20 04:30: White Blood Count 7.0, Red Blood Count 4.13L, Hemoglobin 13.6, Hematocrit 40, Mean Corpuscular Volume 98, Mean Corpuscular Hemoglobin 33, Mean Corpuscular Hemoglobin Concent 34, Red Cell Distribution Width 13.0, Platelet Count 260, Mean Platelet Volume 9.5, Sodium Level 140, Potassium Level 4.7, Chloride Level 107, Carbon Dioxide Level 23, Anion Gap 10, Blood Urea Nitrogen 7, Creatinine 0.66, Estimat Glomerular Filtration Rate > 60, BUN/Creatinine Ratio 11, Glucose Level 105, Calcium Level 8.6, Corrected Calcium 8.8, Total Bilirubin 0.5, Aspartate Amino Transf (AST/SGOT) 22, Alanine Aminotransferase (ALT/SGPT) 20, Alkaline Phosphatase 95, Total Protein 6.2L, Albumin 3.7 Radiology MRI BRAIN W/O CONTRAST PROCEDURE: MR imaging of the brain without contrast. TECHNIQUE: Multiplanar, multisequence MR imaging of the brain was performed without contrast. INDICATION: Altered mental status. COMPARISON: CT head on 07/29/2020. Findings: No acute ischemia, mass, or hemorrhage. A few focal T2 hyperintense signal areas are seen in the subcortical white matter. The ventricles, cortical sulci, and basilar cisterns are symmetric and unremarkable. The sellar and suprasellar regions have a normal appearance. The brainstem and posterior fossa are unremarkable. The paranasal sinuses and mastoid air cells demonstrate normal signal characteristics. The globes and orbits are symmetric and unremarkable. The scalp and calvarium have a normal appearance. Impression: 1. No acute ischemia, mass, or hemorrhage. 2. Scattered T2 hyperintense signal lesions in the subcortical white matter. This may represent sequelae of migraine versus chronic microvascular disease. 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 Continues high dose thiamine. Will need placement. Chronic alcohol abuse- continue to moniter per CIWA protocol, Ativan when necessary. Chronic Hypertension DVT prophylaxis- enoxaparin Clinical Quality Measures DVT/VTE Risk/Contraindication: Risk Factor Score Per Nursin RFS Level Per Nursing on Admit: 3=High JAGRUTI GIL MD 07/31/20 1224: Assessment/Plan Assessment/Plan (1) Korsakoff's psychosis, alcohol related Status: Acute (2) Hypertension Status: Chronic Qualifiers: Qualified Codes: I10 - Essential (primary) hypertension (3) Discharge planning issues Status: Acute (4) Alcoholism Status: Chronic (5) Altered mental status Status: Chronic Qualifiers: Qualified Codes: R41.0 - Disorientation, unspecified (6) DVT prophylaxis Status: Acute Supervisory-Addendum Brief Verification & Attestation Participated in pt care: history, MDM, physical Personally performed: exam, history, MDM, supervision of care Care discussed with: Medical Student Procedures: n/a I personally saw and examined this patient today. I performed my own history and exam and my findings are the same as those documented by the medical student. Plan of care directed by me, continue thiamine, working on placement, suspect she has permanent Korsakoff's dementia and will be unable to go home safely. MARC ROSS,MED STUDENT Jul 31, 2020 09:41 JAGRUTI GIL MD Jul 31, 2020 12:24
--- NOTE | 2020-07-31 11:12 | NUR ---
CM/SS: Visited with pt as to her current status and a Drug and Alcohol Evaluation scheduled for tomorrow morning via phone at 10am. Plan: Pt to be assessed tomorrow morning 10 am by Wanda from [facility] Services. Summary: Pt is anxious this morning. Pt thinks she is leaving. This worker asks if she has seen the doctor. Pt cannot remember if she has or not. She is reminded that she can be evaluated in the morning and a plan can be made as to where she can go to get help. This worker explains the levels of care. Inpatient vs outpatient. Pt seems to be open to continue to get help. This worker will follow up.
[2020-07-31 12:00] VITALS: BP 136/89
[2020-07-31 16:00] VITALS: BP 150/89
[2020-07-31] MEDS: ENOXAPARIN 40 MG/0.4 ML (LOVENOX) SYR SC SCH (16:25)
--- NOTE | 2020-07-31 16:46 | NUR ---
CM/SS: Application for Assessment completed with pt. Information faxed to [facility]. They will complete the Assessment at 10am tomorrow morning via phone. Plan: To be determined Summary: Pt continues to be confused and is cooperative as to completing the paperwork for assessment. Pt is reassured that we are continuing to seek a placement for her. Pt reports having some difficulty with remembering anything. She is encouraged to take one day at a time and reminded that she will have an assessment at 10am tomorrow. This worker will follow up.
--- NOTE | 2020-07-31 16:51 | NUR ---
CM/SS: Allegra Villalta - [facility] - Adult Protective Services - emailed and contacted via phone and message left for her to return call to this worker. This worker will follow up.
[2020-07-31 20:00] VITALS: BP 136/85
[2020-08-01] VITALS: BP 152/98
[2020-08-01 04:00] VITALS: BP 132/82
[2020-08-01] MEDS: MULTIVIT W/MINERALS TAB (THERAGRAN M) PO SCH (06:38)
[2020-08-01] MEDS: hydrOXYzine (VISTARIL/ATARAX) 25 MG capsule/tablet PO PRN ×3 (06:38→17:12)
[2020-08-01 08:00] VITALS: BP 136/88
[2020-08-01] MEDS ORDERED: THIAMINE 100 MG/ML 2 ML (VITAMIN B-1) VIAL IV SCH (09:00)
[2020-08-01] MEDS: NICOTINE PATCH REMOVAL TP SCH (09:00)
--- NOTE | 2020-08-01 09:09 | Progress Note ---
MARC ROSS,MED STUDENT 08/01/20 0909: Subjective Subjective/Events-last exam Patient seen and examined this morning. She is oriented to self and place, but is unable to tell the day, month or year. Unchanged from yesterday, and she asks the same questions as yesterday (when can she go home, how will she get her clothes). Review of Systems General: No Fatigue HEENT: No Head Aches Pulmonary: No Dyspnea, No Cough Cardiovascular: No: Chest Pain, Edema Gastrointestinal: No: Nausea, Vomiting, Abdominal Pain Neurological: Confusion; No: Weakness, Numbness Objective Exam Last Set of Vital Signs Vital Signs Date Time Temp Pulse Resp B/P (MAP) Pulse Ox O2 Delivery O2 Flow Rate FiO2 08/01/20 07:00 71 08/01/20 04:00 37.0 18 132/82 (99) 100 Room Air Capillary Refill : Less Than 3 SecondsLess Than 3 Seconds I&O Intake and Output 08/01/20 00:00 Intake Total 4130 ml Balance 4130 ml Intake Oral 2130 ml IV Total 2000 ml # Voids 10 General: Alert, Other (Oriented to self and place) HEENT: EOMI, Mucous Memb Moist/[place] Lungs: Other (end expiratory wheezes in left base) Heart: Regular Rate, No Murmurs Abdomen: Soft, No Tenderness Extremities: No Edema Results/Procedures Radiology MRI BRAIN W/O CONTRAST PROCEDURE: MR imaging of the brain without contrast. TECHNIQUE: Multiplanar, multisequence MR imaging of the brain was performed without contrast. INDICATION: Altered mental status. COMPARISON: CT head on 07/29/2020. Findings: No acute ischemia, mass, or hemorrhage. A few focal T2 hyperintense signal areas are seen in the subcortical white matter. The ventricles, cortical sulci, and basilar cisterns are symmetric and unremarkable. The sellar and suprasellar regions have a normal appearance. The brainstem and posterior fossa are unremarkable. The paranasal sinuses and mastoid air cells demonstrate normal signal characteristics. The globes and orbits are symmetric and unremarkable. The scalp and calvarium have a normal appearance. Impression: 1. No acute ischemia, mass, or hemorrhage. 2. Scattered T2 hyperintense signal lesions in the subcortical white matter. This may represent sequelae of migraine versus chronic microvascular disease. 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 Continue thiamine. Pending placement. Chronic alcohol abuse- continue to moniter per CIWA protocol, Ativan when necessary. Chronic Hypertension DVT prophylaxis- enoxaparin Clinical Quality Measures DVT/VTE Risk/Contraindication: Risk Factor Score Per Nursin RFS Level Per Nursing on Admit: 3=High JAGRUTI GIL MD 08/01/20 1501: Assessment/Plan Assessment/Plan (1) Korsakoff's psychosis, alcohol related Status: Acute (2) Hypertension Status: Chronic Qualifiers: Qualified Codes: I10 - Essential (primary) hypertension (3) DVT prophylaxis Status: Acute (4) Discharge planning issues Status: Acute (5) Alcoholism Status: Chronic (6) Altered mental status Status: Chronic Qualifiers: Qualified Codes: R41.0 - Disorientation, unspecified Supervisory-Addendum Brief Verification & Attestation Participated in pt care: history, MDM, physical Personally performed: exam, history, MDM, supervision of care Care discussed with: Medical Student Procedures: n/a I personally saw and evaluated patient and repeated physical exam. Agree with do cumentation by medical student. MARC ROSS,MED STUDENT Aug 01, 2020 09:09 JAGRUTI GIL MD Aug 01, 2020 15:01
[2020-08-01] MEDS: FOLIC ACID 1 MG TAB PO SCH (09:13)
[2020-08-01] MEDS: ATENOLOL 50 MG (TENORMIN) TAB PO SCH (09:13)
[2020-08-01] MEDS: NS IV SCH (09:13)
[2020-08-01] MEDS: LOSARTAN 25 MG (COZAAR) TAB PO SCH (09:13)
[2020-08-01] MEDS: NICOTINE 14 MG (NICODERM) PATCH TD PRN (09:13)
[2020-08-01] MEDS: THIAMINE IV SCH (09:13)
[2020-08-01] MEDS: MAGNESIUM OXIDE (MAG-OX)400 MG TAB PO SCH (09:13)
--- NOTE | 2020-08-01 10:25 | NUR ---
CM/SS: This worker assist pt to call Wanda from [facility] at 10am to complete her Drug and Alcohol Assessment. This worker speaks with Wanda requesting that she follow up with her once she is finished based on her recommendations of the assessment. Wanda will let this worker know the recommendations.
[2020-08-01 16:00] VITALS: BP 124/85
--- NOTE | 2020-08-01 16:15 | NUR ---
CM/SS: Pt does meet criteria for Inpatient Rehabilitation Services for Alcohol - Wanda, from [facility] called to indicate that she is looking into treatment facilities that can meet the pts needs. She spoke with the son and he expressed concern as to pt's memory. Son was to call this worker at 3pm. He did not call. Wanda has encouraged him to call pt's physician and express his concerns. Information about son's concern is passed along to Dr Lee. It is likely that her condition/memory may not improve based on her current diagnosis.
[2020-08-01] MEDS: ENOXAPARIN 40 MG/0.4 ML (LOVENOX) SYR SC SCH (17:12)
--- NOTE | 2020-08-01 21:02 | NUR ---
New order rec from Dr. Blair to discontinue telemetry.
[2020-08-01 23:33] VITALS: BP 144/81
[2020-08-02] MEDS: hydrOXYzine (VISTARIL/ATARAX) 25 MG capsule/tablet PO PRN ×3 (03:49→23:26)
[2020-08-02] MEDS: MULTIVIT W/MINERALS TAB (THERAGRAN M) PO SCH (06:01)
[2020-08-02 08:49] VITALS: BP 126/85
[2020-08-02] MEDS: NICOTINE 14 MG (NICODERM) PATCH TD PRN (08:57)
[2020-08-02] MEDS: NICOTINE PATCH REMOVAL TP SCH (08:57)
[2020-08-02] MEDS: LOSARTAN 25 MG (COZAAR) TAB PO SCH (08:57)
[2020-08-02] MEDS: NS IV SCH (08:57)
[2020-08-02] MEDS: FOLIC ACID 1 MG TAB PO SCH (08:57)
[2020-08-02] MEDS: ATENOLOL 50 MG (TENORMIN) TAB PO SCH (08:57)
[2020-08-02] MEDS: THIAMINE IV SCH (08:57)
--- NOTE | 2020-08-02 14:06 | Progress Note - Hospitalist ---
Subjective HPI/CC On Admission Date Seen by Provider: Aug 02, 2020 Time Seen by Provider: 12:00 Subjective/Events-last exam Patient is still confused complains of being anxious and nervous would like to go home. Review of Systems Neurological: Confusion Objective Exam Vital Signs Vital Signs Date Time Temp Pulse Resp B/P (MAP) Pulse Ox O2 Delivery O2 Flow Rate FiO2 08/02/20 08:49 36.7 77 18 126/85 (99) 100 Room Air Capillary Refill : Less Than 3 SecondsLess Than 3 Seconds General Appearance: No Apparent Distress HEENT: Normal ENT Inspection Neck: Full Range of Motion, Normal Inspection, Non Tender, Supple Respiratory: Lungs Clear, Normal Breath Sounds, No Accessory Muscle Use, No Respiratory Distress Cardiovascular: Regular Rate, Rhythm, No Edema, No Gallop, No JVD, No Murmur, Normal Peripheral Pulses Gastrointestinal: Normal Bowel Sounds, Non Tender, Soft Rectal: Deferred Back: Normal Inspection Skin: Normal Color Lymphatic: No Adenopathy Results/Procedures Lab Patient resulted labs reviewed. Assessment/Plan Assessment and Plan Assess & Plan/Chief Complaint Korsakoff encephalopathy Hypertension anxiety Discharge planning Clinical Quality Measures DVT/VTE Risk/Contraindication: Risk Factor Score Per Nursin RFS Level Per Nursing on Admit: 3=High SELENE RUBOI MD Aug 02, 2020 14:06
[2020-08-02 16:00] VITALS: BP 118/80
[2020-08-02] MEDS: ENOXAPARIN 40 MG/0.4 ML (LOVENOX) SYR SC SCH (17:06)
[2020-08-02 23:52] VITALS: BP 118/82
[2020-08-03] MEDS: MULTIVIT W/MINERALS TAB (THERAGRAN M) PO SCH (05:40)
[2020-08-03 08:00] VITALS: BP 132/79
[2020-08-03] MEDS: THIAMINE IV SCH (08:00)
[2020-08-03] MEDS: hydrOXYzine (VISTARIL/ATARAX) 25 MG capsule/tablet PO PRN (08:00)
[2020-08-03] MEDS: NS IV SCH (08:00)
[2020-08-03] MEDS: NICOTINE PATCH REMOVAL TP SCH (08:00)
[2020-08-03] MEDS: ATENOLOL 50 MG (TENORMIN) TAB PO SCH (08:00)
[2020-08-03] MEDS: FOLIC ACID 1 MG TAB PO SCH (08:00)
[2020-08-03] MEDS: LOSARTAN 25 MG (COZAAR) TAB PO SCH (08:00)
[2020-08-03] MEDS: NICOTINE 14 MG (NICODERM) PATCH TD PRN (08:00)
--- NOTE | 2020-08-03 08:00 | NUR ---
VISTARIL 25MG PO PER REQUEST FOR ANXIETY.
--- NOTE | 2020-08-03 11:39 | Progress Note - Hospitalist ---
Subjective HPI/CC On Admission Date Seen by Provider: Aug 03, 2020 Time Seen by Provider: 11:30 Subjective/Events-last exam patient is awake and alert and is questioning whether she is going to rehabilitation tomorrow are whether they are still full. she says her mother came and got her keys. It appears to me that her memory is improving. Her Hep-Lock is infiltrated and we'll be discontinuing IV medications. We'll tr ansition to oral thiamine Review of Systems Neurological: Other (memory loss) Objective Exam Vital Signs Vital Signs Date Time Temp Pulse Resp B/P (MAP) Pulse Ox O2 Delivery O2 Flow Rate FiO2 08/03/20 08:00 36.2 83 16 132/79 (96) 99 Room Air Capillary Refill : Less Than 3 SecondsLess Than 3 Seconds General Appearance: No Apparent Distress, WD/WN HEENT: Normal ENT Inspection Neck: Normal Inspection, Non Tender, Supple Respiratory: Lungs Clear, Normal Breath Sounds, No Accessory Muscle Use, No Respiratory Distress Cardiovascular: Regular Rate, Rhythm, No Gallop, No JVD, No Murmur Gastrointestinal: No Organomegaly, Non Tender, Soft Rectal: Deferred Extremity: Normal Capillary Refill, Normal Range of Motion, Non Tender, Other (left antecubital fossa indurated erythematous and swollen) Neurologic/Psychiatric: Alert, Oriented x3, No Motor/Sensory Deficits, Normal Mood/Affect Skin: Normal Color Lymphatic: No Adenopathy Results/Procedures Lab Patient resulted labs reviewed. Assessment/Plan Assessment and Plan Assess & Plan/Chief Complaint Korsakoff encephalopathy-transitioned to oral thiamine,B12 level pending Hypertension-good anxiety Discharge planning and perhaps placement in the morning Clinical Quality Measures DVT/VTE Risk/Contraindication: Risk Factor Score Per Nursin RFS Level Per Nursing on Admit: 3=High SELENE RUBIO MD Aug 03, 2020 11:39
[2020-08-03 16:00] VITALS: BP 134/69
[2020-08-03] MEDS: ENOXAPARIN 40 MG/0.4 ML (LOVENOX) SYR SC SCH (16:03)
[2020-08-03] MEDS: THIAMINE 100 MG (VITAMIN B-1) TAB PO SCH (20:04)
[2020-08-04 01:00] VITALS: BP 135/84
[2020-08-04] MEDS: hydrOXYzine (VISTARIL/ATARAX) 25 MG capsule/tablet PO PRN ×2 (04:20→16:42)
[2020-08-04] MEDS: MULTIVIT W/MINERALS TAB (THERAGRAN M) PO SCH (05:55)
[2020-08-04 08:00] VITALS: BP 140/81
[2020-08-04] MEDS: NICOTINE PATCH REMOVAL TP SCH (08:05)
[2020-08-04] MEDS: LOSARTAN 25 MG (COZAAR) TAB PO SCH (08:06)
[2020-08-04] MEDS: FOLIC ACID 1 MG TAB PO SCH (08:06)
[2020-08-04] MEDS: THIAMINE 100 MG (VITAMIN B-1) TAB PO SCH ×2 (08:07→20:24)
[2020-08-04] MEDS: ATENOLOL 50 MG (TENORMIN) TAB PO SCH (08:07)
--- NOTE | 2020-08-04 10:34 | Progress Note - Hospitalist ---
Subjective HPI/CC On Admission Date Seen by Provider: Aug 04, 2020 Time Seen by Provider: 09:00 Subjective/Events-last exam Pt doing well Eating and drinking well Feels like she doesn't have her memory anymore Alcoholism has been a significant factor in her decline Awaiting placement by social services manager Review of Systems General: Fatigue, Malaise Neurological: Weakness Objective Exam Vital Signs Vital Signs Date Time Temp Pulse Resp B/P (MAP) Pulse Ox O2 Delivery O2 Flow Rate FiO2 08/04/20 16:00 36.7 68 18 137/78 (97) 100 Room Air Capillary Refill : Less Than 3 SecondsLess Than 3 Seconds General Appearance: No Apparent Distress, WD/WN HEENT: PERRL/EOMI, Normal ENT Inspection, Pharynx Normal, Moist Mucous Membranes Neck: Full Range of Motion, Normal Inspection, Non Tender, Supple, Carotid Bruit Respiratory: Chest Non Tender, Lungs Clear, Normal Breath Sounds, No Accessory Muscle Use, No Respiratory Distress Cardiovascular: Regular Rate, Rhythm, No Edema, No Gallop, No JVD, No Murmur, Normal Peripheral Pulses Gastrointestinal: Normal Bowel Sounds, No Organomegaly, No Pulsatile Mass, Non Tender, Soft Back: Normal Inspection, No CVA Tenderness, No Vertebral Tenderness Extremity: Normal Capillary Refill, Normal Inspection, Normal Range of Motion, Non Tender, No Calf Tenderness, No Pedal Edema Neurologic/Psychiatric: Alert, Oriented x3, No Motor/Sensory Deficits, Normal Mood/Affect, Disoriented Skin: Normal Color, Warm/Dry Lymphatic: No Adenopathy Results/Procedures Lab Patient resulted labs reviewed. Assessment/Plan Assessment and Plan Assess & Plan/Chief Complaint Assessment: Alcoholism Severe debility Confusion Plan: senior living placement per social services manager Clinical Quality Measures DVT/VTE Risk/Contraindication: Risk Factor Score Per Nursin RFS Level Per Nursing on Admit: 3=High CINTHIA LARIOS DO Aug 04, 2020 10:34
--- NOTE | 2020-08-04 12:46 | Progress Note ---
JULIANA BRAGG MED STUDENT 08/04/20 1246: Progress Note Mental status interview: Pt is awake, A&Ox2 to person/place, disoriented to time(2020, June, Tuesday) Memory/Cognition: asked to name 3 objects(pen, paper, clipboard) and recall them 5min later; she was able to recall all 3. HPI: When asked about what brought her to the hospital, she states that she can't remember details but denies LOC. She remembers drinking an unspecified amount of alcohol, falling, and hitting her head. She was taken to the ER because her "neighbors were concerned with her memory". Denies any prior incident similar to this. PMH: HTN, Depression Medications: Paroxetine, Atenolol Allergies: PCN(throat swelling) SH: Drinks 6 beers/day for 10-15yrs. Smokes 1pack/day; 40pack/year hx. 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 YVROSE LARIOS DO 08/04/202053: Supervisory-Addendum Brief Verification & Attestation Participated in pt care: history, MDM, physical Personally performed: exam, history, MDM, supervision of care Care discussed with: Medical Student Procedures: n/a Results interpretation: Verified all documentation Verification and Attestation of Medical Student E/M Service A medical student performed and documented this service in my presence. I reviewed and verified all information documented by the medical student and made modifications to such information, when appropriate. I personally performed the physical exam and medical decision making. Yvrose Larios, Aug 04, 2020,20:54 JULIANA BRAGG MED STUDENT Aug 04, 2020 12:46 YVROSE LARIOS DO Aug 04, 2020 20:54
--- NOTE | 2020-08-04 14:10 | NUR ---
"RD ASSESSMENT PMHx: HTN; TBI; excessive ETOH use PT INTERACTION: Pt was awake and pleasant during nutrition assessment for LOS. Pt states current appetite is good. Note avg PO intake 83% x4d, per chart review. Pt states following a regular diet at home, and has no issues with chewing/swallowing food. Pt states no recent issues with nausea, vomiting, constipation, or diarrhea. Note last BM was 08/03 and pt currently on bowel regimen of senna PRN, per chart review. Pt states no recent wt changes. Note recent 7# wt gain x3mon, per chart review. ABNORMAL NUTRITION-RELATED LAB VALUES LOW: BUN 4; Pro 6.2 HIGH: Est. kcal needs: 1550 kcal | 25 kcal/kg Est. Pro needs: 62 g Pro | 1.0 g Pro/kg PES STATEMENT: Given current PO intake and appetite, no nutrition diagnosis at this time (NO-1.1) INTERVENTION: Continue with current diet order of Regular diet. Will continue to follow and reassess as pt needs, intake, and status change. Anthony Gonzalez, MS, RD, LD"
[2020-08-04 16:00] VITALS: BP 137/78
--- NOTE | 2020-08-04 16:02 | NUR ---
CM/SS: Visited with pt as to [facility] continues to look for a Drug and Alcohol Treatment Placement Plan: Undetermined at this time Summary: Pt remains confused. Wanda from [facility] calls and indicates that they are still seeking placement options for pt. They have one that can take pt on August 20. She thinks there will be another one earlier. Issues as pt has not pay source. Pt is reminded of this. Allegra Villalta - [facility] is contacted - email sent. Pt's mother Lisa is contacted at [phone] - she is able to bring clothes up for pt. She will drop off and not visit as she is having anxiety and issues with her nerves. Telephone Call to son Carlito [phone] - unable to leave a voice mail message. Sent text message for him to call back. No response as of 4:00pm on this date. This worker will follow up.
[2020-08-04] MEDS: ENOXAPARIN 40 MG/0.4 ML (LOVENOX) SYR SC SCH (16:41)
[2020-08-04 23:45] VITALS: BP 126/68
[2020-08-05] MEDS: MULTIVIT W/MINERALS TAB (THERAGRAN M) PO SCH (05:41)
[2020-08-05 05:44] LABS: BASOPHILS % (AUTO) 0 % (0-10); EOSINOPHILS # (AUTO) 0.2 10^3/uL (0.0-0.3); EOSINOPHILS % (AUTO) 3 % (0-10); HEMATOCRIT 42 % (35-52); HEMOGLOBIN 13.9 G/DL (11.5-16.0); LYMPHOCYTES # (AUTO) 2.4 X 10^3 (1.0-4.0); LYMPHOCYTES % (AUTO) 42 % (12-44); MEAN CORPUSCULAR HEMOGLOBIN 32 PG (25-34); MEAN CORPUSCULAR HGB CONC 33 G/DL (32-36); MEAN CORPUSCULAR VOLUME 98 FL (80-99); MEAN PLATELET VOLUME 10.4 FL (7.4-10.4); MONOCYTES # (AUTO) 0.9 X 10^3 (0.0-1.0); MONOCYTES % (AUTO) 15 % (0-12); NEUTROPHILS # (AUTO) 2.3 X 10^3 (1.8-7.8); NEUTROPHILS % (AUTO) 39 % (42-75); PLATELET COUNT 248 10^3/uL (130-400); WHITE BLOOD COUNT 5.7 10^3/uL (4.3-11.0)
[2020-08-05 05:51] LABS: CHLORIDE 104 MMOL/L (98-107); SODIUM 138 MMOL/L (135-145)
[2020-08-05 05:52] LABS: CALCIUM 9.1 MG/DL (8.5-10.1)
[2020-08-05 05:53] LABS: GLUCOSE 102 MG/DL (70-105)
[2020-08-05 05:54] LABS: TOTAL PROTEIN 6.7 GM/DL (6.4-8.2)
[2020-08-05 05:55] LABS: BILIRUBIN,TOTAL 0.2 MG/DL (0.1-1.0); CARBON DIOXIDE 24 MMOL/L (21-32)
[2020-08-05 05:57] LABS: ALKALINE PHOSPHATASE 90 U/L (40-136); CREATININE SERUM 0.69 MG/DL (0.60-1.30); GFR ESTIMATED > 60
[2020-08-05 05:58] LABS: BUN/CREATININE RATIO 16
[2020-08-05 06:00] LABS: ALANINE AMINOTRANSFERASE 49 U/L (0-55)
[2020-08-05] MEDS: hydrOXYzine (VISTARIL/ATARAX) 25 MG capsule/tablet PO PRN ×2 (06:50→16:45)
[2020-08-05 08:00] VITALS: BP 134/81
[2020-08-05] MEDS: ATENOLOL 50 MG (TENORMIN) TAB PO SCH (08:38)
[2020-08-05] MEDS: THIAMINE 100 MG (VITAMIN B-1) TAB PO SCH ×2 (08:38→21:25)
[2020-08-05] MEDS: NICOTINE PATCH REMOVAL TP SCH (08:38)
[2020-08-05] MEDS: NICOTINE 14 MG (NICODERM) PATCH TD PRN (08:38)
[2020-08-05] MEDS: LOSARTAN 25 MG (COZAAR) TAB PO SCH (08:38)
[2020-08-05] MEDS: FOLIC ACID 1 MG TAB PO SCH (08:38)
--- NOTE | 2020-08-05 09:32 | Progress Note - Hospitalist ---
Subjective HPI/CC On Admission Date Seen by Provider: Aug 05, 2020 Time Seen by Provider: 09:00 Subjective/Events-last exam Pt awaiting placement Denies any significant pain Overall feels pretty good Pacing the halls Review of Systems General: Fatigue, Malaise Neurological: Weakness Objective Exam Vital Signs Vital Signs Date Time Temp Pulse Resp B/P (MAP) Pulse Ox O2 Delivery O2 Flow Rate FiO2 08/05/20 15:41 36.6 73 18 132/71 (91) 99 Room Air Capillary Refill : Less Than 3 SecondsLess Than 3 Seconds General Appearance: No Apparent Distress, WD/WN, Chronically ill HEENT: PERRL/EOMI, Normal ENT Inspection, Pharynx Normal, Moist Mucous Membranes Neck: Full Range of Motion, Normal Inspection, Non Tender, Supple, Carotid Bruit Respiratory: Chest Non Tender, Lungs Clear, Normal Breath Sounds, No Accessory Muscle Use, No Respiratory Distress Cardiovascular: Regular Rate, Rhythm, No Edema, No Gallop, No JVD, No Murmur, Normal Peripheral Pulses Gastrointestinal: Normal Bowel Sounds, No Organomegaly, No Pulsatile Mass, Non Tender, Soft Back: Normal Inspection, No CVA Tenderness, No Vertebral Tenderness Extremity: Normal Capillary Refill, Normal Inspection, Normal Range of Motion, Non Tender, No Calf Tenderness, No Pedal Edema Neurologic/Psychiatric: Alert, Oriented x3, No Motor/Sensory Deficits, Normal Mood/Affect Skin: Normal Color, Warm/Dry Lymphatic: No Adenopathy Results/Procedures Lab Laboratory Tests 08/05/20 05:02 Patient resulted labs reviewed. Assessment/Plan Assessment and Plan Assess & Plan/Chief Complaint Assessment: Alcoholism Severe debility Confusion Plan: halfway placement per social service technician 08/05/20: [facility]waiting [facility] at a prison Monitor closely Clinical Quality Measures DVT/VTE Risk/Contraindication: Risk Factor Score Per Nursin RFS Level Per Nursing on Admit: 3=High CINTHIA LARIOS DO Aug 05, 2020 09:32
--- NOTE | 2020-08-05 13:50 | NUR ---
CM/SS: Pt has been accepted to [facility] in [place], [place] - pt will need to be there at 10am - phone number [phone]. Pt will need 30 days of medications to take with her to [facility] Pt's mother is notified and informed that pt will be going to treatment in the morning. Mother contacted so that she can orange picker machine operator the meds from pharmacy and being them to the hospital. She is on board to do so. DCF notified (Allegra Villalta) as pt going to treatment as well as primary care physician (Adina Argueta) [facility] (Jody Wilson) notified by Davina Jang of the transportation to [place] for in the morning. This worker will follow up
[2020-08-05] MEDS ORDERED: THIA100T80 PO (15:15)
[2020-08-05] MEDS ORDERED: ATEN50TA PO (15:15)
[2020-08-05] MEDS ORDERED: FOLI0.8T PO (15:15)
[2020-08-05] MEDS ORDERED: BREX1TAB PO (15:15)
[2020-08-05] MEDS ORDERED: VALS160T29 PO (15:15)
[2020-08-05] MEDS ORDERED: HYDR-3781 PO (15:15)
[2020-08-05] MEDS: ENOXAPARIN 40 MG/0.4 ML (LOVENOX) SYR SC SCH (15:23)
[2020-08-05 15:41] VITALS: BP 132/71
--- NOTE | 2020-08-05 20:34 | NUR ---
CM/SS: Pt is reminded of the plan for tomorrow. Pt is wished well. Pt seems unsure of going, but knows that is best for at this time. Pt is reassured. This worker prays with pt and pt reports feeling better. This worker and pt go and talk with BONNY Min about plan - mother bringing meds for pt. and poultry picking machine tender time in the morning. Pt is reassured. Pt thanks this worker for all of her help. Pt is wished well, and reassured she will do well.
[2020-08-06] VITALS: BP 128/82
[2020-08-06] MEDS: MULTIVIT W/MINERALS TAB (THERAGRAN M) PO SCH (05:21)
--- NOTE | 2020-08-06 06:14 | NUR ---
MARYAM WATSON demonstrates understanding of discharge instructions and accurately returns instructions upon questioning. Copy of Post-Discharge Instructions given to STAFF FROM [facility] [place]. MARYAM WATSON is/is not able to manage continuing needs after discharge. Patients belongings, MEDICATIONS AND CIGARETTES returned to PT. Patient discharged from 422-1 on at . MARYAM WATSON left floor via WALKING , accompanied by STAFF FROM [facility] [place] .
--- NOTE | 2020-08-06 09:17 | Discharge Summary ---
Discharge Summary Hospital Course Was the Problem List Reviewed?: Yes Problems/Dx: (1) Altered mental status Status: Chronic Qualifiers: Qualified Codes: R41.0 - Disorientation, unspecified (2) Alcoholism Status: Chronic (3) Hypertension Status: Chronic Qualifiers: Qualified Codes: I10 - Essential (primary) hypertension Hospital Course Date of Admission: Jul 29, 2020 at 11:14 Admission Diagnosis : Family Physician/Provider[place] [place] Date of Discharge: 08/06/20 Discharge Diagnosis: AMS, ETOHism Hospital Course: Patient had a brief course after admitted for AMS related to alcoholism. Patient was stabilized and ultimately was placed in treatment center and DC in improved condition. Labs and Pending Lab Test: Home Meds Active Folic Acid 0.8 Mg Tablet 0.8 Mg PO DAILY Vitamin B-1 (Thiamine HCl) 100 Mg Tablet 100 Mg PO BID Hydroxyzine Pamoate 25 Mg Capsule 25 Mg PO Q8HR PRN Valsartan 160 Mg Tablet 160 Mg PO DAILY LAST FILLED 05-08-2020 #30/ DAY SUPPLY Atenolol 50 Mg Tablet 50 Mg PO DAILY Rexulti (Brexpiprazole) 1 Mg Tablet 1 Mg PO DAILY Assessment/Pt Instructions [facility] 2 weeks after rehab Discharge Planning: <30 minutes discharge planning Discharge Instructions Discharge Diet: No Restrictions Pneumonia Vaccine Order Indica: Yes Discharge Physical Examination Vital Signs Vital Signs Date Time Temp Pulse Resp B/P (MAP) Pulse Ox O2 Delivery O2 Flow Rate FiO2 08/06/20 00:00 36.5 74 18 128/82 (97) 100 Room Air General Appearance: No Apparent Distress, WD/WN, Chronically ill Allergies: Coded Allergies: Penicillins (Verified Allergy, Unknown, 12/12/17) Discharge Summary Date of Admission Jul 29, 2020 at 11:14 Date of Discharge Aug 06, 2020 at 06:00 Discharge Date: Aug 06, 2020 Discharge Diagnosis Assessment: Alcoholism Severe debility Confusion Plan: prison placement per social staff worker 08/05/20: Awaiting placement at a shelter Monitor closely Clinical Quality Measures DVT/VTE Risk/Contraindication: Risk Factor Score Per Nursin RFS Level Per Nursing on Admit: 3=High CINTHIA LARIOS DO Aug 06, 2020 09:17
--- NOTE | 2020-08-06 12:21 | NUR ---
CM/SS: Telephone call to Lisa Moreira [phone], mother of pt. Updated her on pt's arrival to [facility]. She reported that she received a text message from pt. She is given the address of the [facility], informed about disability appointment on 08/21 at 1pm and pending [facility] Medicaid application. She expressed appreciation for this worker helping the pt. She and pt are wished well.
== END 2020-08-06 06:00 ==
LOC: EDUNIT# 08:46 → ER 08:49 → 4TH 11:14
PROVIDERS: ADMIT Family Medicine; ATTEND Internal Medicine
DX: R41.82 Altered mental status, unspecified (principal); F10.959 Alcohol use, unspecified with alcohol-induced psychotic disorder, unspecified; I10 Essential (primary) hypertension; F32.9 Major depressive disorder, single episode, unspecified; F17.210 Nicotine dependence, cigarettes, uncomplicated; Z79.899 Other long term (current) drug therapy; Z88.0 Allergy status to penicillin; Z20.828 Contact with and (suspected) exposure to other viral communicable diseases
CPT/HCPCS: 70450; 70551; 71045; 80053 ×3; 80306; 81000; 82140; 82607; 83880; 84484; 85025 ×2; 85027; 93005; 96374; 99284; G0378; G0480; U0002; 36415; 80320; 87635

== ENCOUNTER → 2021-02-26 | Outpatient (CLI) | payer OTHER ==
[~2021-02-26] MED LIST changes: +FOLI0.8T4 PO; +HYDR-3781 PO; -LISI-552 PO; +LISI20TA26 PO; +THIA100T80 PO; +VALS160T29 PO
--- NOTE | 2021-02-26 10:35 | Diagnostic Imaging Report ---
INDICATION: Fall. History of fracture. COMPARISON: 12/12/2017 FINDINGS: Frontal and lateral radiographic views of the left knee were obtained and show postsurgical changes of interval ORIF. Orthopedic sideplate and screws are seen traversing the proximal margins of the medial and lateral tibia. There is hyperdense material within the proximal tibia as well, which may be on the basis of injected cement. No unexpected radiopaque foreign bodies are seen. Chronic deformity of the lateral tibial plateau is noted. There is also chronic deformity of the proximal mid tibial shaft, also suggestive of old healed fracture. Old healed fracture of the proximal fibula is also present. There is no evidence of new acute fracture or dislocation. Tibiofemoral joint space is maintained. There may be small joint effusion. IMPRESSION: 1. Postsurgical changes of the proximal tibia with old healed fractures of the tibia and fibula. 2. No new acute fracture or dislocation of the left knee. 3. Small suprapatellar joint effusion. Dictated by: Dictated on workstation # [id number]
== END ==
LOC: RAD 10:12
PROVIDERS: ATTEND Anesthesiology Pain Medicine
DX: Z02.71 Encounter for disability determination (principal); M25.462 Effusion, left knee
CPT/HCPCS: 73560

== ENCOUNTER → 2021-03-03 | Outpatient (CLI) | payer MEDICAID, OTHER ==
--- NOTE | 2021-03-03 13:11 | Diagnostic Imaging Report ---
PROCEDURE: MR imaging cervical spine without contrast. TECHNIQUE: Multiplanar, multisequence MR imaging of the cervical spine was performed without contrast. INDICATION: Cervical neuritis, neck pain. COMPARISON: MRI cervical spine from 04/28/2020. FINDINGS: Alignment of the cervical spine is unchanged with approximately 2 mm of retrolisthesis of C5 on C6. No new spondylolisthesis. No fracture or marrow-replacing process. There is degenerative spinal stenosis at C5-C6 which is worsened since prior examination and there now appears to be some mild mass effect on the cervical cord both anteriorly and posteriorly. The cervical cord has a slight increased signal intensity at this level extending over a craniocaudal length of approximately 1 cm, suggestive of spondylotic myelopathy. C2-C3: No spinal canal or neuroforaminal narrowing. C3-C4: No spinal stenosis. [id number] right foraminal narrowing due to uncovertebral joint hypertrophy and facet osteoarthritis is unchanged. C4-C5: Central and left paracentral disc protrusion flattens the ventral thecal sac causing mild spinal stenosis is unchanged. Mild bilateral foraminal stenosis is unchanged. C5-C6: Severe spinal stenosis has worsened due to central disc protrusion and ligamentum flavum hypertrophy compressing the spinal canal from both anterior and posterior. Uncovertebral joint hypertrophy causes severe bilateral foraminal narrowing, similar to prior examination. C6-C7: Small central disc protrusion causes mild spinal stenosis. Mild left neuroforaminal narrowing due to uncovertebral joint hypertrophy is unchanged. C7-T1: No spinal canal or foraminal narrowing. IMPRESSION: 1. Progression of spinal stenosis at C5-C6 due to disc protrusion and ligamentum flavum hypertrophy now causing severe stenosis with mass effect on the cervical cord. There is suggestion of subtle increased T2 hyperintense signal within the cervical cord at this level due to spondylotic myelopathy. Dictated by: Dictated on workstation # [id number]
== END ==
LOC: RAD 10:11
PROVIDERS: ATTEND Nurse Practitioner Community Health
DX: M48.02 Spinal stenosis, cervical region (principal); M50.122 Cervical disc disorder at C5-C6 level with radiculopathy; M47.12 Other spondylosis with myelopathy, cervical region; M47.22 Other spondylosis with radiculopathy, cervical region
CPT/HCPCS: 72141

== ENCOUNTER → 2021-05-06 | Outpatient (CLI) | payer MEDICAID ==
--- NOTE | 2021-05-06 15:28 | Diagnostic Imaging Report ---
INDICATION: Cervical spinal stenosis. TIME OF EXAM: 1:59 PM. TECHNIQUE: AP, lateral, and flexion and extension lateral views of the cervical spine were obtained. FINDINGS: The neutral view does show some minimal anterolisthesis of C3 on C4 and minimal retrolisthesis of C5 on C6. There is generalized degenerative disc disease with variable disc space narrowing and marginal spurring. The flexion view demonstrates questionable minimal anterolisthesis of C4 on C5. There may be a slight increase in the degree of anterolisthesis at C3-C4 as well during flexion. The extension views appear similar to the neutral views. The prevertebral tissues are within normal limits. No fractures are seen. IMPRESSION: Cervical spondylosis and listheses. There may be slight motion during flexion, as described. Dictated by: Dictated on workstation # [id number]
== END ==
LOC: RAD 13:45
PROVIDERS: ATTEND Neurological Surgery
DX: M47.812 Spondylosis without myelopathy or radiculopathy, cervical region (principal); M48.02 Spinal stenosis, cervical region; M43.12 Spondylolisthesis, cervical region
CPT/HCPCS: 72050

== ENCOUNTER 2021-10-05 05:38 | Outpatient (CLI) | payer MEDICAID ==
[~2021-10-05] VITALS: Ht 162.6 cm; Wt 80.6 kg
[2021-10-05] MEDS ORDERED: AMLO-251 PO (14:32)
[2021-10-05] MEDS ORDERED: BACL10TA PO (14:32)
[2021-10-05] MEDS ORDERED: GABA-486 PO (14:32)
[2021-10-05] MEDS ORDERED: AMIT50TA3 PO (14:32)
[2021-10-05] MEDS ORDERED: MELO5CAP3 PO (14:32)
== END 2021-10-06 08:18 | disposition home or self-care (01) ==
LOC: PREOP 05:38
PROVIDERS: ATTEND Surgery
DX: Z01.818 Encounter for other preprocedural examination (principal)

== ENCOUNTER 2021-10-19 10:31 | Day surgery (SDC) | payer MEDICAID ==
[~2021-10-19] VITALS: Ht 162.6 cm; Wt 80.6 kg
[~2021-10-19 10:31] MED LIST changes: +AMIT50TA3 PO; +AMLO-251 PO; +BACL10TA PO; +GABA-486 PO; +MELO5CAP3 PO
[2021-10-19] MEDS ORDERED: LACTATED RINGERS 1,000 ML IV STA (10:32)
[2021-10-19 10:52] VITALS: BP 125/82
--- NOTE | 2021-10-19 11:24 | Progress Note-Pre Operative ---
Pre-Operative Progress Note H&P Reviewed The H&P was reviewed, patient examined and no changes noted. Time Seen by Provider: 11:22 Date H&P Reviewed: Oct 19, 2021 Time H&P Reviewed: : Pre-Operative Diagnosis: Screening colon NIEVES SUN DO Oct 19, 2021 11:23
[2021-10-19] MEDS ORDERED: PROPOFOL INJECTION 50 ML IV ONE (11:40)
[2021-10-19] MEDS ORDERED: proPOfol 200 MG/20 ML (DIPRIVAN) VIAL IV ONE (12:06)
--- NOTE | 2021-10-19 12:18 | Progress Note-Post Operative ---
Post-Operative Progess Note Surgeon (s)/Cementer Hand (s) Surgeon NIEVES SUN DO Cementer Hand: BING Jacinto Pre-Operative Diagnosis Screening colon Post-Operative Diagnosis polyps diverticula int hemorrhoids Procedure & Operative Findings Date of Procedure 10/19/21 Procedure Performed/Findings Colon with cold bx PROCEDURE NOTE: After informed consent was obtained, the patient was brought to the endoscopy suite, placed in bed in left lateral decubitus position. She was administered IV sedation by the VASCULAR TECHNOLOGIST SONOGRAPHER who then monitored her vitals the entire time, heart rate, blood pressure and pulse ox and the scope was inserted, pushed all the way to about 150 cm and pushed into the cecum. On the way in, in the transverse colon saw a polyp and elected to do a cold biopsy. I also thought I found larger polyp in the Ascending colon, but when I came back to snare it; couldn't find it. Once in the Cecum I took a picture of appendiceal orifice and then slowly withdrew the scope insufflating to look circumferentially at the reaves starting in the cecum, up the ascending colon to the hepatic flexure, then down the transverse colon, splenic flexure, into the descending colon down in the sigmoid and then into the rectal vault and retroflexed the scope. Took picture of the internal hemorrhoids. Had also taken pictures of diverticula on the way in. The patient tolerated the procedure. She was recovered in endoscopy suite. Anesthesia Type IV sedation by anesthesia Estimated Blood Loss Estimated blood loss (mL): scant Specimens/Packing Specimens Removed transverse colon polyp NIEVES SUN DO Oct 19, 2021 12:18
[2021-10-19 12:19] VITALS: BP 127/84
--- NOTE | 2021-10-19 12:19 | Endoscopy Discharge Instruct ---
Endo Procedure/Findings Findings 1.: Polyp 2.: Diverticulosis 3.: Internal Hemorrhoids Discharge Instructions - Activity: You might feel a little sleepy until tomorrow. This is due to the medicine you received to relax you. Until tomorrow, you should: NOT drive a car, operate machinery or power tools. NOT drink any alcoholic beverages. NOT make any important decisions or sign importortant papers. Do not return to work until tomorrow, unless otherwise instructed. Resume previous activities tomorrow. Diet: Start by taking liquids. If you tolerate liquids, advance to solid food. 1.: Colonoscopy in 1 year (because I thought I saw a large polyp, that will need at least biopsy if not removal) Notify Physician - If you experience excessive bleeding, unusual abdominal pain, fever, or chest pain, contact your doctor immediately. NIEVES SUN DO Oct 19, 2021 12:19
[2021-10-19 12:40] VITALS: BP 120/87
[2021-10-19 12:54] VITALS: BP 120/87
--- NOTE | 2021-10-19 13:11 | Anesthesia-General Post-Op ---
MAC Patient Condition Mental Status/LOC: Same as Preop Cardiovascular: Satisfactory Nausea/Vomiting: Absent Respiratory: Satisfactory Pain: Controlled Complications: Absent Post Op Complications Complications None Follow Up Care/Instructions Patient Instructions None needed. Anesthesiology Discharge Order Discharge Order Patient was doing well after the procedure with no complaints, stable vital signs, no apparent adverse anesthesia problems. CARLA MEREDITH DO Oct 19, 2021 13:11
== END 2021-10-19 12:54 | disposition home or self-care (01) ==
LOC: ENDO 10:31
PROVIDERS: ATTEND Surgery
DX: Z12.11 Encounter for screening for malignant neoplasm of colon (principal); K21.9 Gastro-esophageal reflux disease without esophagitis; F32.9 Major depressive disorder, single episode, unspecified; D12.3 Benign neoplasm of transverse colon; K64.8 Other hemorrhoids; K57.30 Diverticulosis of large intestine without perforation or abscess without bleeding; I10 Essential (primary) hypertension; F17.210 Nicotine dependence, cigarettes, uncomplicated; F41.9 Anxiety disorder, unspecified; F32.A Depression, unspecified; Z79.899 Other long term (current) drug therapy
CPT/HCPCS: 88305

== ENCOUNTER → 2022-01-18 | Outpatient (CLI) | payer MEDICAID ==
--- NOTE | 2022-01-18 13:53 | Diagnostic Imaging Report ---
INDICATION: Followup neck surgery. TIME OF EXAM: 1:19 PM Correlation is made with prior cervical spine radiograph from 05/06/2021. Since prior study, the patient has undergone ACDF with anterior plate and screws transfixing C5-C6 level. The hardware appears intact without fracture or loosening. Questionable slight motion at the C3-C4 level with anterolisthesis C3 on C4 during flexion is again noted. There may be slight motion at the C4-C5 level as well, similar to prior study. These reduce on extension views. Prevertebral tissues are normal. Odontoid is intact. No fractures are seen. IMPRESSION: 1. Postop changes of C5-C6 ACDF. No complication is seen. 2. Minimal motion at the C3-C4 and C4-C5 levels, as described. Dictated by: Dictated on workstation # [id number]
== END ==
LOC: RAD 13:07
PROVIDERS: ATTEND Neurological Surgery
DX: Z48.89 Encounter for other specified surgical aftercare (principal); Z98.1 Arthrodesis status
CPT/HCPCS: 72050